=== PATIENT | female | born 1935 | race Caucasian/White ===

== ENCOUNTER → 2016-10-19 | Outpatient (CLI) | payer OTHER ==
[~2016-10-19] MED LIST: ACET-1256 PO; CALCTAB7 PO; CEFD300C2 PO; CHOL100027 PO; CRAN1CHW PO; CYAN500T PO; HYDR-3419 PO; METO25TA56 PO; MISCCAP80 PO; MULTTAB PO; RIVA1.5T PO; SLWMEC PO
[2016-10-19 13:59] LABS: CHOLESTEROL/HDL RATIO 2.5
== END | disposition home or self-care (01) ==
LOC: C.LABPVFM 15:07
PROVIDERS: ATTEND Nurse Practitioner Adult Health
DX: M81.0 Age-related osteoporosis without current pathological fracture (principal); C85.90 Non-Hodgkin lymphoma, unspecified, unspecified site; Z13.220 Encounter for screening for lipoid disorders

== ENCOUNTER 2016-11-24 08:33 | Emergency (ER) | payer OTHER ==
[~2016-11-24] VITALS: Ht 162.6 cm; Wt 61.5 kg
[~2016-11-24 08:33] MED LIST changes: -CEFD300C2 PO; -HYDR-3419 PO
[2016-11-24 08:43] VITALS: TEMP 36.9; Ht 162.6 cm; Wt 61.5 kg
[2016-11-24] MEDS ORDERED: SODIUM CHLORIDE 0.9% 1000ML 500 ML IV STA (09:06)
[2016-11-24] MEDS ORDERED: SODIUM CHLORIDE 0.9% 1000ML 1,000 ML IV ONE (09:06)
--- NOTE | 2016-11-24 09:13 | EMERGENCY ROOM VISIT NOTE ---
History Report prepared by Dany: Chelly Lockwood Under the Supervision of: Dr. Hemant Maldonado M.D. First contact with patient: 08:56 Chief Complaint: URINARY SYMPTOMS Stated Complaint: POSSIBLE UTI Nursing Triage Summary: Pt reports since this morning she has had symptoms that are consistent with when she gets a uti. Pt reports "i get this funny feeling down there and it goes up." pt reportS "i just know i have one." History of Present Illness The patient is an 81 year old female who presents to the Emergency Room with complaints of persistent urinary symptoms that began this morning. She currently rates her discomfort as a 3/10 in severity. The patient states that she last had a UTI around [place] time. She states that this morning she felt a strange feeling throughout her whole body and states that she wanted to get this taken care of prior it getting worse. The patient states that she has been experiencing back aches and a cough today. She denies any chest pain, shortness of breath, lightheadedness, dizziness, burning with urination, fevers , chills, nausea, vomiting, weakness, hematuria, hematochezia, melena, or recent falls. The patient notes a history of atrial fibrillation and Lymphoma. She states that she is on Xarelto for her atrial fibrillation. The patient states that she is currently undergoing maintenance chemotherapy for her Lymphoma. She states that her last treatment was three months ago, and states that her next treatment is scheduled for the beginning of December. The patient states that she has a port. She notes that she follows with Dr. Callahan, Oncology for her Lymphoma. Source of History: patient Onset: this morning Position: other (global) Symptom Intensity: 3/10 Quality: other (urinary symptoms) Timing: other (persistent) Associated Symptoms: + back pain, + cough, No SOB, No chest pain, No chills , No fevers, No hematochezia, No melena, No nausea, No vomiting, No weakness Note: Associated Symptoms: Strange feeling in body Review of Systems See HPI for pertinent positives & negatives. A total of 10 systems reviewed and were otherwise negative. 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 Nurse's notes were reviewed and I agree with. Family History Cancer Heart disease Hypertension Social History Smoking Status: Former Smoker Alcohol Use: occasionally Drug Use: none Marital Status: Housing Status: lives alone Occupation Status: retired Current/Historical Medications Scheduled Acetaminophen (Tylenol), 1,000 MG PO DAILY Calcium Carbonate-Vitamin D W/ (Caltrate 600 Plus), 1 TAB PO QAM Cefdinir (Omnicef), 1 CAP PO BID Cholecalciferol (Vitamin D 1000 Unit), 1,000 INTER.UNIT PO LUNCH Cranberry (Vaccinium Macrocarp (Cranberry Soft Chews), Unknown Dose PO DAILY Cyanocobalamin (Vitamin B-12), 500 MCG PO 2XW Magnesium Chloride (Mag64), 2 TABS PO TID Metoprolol Tartrate (Lopressor) (Lopressor), 25 MG PO DAILY Multivitamins/Minerals (Mvi With Minerals), 1 TAB PO QAM Probiotic Product (Probiotic), 1 CAP PO TID Rivaroxaban (Xarelto), 15 MG PO QAM Allergies Coded Allergies: Antihistamines, Diphenhydramine-typ (Verified Allergy, Severe, ALL ANTIHISTAMINES-"HYPER" FEELING, 11/24/16) Allopurinol (Verified Allergy, Intermediate, RASH-SEVERE ITCHING, 11/24/16) Physical Exam Vital Signs Date Time Temp Pulse Resp B/P Pulse Ox O2 Delivery O2 Flow Rate FiO2 11/24/16 11:40 50 18 148/69 98 11/24/16 10:34 46 18 166/68 99 Room Air 11/24/16 08:43 36.9 48 18 138/74 96 Room Air Physical Exam General: Well developed well nourished non-ill appearing older female in no acute distress, breathing comfortably on room air. Normal speech HEENT: Normal cephalic atraumatic. Pupils are equal round and reactive to light. Extraocular movements are intact. Oropharynx is pink with moist mucous membranes. No swelling of the mouth lips or tongue. Neck: Supple with a midline trachea. No meningeal signs or stiffness, no JVD or bruits. No Stridor. Chest wall: A port in left chest. Chest: Clear to auscultation bilaterally. No wheezes or rhonchi. No increased work of breathing. Heart: regular rate and rhythm. Abdomen: Soft nontender, nondistended without rebound guarding or rigidity. Extremities: No cyanosis clubbing or edema. No calf tenderness or assymetry Spine/Back. Non tender to palpation. No CVA tenderness Skin: Good turgor without rashes. Neurologic exam: Cranial nerves two through 12 are intact. Motor and sensation are intact and symmetrical throughout. Medical Decision & Procedures ER Provider Diagnostic Interpretation: X-ray results as stated below per interpretation by me and the radiologist: SINGLE VIEW CHEST CLINICAL HISTORY: Atypical chest pain. FINDINGS: An AP, portable, upright chest radiograph is compared to study dated 09/29/2016. The examination is degraded by portable technique and patient rotation. A left subclavian central venous infusion port is unchanged in position. The heart is enlarged and there is atherosclerotic calcification of the thoracic aorta. The pulmonary vasculature is noncongested. Chronic interstitial thickening similar to previous. No airspace consolidation, large pleural effusion, or pneumothorax is seen. The skeletal structures are osteopenic. The bony thorax is grossly intact. IMPRESSION: Cardiomegaly with no acute cardiopulmonary abnormality. Electronically signed by: Juan Medina M.D. 11/24/2016 10:06 AM Dictated Date/Time: 11/24/2016 10:06 AM Laboratory Results 11/24/16 09:45 Red Blood Count 3.43, Mean Corpuscular Volume 95.0, Mean Corpuscular Hemoglobin 31.5, Mean Corpuscular Hemoglobin Concent 33.1, Mean Platelet Volume 11.4, Neutrophils (%) (Auto) 82.1, Lymphocytes (%) (Auto) 6.6, Monocytes (%) (Auto) 9.0, Eosinophils (%) (Auto) 1.9, Basophils (%) (Auto) 0.2, Neutrophils # (Auto) 4.72, Lymphocytes # (Auto) 0.38, Monocytes # (Auto) 0.52, Eosinophils # (Auto) 0.11, Basophils # (Auto) 0.01 11/24/16 09:45 Test 11/24/16 09:00 11/24/16 09:45 11/24/16 09:49 Urine Color YELLOW Urine Appearance CLOUDY (CLEAR) Urine pH 5.0 (4.5-7.5) Urine Specific [place] 1.012 (1.000-1.030) Urine Protein 1+ (NEG) Urine Glucose (UA) NEG (NEG) Urine Ketones NEG (NEG) Urine Occult Blood 3+ (NEG) Urine Nitrite POS (NEG) Urine Bilirubin NEG (NEG) Urine Urobilinogen NEG (NEG) Urine Leukocyte Esterase LARGE (NEG) Urine WBC (Auto) >30 /hpf (0-5) Urine RBC (Auto) >30 /hpf (0-4) Urine Hyaline Casts (Auto) 1-5 /lpf (0-5) Urine Epithelial Cells (Auto) >30 /lpf (0-5) Urine Bacteria (Auto) 3+ (NEG) White Blood Count 5.75 K/uL (4.8-10.8) Red Blood Count 3.43 M/uL (4.2-5.4) Hemoglobin 10.8 g/dL (12.0-16.0) Hematocrit 32.6 % (37-47) Mean Corpuscular Volume 95.0 fL (80-100) Mean Corpuscular Hemoglobin 31.5 pg (25-34) Mean Corpuscular Hemoglobin Concent 33.1 g/dl (32-36) Platelet Count 153 K/uL (130-400) Mean Platelet Volume 11.4 fL (7.4-10.4) Neutrophils (%) (Auto) 82.1 % Lymphocytes (%) (Auto) 6.6 % Monocytes (%) (Auto) 9.0 % Eosinophils (%) (Auto) 1.9 % Basophils (%) (Auto) 0.2 % Neutrophils # (Auto) 4.72 K/uL (1.4-6.5) Lymphocytes # (Auto) 0.38 K/uL (1.2-3.4) Monocytes # (Auto) 0.52 K/uL (0.11-0.59) Eosinophils # (Auto) 0.11 K/uL (0-0.5) Basophils # (Auto) 0.01 K/uL (0-0.2) RDW Standard Deviation 48.2 fL (36.4-46.3) RDW Coefficient of Variation 13.9 % (11.5-14.5) Immature Granulocyte % (Auto) 0.2 % Immature Granulocyte # (Auto) 0.01 K/uL (0.00-0.02) Anion Gap 7.0 mmol/L (3-11) Est Creatinine Clear Calc Drug Dose 42.4 ml/min Estimated GFR () 69.5 Estimated GFR (Non- 60.0 BUN/Creatinine Ratio 35.9 (10-20) Calcium Level 8.8 mg/dl (8.5-10.1) Total Bilirubin 0.3 mg/dl (0.2-1) Direct Bilirubin < 0.1 mg/dl (0-0.2) Aspartate Amino Transf (AST/SGOT) 26 U/L (15-37) Alanine Aminotransferase (ALT/SGPT) 30 U/L (12-78) Alkaline Phosphatase 133 U/L (45-117) Total Protein 6.7 gm/dl (6.4-8.2) Albumin 3.2 gm/dl (3.4-5.0) Lipase 209 U/L (73-393) Bedside Troponin I 0.000 ng/ml (0-0.045) Laboratory studies as stated above per my review. Medications Administered Medications (Trade) Dose Ordered Sig/Adrian Route Start Time Stop Time Status Last Admin Dose Admin Sodium Chloride 500 ml @ 999 mls/hr Q31M STAT IV 11/24/16 09:06 11/24/16 09:36 DC 11/24/16 09:55 999 MLS/HR Sodium Chloride (Nss 1000ml) 1,000 ml @ 150 mls/hr Q6H40M ONCE IV 11/24/16 09:06 11/24/16 11:57 DC 11/24/16 10:33 150 MLS/HR Ceftriaxone Sodium (Rocephin Inj) 1 gm NOW STAT IV 11/24/16 10:30 11/24/16 10:32 DC 11/24/16 10:38 1 GM ECG Indication: other (urinary symptoms) Rate (beats per minute): 46 Rhythm: sinus bradycardia Findings: no acute ischemic change, no ectopy Comparison ECG Date: 09/29/16 Change: EKG Change: When compared to EKG on 09/29/16, rate has decreased. ED Course 0858: Past medical records reviewed. The patient was evaluated in room A12B, and a complete history and physical examination were performed. 0906: Ordered Sodium Chloride 1000 ml @ 150 mls/hr IV, Sodium Chloride 500 ml @ 999 mls/hr IV. 1030: Ordered Rocephin Inj 1 gm IV. 1032: I reevaluated the patient and she is resting comfortably. 1118: I reevaluated the patient and she is doing well. I discussed the exam findings with her and I discussed the treatment plan. She verbalized complete understanding and agreement. She is ready to go home. Medical Decision Differentials include, but are not limited to; UTI, pyelonephritis, arrhythmia, infection, anemia, electrolyte or metabolic abnormality. This patient comes in as described above. She was placed in room A 12. She is here for concern for urinary tract infection. She is a generalized weakness but has no UTI symptoms she says this is how she always feels which is UTI. She looks well on exam she has a complicated medical history and been treated for lymphoma. She has an a port. Her a port was accessed was hydrated with IV normal saline. EKG and multiple blood tests was obtained as well as urinalysis and culture. She was found of some sinus bradycardia which is chronic other she may be slightly more bradycardic. She is asymptomatic with this is normotensive. She has no significant electrolyte or metabolic abnormality and nothing to suggest sepsis. she has nothing to suggest pyonephritis clinically. Her urinalysis does suggest a UTI with a culture pending. She was given Rocephin 1 g IV and we'll send home on Omnicef 300 mg for 7 days she should rest and drink plenty of fluids return if: fever chills, not tolerating fluids, worsening of symptoms, any new problems concerns. Follow-up with her regular doctor Sunday for recheck or return here over the weekend if symptoms worsen Impression Primary Impression: Weakness Additional Impression: UTI (urinary tract infection) Scribe Attestation The scribe's documentation has been prepared under my direction and personally reviewed by me in its entirety. I confirm that the note above accurately reflects all work, treatment, procedures, and medical decision making performed by me. Departure Information Dispostion Home / Self-Care Prescriptions Cefdinir (OMNICEF) 300 Mg Cap 1 CAP PO BID for 7 Days, #14 CAP Prov: Hemant Maldonado M.D. 11/24/16 Referrals Pro,Marko Barroso M.D. (PCP) Forms HOME CARE DOCUMENTATION FORM, IMPORTANT VISIT INFORMATION Patient Instructions My [facility] [employer] Additional Instructions Rest. Drink plenty of fluids. Use Omnicef 300 mg twice a day for 7 daysantibiotic Return if: Worsening of symptoms, fever chills, lightheadedness or dizziness, back pain, any new problems or concerns Follow-up with your doctor Sunday for recheck or return to the ER over the weekend if symptoms worsen Problem Qualifiers
[2016-11-24 09:34] LABS: URINE APPEARANCE CLOUDY (CLEAR); URINE BILIRUBIN NEG (NEG); URINE COLOR YELLOW; URINE EPITHELIAL CELL AUTO >30 /lpf (0-5); URINE NITRITE POS (NEG); URINE SPECIFIC GRAVITY 1.012 (1.000-1.030); UROBILINOGEN NEG (NEG)
[2016-11-24 09:56] LABS: MANUAL MICROSCOPIC REQUIRED? NO; REVIEW REQ? NO
[2016-11-24 09:58] LABS: BASO % 0.2 %; BASO ABS # 0.01 K/uL (0-0.2); COMPLETE YES; EOS % 1.9 %; HEMATOCRIT 32.6 % (37-47); IG% 0.2 %; LYMPH % 6.6 %; LYMPH ABS # 0.38 K/uL (1.2-3.4); MEAN CORPUSCULAR HEMOGLOBIN 31.5 pg (25-34); MEAN CORPUSCULAR HGB CONC 33.1 g/dl (32-36); MEAN PLATELET VOLUME 11.4 fL (7.4-10.4); NEUT % 82.1 %; PLATELET COUNT 153 K/uL (130-400); RED BLOOD COUNT 3.43 M/uL (4.2-5.4); WHITE BLOOD COUNT 5.75 K/uL (4.8-10.8)
--- NOTE | 2016-11-24 10:08 | DIAGNOSTIC IMAGING REPORT ---
SINGLE VIEW CHEST CLINICAL HISTORY: Atypical chest pain. FINDINGS: An AP, portable, upright chest radiograph is compared to study dated 09/29/2016. The examination is degraded by portable technique and patient rotation. A left subclavian central venous infusion port is unchanged in position. The heart is enlarged and there is atherosclerotic calcification of the thoracic aorta. The pulmonary vasculature is noncongested. Chronic interstitial thickening similar to previous. No airspace consolidation, large pleural effusion, or pneumothorax is seen. The skeletal structures are osteopenic. The bony thorax is grossly intact. IMPRESSION: Cardiomegaly with no acute cardiopulmonary abnormality. Electronically signed by: Juan Medina M.D. 11/24/2016 10:06 AM Dictated Date/Time: 11/24/2016 10:06 AM
[2016-11-24 10:18] LABS: BLOOD UREA NITROGEN 32 mg/dl (7-18); BUN/CREATININE RATIO 35.9 (10-20); CALCIUM 8.8 mg/dl (8.5-10.1); CARBON DIOXIDE 23 mmol/L (21-32); CHLORIDE 114 mmol/L (98-107); GLUCOSE 76 mg/dl (70-99); POTASSIUM 4.7 mmol/L (3.5-5.1); SODIUM 144 mmol/L (136-145)
[2016-11-24 10:21] LABS: ALKALINE PHOSPHATASE 133 U/L (45-117); ALT/SGPT 30 U/L (12-78); AST/SGOT 26 U/L (15-37)
[2016-11-24] MEDS ORDERED: CEFTRIAXONE SOD INJ 1 GM ADDVIAL IV STA (10:30)
[2016-11-24] MEDS ORDERED: CEFD300C2 PO (10:57)
[2016-11-24 11:40] VITALS: BP 148/69; PULSE 50; O2SAT 98
== END 2016-11-24 11:41 | disposition home or self-care (01) ==
LOC: C.EDB 08:34 → C.EDA 11:41
DX: N39.0 Urinary tract infection, site not specified (principal); R53.1 Weakness; Z87.440 Personal history of urinary (tract) infections; R00.1 Bradycardia, unspecified; C85.90 Non-Hodgkin lymphoma, unspecified, unspecified site; I48.91 Unspecified atrial fibrillation; M81.0 Age-related osteoporosis without current pathological fracture; Z85.3 Personal history of malignant neoplasm of breast; Z90.710 Acquired absence of both cervix and uterus; Z87.891 Personal history of nicotine dependence; Z79.899 Other long term (current) drug therapy; Z88.8 Allergy status to other drugs, medicaments and biological substances; Z80.9 Family history of malignant neoplasm, unspecified; Z82.49 Family history of ischemic heart disease and other diseases of the circulatory system

== ENCOUNTER 2017-01-04 09:47 | Day surgery (SDC) | payer OTHER ==
[2016-12-19 13:51] VITALS: BMI 23.0
[~2017-01-04] VITALS: Ht 162.6 cm; Wt 60.9 kg
[~2017-01-04 09:47] MED LIST changes: +ATROPINE SULFATE 0.1 MG/ML 5ML SYR IV PRN; +EpHEDrine SULFATE INJ 50 MG/ML AMP IV PRN; +FENTANYL CITRATE INJ 50 MCG/1 ML 2 ML VIAL IV PRN; +HYDROmorphone INJ 1 MG/ML SYR IV PRN; +LACTATED RINGER'S 1000ML 1,000 ML IV SCH; +ONDANSETRON INJ 2 MG/ML 2 ML VIAL IV PRN
[2017-01-04 10:21] LABS: HEMATOCRIT 35.7 % (37-47); MEAN CELL VOLUME 95.5 fL (80-100); MEAN CORPUSCULAR HEMOGLOBIN 30.7 pg (25-34); MEAN PLATELET VOLUME 10.8 fL (7.4-10.4); PLATELET COUNT 152 K/uL (130-400); RED BLOOD COUNT 3.74 M/uL (4.2-5.4); WHITE BLOOD COUNT 7.51 K/uL (4.8-10.8)
[2017-01-04 10:26] VITALS: BP 194/80; PULSE 56; TEMP 36.4; O2SAT 97; Ht 162.6 cm; Wt 60.9 kg
[2017-01-04 10:32] LABS: MEAN CORPUSCULAR HGB CONC 32.2 g/dl (32-36)
[2017-01-04] MEDS ORDERED: LIDOCAINE HCL 2% 2 ML VIAL (20MG/ML) ONE (10:59)
[2017-01-04] MEDS ORDERED: PROPOFOL IV EMULSION 10 MG/ML 20 ML VIAL IV ONE (10:59)
[2017-01-04] MEDS ORDERED: DEXAMETHASONE SOD INJ 4 MG/ML VIAL ONE ×2 (10:59→13:23)
[2017-01-04] MEDS ORDERED: ONDANSETRON INJ 2 MG/ML 2 ML VIAL ONE (10:59)
[2017-01-04] MEDS ORDERED: FENTANYL CITRATE INJ 50 MCG/1 ML 2 ML VIAL ONE (11:00)
--- NOTE | 2017-01-04 11:31 | History & Physical Bridge Note ---
H&P Re-Evaluation Bridge Note: I have examined the patient, reviewed the History & Physical and in the interval since the performance of the History & Physical I have noted the following changes of clinical significance: No changes noted family at bedside
[2017-01-04] MEDS ORDERED: HYDR-3419 PO (11:32)
--- NOTE | 2017-01-04 11:34 | Discharge Instructions ---
Discharge Instructions Date of Service Jan 04, 2017. Visit Reason for Visit: Left Chest Wall Skin Lesion, Port-A-Cath In Place Discharge Discharge Diagnosis / Problem: skin excision, A-port Discharge Goals Goal(s): Increase independence Activity Recommendations Activity Limitations: as noted below Shower/Bathe: tomorrow Driving or Machine Use: ok to drive if not taking Vicodin Anesthesia . Post Anesthesia Instructions: If you have had General Anesthesia or IV Sedation: * Do not drive today. * Resume driving when surgeon permits. * Do not make important decisions or sign legal documents today. * Call surgeon for: 1. Temperature elevations greater than 101 degrees F. 2. Uncontrollable pain. 3. Excessive bleeding. 4. Persistent nausea and vomiting. 5. Medication intolerance (nausea, vomiting or rash). * For nausea and vomiting use only clear liquids such as: tea, soda, bouillon until nausea subsides, then gradually increase diet as tolerated. * If you have any concerns or questions, call your surgeon's office. If physician is unavailable and it is an emergency, call 911 or go to the nearest emergency room. . Instructions / Follow-Up Instructions / Follow-Up Dr. Martin in 1 week, call [phone] if you need to schedule or for any questions Diet Recommendations Recommended Home Diet: no limitations Pending Studies Studies pending at discharge: no Medical Emergencies . Who to Call and When: Medical Emergencies: If at any time you feel your situation is an emergency, please call 911 immediately. . Non-Emergent Contact Non-Emergency issues call your: Surgeon Call Non-Emergent contact if: you have a fever, temperature is above 101.5, your pain is not controlled, wound has increased drainage, wound has increased redness, wound has increased pain, you have any medication questions . . "Provider Documentation" section prepared by Darwin Agarwal.
[2017-01-04] MEDS ORDERED: LIDOCAINE/EPINEPHRINE 1% 20 ML VIAL ONE (11:51)
[2017-01-04] MEDS ORDERED: LIDOCAINE HCL 1% 20 ML VIAL ONE (11:51)
[2017-01-04] MEDS ORDERED: BACITRACIN 50000 UNIT VIAL ONE (11:52)
[2017-01-04] MEDS ORDERED: BACITRACIN OINT 15 GM TUBE ONE (11:52)
[2017-01-04] MEDS ORDERED: BUPIVACAINE 0.5 % 5 MG/1 ML MPF 30ML VIAL ONE (11:52)
[2017-01-04] MEDS ORDERED: CEFAZOLIN SOD 1 GM VIAL ONE (12:27)
--- NOTE | 2017-01-04 13:19 | [facility] Post Operative Brief Note ---
Immediate Operative Summary Operative Date Jan 04, 2017. Pre-Operative Diagnosis 1cmraised lesion left ant chest wall on top of infusaport Post-Operative Diagnosis by frozen section basal caeel vs squamous cell combo Procedure(s) Performed wide excision lesion and repositioning infusaport Surgeon Dr. Jose Martin Shank Paperer Surgeon(s) 0 Estimated Blood Loss 1 Findings as above Specimens lesion to path
--- NOTE | 2017-01-04 13:43 | Anesthesiology Progress Note ---
Anesthesia Post Op Note Date & Time Jan 04, 2017 at 13:43 Vital Signs Pain Intensity: 0 Vital Signs Past 12 Hours Date Time Temp Pulse Resp B/P Pulse Ox O2 Delivery O2 Flow Rate FiO2 01/04/17 13:35 47 16 178/77 97 Nasal Cannula 3 01/04/17 13:25 45 16 170/70 98 Nasal Cannula 3 01/04/17 13:15 49 16 170/80 98 Mask 10 01/04/17 13:11 36.0 52 16 172/71 97 Mask 10 01/04/17 10:26 36.4 56 20 194/80 97 Room Air Notes Mental Status: alert / awake / arousable, participated in evaluation Pt Amnestic to Procedure: Yes Nausea / Vomiting: adequately controlled Pain: adequately controlled Airway Patency, RR, SpO2: stable & adequate BP & HR: stable & adequate Hydration State: stable & adequate Anesthetic Complications: no major complications apparent
[2017-01-04 13:55] VITALS: BP 178/73; PULSE 56; TEMP 36.6; O2SAT 94
--- NOTE | 2017-01-04 14:20 | OPERATIVE REPORT ---
DATE OF OPERATION: 01/04/2017 PREOPERATIVE DIAGNOSIS: Lesion anterior chest on top of the access port ([id number]) suspicious for a squamous cell. 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 PROCEDURE: Wide excision of skin lesion anterior chest wall and reposition of the A-port. SURGEON: Dr. Martin. SUMMARY: The patient was brought into the operating room theater. Under general anesthesia we prepped both chest wall areas. The patient is very thin and she had a 1 cm raised lesion with a central core of obviously bleeding in the past right on top of the A-port. The patient's A-port had been in for approximately 15 years and it was still functional. She was infusing. At this point, we elected to remove the lesion, but due to the fact that this was on top of the port once we would take wide margins of this lesion we needed to reposition the A-port. Therefore, at this point, once we prepped the area systemic antibiotics was given. I made a transverse incision elliptically marking the cardinal points A, B, C and D. A with a long black suture, B with a short black silk. We elliptically incised beyond the gross aspect of the lesion all the way to the subcutaneous tissue. This was actually free from the A-port itself, pseudocapsule that was on top of the A-port was still intact and a plane of dissection between the two was easily developed. Once we had the specimen out we sent it for frozen section. In the meantime what I did, I needed to reposition the A-port. Therefore, we kept the capsule pretty much intact and freed it up to the point that we maneuvered it from that previous position in the [facility] area by creating another pocket that was amendable to access the port without actually showing any kinking of the catheter itself. Prior to doing that, we aspirated the access port making sure that it that functional. I would not aspirate but it would infuse very easily and this is what the patient was doing, therefore we had no change in that position. Once a pocket was created we sutured it in place in 2 places with a nylon suture to keep it from rotating. In the meantime, I went over the pathology and they sent the frozen section report was probably a cross between a basal cell and squamous cell and the margins were grossly negative. At this point, I closed the wound in multiple layers using 2-0 and 3-0 Dexon and 4-0 Monocryl, Steri-Strips applied. Prior to closing, we aspirated and flushed the port percutaneously and appeared to be satisfactory. Steri-Strips were applied, 4 x 4 and Op-Site was applied. We will see the patient in approximately 1 week. Estimated blood loss approximately 1 mL. I attest to the content of the Intraoperative Record and any orders documented therein. Any exceptio ns are noted below.
[2017-01-04 14:25] VITALS: BP 168/73; PULSE 54; O2SAT 95
[2017-01-04 14:55] VITALS: BP 167/76; PULSE 64; TEMP 36.5; O2SAT 94
== END 2017-01-04 14:55 | disposition home or self-care (01) ==
LOC: C.ACU 09:47
PROVIDERS: ATTEND Surgery
DX: C44.529 Squamous cell carcinoma of skin of other part of trunk (principal); Z45.2 Encounter for adjustment and management of vascular access device; C85.90 Non-Hodgkin lymphoma, unspecified, unspecified site; D64.9 Anemia, unspecified; I35.0 Nonrheumatic aortic (valve) stenosis; J40 Bronchitis, not specified as acute or chronic; M81.0 Age-related osteoporosis without current pathological fracture

== ENCOUNTER 2017-03-22 10:01 | Emergency (ER) | payer OTHER ==
[~2017-03-22] VITALS: Ht 162.6 cm; Wt 62.4 kg
[~2017-03-22 10:01] MED LIST changes: -ACET-1256 PO; -ATROPINE SULFATE 0.1 MG/ML 5ML SYR IV PRN; -EpHEDrine SULFATE INJ 50 MG/ML AMP IV PRN; -FENTANYL CITRATE INJ 50 MCG/1 ML 2 ML VIAL IV PRN; +HYDR-3419 PO; -HYDROmorphone INJ 1 MG/ML SYR IV PRN; -LACTATED RINGER'S 1000ML 1,000 ML IV SCH; -ONDANSETRON INJ 2 MG/ML 2 ML VIAL IV PRN; -RIVA1.5T PO
[2017-03-22 10:03] VITALS: TEMP 36.4; Ht 162.6 cm; Wt 62.4 kg
[2017-03-22] MEDS ORDERED: RIVA1.5T PO (10:17)
--- NOTE | 2017-03-22 10:30 | EMERGENCY ROOM VISIT NOTE ---
History Report prepared by Dany: Argenis Jonas Under the Supervision of: Dr. Harvey Rob M.D. First contact with patient: 10:15 Chief Complaint: SHOULDER PAIN Stated Complaint: SHOULDER PAIN History of Present Illness The patient is an 81 year old female who presents to the Emergency Room with complaints of worsening right shoulder pain that started 2 weeks ago. The patient states that the pain started after she was trying to start the straightener and aligner. The pain is worse with movement. She denies any numbness in her right hand along with any pain in her right elbow or right wrist. The patient states that she just needs an x-ray. Source of History: patient Onset: 2 weeks ago Position: shoulder (right) Quality: other (right shoulder pain) Timing: worsening Modifying Factors (Worsening): movement Associated Symptoms: No numbness Note: no right elbow or wrist pain Review of Systems See HPI for pertinent positives & negatives. A total of 10 systems reviewed and were otherwise negative. Past Medical & Surgical Medical Problems: (1) Acute bronchopneumonia (2) Atrial fibrillation (3) Carcinoma of breast (4) FEBRILE ILL., SEVERE ALLERGIC RXN(ALLOPURINOL) NHL (5) Hysterectomy (6) Lymphoma (7) Non-Hodgkin's lymphoma (8) Osteoporosis (9) PANCOLITIS, ?BILIARY DISEASE,NHL,PAF (10) PANCOLITIS, ?GALLBLDDER DISEASE, DEHYD, NHL, PAF (11) Pneumonia (12) Urinary tract infection Family History Cancer Heart disease Hypertension Social History Smoking Status: Former Smoker Alcohol Use: occasionally Drug Use: none Marital Status: Housing Status: lives alone Occupation Status: retired Current/Historical Medications Scheduled Calcium Carbonate-Vitamin D W/ (Caltrate 600 Plus), 1 TAB PO QAM Cholecalciferol (Vitamin D 1000 Unit), 1,000 INTER.UNIT PO LUNCH Cranberry (Vaccinium Macrocarp (Cranberry Soft Chews), 1 TAB PO QAM Cyanocobalamin (Vitamin B-12), 500 MCG PO 2XW Magnesium Chloride (Slow-Mag Tab), 2 TABS PO TID Metoprolol Tartrate (Lopressor) (Lopressor), 25 MG PO BID Multivitamins/Minerals (Mvi With Minerals), 1 TAB PO QAM Probiotic Product (Probiotic), 1 CAP PO TID Rivaroxaban (Xarelto), 15 MG PO QAM Allergies Coded Allergies: Antihistamines, Diphenhydramine-typ (Verified Allergy, Severe, ALL ANTIHISTAMINES-"HYPER" FEELING, 03/22/17) Allopurinol (Verified Allergy, Intermediate, RASH-SEVERE ITCHING, 03/22/17) Physical Exam Vital Signs Date Time Temp Pulse Resp B/P (MAP) Pulse Ox O2 Delivery O2 Flow Rate FiO2 03/22/17 11:26 57 16 132/66 97 03/22/17 10:03 36.4 48 18 141/73 97 Room Air Physical Exam GENERAL: Patient is a healthy-appearing well-nourished female HEAD: Normocephalic atraumatic EYES: Ocular movements intact pupils equal and react to light OROPHARYNX mucous membranes are moist no exudates present no erythema or edema present NECK: Supple no nuchal rigidity CHEST: Good equal expansion LUNGS: Clear and equal to auscultation CARDIAC: Normal S1 and S2 ABDOMEN: Soft nontender no guarding BACK: No CVA tenderness EXTREMITIES: Pain with range of motion of right shoulder, good range of motion of the right elbow and right wrist, right hand neurovascularly intact, no rash or evidence of cellulitis, normal muscle strength in all groups no clubbing cyanosis or edema NEURO: Patient is following commands and answering questions appropriately. Alert and oriented x3 Cranial Nerves 2-12 grossly intact Medical Decision & Procedures ER Provider Diagnostic Interpretation: Radiology results as stated below per my review and radiologist interpretation: RIGHT SHOULDER MIN 2 VIEWS ROUTINE DISCUSSION: No fractures or subluxations are visualized. There are no visible particular calcifications. The bones are mildly osteopenic. There is an old right-sided rib fracture. IMPRESSION: Osteopenia. No acute fractures or dislocations identified. Electronically signed by: Manish Zacarias M.D. 03/22/2017 10:46 AM Dictated Date/Time: 03/22/2017 10:45 AM ED Course 1017: Past medical records reviewed. The patient was evaluated in room B10. A complete history and physical examination was performed. 1054: Upon reexamination the patient is doing well. I discussed results and treatment plan with the patient. She verbalizes agreement and understanding. The patient will be evaluated for further management. Medical Decision Differential diagnosis: Etiologies such as fracture, dislocation, neurovascular compromise, compartment syndrome, soft tissue injury, as well as others were entertained. Medication Reconciliation: I attest that I have personally reviewed the patient' s current medication list Blood Pressure Screening: Patient was found to have an elevated blood pressure and was referred to their primary care doctor for recheck and further treatment This is an 81-year-old female who presents emergency department complaining of right shoulder pain. The patient has pain with range of motion to the right shoulder. This started after trying to start her lawnmower. She has good range of motion of the elbow and wrist. I do believe that the patient's pain is muscle skeletal nature. She was sent for x-rays which do not show any evidence of acute fracture dislocation or subluxation. I'm going to place the patient sling for follow-up with orthopedics. Patient was in agreement with the treatment plan. Impression Primary Impression: Shoulder pain, right Scribe Attestation The scribe's documentation has been prepared under my direction and personally reviewed by me in its entirety. I confirm that the note above accurately reflects all work, treatment, procedures, and medical decision making performed by me. Departure Information Dispostion Home / Self-Care Referrals Marko Dennis M.D. (PCP) Forms HOME CARE DOCUMENTATION FORM, IMPORTANT VISIT INFORMATION Patient Instructions ED Shoulder Pain [facility], ED Sling, [facility] Additional Instructions Follow up with Dr Hdz's office You were found to have an elevated blood pressure today (>120 sytolic or >90 diastolic). Per medicare guidelines, you need to follow up with this blood pressure screening with your Primary Care Physician (PCP). For a new PCP call [phone]. You have been examined and treated today on an emergency basis only. This is not a substitute for, or an effort to provide, complete comprehensive medical care. It is impossible to recognize and treat all injuries or illnesses in a single emergency department visit. It is therefore important that you follow up closely with Dr Dennis. Call as soon as possible for an appointment. Thank you for your time and consideration. I look forward to speaking with you again soon. Please don't hesitate to call us if you have any questions. Problem Qualifiers Primary Impression: Shoulder pain, right Chronicity: acute Qualified Codes: M25.511 - Pain in right shoulder
--- NOTE | 2017-03-22 10:47 | DIAGNOSTIC IMAGING REPORT ---
RIGHT SHOULDER MIN 2 VIEWS ROUTINE CLINICAL HISTORY: Right shoulder pain. Trauma. COMPARISON: None. DISCUSSION: No fractures or subluxations are visualized. There are no visible particular calcifications. The bones are mildly osteopenic. There is an old right-sided rib fracture. IMPRESSION: Osteopenia. No acute fractures or dislocations identified. Electronically signed by: Manish Zacarias M.D. 03/22/2017 10:46 AM Dictated Date/Time: 03/22/2017 10:45 AM
[2017-03-22 11:26] VITALS: BP 132/66; PULSE 57; O2SAT 97
== END 2017-03-22 11:26 | disposition home or self-care (01) ==
LOC: C.EDB 10:02
DX: M25.511 Pain in right shoulder (principal); I48.91 Unspecified atrial fibrillation; M81.0 Age-related osteoporosis without current pathological fracture; Z85.72 Personal history of non-Hodgkin lymphomas; Z85.3 Personal history of malignant neoplasm of breast; Z87.891 Personal history of nicotine dependence; Z90.710 Acquired absence of both cervix and uterus

== ENCOUNTER → 2017-06-19 | Outpatient (CLI) | payer OTHER ==
[~2017-06-19] MED LIST changes: -HYDR-3419 PO; +RIVA1.5T PO
--- NOTE | 2017-06-20 14:20 | MAMMOGRAPHY REPORT ---
BILATERAL DIGITAL SCREENING MAMMOGRAM TOMOSYNTHESIS WITH CAD: 06/19/2017 CLINICAL HISTORY: Asymptomatic. Personal history of breast cancer. TECHNIQUE: Breast tomosynthesis in addition to standard 2D mammography was performed. Current study was also evaluated with a Computer Aided Detection (CAD) system. COMPARISON: Comparison is made to exams dated: 06/06/2016 mammogram, 06/01/2015 mammogram, 05/22/2014 m ammogram, 05/20/2013 mammogram, and 05/14/2012 mammogram - [facility]. BREAST COMPOSITION: The tissue of both breasts is heterogeneously dense, which may obscure small mas ses. FINDINGS: Linear scar markers overlie both breasts, denoting areas of prior surgery. There are stabl e diffuse bilateral microcalcifications. No new suspicious mass, unexpected architectural distortion or cluster of microcalcifications is seen. IMPRESSION: ACR BI-RADS CATEGORY 1: NEGATIVE There is no mammographic evidence of malignancy. A 1 year screening mammogram is recommended. The pa tient will receive written notification of the results. Approximately 10% of breast cancers are not detected with mammography. A negative mammographic report should not delay biopsy if a clinically suggestive mass is present. Camryn Rico M.D. ay/:06/19/2017 18:01:43 Japanese Tutor: Tati HECK)(Briseida), [facility] letter sent: Normal 1/2 BI-RADS Code: ACR BI-RADS Category 1: Negative
== END | disposition home or self-care (01) ==
LOC: C.MAMM 10:16
PROVIDERS: ATTEND Internal Medicine
DX: Z12.31 Encounter for screening mammogram for malignant neoplasm of breast (principal)

== ENCOUNTER → 2017-07-11 | Outpatient (CLI) | payer OTHER ==
[~2017-07-11] MED LIST changes: +OPTIRAY 320 IV PRN
--- NOTE | 2017-07-11 16:43 | DIAGNOSTIC IMAGING REPORT ---
CT SCAN OF THE ABDOMEN AND PELVIS WITH IV CONTRAST CLINICAL HISTORY: Non-Hodgkin's lymphoma. COMPARISON STUDY: Abdominal CT dated 09/29/2016. TECHNIQUE: Following the IV administration of 95 cc of Optiray 320, CT scan of the abdomen and pelvis is performed from the lung bases to the proximal femora. Images reviewed in the axial, sagittal, and coronal planes. IV contrast was administered without complication. A dose lowering technique was utilized adhering to the principles of ALARA there is FINDINGS: Lung bases: Midline sternotomy wires are noted. The heart is enlarged and there is a small pericardial effusion. The coronary arteries are calcified. A fat-containing Bochdalek hernia is seen at the left lung base. No airspace consolidation or pleural effusion is identified. Basilar scarring versus atelectasis is noted. Liver: The contrast-enhanced liver is normal in size, contour, and attenuation. There is mild central intrahepatic biliary ductal dilatation suggested. The hepatic veins and portal veins are patent. Gallbladder: Not identified and presumed surgically absent. Spleen: Normal in size and attenuation, measuring 9.7 cm in length. Pancreas: The pancreas is mildly atrophic and grossly unremarkable. Adrenal glands: Unremarkable. Kidneys: The contrast-enhanced kidneys demonstrate mild cortical atrophy and are without hydronephrosis. The kidneys enhance symmetrically. A subcentimeter cortical hypodensity in the left upper pole likely represents a cyst but is too small for definitive characterization. Abdominal vasculature: The abdominal aorta is normal in course and caliber noting advanced atherosclerotic calcification. Bowel: There is no bowel obstruction. There is moderate to severe constipation. The appendix is well-visualized and normal. Peritoneum: There is trace perisplenic fluid identified. No intraperitoneal free air is seen. Lymphadenopathy: There are scattered retroperitoneal lymph nodes which are not pathologically enlarged by size criteria. The largest measures 7 mm short axis as seen on image #134. There are no pathologically enlarged upper abdominal, mesenteric, iliac chain, pelvic sidewall, or inguinal lymph nodes. Pelvic viscera: The bladder is normal as visual. The uterus is surgically absent. No adnexal lesion is seen. Skeletal structures: The skeletal structures are osteopenic. No lytic or blastic bony lesions are seen. There is a moderate to severe compression deformity of L1, unchanged from previous. There is mild lumbosacral spondylosis. Healed rib fractures are noted. IMPRESSION: 1. No pathologically enlarged lymph nodes are identified in the abdomen or pelvis. The remaining retroperitoneal lymph nodes are all subcentimeter in short axis. 2. The spleen is normal in size. 3. Moderate to severe constipation. 4. Cardiomegaly and small pericardial effusion. 5. Trace perisplenic fluid is similar to previous. 6. Additional findings as detailed above. Electronically signed by: Juan Medina M.D. 07/11/2017 4:42 PM Dictated Date/Time: 07/11/2017 4:33 PM
--- NOTE | 2017-07-11 17:25 | DIAGNOSTIC IMAGING REPORT ---
CT SCAN OF THE CHEST WITH IV CONTRAST CLINICAL HISTORY: Non-Hodgkin's lymphoma. COMPARISON STUDY: PET/CT dated 02/25/2012. PET/CT dated 12/27/2015. TECHNIQUE: Following the IV administration of 95 cc of Optiray 320, CT scan of the thorax was performed from the thoracic inlet to the upper abdomen. Images are reviewed in the axial, sagittal, and coronal planes. IV contrast was administered without complication. A dose lowering technique was utilized adhering to the principles of ALARA. CT DOSE: 598.97 mGy.cm FINDINGS: Thyroid: Imaged portions of the thyroid gland are normal in size and attenuation. Thoracic aorta: There is atherosclerotic calcification of the thoracic aorta, which is normal in caliber and demonstrates standard 3-vessel arch anatomy. No dissection is seen. A left subclavian central venous infusion port is in place. Pulmonary vasculature: The pulmonary trunk is normal in caliber. There are no filling defects identified in the central pulmonary vessels to indicate pulmonary embolus. Note that this examination was not protocoled for evaluation of the pulmonary arteries. Heart: The heart is enlarged and there is a small pericardial effusion. The coronary arteries are densely calcified. Lungs and pleural spaces: Mild emphysematous change is observed. A fat-containing Bochdalek hernia is seen at the left lung base. No airspace consolidation or pleural effusion is identified. Linear atelectasis versus scarring is present the lung bases. The trachea and central airways are clear. There are scattered calcified granulomas. Mediastinum: There is no mediastinal lymphadenopathy. Basia: Clear. Axillae: There is no axillary lymphadenopathy. Upper abdomen: Trace perisplenic fluid is noted. Partially visualized upper abdominal viscera is otherwise within normal limits. Skeletal structures: The skeletal structures are osteopenic. There are healed bilateral rib fractures. Degenerative change and mild hyperkyphosis are noted in the thoracic spine. A moderate to severe compression deformity is again noted in L1. No lytic or blastic bony lesions are seen. IMPRESSION: 1. There are no pathologically enlarged lymph nodes identified in the thorax. 2. No airspace consolidation or pleural effusion is seen. 3. Cardiomegaly and mild emphysema. 4. Trace perisplenic fluid is again seen. 5. Additional findings as above. Electronically signed by: Juan Medina M.D. 07/11/2017 5:24 PM Dictated Date/Time: 07/11/2017 5:18 PM
== END | disposition home or self-care (01) ==
LOC: C.CTS 15:14
PROVIDERS: ATTEND Internal Medicine Hematology & Oncology
DX: C85.10 Unspecified B-cell lymphoma, unspecified site (principal); K59.00 Constipation, unspecified

== ENCOUNTER → 2017-08-23 | Outpatient (CLI) | payer OTHER ==
[~2017-08-23] MED LIST changes: -OPTIRAY 320 IV PRN
--- NOTE | 2017-08-23 17:24 | DIAGNOSTIC IMAGING REPORT ---
A-PORT CHECK HISTORY: 81 years-old Female POOR FLUSH decreased flushing of left subclavian Simgrk-v-Jcrv catheter COMPARISON: CT chest 07/11/2017 TECHNIQUE: Single spot fluoroscopic image of the chest was submitted status post Bbpmyt-t-[id number] catheter evaluation. 5 mL Optiray 300 contrast was administered. Technologist did not report fluoroscopy time. FINDINGS: Injecting contrast into the port was met with much resistance and increased force was applied to the syringe in order to inject the contrast. There was however no extravasation of contrast into the soft tissues outside the confines of the catheter. Contrast spilling at the distal tip of the catheter was seen into the SVC. The patient tolerated the procedure well. There were no immediate postprocedural complications. IMPRESSION: Patent Lllqct-a-Ilwk catheter The above report was generated using voice recognition software. It may contain grammatical, syntax or spelling errors. Electronically signed by: Ori Whaley M.D. 08/23/2017 5:22 PM Dictated Date/Time: 08/23/2017 4:17 PM
== END | disposition home or self-care (01) ==
LOC: C.RAD 14:20
PROVIDERS: ATTEND Internal Medicine Hematology & Oncology
DX: C85.10 Unspecified B-cell lymphoma, unspecified site (principal)

== ENCOUNTER → 2017-09-04 | Outpatient (CLI) | payer OTHER ==
[~2017-09-04] MED LIST changes: +OPTIRAY 320 IV PRN
--- NOTE | 2017-09-04 12:31 | DIAGNOSTIC IMAGING REPORT ---
CT SCAN OF THE ABDOMEN AND PELVIS WITH IV CONTRAST CLINICAL HISTORY: Non-Hodgkin's lymphoma. COMPARISON STUDY: Prior abdominal CT scans, most recently dated 07/11/2017. TECHNIQUE: Following the IV administration of 95 cc of Optiray 320, CT scan of the abdomen and pelvis is performed from the lung bases to the proximal femora. Images reviewed in the axial, sagittal, and coronal planes. IV contrast was administered without complication. A dose lowering technique was utilized adhering to the principles of ALARA. The examination is degraded by motion artifact, as well as by streak artifact from the arms which could not be elevated above the abdomen. FINDINGS: Lung bases: Midline sternotomy wires are noted. The heart is mildly enlarged and there is trace pericardial fluid. The coronary arteries are calcified. A fat-containing Bochdalek hernia is seen at the left lung base. No airspace consolidation or pleural effusion is identified. Basilar scarring versus atelectasis is noted. Liver: The contrast-enhanced liver is normal in size, contour, and attenuation. There is mild central intrahepatic biliary ductal dilatation suggested. The hepatic veins and portal veins are patent. Gallbladder: A fluid containing structure along the anterior margin of liver seen on image #102 likely represents the gallbladder. Spleen: Normal in size and attenuation, measuring 9.7 cm in length. Pancreas: The pancreas is mildly atrophic and grossly unremarkable. Adrenal glands: Unremarkable. Kidneys: The contrast-enhanced kidneys demonstrate mild cortical atrophy and are without hydronephrosis. The kidneys enhance symmetrically. A subcentimeter cortical hypodensity in the left upper pole likely represents a cyst but is too small for definitive characterization. Abdominal vasculature: The abdominal aorta is normal in course and caliber noting advanced atherosclerotic calcification. Bowel: Moderate constipation is observed. No bowel obstruction is seen. The appendix is well-visualized and normal. Peritoneum: No intraperitoneal free air or abdominal ascites is seen. Lymphadenopathy: There are scattered retroperitoneal lymph nodes which are not pathologically enlarged by size criteria. The largest measures 5 mm short axis as seen on image #151. There are no pathologically enlarged upper abdominal, mesenteric, iliac chain, pelvic sidewall, or inguinal lymph nodes. Pelvic viscera: The bladder is normal as visual. The uterus is surgically absent. No adnexal lesion is seen. Skeletal structures: The skeletal structures are osteopenic. No lytic or blastic bony lesions are seen. There is a moderate to severe compression deformity of L1, unchanged from previous. There is mild lumbosacral spondylosis. Healed rib fractures are noted. IMPRESSION: 1. No pathologically enlarged lymph nodes are identified in the abdomen or pelvis. The remaining retroperitoneal lymph nodes are all subcentimeter in short axis, and this is unchanged from study performed 07/11/2017. 2. The spleen is normal in size. 3. Moderate constipation. 4. Additional findings as detailed above. Electronically signed by: Juan Medina M.D. 09/04/2017 12:30 PM Dictated Date/Time: 09/04/2017 12:20 PM
--- NOTE | 2017-09-04 12:32 | DIAGNOSTIC IMAGING REPORT ---
CT NECK WITH INTRAVENOUS CONTRAST HISTORY: NON HODGKIN'S LYMPHOMA TECHNIQUE: Multiaxial CT images of the neck were performed following the use of intravenous contrast. COMPARISON STUDY: PET CT 12/27/2015. FINDINGS: The visualized brain parenchyma and orbits are unremarkable. The major mucosal airway surfaces are intact. Prevertebral soft tissues and the epiglottis are normal in thickness. The thyroid enhances normally. No cervical lymphadenopathy. No fluid collections or masses identified within the neck. The parotid and submandibular glands are symmetric. The major cervical vessels enhance normally. No suspicious lytic or blastic osseous lesions. Mild degenerative changes seen within the cervical spine. Posterior fusion defect at C1 which is developmental. IMPRESSION: No cervical lymphadenopathy. Electronically signed by: Solomon Fam M.D. 09/04/2017 12:31 PM Dictated Date/Time: 09/04/2017 12:27 PM
--- NOTE | 2017-09-04 13:28 | DIAGNOSTIC IMAGING REPORT ---
(CHEST) THORAX WITH CLINICAL HISTORY: 81 years-old Female presenting with NON HODGKINS LYMPHOMA. TECHNIQUE: Multidetector CT imaging of the chest was performed after the administration of intravenous contrast. IV contrast: 95 mL of Optiray 320. A dose lowering technique was used consistent with the principles of ALARA (as low as reasonably achievable). COMPARISON: 07/11/2017. CT DOSE (mGy.cm): The estimated cumulative dose is 825.[address] abdomen and pelvis. FINDINGS: Java Developer topogram: Left subclavian Mediport. On soft tissue windows, the left subclavian Mediport terminates in the upper SVC. Normal thyroid. No axillary, supraclavicular, hilar, or mediastinal lymphadenopathy. Atherosclerosis of the aorta. Multichamber enlargement of the heart. Aortic valve and coronary artery calcification. No pericardial or pleural effusion. Upper abdomen normal. On lung windows, minimal dependent changes likely atelectasis. Bandlike opacity at the left lung base likely scarring or atelectasis. Patchy groundglass opacity in the lingula unchanged from prior. Minimal subpleural reticulation along the anterior aspect of the right upper lobe. Punctate nodule in the superior segment of the right lower lobe (series 9 image 106). Mosaic attenuation at the lung bases could suggest small airways disease. Airways patent. On bone windows, few old right rib fractures noted. Anterior compression deformity of L1. This is unchanged from the most recent prior exam. Osteopenia. IMPRESSION: 1. No lymphadenopathy to suggest intrathoracic involvement of lymphoma. 2. Minimal patchy opacities in the lungs likely represent scarring and/or atelectasis. 3. Chronic compression deformity of L1 with underlying osteopenia. Center 4. Cardiomegaly. Electronically signed by: Pablo Higginbotham M.D. 09/04/2017 1:26 PM Dictated Date/Time: 09/04/2017 1:18 PM
== END | disposition home or self-care (01) ==
LOC: C.CTS 11:28
PROVIDERS: ATTEND Internal Medicine Hematology & Oncology
DX: C85.10 Unspecified B-cell lymphoma, unspecified site (principal)

== ENCOUNTER → 2017-09-08 | Outpatient (CLI) | payer OTHER ==
[~2017-09-08] MED LIST changes: -OPTIRAY 320 IV PRN
[2017-09-08 13:07] LABS: CHOLESTEROL/HDL RATIO 2.3
== END | disposition home or self-care (01) ==
LOC: C.LABPVFM 13:38
PROVIDERS: ATTEND Internal Medicine
DX: Z13.220 Encounter for screening for lipoid disorders (principal); M81.0 Age-related osteoporosis without current pathological fracture

== ENCOUNTER 2017-11-03 06:47 | Emergency (ER) | payer OTHER ==
[~2017-11-03] VITALS: Ht 162.6 cm; Wt 62.2 kg
[2017-11-03 06:51] VITALS: TEMP 36.4; Ht 162.6 cm; Wt 62.2 kg
[2017-11-03] MEDS ORDERED: ACETAMINOPHEN 500 MG TAB PO STA (07:02)
[2017-11-03] MEDS ORDERED: FAMOTIDINE 20MG/5ML IV PUSH IV STA (07:02)
[2017-11-03] MEDS ORDERED: ASCO-63 PO (07:15)
--- NOTE | 2017-11-03 07:25 | DIAGNOSTIC IMAGING REPORT ---
CHEST ONE VIEW PORTABLE CLINICAL HISTORY: Abdominal pain. COMPARISON STUDY: Chest CT September 04, 2017. FINDINGS: A left subclavian [id number] is in place. Cardiomegaly is unchanged. There is no evidence for pulmonary edema. There is no consolidation to suggest pneumonia. No pneumothorax or pleural effusion is noted. No lucency is identified under the hemidiaphragms to suggest pneumoperitoneum on this study. IMPRESSION: No acute cardiopulmonary findings. Electronically signed by: Matthias Lai M.D. 11/03/2017 7:23 AM Dictated Date/Time: 11/03/2017 7:22 AM
[2017-11-03 07:34] LABS: BASO % 0.2 %; BASO ABS # 0.01 K/uL (0-0.2); EOS % 3.9 %; EOS ABS # 0.17 K/uL (0-0.5); HEMATOCRIT 41.7 % (37-47); HEMOGLOBIN 13.6 g/dL (12.0-16.0); LYMPH % 10.9 %; LYMPH ABS # 0.47 K/uL (1.2-3.4); MEAN CELL VOLUME 98.8 fL (80-100); MEAN CORPUSCULAR HEMOGLOBIN 32.2 pg (25-34); MEAN CORPUSCULAR HGB CONC 32.6 g/dl (32-36); MEAN PLATELET VOLUME 11.7 fL (7.4-10.4); MONO ABS # 0.39 K/uL (0.11-0.59); NEUT ABS # 3.27 K/uL (1.4-6.5); PLATELET COUNT 181 K/uL (130-400); RED CELL DISTRIBUTION WIDTH CV 13.1 % (11.5-14.5); WHITE BLOOD COUNT 4.31 K/uL (4.8-10.8)
[2017-11-03 07:49] LABS: ALBUMIN 3.9 gm/dl (3.4-5.0); ALT/SGPT 65 U/L (12-78); BLOOD UREA NITROGEN 37 mg/dl (7-18); CARBON DIOXIDE 20 mmol/L (21-32); CREATININE 1.12 mg/dl (0.60-1.20); GLUCOSE 85 mg/dl (70-99); LIPASE 245 U/L (73-393); SODIUM 139 mmol/L (136-145)
[2017-11-03 07:52] LABS: ALKALINE PHOSPHATASE 173 U/L (45-117); AST/SGOT 54 U/L (15-37); TOTAL PROTEIN 7.9 gm/dl (6.4-8.2)
[2017-11-03] MEDS ORDERED: SODIUM CHLORIDE 0.9% 500ML 500 ML IV STA (08:22)
--- NOTE | 2017-11-03 09:34 | EMERGENCY ROOM VISIT NOTE ---
History Report prepared by Dany: Jennifer Linares Under the Supervision of: Juan HutchinsO. First contact with patient: 06:54 Chief Complaint: DIARRHEA Stated Complaint: DIARRHEA History of Present Illness The patient is a 82 year old female who presents to the Emergency Room with complaints of worsening diarrhea that began one week ago. She notes she has been having bowel movements about twice daily, noting that today she today she almost could not make it to the bathroom because it came so suddenly. The patient states that she has severe abdominal pain that also began one week ago. She notes that her stomach has been "rumbling and roaring". The patient reports a history of loose bowel movements. The patient denies taking anything to relieve her symptoms. She notes she forgot to take her medications this morning. Source of History: patient Onset: one week ago Position: other (global) Quality: other (diarrhea) Timing: worsening Associated Symptoms: + abdominal pain Review of Systems See HPI for pertinent positives & negatives. A total of 10 systems reviewed and were otherwise negative. Past Medical & Surgical Medical Problems: (1) Acute bronchopneumonia (2) Atrial fibrillation (3) Carcinoma of breast (4) FEBRILE ILL., SEVERE ALLERGIC RXN(ALLOPURINOL) NHL (5) Hysterectomy (6) Lymphoma (7) Non-Hodgkin's lymphoma (8) Osteoporosis (9) PANCOLITIS, ?BILIARY DISEASE,NHL,PAF (10) PANCOLITIS, ?GALLBLDDER DISEASE, DEHYD, NHL, PAF (11) Pneumonia (12) Urinary tract infection Family History Cancer Heart disease Hypertension Social History Smoking Status: Former Smoker Alcohol Use: occasionally Drug Use: none Marital Status: Housing Status: lives alone Occupation Status: retired Current/Historical Medications Scheduled Ascorbic Acid (Vitamin C), 500 MG PO DAILY Calcium Carbonate-Vitamin D W/ (Caltrate 600 Plus), 1 TAB PO QAM Cholecalciferol (Vitamin D 1000 Unit), 2,000 INTER.UNIT PO LUNCH Cranberry (Vaccinium Macrocarp (Cranberry Soft Chews), 1 TAB PO QAM Cyanocobalamin (Vitamin B-12), 500 MCG PO 2XW Magnesium Chloride (Slow-Mag Tab), 2 TABS PO TID Metoprolol Tartrate (Lopressor) (Lopressor), 25 MG PO BID Multivitamins/Minerals (Mvi With Minerals), 1 TAB PO QAM Probiotic Product (Probiotic), 1 CAP PO TID Rivaroxaban (Xarelto), 15 MG PO QAM Allergies Coded Allergies: Antihistamines, Diphenhydramine-typ (Verified Allergy, Severe, ALL ANTIHISTAMINES-"HYPER" FEELING, 11/03/17) Allopurinol (Verified Allergy, Intermediate, RASH-SEVERE ITCHING, 11/03/17) Physical Exam Vital Signs Date Time Temp Pulse Resp B/P (MAP) Pulse Ox O2 Delivery O2 Flow Rate FiO2 11/03/17 09:41 55 20 149/62 100 Room Air 11/03/17 08:45 50 16 135/57 100 Room Air 11/03/17 06:51 36.4 60 17 127/70 98 Room Air Physical Exam CONSTITUTIONAL/VITAL SIGNS: Reviewed / noted above. GENERAL: Non-toxic in appearance. INTEGUMENTARY: Warm, dry, and Emily. HEAD: Normocephalic. EYES: without scleral icterus or trauma. ENT/OROPHARYNX: clear and moist. LYMPHADENOPATHY/NECK: Is supple without lymphadenopathy or meningismus. RESPIRATORY: Lungs clear and equal. CARDIOVASCULAR: Regular rate and rhythm. GI/ABDOMEN: Soft and nontender. No organomegaly or pulsatile mass. No rebound or guarding. Normal bowel sounds. EXTREMITIES: Warm and well perfused. BACK: No CVA tenderness. NEUROLOGICAL: Intact without focal deficits. PSYCHIATRIC: normal affect. MUSCULOSKELETAL: Normally developed with good muscle tone. Medical Decision & Procedures ER Provider Diagnostic Interpretation: Radiology results as stated below per my review and radiologist interpretation: CHEST ONE VIEW PORTABLE CLINICAL HISTORY: Abdominal pain. COMPARISON STUDY: Chest CT September 04, 2017. FINDINGS: A left subclavian [id number] is in place. Cardiomegaly is unchanged. There is no evidence for pulmonary edema. There is no consolidation to suggest pneumonia. No pneumothorax or pleural effusion is noted. No lucency is identified under the hemidiaphragms to suggest pneumoperitoneum on this study. IMPRESSION: No acute cardiopulmonary findings. Electronically signed by: Matthias Lai M.D. 11/03/2017 7:23 AM Dictated Date/Time: 11/03/2017 7:22 AM Laboratory Results 11/03/17 07:20 Red Blood Count 4.22, Mean Corpuscular Volume 98.8, Mean Corpuscular Hemoglobin 32.2, Mean Corpuscular Hemoglobin Concent 32.6, Mean Platelet Volume 11.7, Neutrophils (%) (Auto) 76.0, Lymphocytes (%) (Auto) 10.9, Monocytes (%) (Auto) 9.0, Eosinophils (%) (Auto) 3.9, Basophils (%) (Auto) 0.2, Neutrophils # (Auto) 3.27, Lymphocytes # (Auto) 0.47, Monocytes # (Auto) 0.39, Eosinophils # (Auto) 0.17, Basophils # (Auto) 0.01 11/03/17 07:20 Test 11/03/17 07:20 11/03/17 08:15 White Blood Count 4.31 K/uL (4.8-10.8) Red Blood Count 4.22 M/uL (4.2-5.4) Hemoglobin 13.6 g/dL (12.0-16.0) Hematocrit 41.7 % (37-47) Mean Corpuscular Volume 98.8 fL (80-100) Mean Corpuscular Hemoglobin 32.2 pg (25-34) Mean Corpuscular Hemoglobin Concent 32.6 g/dl (32-36) Platelet Count 181 K/uL (130-400) Mean Platelet Volume 11.7 fL (7.4-10.4) Neutrophils (%) (Auto) 76.0 % Lymphocytes (%) (Auto) 10.9 % Monocytes (%) (Auto) 9.0 % Eosinophils (%) (Auto) 3.9 % Basophils (%) (Auto) 0.2 % Neutrophils # (Auto) 3.27 K/uL (1.4-6.5) Lymphocytes # (Auto) 0.47 K/uL (1.2-3.4) Monocytes # (Auto) 0.39 K/uL (0.11-0.59) Eosinophils # (Auto) 0.17 K/uL (0-0.5) Basophils # (Auto) 0.01 K/uL (0-0.2) RDW Standard Deviation 47.0 fL (36.4-46.3) RDW Coefficient of Variation 13.1 % (11.5-14.5) Immature Granulocyte % (Auto) 0.0 % Immature Granulocyte # (Auto) 0.00 K/uL (0.00-0.02) Anion Gap 5.0 mmol/L (3-11) Est Creatinine Clear Calc Drug Dose 33.5 ml/min Estimated GFR () 53.0 Estimated GFR (Non- 45.7 BUN/Creatinine Ratio 33.3 (10-20) Calcium Level 9.0 mg/dl (8.5-10.1) Total Bilirubin 0.3 mg/dl (0.2-1) Direct Bilirubin < 0.1 mg/dl (0-0.2) Aspartate Amino Transf (AST/SGOT) 54 U/L (15-37) Alanine Aminotransferase (ALT/SGPT) 65 U/L (12-78) Alkaline Phosphatase 173 U/L (45-117) Total Protein 7.9 gm/dl (6.4-8.2) Albumin 3.9 gm/dl (3.4-5.0) Lipase 245 U/L (73-393) Urine Color YELLOW Urine Appearance CLEAR (CLEAR) Urine pH 5.0 (4.5-7.5) Urine Specific [place] 1.021 (1.000-1.030) Urine Protein 1+ (NEG) Urine Glucose (UA) NEG (NEG) Urine Ketones NEG (NEG) Urine Occult Blood NEG (NEG) Urine Nitrite NEG (NEG) Urine Bilirubin NEG (NEG) Urine Urobilinogen NEG (NEG) Urine Leukocyte Esterase SMALL (NEG) Urine WBC (Auto) 5-10 /hpf (0-5) Urine RBC (Auto) 0-4 /hpf (0-4) Urine Hyaline Casts (Auto) 1-5 /lpf (0-5) Urine Epithelial Cells (Auto) 20-30 /lpf (0-5) Urine Bacteria (Auto) NEG (NEG) Radiology results as stated below per my review and radiologist interpretation: Medications Administered Medications (Trade) Dose Ordered Sig/Adrian Route Start Time Stop Time Status Last Admin Dose Admin Acetaminophen (Tylenol Tab) 1,000 mg NOW STAT PO 11/03/17 07:02 11/03/17 07:05 DC 11/03/17 07:19 1,000 MG Famotidine (Pepcid 20mg Iv Push) 20 mg ONE STAT IV 11/03/17 07:02 11/03/17 07:05 DC 11/03/17 07:18 20 MG Sodium Chloride 500 ml @ 999 mls/hr Q31M STAT IV 11/03/17 08:22 11/03/17 08:52 DC 11/03/17 08:27 999 MLS/HR ED Course 0701: Previous medical records were reviewed. The patient was evaluated in room B7. A complete history and physical examination was performed. 0702: Ordered Tylenol Tab 1000mg PO and Famotidine 20mg IV. 0822: Ordered Sodium Chloride 500ml @ 999mls/hr. 0936: On reevaluation, the patient is resting comfortably. I discussed the results and findings with the patient. She verbalized agreement of the treatment plan. The patient was discharged home. Medical Decision Differential considered: pancreatitis, hepatitis, or acute cholecystitis, AAA, UTI, pyelonephritis, kidney stones, appendicitis, diverticulitis, shingles, bowel obstruction mesenteric ischemia, intussusception, and hernia. This is an 82-year-old female who presents to the ED with a chief complaint of diarrhea. She also reports an epigastric discomfort or achiness. The patient states that she has had the symptoms for about a week. She reports that the achiness has been there for the same period of time. She states that yesterday she had a normal bowel movement 2. This morning she had to back to back episodes of diarrhea. She denies any nausea or vomiting. Her dominant exam was unremarkable. Her bowel sounds are slightly hyperactive. She states that her achiness in her epigastric area is actually better now than it was a week ago. Vital signs are normal. Exam was otherwise unremarkable. Chest x-ray did not show acute process. CBC is normal, chemistry panel was unremarkable with exception of a BUN of 37. C. difficile was positive. The patient was treated with IV fluids 500 mL normal saline. She was given Flagyl by mouth. She was told the results. She is felt to be stable for discharge. Prescription for Flagyl sent to the pharmacy. Of note, she denies recent antibiotic use. 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 Medication Reconcilliation Current Medication List: was personally reviewed by me Blood Pressure Screening Patient's blood pressure: Normal blood pressure Impression Primary Impression: C. difficile diarrhea Scribe Attestation The scribe's documentation has been prepared under my direction and personally reviewed by me in its entirety. I confirm that the note above accurately reflects all work, treatment, procedures, and medical decision making performed by me. Departure Information Dispostion Home / Self-Care Prescriptions Metronidazole (Flagyl) 500 Mg Tab 500 MG PO BID, #20 TAB Prov: Harvey Perez D.O. 11/03/17 Referrals Pro,Marko Barroso M.D. (PCP) Forms HOME CARE DOCUMENTATION FORM, IMPORTANT VISIT INFORMATION, WORK / SCHOOL INSTRUCTIONS Patient Instructions Clostridium Difficile Infec, Diarrhea, My [facility] Additional Instructions Follow-up with your doctor for further care and evaluation in 1-2 days. Return to the emergency department for worsening or new symptoms or any concerns. You have been examined and treated today on an emergency basis only. This is not a substitute for, or an effort to provide, complete comprehensive medical care. It is impossible to recognize and treat all injuries or illnesses in a single emergency department visit. It is therefore important that you follow up closely with your doctor. Call as soon as possible for an appointment. Take Flagyl as prescribed for 10 days.
[2017-11-03 09:41] VITALS: BP 149/62; PULSE 55; O2SAT 100
[2017-11-03] MEDS ORDERED: METRONIDAZOLE 250 MG TAB PO STA (09:58)
[2017-11-03] MEDS ORDERED: METR-163 PO (10:00)
== END 2017-11-03 10:10 | disposition home or self-care (01) ==
LOC: C.EDB 06:48
DX: A04.72 Enterocolitis due to Clostridium difficile, not specified as recurrent (principal); I48.91 Unspecified atrial fibrillation; Z85.3 Personal history of malignant neoplasm of breast; M81.0 Age-related osteoporosis without current pathological fracture; Z85.72 Personal history of non-Hodgkin lymphomas; Z87.01 Personal history of pneumonia (recurrent); Z87.440 Personal history of urinary (tract) infections; Z80.9 Family history of malignant neoplasm, unspecified; Z82.49 Family history of ischemic heart disease and other diseases of the circulatory system; Z87.891 Personal history of nicotine dependence; Z79.899 Other long term (current) drug therapy; Z79.01 Long term (current) use of anticoagulants

== ENCOUNTER → 2017-12-03 | Outpatient (CLI) | payer OTHER ==
[~2017-12-03] MED LIST changes: +ASCO-63 PO; +METR-163 PO
== END | disposition home or self-care (01) ==
LOC: C.MAMM 08:05
PROVIDERS: ATTEND Internal Medicine
DX: M85.88 Other specified disorders of bone density and structure, other site (principal); M85.852 Other specified disorders of bone density and structure, left thigh; M85.851 Other specified disorders of bone density and structure, right thigh

== ENCOUNTER 2018-02-26 08:33 | Emergency (ER) | payer OTHER ==
[~2018-02-26] VITALS: Ht 162.6 cm; Wt 56.2 kg
[2018-02-26 08:37] VITALS: TEMP 36.7; Ht 162.6 cm; Wt 56.2 kg
[2018-02-26] MEDS ORDERED: SODIUM CHLORIDE 0.9% 1000ML 1,000 ML IV STA (09:05)
[2018-02-26] MEDS ORDERED: OPTIRAY 320 IV PRN (09:15)
--- NOTE | 2018-02-26 09:19 | EMERGENCY ROOM VISIT NOTE ---
History Report prepared by Dany: Fede Moses Under the Supervision of: Dr. Bouchra Vieira M.D. First contact with patient: 08:55 Chief Complaint: ABDOMINAL PAIN Stated Complaint: STOMACH PAIN, DIARREA History of Present Illness The patient is an 82 year old female who presents to the Emergency Room with complaints of worsening abdominal pain and persistent diarrhea that she has been experiencing for the past couple of days. The patient notes that her pain is localized to her lower abdomen and acutely worsened this morning. For the past 2-3 days she has had diarrhea as well. She describes her stool as "very loose," and adds that she thinks she has seen some blood present in the stool. The patient was diagnosed with C-difficile 4 months ago. She denies any chest pain or shortness of breath. She has a history of non-Hodgkin's Lymphoma and states she is concerned that her "lymph nodes could be acting up." She states she has completed her treatments. Source of History: patient Onset: 2-3 days diarrhea Position: abdomen (Lower) Quality: other (Diarrhea) Timing: worsening (worsening abd pain), other (Persistent diarrhea) Associated Symptoms: + melena, No chest pain, No SOB Review of Systems See HPI for pertinent positives & negatives. A total of 10 systems reviewed and were otherwise negative. Past Medical & Surgical Medical Problems: (1) Acute bronchopneumonia (2) Atrial fibrillation (3) Carcinoma of breast (4) FEBRILE ILL., SEVERE ALLERGIC RXN(ALLOPURINOL) NHL (5) Hysterectomy (6) Lymphoma (7) Non-Hodgkin's lymphoma (8) Osteoporosis (9) PANCOLITIS, ?BILIARY DISEASE,NHL,PAF (10) PANCOLITIS, ?GALLBLDDER DISEASE, DEHYD, NHL, PAF (11) Pneumonia (12) Urinary tract infection Family History Cancer Heart disease Hypertension Social History Smoking Status: Former Smoker Alcohol Use: occasionally Drug Use: none Marital Status: Housing Status: lives alone Occupation Status: retired Current/Historical Medications Scheduled Acetaminophen (Arthritis Pain), 1,300 MG PO QAM Ascorbic Acid (Vitamin C), 500 MG PO DAILY Calcium Carbonate-Vitamin D W/ (Caltrate 600 Plus), 1 TAB PO QAM Cholecalciferol (Vitamin D 1000 Unit), 2,000 INTER.UNIT PO LUNCH Cranberry (Vaccinium Macrocarp (Cranberry Soft Chews), 1 TAB PO QAM Cyanocobalamin (Vitamin B-12), 500 MCG PO 2XW Magnesium Chloride (Slow-Mag Tab), 2 TABS PO TID Metoprolol Tartrate (Lopressor) (Lopressor), 12.5 MG PO BID Multivitamins/Minerals (Mvi With Minerals), 1 TAB PO QAM Probiotic Product (DataTorrent), 2 CAP PO QAM Rivaroxaban (Xarelto), 15 MG PO QAM Allergies Coded Allergies: Antihistamines, Diphenhydramine-typ (Verified Allergy, Severe, ALL ANTIHISTAMINES-"HYPER" FEELING, 02/26/18) Allopurinol (Verified Allergy, Intermediate, RASH-SEVERE ITCHING, 02/26/18) Physical Exam Vital Signs Date Time Temp Pulse Resp B/P (MAP) Pulse Ox O2 Delivery O2 Flow Rate FiO2 02/26/18 12:57 57 145/68 97 02/26/18 11:16 56 154/61 96 Room Air 02/26/18 09:43 51 20 159/60 100 02/26/18 08:37 36.7 54 16 137/67 97 Room Air Physical Exam Vital signs reviewed. General: Well-appearing 82-year-old female, in no significant distress. HEENT: No scleral icterus, PERRLA, neck supple. Atraumatic. Cardiovascular: Regular rate and rhythm, no extra sounds. Pulmonary: Clear to auscultation bilaterally, normal work of breathing. Abdomen: Soft, no palpable lymphadenopathy in either inguinal fold. There is mild bilateral lower abdominal tenderness, no rebound or guarding. nondistended , positive bowel sounds. Musculoskeletal: Atraumatic, no peripheral edema. Neurologic: Patient awake alert and oriented x 3 Skin: Warm, dry, no rash Medical Decision & Procedures ER Provider Diagnostic Interpretation: Radiology results as stated below per my review and radiologist interpretation: CT OF THE ABDOMEN AND PELVIS WITH CONTRAST CLINICAL HISTORY: Lower abdominal pain. COMPARISON STUDY: CT of the abdomen and pelvis September 04, 2017. TECHNIQUE: Following IV administration of 94 mL of Optiray-320, axial images of the abdomen and pelvis were obtained from the lung bases to the proximal femurs. Images were reviewed in the axial, sagittal, and coronal planes. IV contrast was administered without complication. A dose lowering technique was utilized adhering to the principles of ALARA. Oral contrast was administered. CT DOSE: 351.76 mGycm FINDINGS: Lung bases are clear. The liver, spleen, adrenal glands, right kidney and pancreas are normal. Note is made of a 1.1 cm cyst within the upper pole of the left kidney. Caliber and wall thickness of small and large bowel are normal. No pathologically enlarged abdominal or pelvic lymph nodes are present. Small retroperitoneal lymph nodes are similar to previous exam. There is no ascites. No pneumatosis, free air or portal venous gas is present. The appendix is normal. IMPRESSION: No acute process within the abdomen or pelvis. Electronically signed by: Matthias Lai M.D. 02/26/2018 11:22 AM Dictated Date/Time: 02/26/2018 11:02 AM Laboratory Results 02/26/18 09:18 Red Blood Count 3.44, Mean Corpuscular Volume 99.4, Mean Corpuscular Hemoglobin 32.8, Mean Corpuscular Hemoglobin Concent 33.0, Mean Platelet Volume 10.0, Neutrophils (%) (Auto) 81.6, Lymphocytes (%) (Auto) 10.0, Monocytes (%) (Auto) 6.2, Eosinophils (%) (Auto) 2.0, Basophils (%) (Auto) 0.2, Neutrophils # (Auto) 4.08, Lymphocytes # (Auto) 0.50, Monocytes # (Auto) 0.31, Eosinophils # (Auto) 0.10, Basophils # (Auto) 0.01 02/26/18 09:18 Test 02/26/18 09:18 02/26/18 11:13 White Blood Count 5.00 K/uL (4.8-10.8) Red Blood Count 3.44 M/uL (4.2-5.4) Hemoglobin 11.3 g/dL (12.0-16.0) Hematocrit 34.2 % (37-47) Mean Corpuscular Volume 99.4 fL (80-100) Mean Corpuscular Hemoglobin 32.8 pg (25-34) Mean Corpuscular Hemoglobin Concent 33.0 g/dl (32-36) Platelet Count 165 K/uL (130-400) Mean Platelet Volume 10.0 fL (7.4-10.4) Neutrophils (%) (Auto) 81.6 % Lymphocytes (%) (Auto) 10.0 % Monocytes (%) (Auto) 6.2 % Eosinophils (%) (Auto) 2.0 % Basophils (%) (Auto) 0.2 % Neutrophils # (Auto) 4.08 K/uL (1.4-6.5) Lymphocytes # (Auto) 0.50 K/uL (1.2-3.4) Monocytes # (Auto) 0.31 K/uL (0.11-0.59) Eosinophils # (Auto) 0.10 K/uL (0-0.5) Basophils # (Auto) 0.01 K/uL (0-0.2) RDW Standard Deviation 47.9 fL (36.4-46.3) RDW Coefficient of Variation 13.2 % (11.5-14.5) Immature Granulocyte % (Auto) 0.0 % Immature Granulocyte # (Auto) 0.00 K/uL (0.00-0.02) Anion Gap 5.0 mmol/L (3-11) Est Creatinine Clear Calc Drug Dose 36.0 ml/min Estimated GFR () 57.9 Estimated GFR (Non- 50.0 BUN/Creatinine Ratio 32.9 (10-20) Calcium Level 8.9 mg/dl (8.5-10.1) Magnesium Level 1.9 mg/dl (1.8-2.4) Total Bilirubin 0.3 mg/dl (0.2-1) Direct Bilirubin < 0.1 mg/dl (0-0.2) Aspartate Amino Transf (AST/SGOT) 26 U/L (15-37) Alanine Aminotransferase (ALT/SGPT) 29 U/L (12-78) Alkaline Phosphatase 133 U/L (45-117) Total Protein 6.7 gm/dl (6.4-8.2) Albumin 3.5 gm/dl (3.4-5.0) Urine Color YELLOW Urine Appearance CLEAR (CLEAR) Urine pH 5.0 (4.5-7.5) Urine Specific [place] 1.019 (1.000-1.030) Urine Protein 1+ (NEG) Urine Glucose (UA) NEG (NEG) Urine Ketones NEG (NEG) Urine Occult Blood NEG (NEG) Urine Nitrite NEG (NEG) Urine Bilirubin NEG (NEG) Urine Urobilinogen NEG (NEG) Urine Leukocyte Esterase MODERATE (NEG) Urine WBC (Auto) 10-30 /hpf (0-5) Urine RBC (Auto) 0-4 /hpf (0-4) Urine Hyaline Casts (Auto) 0 /lpf (0-5) Urine Epithelial Cells (Auto) 20-30 /lpf (0-5) Urine Bacteria (Auto) NEG (NEG) Laboratory results per my review. Medications Administered Medications (Trade) Dose Ordered Sig/Adrian Route Start Time Stop Time Status Last Admin Dose Admin Sodium Chloride 1,000 ml @ 125 mls/hr Q8H STAT IV 02/26/18 09:05 02/26/18 14:00 DC 02/26/18 09:39 125 MLS/HR ED Course 0855: Past medical records reviewed. The patient was evaluated in room B9. A complete history and physical examination was performed. 0905: Sodium Chloride 1000 ml @ 125 mls/hr IV 1235: Upon reevaluation, the patient appeared to have improvement of her symptoms. I discussed findings with her. She verbalized agreement of the treatment plan. The patient was discharged home. Medical Decision Differential diagnosis: Etiologies such as appendicitis, diverticulitis, PUD, biliary pathology, UTI, pancreatitis, obstruction, mesenteric ischemia, aortic pathology, infections, inflammatory bowel disease, renal colic, as well as others were entertained. This patient was evaluated and appeared to be in no significant distress. IV access was obtained and laboratory work was drawn. 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 She was hydrated with normal saline solution. Patient does have mild lower abdominal tenderness. There is no palpable lymphadenopathy. She was not able to provide a stool specimen during her stay in the ED. Given her history, a CT scan of the abdomen pelvis was performed and reveals no acute pathologic findings. Patient was observed and hydrated for some time and was feeling improved. Laboratory work is fairly unrevealing. The patient was advised on conservative management. She will maintain a bland diet. She will follow-up with her physician if symptoms deteriorate or return to the ED for any medical concerns. Medication Reconcilliation Current Medication List: was personally reviewed by me Blood Pressure Screening Patient's blood pressure: Elevated blood pressure Impression Primary Impression: Diarrhea Additional Impression: LOWER ABDOMINAL PAIN, UNSPECIFIED Scribe Attestation The scribe's documentation has been prepared under my direction and personally reviewed by me in its entirety. I confirm that the note above accurately reflects all work, treatment, procedures, and medical decision making performed by me. Departure Information Dispostion Home / Self-Care Referrals Marko Dennis M.D. (PCP) Forms HOME CARE DOCUMENTATION FORM, IMPORTANT VISIT INFORMATION Patient Instructions My [facility] Additional Instructions Diagnosis: Diarrhea Please drink plenty of clear fluids. Minimize the greasy and spicy foods in your diet. Avoid dairy products until symptoms resolve. Maintain a bland diet BRAT: Bananas, rice, applesauce and toast. Follow-up with your primary care physician if symptoms continue. Return to the ER for worsening of symptoms or any medical concerns. Problem Qualifiers
[2018-02-26 09:26] LABS: BASO % 0.2 %; BASO ABS # 0.01 K/uL (0-0.2); HEMATOCRIT 34.2 % (37-47); HEMOGLOBIN 11.3 g/dL (12.0-16.0); MEAN CELL VOLUME 99.4 fL (80-100); MEAN CORPUSCULAR HEMOGLOBIN 32.8 pg (25-34); MONO % 6.2 %; MONO ABS # 0.31 K/uL (0.11-0.59); NEUT % 81.6 %; NEUT ABS # 4.08 K/uL (1.4-6.5); PLATELET COUNT 165 K/uL (130-400); RED CELL DISTRIBUTION WIDTH CV 13.2 % (11.5-14.5); RED CELL DISTRIBUTION WIDTH SD 47.9 fL (36.4-46.3)
[2018-02-26 09:46] LABS: ALBUMIN 3.5 gm/dl (3.4-5.0); ALKALINE PHOSPHATASE 133 U/L (45-117); ALT/SGPT 29 U/L (12-78); AST/SGOT 26 U/L (15-37); BLOOD UREA NITROGEN 34 mg/dl (7-18); CALCIUM 8.9 mg/dl (8.5-10.1); CARBON DIOXIDE 23 mmol/L (21-32); CREATININE 1.04 mg/dl (0.60-1.20); GLUCOSE 85 mg/dl (70-99); POTASSIUM 4.9 mmol/L (3.5-5.1); SODIUM 142 mmol/L (136-145); TOTAL PROTEIN 6.7 gm/dl (6.4-8.2)
[2018-02-26] MEDS ORDERED: PROBCAP PO (10:17)
[2018-02-26] MEDS ORDERED: ACET650T66 PO (10:17)
--- NOTE | 2018-02-26 11:23 | DIAGNOSTIC IMAGING REPORT ---
CT OF THE ABDOMEN AND PELVIS WITH CONTRAST CLINICAL HISTORY: Lower abdominal pain. COMPARISON STUDY: CT of the abdomen and pelvis September 04, 2017. TECHNIQUE: Following IV administration of 94 mL of Optiray-320, axial images of the abdomen and pelvis were obtained from the lung bases to the proximal femurs. Images were reviewed in the axial, sagittal, and coronal planes. IV contrast was administered without complication. A dose lowering technique was utilized adhering to the principles of ALARA. Oral contrast was administered. CT DOSE: 351.76 mGycm FINDINGS: Lung bases are clear. The liver, spleen, adrenal glands, right kidney and pancreas are normal. Note is made of a 1.1 cm cyst within the upper pole of the left kidney. Caliber and wall thickness of small and large bowel are normal. No pathologically enlarged abdominal or pelvic lymph nodes are present. Small retroperitoneal lymph nodes are similar to previous exam. There is no ascites. No pneumatosis, free air or portal venous gas is present. The appendix is normal. IMPRESSION: No acute process within the abdomen or pelvis. Electronically signed by: Matthias Lai M.D. 02/26/2018 11:22 AM Dictated Date/Time: 02/26/2018 11:02 AM
[2018-02-26 12:57] VITALS: BP 145/68; PULSE 57; O2SAT 97
== END 2018-02-26 12:58 | disposition home or self-care (01) ==
LOC: C.EDB 08:34
DX: R19.7 Diarrhea, unspecified (principal); R10.30 Lower abdominal pain, unspecified; I48.91 Unspecified atrial fibrillation; Z85.3 Personal history of malignant neoplasm of breast; Z85.72 Personal history of non-Hodgkin lymphomas; M81.0 Age-related osteoporosis without current pathological fracture; Z87.891 Personal history of nicotine dependence; Z79.01 Long term (current) use of anticoagulants; Z79.899 Other long term (current) drug therapy; Z88.8 Allergy status to other drugs, medicaments and biological substances

== ENCOUNTER → 2018-04-24 | Outpatient (CLI) | payer OTHER ==
[~2018-04-24] MED LIST changes: +ACET650T66 PO; -METR-163 PO; -MISCCAP80 PO; +PROBCAP PO
== END | disposition home or self-care (01) ==
LOC: C.LABPVFM 15:26
PROVIDERS: ATTEND Internal Medicine
DX: A04.72 Enterocolitis due to Clostridium difficile, not specified as recurrent (principal)

== ENCOUNTER 2022-06-11 15:04 | Observation (INO) ==
[2022-06-11 15:53] LABS: Basophils # (auto) 0.03 K/uL (0-0.2); Basophils % (auto) 0.4 %; Eosinophils % (auto) 1.4 %; Hematocrit (blood only) 40.5 % (34.1-44.9); Immature Granulocytes # (auto) 0.03 K/uL (0.00-0.02); Immature Granulocytes % (auto) 0.4 %; Lymphocytes # (auto) 0.39 K/uL (1.2-3.4); Lymphocytes % (auto) 5.7 %; Mean Corpuscular Hemoglobin 31.6 pg (25.0-34.0); Mean Corpuscular Hgb Conc 32.1 g/dL (32.0-36.0); Mean Corpuscular Volume 98.3 fL (80.0-100.0); Mean Platelet Volume 11.1 fL (9.4-12.3); Monocytes # (auto) 0.61 K/uL (0.24-0.82); Monocytes % (auto) 8.8 %; Neutrophils # (auto) 5.74 K/uL (1.4-6.5); Neutrophils % (auto) 83.3 %; Platelet Count 175 K/uL (130-400); RDW Coefficient of Variation 14.3 % (11.5-14.5); RDW Standard Deviation 51.6 fL (36.4-46.3); Red Blood Count 4.12 M/uL (3.93-5.22)
[2022-06-11 16:27] LABS: Albumin Globulin Ratio 1.6 (0.9-2); Albumin Level 4.2 gm/dl (3.4-5.0); BUN Creatinine Ratio 25.8 (10-20); Bilirubin,Total 0.7 mg/dl (0.2-1.0); Calcium 9.3 mg/dl (8.5-10.1); Creatinine Clr Calc Pharmacy 29.1 ml/min; Est GFR (African American) 47.4 ml/min; Est GFR (Non-African American) 40.9 ml/min; Globulin 2.7 gm/dl (2.5-4.0); Potassium 4.8 mmol/L (3.5-5.1); Total Protein 6.9 gm/dl (6.0-8.3)
--- NOTE | 2022-06-11 16:45 | XRay Report ---
XR lumbar spine min 4V routine CLINICAL HISTORY: Back pain, h/o osteoporosis, fxs TECHNIQUE: 5 views of the lumbar spine were obtained. Comparison: Comparison is made to lumbar spine radiographs 11/27/2019 FINDINGS: Old fractures of L3 and L1 are again noted. Degenerative changes are seen in the lumbar spine. Vascul ar calcifications are noted. IMPRESSION: Old lumbar spine compression fractures are seen without evidence of acute fracture. ACT 112: Negative or not required by law. Electronically signed by: Kurtis Golden M.D. 06/11/2022 4:44 PM
--- NOTE | 2022-06-11 16:53 | XRay Report ---
XR thoracic spine 3V routine CLINICAL HISTORY: Back pain, h/o osteoporosis, fxs TECHNIQUE: 3 views of the thoracic spine were obtained. Comparison: Comparison is made to CT chest 05/04/2022 FINDINGS: Loss of height is seen most pronounced at T9, which appears greater than in prior CT. Additional old loss of height deformities are noted. Degenerative changes are seen in the thoracic spine. Alignment appears unremarkable. Prevertebral soft tissues are within normal limits. IMPRESSION: Interval increased wedge deformity at T9, likely acute compression fracture, correlation with point t enderness is recommended. ACT 112: Negative or not required by law. Electronically signed by: Kurtis Golden M.D. 06/11/2022 4:51 PM
[2022-06-11] MEDS ORDERED: ONDANSETRON INJ 2 MG/ML 2 ML VIAL IV STA (17:41)
[2022-06-11] MEDS ORDERED: HYDROmorphone INJ 0.5 MG/0.5 ML SYR IV STA ×2 (17:41→18:42)
--- NOTE | 2022-06-11 18:36 | History & Physical Report ---
Date of Service June 11, 2022 Assessment & Plan (1) Thoracic compression fracture: Plan: Pain relief with acetaminophen 1 g 3 times daily, tramadol 25 to 50 mg every 4 hourly as needed Lidocaine patch Calcitonin nasal spray once daily Vitamin D within normal limits in November therefore no need to repeat this. Recommend follow-up DEXA scan as outpatient to consider bisphosphonate therapy for osteoporosis and pain management (2) Osteoporosis: Plan: Patient reports previously on Fosamax greater than 10 years ago. Consider DEXA scan as an outpatient and repeat treatment with Fosamax. (3) HTN (hypertension): Plan: Continue lisinopril 30 mg p.o. daily and metoprolol succinate 12.5 mg p.o. daily (4) Paroxysmal atrial fibrillation: Plan: Continue Xarelto for anticoagulation Continue metoprolol for rate control (5) Non-Hodgkin's lymphoma: Plan: On Rituxan maintenance dosing IVIG for persistent hypogammaglobulinemia Plan VTE prophylaxis -Xarelto Diet -regular Disposition -observation [facility] Admission and Anticipated Discharge Date Admission Date: June 11, 2022 History of Present Illness Chief Complaint: Back pain Primary Care Provider: Marko Dennis MD Mishel Beckford is an 86-year-old female who presents to the ER due to back pain. Pain is on the lower thoracic spine. Severity 10 out of 10 at worst, currently 6-7 out of 10. No radiation. Center of her back. Intermittent back spasms can take her breath away. Pain has been ongoing since but progressively getting worse. She ran her sweeper on Sunday although this is not unusual for her. She denies any heavy lifting or trauma. She has not seen any healthcare providers since. She reports taking acetaminophen regularly and tramadol as needed which she had leftover from her lower back pain. In the ER thoracic spine x-ray showed an acute T9 compression fracture. She lives alone and does not feel safe to return home at this time therefore was referred to medicine for admission ongoing management of this thoracic spine fracture. Allergies Allergy/AdvReac Type Severity Reaction Status Date / Time diphenhydramine Allergy Severe ALL Verified 06/11/22 18:05 ANTIHISTAMINES-"HYPER" FEELING allopurinol Allergy Intermediate RASH-SEVERE Verified 06/11/22 18:05 ITCHING Home Medications Medication Instructions Recorded Confirmed Type acetaminophen 500 mg tablet 1,000 mg PO QAM 04/21/19 06/11/22 History ascorbic acid (vitamin C) 500 mg 500 mg PO QAM 04/21/19 06/11/22 History capsule calcium carbonate 600 mg-vitamin 1 cap PO QAM 04/21/19 06/11/22 History D3 5 mcg (200 unit) capsule (Calcium 600 + D(3)) cholecalciferol (vitamin D3) 50 2,000 units PO QDL 04/21/19 06/11/22 History mcg (2,000 unit) capsule cranberry 500 mg capsule 500 mg PO QAM 04/21/19 06/11/22 History cyanocobalamin (vitamin B-12) 500 500 mcg PO 2XWK 04/21/19 06/11/22 History mcg lozenges magnesium chloride 64 mg 64 mg PO TID 04/21/19 06/11/22 History (magnesium chloride) tablet,delayed release multivitamin with iron 1 tab PO QAM 04/21/19 06/11/22 History Ivig 1 dose IV MO 03/24/21 06/11/22 History docusate sodium 100 mg tablet 100 mg PO QAM 03/24/21 06/11/22 History (Stool Softener) rituximab 10 mg/mL 10 mg IV MO 03/24/21 06/11/22 History concentrate,intravenous (Rituxan) tramadol 50 mg tablet 50 mg PO DAILY PRN pain #20 tabs 07/14/21 06/11/22 Rx lisinopril 30 mg tablet 30 mg PO QAM #90 tabs 07/25/21 06/11/22 Rx oxybutynin chloride 5 mg 5 mg PO QAM #30 tabs 12/13/21 06/11/22 Rx tablet,extended release 24 hr vancomycin 125 mg capsule 125 mg PO QAM #90 caps 01/17/22 06/11/22 Rx rivaroxaban 15 mg tablet (Xarelto) 15 mg PO DAILY #90 tabs 01/23/22 06/11/22 Rx metoprolol succinate 25 mg 12.5 mg PO QAM #45 tabs 03/15/22 06/11/22 Rx tablet,extended release 24 hr pantoprazole 40 mg tablet,delayed 40 mg PO DAILY #30 tabs 03/22/22 06/11/22 Rx release (Protonix) Lactobacillus acidophilus 10,000 mmu cells PO BID 06/11/22 06/11/22 History Past Med/Surg History Medical History Abdominal pain Aortic valve stenosis Bilateral sacroiliitis Cardiac murmur Close exposure to COVID-19 virus Compression fracture of spine Hearing deficit History of breast cancer History of chemotherapy History of Clostridioides difficile 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 skin HTN (hypertension) Low back pain Non-Hodgkin's lymphoma (03/08/13) Osteoarthritis Overactive bladder Paroxysmal atrial fibrillation Prophylactic antibiotic SOB (shortness of breath) on exertion Surgical History Encounter for insertion of venous access port History of colonoscopy History of hysterectomy (03/08/13) History of squamous cell carcinoma excision History of vascular access device Post-lymphadenectomy lymphedema of arm S/P breast biopsy S/P lumpectomy of breast S/P lymph node biopsy Family History Father Bright's disease Kidney disease Sister Colon cancer Gallbladder disease Hypertension Kidney stones Colorectal cancer Mother Cardiac disorder Congestive heart failure Other Crohn's disease Denies family history of Ovarian cancer Prostate cancer Myocardial infarction Breast cancer Social History Smoking Status: Former smoker Tobacco Type: Cigarettes Second Hand Exposure: Yes (hx); Hx Alcohol Use: No Hx Substance Use: No Preferred Language: Emirati Communication Ability: Effective Visual Impairment: No Limitations Hearing Ability: Use of Hearing Aid Orientation & Mobility Specialist Required: No Beliefs That Will Affect Care: None marital status: / Current Living Situation: Alone current occupational status: retired Feels Safe at Home: Yes Dental Care, Regularly: Yes Physical Activity Frequency: Daily Seatbelt Use: always Sunscreen Use: Yes Assistive Devices: Cane, Denture - Upper, Denture - Lower, Glasses, Hearing Aid - Left and Walker Review of Systems Review of Systems: All systems reviewed & are unremarkable except as noted in HPI & below Physical Exam Constitutional: WD/WN, vitals as above Eyes: + anicteric sclerae; normal pupil size ENMT: external ear and nose normal, oropharynx normal Respiratory: normal respiratory effort, lungs clear to auscultation Cardiovascular: RRR, no murmur, no edema Gastrointestinal (Abdomen): normal bowel sounds, soft, nontender, no hepatosplenomegaly Musculoskeletal: Spine: + thoracic spinal tenderness (Consistent with x-ray with tenderness at T9 vertebra) and + paraspinal tenderness (Lower thoracic) Skin: no rashes, warm and dry Neurologic: moves all extremities and awake; not confused Psychiatric: A+Ox3, euthymic affect Results & Data Results & Data ([facility]) Vital Signs (Past 12 Hours) Vital Signs Temp Pulse Pulse Resp BP BP Pulse Ox 06/11/22 17:04 84 16 188/129 H 97 06/11/22 15:04 92 H 16 188/129 H 96 06/11/22 15:15 36.8 C 79 18 174/86 H 95 O2 Del Method 06/11/22 17:04 06/11/22 15:04 06/11/22 15:15 Room Air Laboratory Results Abnormal lab results 06/11/22 06/11/22 Range/Units 15:40 15:40 RDW Std Deviation 51.6 H (36.4-46.3) fL Lymph # (Auto) 0.39 L (1.2-3.4) K/uL Immature Gran # (Auto) 0.03 H (0.00-0.02) K/uL BUN 31 H (6-23) mg/dl BUN/Creatinine Ratio 25.8 H (10-20) Glucose 109 H (70-99(Fasting)) mg/dl Alkaline Phosphatase 185 H (34-104) U/L Diagnostic Findings XR thoracic spine 3V routine CLINICAL HISTORY: Back pain, h/o osteoporosis, fxs TECHNIQUE: 3 views of the thoracic spine were obtained. Comparison: Comparison is made to CT chest 05/04/2022 FINDINGS: Loss of height is seen most pronounced at T9, which appears greater than in prior CT. Additional old loss of height deformities are noted. Degenerative changes are seen in the thoracic spine. Alignment appears unremarkable. Prevertebral soft tissues are within normal limits. IMPRESSION: Interval increased wedge deformity at T9, likely acute compression fracture, correlation with point tenderness is recommended. XR lumbar spine min 4V routine CLINICAL HISTORY: Back pain, h/o osteoporosis, fxs TECHNIQUE: 5 views of the lumbar spine were obtained. Comparison: Comparison is made to lumbar spine radiographs 11/27/2019 FINDINGS: Old fractures of L3 and L1 are again noted. Degenerative changes are seen in the lumbar spine. Vascular calcifications are noted. IMPRESSION: Old lumbar spine compression fractures are seen without evidence of acute fracture. Medications Administered ER Medications Given: Hydromorphone 0.25mg IV x2 Ondansetron 4mg IV PRN Code Status & VTE Plan Code Status DNR/DNI VTE Prophylaxis Plan VTE Prophylaxis will be ordered: Yes PG Care Time/CCT Total # of Minutes Spent Total Time Spent with Patient: Total time spent is greater than 50% in coordination of care (as documented) at patient's floor/unit and/or counseling patient: Coding Level of Care Code INT OBSERVATION CARE 50M LVL 2 Diagnoses Thoracic compression fracture S22.000A Osteoporosis M81.0 HTN (hypertension) I10 Paroxysmal atrial fibrillation I48.0 Non-Hodgkin's lymphoma C85.90
--- NOTE | 2022-06-11 19:31 | Emergency Department Note ---
Impression & Plan Closed wedge compression fracture of T9 vertebra, Acute back pain ED Provider Note INFORMANT: Patient and daughter ED PROVIDER(S): Isaac Santos MD CHIEF COMPLAINT: Back pain PLAN: Disposition: Admitted Condition: Good Outpatient prescription management: none Referral: None MEDICAL DECISION MAKING: Patient presented because of acute back pain. X-ray imaging was performed. She had what appeared to be an acute T9 compression fracture. Her CBC, chemistry panel, LFTs and lipase were negative. The patient was treated with IV Dilaudid and did require a second dose. Patient daughter notes she is not doing very well at home and is having quite a bit of pain. She is at significant risk for fall. She also had a lidocaine patch applied. I discussed further management in the hospital. Patient and daughter were in agreement. [facility] Patient was evaluated in the ER for further management. Triage Nursing notes reviewed and agree them. Vital Signs: reviewed and remarkable for hypertension Differential diagnosis: Musculoskeletal, disc herniation, fracture, metastatic disease, cord compression, discitis, sciatica, cauda equina, infection, aortic disease, renal colic, gastrointestinal, as well as other pathologies. Diagnostics interpreted by me: ECG: none Cardiac Monitoring: Cardiac monitoring ordered by me: The patient was placed on continuous cardiac monitoring and observed. It revealed a normal sinus rhythm at 89 beats per minute without ectopy or evidence of dysrhythmia. Imaging studies: X-ray imaging of the thoracic and lumbar spine reveal old L1 and L3 compression fractures. There appears to be an acute T9 compression fracture. I refer you to the EMR for further details. HPI: The patient is a 86year old female who presents to the Emergency Room with complaints of acute back pain. This started started yesterday and is worsening today. The patient also notes the following associated symptoms, none. Patient notes she is having spasms that occur in the middle of her back. She has a history of compression fractures and osteoporosis. No new injury.. The patient has found no relieving factors. Current pain is rated as 8/10. Daughter states that she was having significant difficulty today. She required assistance in simply getting up from the couch. Pt denies LOC, headache, fevers, chills, diaphoresis, visual changes, neck pain, chest pain, breathing difficulties, nausea, vomiting, abdominal pain, melena, hematochezia, urinary symptoms, numbness, weakness, lymphadenopathy, rash, or other complaints. ROS: See above HPI for pertinent positives & negatives. A total of 10 systems reviewed and were otherwise negative. PAST MEDICAL HISTORY:See Below , hypertension, osteoporosis PAST SURGICAL HISTORY:See Below, FAMILY HISTORY:See Below SOCIAL HISTORY:See Below, lives alone HOME MEDICATIONS:See Below ALLERGIES:See Below VITALS:See Below PHYSICAL EXAMINATION: GENERAL: Awake, alert, uncomfortable-appearing, in mild distress HENT: Normocephalic, atraumatic. Oropharynx unremarkable. EYES: Normal conjunctiva. Sclera non-icteric. NECK: Inspection normal. Non-tender. Supple. No nuchal rigidity. FROM. No masses. RESPIRATORY: Clear to auscultation. No wheezes. No rales. Normal respiratory effort. CARDIAC: Normal rate. Normal rhythm. No murmurs. No rubs. Extremities warm and well perfused. Pulses equal. No JVD. GI: Soft, non-distended. No tenderness to palpation. No rebound or guarding. No masses. RECTAL: Deferred. MUSCULOSKELETAL: Atraumatic. The back is very kyphotic on inspection without obvious abnormality. There is no CVA tenderness to palpation. There is midline low thoracic tenderness to percussion. No joint edema. LOWER EXTREMITIES: Calves are equal size bilaterally and non-tender. No edema. No discoloration. NEURO: Normal sensorium. No sensory or motor deficits noted. SKIN: No rash or jaundice noted. Isaac Santos MD Past Med/Surg History Medical History Abdominal pain Aortic valve stenosis Bilateral sacroiliitis Cardiac murmur Close exposure to COVID-19 virus Compression fracture of spine Hearing deficit History of breast cancer History of chemotherapy History of Clostridioides difficile 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 skin HTN (hypertension) Low back pain Non-Hodgkin's lymphoma (03/08/13) Osteoarthritis Overactive bladder Paroxysmal atrial fibrillation Prophylactic antibiotic SOB (shortness of breath) on exertion Surgical History Encounter for insertion of venous access port History of colonoscopy History of hysterectomy (03/08/13) History of squamous cell carcinoma excision History of vascular access device Post-lymphadenectomy lymphedema of arm S/P breast biopsy S/P lumpectomy of breast S/P lymph node biopsy Family History Father Bright's disease Kidney disease Sister Colon cancer Gallbladder disease Hypertension Kidney stones Colorectal cancer Mother Cardiac disorder Congestive heart failure Other Crohn's disease Denies family history of Ovarian cancer Prostate cancer Myocardial infarction Breast cancer Social History Smoking Status: Former smoker Tobacco Type: Cigarettes Second Hand Exposure: Yes (hx); Hx Alcohol Use: No Hx Substance Use: No Preferred Language: Azerbaijani Communication Ability: Effective Visual Impairment: No Limitations Hearing Ability: Use of Hearing Aid 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: No Beliefs That Will Affect Care: None marital status: / Current Living Situation: Alone current occupational status: retired Feels Safe at Home: Yes Dental Care, Regularly: Yes Physical Activity Frequency: Daily Seatbelt Use: always Sunscreen Use: Yes Assistive Devices: Cane, Denture - Upper, Denture - Lower, Glasses, Hearing Aid - Left and Walker Allergies Allergies Allergy/AdvReac Type Severity Reaction Status Date / Time diphenhydramine Allergy Severe ALL Verified 06/11/22 18:05 ANTIHISTAMINES-"HYPER" FEELING allopurinol Allergy Intermediate RASH-SEVERE Verified 06/11/22 18:05 ITCHING Home Meds Home Medications Medication Instructions Recorded Confirmed acetaminophen 500 mg tablet 1,000 mg PO QAM 04/21/19 06/11/22 ascorbic acid (vitamin C) 500 mg 500 mg PO QAM 04/21/19 06/11/22 capsule calcium carbonate 600 mg-vitamin 1 cap PO QAM 04/21/19 06/11/22 D3 5 mcg (200 unit) capsule (Calcium 600 + D(3)) cholecalciferol (vitamin D3) 50 2,000 units PO QDL 04/21/19 06/11/22 mcg (2,000 unit) capsule cranberry 500 mg capsule 500 mg PO QAM 04/21/19 06/11/22 cyanocobalamin (vitamin B-12) 500 500 mcg PO 2XWK 04/21/19 06/11/22 mcg lozenges magnesium chloride 64 mg 64 mg PO TID 07/15/19 09/04/22 (magnesium chloride) tablet,delayed release multivitamin with iron 1 tab PO QAM 04/21/19 06/11/22 Ivig 1 dose IV MO 03/24/21 06/11/22 docusate sodium 100 mg tablet 100 mg PO QAM 03/24/21 06/11/22 (Stool Softener) rituximab 10 mg/mL 10 mg IV MO 03/24/21 06/11/22 concentrate,intravenous (Rituxan) Lactobacillus acidophilus 10,000 mmu cells PO BID 06/11/22 06/11/22 Previous Rx's Medication Instructions Recorded tramadol 50 mg tablet 50 mg PO DAILY PRN pain #20 tabs 07/14/21 lisinopril 30 mg tablet 30 mg PO QAM #90 tabs 07/25/21 oxybutynin chloride 5 mg 5 mg PO QAM #30 tabs 12/13/21 tablet,extended release 24 hr vancomycin 125 mg capsule 125 mg PO QAM #90 caps 01/17/22 rivaroxaban 15 mg tablet (Xarelto) 15 mg PO DAILY #90 tabs 01/23/22 metoprolol succinate 25 mg 12.5 mg PO QAM #45 tabs 03/15/22 tablet,extended release 24 hr pantoprazole 40 mg tablet,delayed 40 mg PO DAILY #30 tabs 03/22/22 release (Protonix) Results & Data (ED) Vital Signs Vital Signs - 24 hr 06/11/22 15:15 06/11/22 15:04 06/11/22 17:04 Temperature 36.8 C Temperature Source Temporal Artery Scan Pulse Rate 79 Pulse Rate [Apical] 92 H 84 Respiratory Rate 18 16 16 Respiratory Effort / Characteristics Non-Labored Spontaneous Blood Pressure 174/86 H Blood Pressure [Left Arm] 188/129 H 188/129 H Blood Pressure Mean 115 Blood Pressure Mean [Left Arm] 148 148 Blood Pressure Position [Left Arm] Lying Pulse Oximetry 95 96 97 Oxygen Delivery Method Room Air Sepsis Recent Fever Within 48 Hours No Sepsis New/Unexplained Change in Mental Status No Sepsis Action Taken by Nursing No Action Required Laboratory Data Result diagrams: 06/11/22 15:40 06/11/22 15:40 Lab Results 06/11/22 06/11/22 Range/Units 15:40 15:40 WBC 6.90 (4.8-10.8) K/ul RBC 4.12 (3.93-5.22) M/uL Hgb 13.0 (12.0-16.0) g/dl Hct 40.5 (34.1-44.9) % MCV 98.3 (80.0-100.0) fL MCH 31.6 (25.0-34.0) pg MCHC 32.1 (32.0-36.0) g/dL RDW Std Deviation 51.6 H (36.4-46.3) fL RDW Coeff of Ruddy 14.3 (11.5-14.5) % Plt Count 175 (130-400) K/uL MPV 11.1 (9.4-12.3) fL Immature Gran % (Auto) 0.4 % Neut % (Auto) 83.3 % Lymph % (Auto) 5.7 % Clay % (Auto) 8.8 % Eos % (Auto) 1.4 % Baso % (Auto) 0.4 % Neut # (Auto) 5.74 (1.4-6.5) K/uL Lymph # (Auto) 0.39 L (1.2-3.4) K/uL [place] # (Auto) 0.61 (0.24-0.82) K/uL Eos # (Auto) 0.10 (0-0.50) K/uL Baso # (Auto) 0.03 (0-0.2) K/uL Immature Gran # (Auto) 0.03 H (0.00-0.02) K/uL Sodium 138 (136-145) mmol/L Potassium 4.8 (3.5-5.1) mmol/L Chloride 105 (98-107) mmol/L Carbon Dioxide 25 (21-32) mmol/L Anion Gap 8 (3-11) BUN 31 H (6-23) mg/dl Creatinine 1.20 (0.6-1.2) mg/dl Est Cr Clr Drug Dosing 29.1 ml/min Est GFR ( Amer) 47.4 ml/min Est GFR (Non-Af Amer) 40.9 ml/min BUN/Creatinine Ratio 25.8 H (10-20) Glucose 109 H (70-99(Fasting)) mg/dl Calcium 9.3 (8.5-10.1) mg/dl Total Bilirubin 0.7 (0.2-1.0) mg/dl AST 23 (13-39) U/L ALT 32 (7-52) U/L Alkaline Phosphatase 185 H (34-104) U/L Total Protein 6.9 (6.0-8.3) gm/dl Albumin 4.2 (3.4-5.0) gm/dl Globulin 2.7 (2.5-4.0) gm/dl Albumin/Globulin Ratio 1.6 (0.9-2) Lipase 29 (11-82) U/L Administered Medications Acetaminophen (Acetaminophen 500 Mg Tab) 1,000 mg PO TID CIPRIANO Stop: 07/11/22 21:29 Last Admin: 06/11/22 22:20 Dose: 1,000 mg Documented By: HARRY Calcitonin [place] (Calcitonin [place] Na 200 Iu/Ac 3.7 Ml Btl) 1 sprays NA HS CIPRIANO Stop: 07/11/22 20:59 Last Admin: 06/11/22 22:21 Dose: 1 sprays Documented By: HARRY Lactobacillus Acidophilus (Advanced Probiotic 1250 Mg Capsule) 2 cap PO BID CIPRIANO Stop: 07/11/22 20:59 Last Admin: 06/11/22 22:20 Dose: 2 cap Documented By: HARRY Discontinued Medications Hydromorphone HCl (Hydromorphone Inj 0.5 Mg/0.5 Ml Syr) 0.25 mg IV NOW STA Stop: 06/11/22 17:42 Last Admin: 06/11/22 17:55 Dose: 0.25 mg Documented By: TRH Hydromorphone HCl (Hydromorphone Inj 0.5 Mg/0.5 Ml Syr) 0.25 mg IV NOW STA Stop: 06/11/22 18:43 Last Admin: 06/11/22 18:44 Dose: 0.25 mg Documented By: TRH Ondansetron HCl (Ondansetron Inj 2 Mg/Ml 2 Ml Vial) 4 mg IV NOW STA Stop: 06/11/22 17:42 Last Admin: 06/11/22 17:55 Dose: 4 mg Documented By: TRH Imaging Data Radiologist's Impression: Lumbar Spine X-Ray 06/11/22 15:26 XR lumbar spine min 4V routine CLINICAL HISTORY: Back pain, h/o osteoporosis, fxs TECHNIQUE: 5 views of the lumbar spine were obtained. Comparison: Comparison is made to lumbar spine radiographs 11/27/2019 FINDINGS: Old fractures of L3 and L1 are again noted. Degenerative changes are seen in the lumbar spine. Vascular calcifications are noted. IMPRESSION: Old lumbar spine compression fractures are seen without evidence of acute fracture. ACT 112: Negative or not required by law. Electronically signed by: Kurtis Golden M.D. 06/11/2022 4:44 PM Thoracic Spine X-Ray 06/11/22 15:26 XR thoracic spine 3V routine CLINICAL HISTORY: Back pain, h/o osteoporosis, fxs TECHNIQUE: 3 views of the thoracic spine were obtained. Comparison: Comparison is made to CT chest 05/04/2022 FINDINGS: Loss of height is seen most pronounced at T9, which appears greater than in prior CT. Additional old loss of height deformities are noted. Degenerative changes are seen in the thoracic spine. Alignment appears unremarkable. Preve rtebral soft tissues are within normal limits. IMPRESSION: Interval increased wedge deformity at T9, likely acute compression fracture, correlation with point tenderness is recommended. ACT 112: Negative or not required by law. Electronically signed by: Kurtis Golden M.D. 06/11/2022 4:51 PM Discharge Plan Visit Data Chief Complaint: Back Injury/Pain Stated Complaint: BACK PAIN ED Provider: Isaac Santos Discharge Problem: Closed wedge compression fracture of T9 vertebra, Acute back pain Patient Disposition: Admitted As Inpatient Discharge Instructions Interventions: ED Discharge Assessment Last Done: 06/11/22 21:04
[2022-06-11] MEDS ORDERED: traMADol HCL 50 MG TABLET PO PRN (20:58)
[2022-06-11] MEDS: ADVANCED PROBIOTIC 1250 MG CAPSULE PO SCH (22:20)
[2022-06-11] MEDS: ACETAMINOPHEN 500 MG TAB PO SCH (22:20)
[2022-06-11] MEDS: CALCITONIN SALMON NA 200 IU/AC 3.7 ML BTL SCH (22:21)
[2022-06-12] MEDS: traMADol HCL 50 MG TABLET PO PRN ×2 (05:41→11:58)
--- NOTE | 2022-06-12 07:32 | Electrocardiogram Report ---
Test Reason : Blood Pressure : / mmHG Vent. Rate : 087 BPM Atrial Rate : 416 BPM P-R Int : 000 ms QRS Dur : 062 ms QT Int : 328 ms P-R-T Axes : 000 -21 037 degrees QTc Int : 394 ms Poor data quality, interpretation may be adversely affected Atrial fibrillation Poor R wave progression, consider anterior IA vs. lead placement vs. LVH Abnormal ECG When compared with ECG of 04-JAN-2017 13:39, Atrial fibrillation has replaced Sinus rhythm Vent. rate has increased BY 44 BPM T wave inversion now evident in Anterior leads Confirmed by Tej Coles ([id number]) on 06/12/2022 7:31:58 AM Referred By: REFERRED SELF Confirmed By:Otf Coles
[2022-06-12] MEDS: ASCORBIC ACID 500 MG TAB PO SCH (08:05)
[2022-06-12] MEDS: ACETAMINOPHEN 500 MG TAB PO SCH ×3 (08:05→20:21)
[2022-06-12] MEDS: CALCIUM 600MG + VIT D 400 IU TAB PO SCH (08:05)
[2022-06-12] MEDS: ADVANCED PROBIOTIC 1250 MG CAPSULE PO SCH ×2 (08:05→20:21)
[2022-06-12] MEDS: lisinopril 10 MG TAB PO SCH (08:06)
[2022-06-12] MEDS: METOPROLOL SUCC 25MG EXT REL TAB PO SCH (08:06)
[2022-06-12] MEDS: MAGNESIUM CHLORIDE W/CALCIUM 64MG DELAYED REL TAB PO SCH ×3 (08:06→17:26)
[2022-06-12] MEDS: DOCUSATE SODIUM 100 MG CAP PO SCH (08:06)
[2022-06-12] MEDS: VANCOMYCIN HCL 125 MG/2.5ML SOLN PO SCH (08:07)
[2022-06-12] MEDS: LIDOCAINE 5% 1 PATCH TD SCH (08:07)
[2022-06-12] MEDS: MULTIVITAMIN CHEWABLE TAB PO SCH (08:07)
[2022-06-12] MEDS: PANTOprazole 40 MG TAB PO SCH (08:07)
[2022-06-12] MEDS: RASPBERRY SYRUP 5 ML UDP PO SCH (08:07)
[2022-06-12] MEDS: OXYBUTYNIN CHLORIDE XL 5 MG TABCR PO SCH (08:07)
[2022-06-12] MEDS ORDERED: LIDOCAINE 5% 1 PATCH TD SCH (09:00)
[2022-06-12] MEDS: CHOLECALCIFEROL 1,000 UNITS 25 MCG TAB PO SCH (11:55)
--- NOTE | 2022-06-12 13:55 | Hospitalist Progress Note ---
Date of Service June 12, 2022 Assessment & Plan (1) Thoracic compression fracture: Plan: Pain relief with acetaminophen 1 g 3 times daily, tramadol 25 to 50 mg every 4 hourly as needed Lidocaine patch Calcitonin nasal spray once daily Vitamin D within normal limits in November therefore no need to repeat this. Recommend follow-up DEXA scan as outpatient to consider bisphosphonate therapy for osteoporosis and pain management PT/OT, possible need for placement (2) Osteoporosis: Plan: Patient reports previously on Fosamax greater than 10 years ago. Consider DEXA scan as an outpatient and repeat treatment with Fosamax. (3) HTN (hypertension): Plan: Continue lisinopril 30 mg p.o. daily and metoprolol succinate 12.5 mg p.o. daily (4) Paroxysmal atrial fibrillation: Plan: Continue Xarelto for anticoagulation Continue metoprolol for rate control (5) Non-Hodgkin's lymphoma: Plan: On Rituxan maintenance dosing IVIG for persistent hypogammaglobulinemia Plan VTE prophylaxis -Xarelto Diet -regular Disposition -observation status to [facility], pending PT/OT evals for possible need for rehab Admission and Anticipated Discharge Date Admission Date: June 11, 2022 Subjective Was going well this morning until I walked into the room. Currently having muscle spasms with 10/10 pain. 0/10 outside of muscle spasms and while in bed. No BM yesterday or today. Requesting additional laxatives. Review of Systems Review of Systems: All systems reviewed & are unremarkable except as noted in Subjective Physical Exam Constitutional: WD/WN, vitals as above Eyes: + anicteric sclerae; normal pupil size Respiratory: normal respiratory effort, lungs clear to auscultation Cardiovascular: RRR, no murmur, no edema Musculoskeletal: Spine: + thoracic spinal tenderness (Consistent with x-ray with tenderness at T9 vertebra) and + paraspinal tenderness (Lower thoracic) Neurologic: moves all extremities and awake; not confused Psychiatric: A+Ox3, euthymic affect Results & Data Results & Data ([facility]) Vital Signs (Past 12 Hours) Vital Signs Temp Resp BP Pulse Ox O2 Del Method 06/12/22 08:00 Room Air 06/12/22 07:20 36.5 C 18 154/78 H 92 Room Air PG Care Time/CCT Total # of Minutes Spent Total Time Spent with Patient: Total time spent is greater than 50% in coordination of care (as documented) at patient's floor/unit and/or counseling patient: Coding Level of Care Code 26215 Subseq Obs Care Lvl 2 Diagnoses Thoracic compression fracture S22.000A Osteoporosis M81.0 HTN (hypertension) I10 Paroxysmal atrial fibrillation I48.0 Non-Hodgkin's lymphoma C85.90
[2022-06-12] MEDS: POLYETHYLENE (MIRALAX) 17 GM PACK PO SCH (14:56)
[2022-06-12] MEDS: RIVAROXABAN 15 MG TAB PO SCH (17:26)
[2022-06-12] MEDS: CALCITONIN SALMON NA 200 IU/AC 3.7 ML BTL SCH (20:14)
[2022-06-13] MEDS: ACETAMINOPHEN 500 MG TAB PO SCH ×3 (07:27→20:25)
[2022-06-13] MEDS: METOPROLOL SUCC 25MG EXT REL TAB PO SCH (07:28)
[2022-06-13] MEDS: ADVANCED PROBIOTIC 1250 MG CAPSULE PO SCH ×2 (07:28→20:25)
[2022-06-13] MEDS: MAGNESIUM CHLORIDE W/CALCIUM 64MG DELAYED REL TAB PO SCH ×3 (07:28→17:31)
[2022-06-13] MEDS: MULTIVITAMIN CHEWABLE TAB PO SCH (07:29)
[2022-06-13] MEDS: PANTOprazole 40 MG TAB PO SCH (07:29)
[2022-06-13] MEDS: lisinopril 10 MG TAB PO SCH (07:29)
[2022-06-13] MEDS: DOCUSATE SODIUM 100 MG CAP PO SCH (07:29)
[2022-06-13] MEDS: ASCORBIC ACID 500 MG TAB PO SCH (07:29)
[2022-06-13] MEDS: CALCIUM 600MG + VIT D 400 IU TAB PO SCH (07:30)
[2022-06-13] MEDS: OXYBUTYNIN CHLORIDE XL 5 MG TABCR PO SCH (07:30)
[2022-06-13] MEDS: traMADol HCL 50 MG TABLET PO PRN ×2 (07:42→20:26)
[2022-06-13] MEDS: POLYETHYLENE (MIRALAX) 17 GM PACK PO SCH (07:43)
[2022-06-13] MEDS: RASPBERRY SYRUP 5 ML UDP PO SCH (10:20)
[2022-06-13] MEDS: VANCOMYCIN HCL 125 MG/2.5ML SOLN PO SCH (10:21)
[2022-06-13] MEDS: LIDOCAINE 5% 1 PATCH TD SCH (10:21)
[2022-06-13] MEDS: CHOLECALCIFEROL 1,000 UNITS 25 MCG TAB PO SCH (12:04)
[2022-06-13] MEDS: RIVAROXABAN 15 MG TAB PO SCH (17:30)
[2022-06-13] MEDS: CALCITONIN SALMON NA 200 IU/AC 3.7 ML BTL SCH (20:25)
[2022-06-14] MEDS: traMADol HCL 50 MG TABLET PO PRN ×2 (05:11→11:57)
[2022-06-14 07:03] LABS: Creatinine Clr Calc Pharmacy 32.9 ml/min; Est GFR (African American) 55.1 ml/min; Est GFR (Non-African American) 47.5 ml/min
[2022-06-14] MEDS: ACETAMINOPHEN 500 MG TAB PO SCH (08:19)
[2022-06-14] MEDS: CALCIUM 600MG + VIT D 400 IU TAB PO SCH (08:19)
[2022-06-14] MEDS: PANTOprazole 40 MG TAB PO SCH (08:19)
[2022-06-14] MEDS: ADVANCED PROBIOTIC 1250 MG CAPSULE PO SCH (08:19)
[2022-06-14] MEDS: OXYBUTYNIN CHLORIDE XL 5 MG TABCR PO SCH (08:19)
[2022-06-14] MEDS: DOCUSATE SODIUM 100 MG CAP PO SCH (08:19)
[2022-06-14] MEDS: METOPROLOL SUCC 25MG EXT REL TAB PO SCH (08:20)
[2022-06-14] MEDS: MAGNESIUM CHLORIDE W/CALCIUM 64MG DELAYED REL TAB PO SCH ×2 (08:20→11:57)
[2022-06-14] MEDS: MULTIVITAMIN CHEWABLE TAB PO SCH (08:20)
[2022-06-14] MEDS: ASCORBIC ACID 500 MG TAB PO SCH (08:20)
[2022-06-14] MEDS: lisinopril 10 MG TAB PO SCH (08:21)
[2022-06-14] MEDS: LIDOCAINE 5% 1 PATCH TD SCH (08:21)
[2022-06-14] MEDS: POLYETHYLENE (MIRALAX) 17 GM PACK PO SCH (08:24)
[2022-06-14] MEDS: RASPBERRY SYRUP 5 ML UDP PO SCH (08:28)
[2022-06-14] MEDS: VANCOMYCIN HCL 125 MG/2.5ML SOLN PO SCH (08:29)
--- NOTE | 2022-06-14 08:41 | Hospitalist Progress Note ---
Date of Service June 13, 2022 Assessment & Plan (1) Thoracic compression fracture: Plan: Pain relief with acetaminophen 1 g 3 times daily, tramadol 25 to 50 mg every 4 hourly as needed Lidocaine patch Calcitonin nasal spray once daily Vitamin D within normal limits in November therefore no need to repeat this. Recommend follow-up DEXA scan as outpatient to consider bisphosphonate therapy for osteoporosis and pain management PT/OT, patient wishing to return home but cannot get transport today. Will plan on discharge tomorrow. (2) Osteoporosis: Plan: Patient reports previously on Fosamax greater than 10 years ago. Consider DEXA scan as an outpatient and repeat treatment with Fosamax. (3) HTN (hypertension): Plan: Continue lisinopril 30 mg p.o. daily and metoprolol succinate 12.5 mg p.o. daily (4) Paroxysmal atrial fibrillation: Plan: Continue Xarelto for anticoagulation Continue metoprolol for rate control (5) Non-Hodgkin's lymphoma: Plan: On Rituxan maintenance dosing IVIG for persistent hypogammaglobulinemia Plan VTE prophylaxis -Xarelto Diet -regular Disposition -observation status to [facility] [place], pending PT/OT evals for possible need for rehab Admission and Anticipated Discharge Date Admission Date: June 11, 2022 Subjective Reports doing better although still having back spasms. Case management discussed with her niece and unable to transport patient home today. Review of Systems Review of Systems: All systems reviewed & are unremarkable except as noted in Subjective Physical Exam Constitutional: WD/WN, vitals as above Respiratory: normal respiratory effort Musculoskeletal: Spine: + paraspinal tenderness (thoracic) Results & Data Results & Data ([facility]) Vital Signs (Past 12 Hours) Vital Signs Temp Pulse Resp BP Pulse Ox O2 Del Method 06/14/22 07:31 36.9 C 82 16 146/93 H 92 Room Air 06/13/22 22:45 36.9 C 78 154/82 H 95 Room Air PG Care Time/CCT Total # of Minutes Spent Total Time Spent with Patient: Total time spent is greater than 50% in coordination of care (as documented) at patient's floor/unit and/or counseling patient: Coding Level of Care Code 19992 Subseq Obs Care Lvl 1 Diagnoses Thoracic compression fracture S22.000A Osteoporosis M81.0 HTN (hypertension) I10 Paroxysmal atrial fibrillation I48.0 Non-Hodgkin's lymphoma C85.90
[2022-06-14] MEDS: CHOLECALCIFEROL 1,000 UNITS 25 MCG TAB PO SCH (11:56)
--- NOTE | 2022-06-14 12:53 | Discharge Summary ---
Date of Service June 14, 2022 Admission HPI Per Admitting Provider Mishel Beckford is an 86-year-old female who presents to the ER due to back pain. Pain is on the lower thoracic spine. Severity 10 out of 10 at worst, currently 6-7 out of 10. No radiation. Center of her back. Intermittent back spasms can take her breath away. Pain has been ongoing since but progressively getting worse. She ran her sweeper on Sunday although this is not unusual for her. She denies any heavy lifting or trauma. She has not seen any healthcare providers since. She reports taking acetaminophen regularly and tramadol as needed which she had leftover from her lower back pain. In the ER thoracic spine x-ray showed an acute T9 compression fracture. She lives alone and does not feel safe to return home at this time therefore was referred to medicine for admission ongoing management of this thoracic spine fracture. Principal Diagnosis Thoracic compression fracture with muscle spasms Discharge Exam Constitutional WD/WN, vitals as above Eyes + anicteric sclerae; normal pupil size Respiratory normal respiratory effort Gastrointestinal (Abdomen) normal bowel sounds, soft, nontender, no hepatosplenomegaly Musculoskeletal Spine: + paraspinal tenderness (thoracic) Skin no rashes, warm and dry Neurologic moves all extremities and awake; not confused Psychiatric A+Ox3, euthymic affect Discharge Data Allergies Allergy/AdvReac Type Severity Reaction Status Date / Time diphenhydramine Allergy Severe ALL Verified 06/16/22 14:15 ANTIHISTAMINES-"HYPER" FEELING allopurinol Allergy Intermediate RASH-SEVERE Verified 06/16/22 14:15 ITCHING Hospital Course (1) Thoracic compression fracture: Mishel Beckford is an 86 year old female observed at [facility] from June 11 - 2021 due to thoracic compression fracture with muscle spasms. This was treated with calcitonin nasal spray, acetaminophen, tramadol, lidocaine patch and physical therapy. Please continue with acetaminophen 1g three times a day regularly while having pain. Use Voltaren gel, Lidocaine patch and tramadol as needed. Recommend discussing osteoporosis treatment with your primary care physician to help with vertebral pain and help stop further fractures. She will be set up with nursing and physical therapy with [facility]. (2) Osteoporosis: (3) HTN (hypertension): (4) Paroxysmal atrial fibrillation: (5) Non-Hodgkin's lymphoma: Total Time Total Time Spent Total Time Spent (In Minutes): 20 Discharge Plan Discharge Items Patient Disposition: Home - Home Health Services Reason For Visit: THORACIC COMPRESSION FRACTURE Discharge Diagnosis: Thoracic compression fracture with muscle spasms Activity: Resume your previous activity Non-emergency contact: Primary Care Provider Call non-emergency contact if: you have any medication questions and your symptoms worsen Follow-up/Referrals: Marko Dennis MD [Primary Care Provider] - 06/16/22 11:00 am Diet: Heart Healthy Addtl Attending Provider Instructions: You were observed at [facility] from June 11 - 2021 due to thoracic compression fracture with muscle spasms. This was treated with calcitonin nasal spray, acetaminophen, tramadol, lidocaine patch and physical therapy. Please continue with acetaminophen 1g three times a day regularly while having pain. Use Voltaren gel, Lidocaine patch and tramadol as needed. Recommend discussing osteoporosis treatment with your primary care physician to help with vertebral pain and help stop further fractures. You will be set up with nursing and physical therapy with [facility]. Pending Studies at Discharge: No Stand-Alone Forms: My [facility], Smoking Cessation Medications and DC Order Prescriptions: New diclofenac sodium 1 % gel 2 g topical QID Qty: 100 0RF Rx Instructions: apply to back Continued oxybutynin chloride 5 mg tablet extended release 24 hr 5 mg PO QAM Qty: 30 5RF vancomycin 125 mg capsule 125 mg PO QAM Qty: 90 3RF Xarelto 15 mg tablet 15 mg PO DAILY Qty: 90 3RF metoprolol succinate 25 mg tablet extended release 24 hr 12.5 mg PO QAM Qty: 45 3RF pantoprazole [Protonix] 40 mg tablet,delayed release (DR/EC) 40 mg PO DAILY Qty: 30 5RF ascorbic acid (vitamin C) 500 mg capsule 500 mg PO QAM Calcium 600 + D(3) 600 mg calcium- 200 unit capsule 1 cap PO QAM cholecalciferol (vitamin D3) 2,000 unit capsule 2,000 units PO QDL cranberry 500 mg capsule 500 mg PO QAM cyanocobalamin (vitamin B-12) 500 mcg lozenge 500 mcg PO 2XWK Rx Instructions: TAKES ON SUNDAY AND SUNDAY. magnesium chloride 64 mg tablet,delayed release (DR/EC) 64 mg PO TID multivitamin with iron tablet 1 tab PO QAM lisinopril 30 mg tablet 30 mg PO QAM Qty: 90 3RF Rituxan 10 mg/mL Concentrate 10 mg IV MO Rx Instructions: DUE 06/22/22. Ivig 1 dose IV MO Lactobacillus acidophilus Capsule 10,000 mmu cells PO BID Changed acetaminophen 500 mg tablet 1,000 mg PO TID Qty: 180 0RF No Action baclofen 5 mg tablet 5 mg PO BID Qty: 60 2RF tramadol 50 mg tablet 25 - 50 mg PO Q4H PRN (Reason: pain) Qty: 42 0RF docusate sodium [Stool Softener] 100 mg tablet 100 mg PO BID Discharge Orders: Discharge Order (Routine); Ordered 06/14/22 Ordered By: Trevon Morris Admission Data Admit Date/Time: 06/11/22 18:02 Attending Provider: Trevon Morris Admit Provider: Trevon Morris Primary Care Provider: Marko Dennis Other Providers: [facility] Other Interventions: Discharge Summary Assessment (RN) Last Done: 06/14/22 13:00 Coding Level of Care Code 49656 OBS Care - Discharge Diagnoses Thoracic compression fracture S22.000A Osteoporosis M81.0 HTN (hypertension) I10 Paroxysmal atrial fibrillation I48.0 Non-Hodgkin's lymphoma C85.90 Home Health Attestation I certify that this patient is under my care and that I, or a physicians assistant case manager working with me, had a face to-face encounter that meets the home health [id number] encounter requirements with this patient. The encounter with the patient was in whole, or in part, for the following medical condition, which is the primary reason for home health care (list medical condition): I certify that, based on my findings, the following services are medically necessary home health services: My clinical findings support the need for the above services because: Further, I certify that my clinical findings support that this patient is homebound (i.e. absences from home require considerable and taxing effort and are for medical reasons or sikh services or infrequently or of short duration when for other reasons) because: Certification for Home Health Services: Based on the above findings, I certify that this patient is confined to the home and needs intermittent retirement care, physical therapy and/or speech therapy or continues to need occupational therapy. The patient is under my care, and I have initiated the establishment of the plan of care. This patient will be followed by a physician who will periodically review the plan of care.
[2022-06-17] MEDS ORDERED: CYANOCOBALAMIN (B-12) 500 MCG TABLET PO SCH (09:00)
== END 2022-06-14 15:51 | disposition home health service (06) ==
LOC: 3E 15:04 → ED 15:04 → 3E 21:04

== ENCOUNTER 2022-07-03 11:00 | Inpatient (IN) ==
[2022-07-03] MEDS ORDERED: SODIUM CHLORIDE 0.9% 1000ML 500 ML IV ONE (11:24)
--- NOTE | 2022-07-03 11:27 | Emergency Department Note ---
Impression & Plan Acute respiratory failure with hypoxia, Pneumonia ED Provider Note Name: MICHAEL EDWARDS Age: 86 Sex: F Arrives Via: Ambulance Informant: Patient, daughter ED Provider: Shaheen Lobato MD Chief Complaint: Weakness Impression: As per impressions above Medical Decision Makin-year-old female arrives for evaluation of essentially feeling severely fatigued. Walking to the room and patient is satting 87% and just with talking her oxygen starts dropping further. On examination she has some crackles bilateral lower lobes. Her chest x-ray reveals bilateral lower lobe atelectasis that I suspect this may actually constitute a pneumonia and I suspect right-si ded based on worsening lung sounds on exam. White blood cell count is 19 and thus blood cultures and lactic acid were obtained. She was given a small amount of fluids as well as empiric IV antibiotics. Hospitalist was consulted for further management patient is comfortable with this plan. Patient is doing significantly better on 3 L nasal cannula and is feeling better as well. Patient without any neurologic deficits nor headache I do not feel that neuroimaging would be indicated at this time. She has a soft nontender abdomen nor does she have any back pain at this time. Patient does have a mildly elevated troponin without EKG changes that do not feel this consistent with ACS. BNP is slightly elevated though I do feel that she appears dry by examination thus some fluids were given Prior Medical Record and Triage/Nursing Notes reviewed by Me Additional history obtained from daughter Differentials:Infection, dehydration, metabolic abnormality, hypo/hyperglycemia, electrolyte disturbance, anemia, hypoxia, cardiac sources, intracerebral event, toxicologic, neurologic, as well as other pathologies. Vital Signs: reviewed and remarkable for hypoxia Interventions: Normal saline bolus, cefepime IV Labs:Reviewed and remarkable for elevated white blood cell count, elevated troponin Imaging:Chest x-ray bilateral lower lobe atelectasis and some congestion EKG:Indication generalized weakness. A. fib without evidence of ischemia at 100 bpm and a QTC of 420. When compared to EKG June 11, 2022 this is similar. Cardiac/Tele Monitoring: Cardiac Monitoring: An Order was placed for continuous cardiac monitoring. The monitor shows a rate of 90 with a atrial fibrillation rhythm. Consults:Dr Reese DORANETS Hospitalist Plan: Disposition:Hospitalization Condition: Good History of Present Illness:86-year-old female arrives for evaluation of fatigue. Patient notes the last few days just feeling very tired and worn out. She notes she feels short of breath with exertion and has had no "pep in her step." She denies any falls, trauma, injuries. She denies any headache, neck pain, sore throat, chest pain, shortness of breath at rest, abdominal pain, back pain, leg swelling, rashes, urinary/bowel symptoms nor any other symptoms. She is taken no medications for this. She states she otherwise has been doing well. She had been on some pain medications a few weeks ago for low back compression fracture but states she has not taken any of those in some time now. She feels her appetite has been okay but she has not been urinating as much. Exertion makes worse and rest seems to make a little bit better. She does note she does not feel her self. ROS: See above HPI for pertinent positives & negatives. A total of 10 systems reviewed and were otherwise negative. Past Medical History:See Below Past Surgical History:See Below Family History:See Below Social History:See Below Home Medications:See Below Allergies:Diphenhydramine, allopurinol Vitals:Blood Pressure: 123/82, Pulse 99, RR 19, T 36.8C, O2 87% on RA Physical Exam: GENERAL: Patient is tired appearing and in mild distress. EYES: No scleral icterus, unremarkable pupils. ENT: Mucous membranes moist, no nasal congestion. NECK: No masses appreciated, nomeningismus, trachea is midline. RESPIRATORY: Mild dyspnea/tachypnea with some crackles in bilateral lower lobes. CARDIOVASCULAR: Regular rate and rhythm.No murmurs, rubs, gallops appreciated. GASTROINTESTINAL: Abdomen soft, non-tender, no peritonitis.Bowel sounds positive.No masses appreciated. BACK: No midline tenderness, no CVA tenderness EXTREMITIES: Normal motion all extremities, no cyanosis, no edema. NEUROLOGIC: Alert and oriented, no acute motor or sensory deficits, no focal weakness, cranial nerves grossly intact. SKIN: No rash, no jaundice, no diaphoresis. PSYCH: Appropriate GCS: 15 ED Course: Times/Reassessments: Patient is feeling much better after being on nasal cannula and getting some IV fluids. She is agreeable to hospitalization after discussion with hospitalist. 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 HTN (hypertension) Low back pain Non-Hodgkin's lymphoma (03/08/13) h/o chemo Osteoarthritis Overactive bladder Paroxysmal atrial fibrillation ON XARELTO F/U DR PETTY Pneumonia Prophylactic antibiotic SOB (shortness of breath) on exertion Surgical History Encounter for insertion of venous access port History of colonoscopy History of hysterectomy (03/08/13) History of squamous cell carcinoma excision History of vascular access device IN PLACE LEFT UPPER CHEST-"NON FUNCTIONING" PER PT Post-lymphadenectomy lymphedema of arm S/P breast biopsy S/P lumpectomy of breast RIGHT/RADIATION S/P lymph node biopsy Family History Father Bright's disease Kidney disease Sister Colon cancer Gallbladder disease Hypertension Kidney stones Colorectal cancer Mother Cardiac disorder Congestive heart failure Other Crohn's disease Denies family history of Ovarian cancer Prostate cancer Myocardial infarction Breast cancer Social History Smoking Status: Never smoker Tobacco Type: Cigarettes Second Hand Exposure: No; Do You Dip or Chew Tobacco: No; Tobacco Cessation Education Requested by Patient: No Hx Alcohol Use: No Hx Substance Use: No Preferred Language: Citizen Of The [place] Communication Ability: Effective Visual Impairment: No Limitations Hearing Ability: Use of Hearing Aid 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 Beliefs That Will Affect Care: None marital status: Single Current Living Situation: Alone current occupational status: retired How many Children do You have: 0 Other Information That Helps Us Care for You: No Feels Safe at Home: Yes Safety Concerns: Feels Safe At This Time Dental Care, Regularly: Yes Physical Activity Frequency: Daily Seatbelt Use: always Sunscreen Use: Yes Assistive Devices: Cane Allergies Allergies Allergy/AdvReac Type Severity Reaction Status Date / Time diphenhydramine Allergy Severe ALL Verified 07/03/22 13:17 ANTIHISTAMINES-"HYPER" FEELING allopurinol Allergy Intermediate RASH-SEVERE Verified 07/03/22 13:17 ITCHING Home Meds Home Medications Medication Instructions Recorded Confirmed calcium carbonate 600 mg-vitamin 1 cap PO QAM 04/21/19 07/03/22 D3 5 mcg (200 unit) capsule (Calcium 600 + D(3)) cholecalciferol (vitamin D3) 50 2,000 units PO QDL 04/21/19 07/03/22 mcg (2,000 unit) capsule cranberry 500 mg capsule 500 mg PO QAM 04/21/19 07/03/22 cyanocobalamin (vitamin B-12) 500 500 mcg PO 2XWK 04/21/19 07/03/22 mcg lozenges magnesium chloride 64 mg 64 mg PO TID 04/21/19 07/03/22 (magnesium chloride) tablet,delayed release multivitamin with iron 1 tab PO QAM 04/21/19 07/03/22 Ivig 1 dose IV MO 03/24/21 07/03/22 rituximab 10 mg/mL 10 mg IV MO 03/24/21 07/03/22 concentrate,intravenous (Rituxan) docusate sodium 100 mg tablet 100 mg PO QAM 06/16/22 07/03/22 (Stool Softener) Lactobacillus acidophilus 10,000 mmu cells PO QAM 07/03/22 07/03/22 Previous Rx's Medication Instructions Recorded lisinopril 30 mg tablet 30 mg PO QAM #90 tabs 07/25/21 vancomycin 125 mg capsule 125 mg PO QAM #90 caps 01/17/22 rivaroxaban 15 mg tablet (Xarelto) 15 mg PO DAILY #90 tabs 01/23/22 metoprolol succinate 25 mg 12.5 mg PO QAM #45 tabs 03/15/22 tablet,extended release 24 hr pantoprazole 40 mg tablet,delayed 40 mg PO DAILY #30 tabs 03/22/22 release (Protonix) diclofenac sodium 1 % topical gel 2 g topical QID #100 grams 06/14/22 baclofen 5 mg tablet 5 mg PO BID #60 tabs 06/16/22 tramadol 50 mg tablet 25 - 50 mg PO Q4H PRN pain #42 tabs 06/16/22 oxybutynin chloride 5 mg 5 mg PO QAM #90 tabs 06/22/22 tablet,extended release 24 hr acetaminophen 500 mg tablet 1,000 mg PO TID #180 tabs 06/27/22 ascorbic acid (vitamin C) 500 mg 500 mg PO QAM #30 caps 06/27/22 capsule Results & Data (ED) Vital Signs Vital Signs - 24 hr 07/03/22 11:13 07/03/22 11:13 07/03/22 11:23 Temperature 36.8 C Temperature Source Oral Pulse Rate 99 H Pulse Rate from SpO2 Sensor Pulse Rhythm Irregular Respiratory Rate 19 Respiratory Effort / Characteristics Non-Labored Respiratory Depth Normal Respiratory Pattern Regular Blood Pressure 123/82 Blood Pressure Mean 95 Pulse Oximetry 90 90 87 L Oxygen Delivery Method Room Air Room Air Room Air Oxygen Flow Rate Sepsis Recent Fever Within 48 Hours No Sepsis New/Unexplained Change in Mental Status No Sepsis Action Taken by Nursing No Action Required 07/03/22 11:23 07/03/22 11:11 07/03/22 11:30 Temperature Temperature Source Pulse Rate 97 H 96 H Pulse Rate from SpO2 Sensor 100 H 96 H Pulse Rhythm Respiratory Rate 20 21 Respiratory Effort / Characteristics Respiratory Depth Respiratory Pattern Blood Pressure Blood Pressure Mean Pulse Oximetry 94 90 94 Oxygen Delivery Method Nasal Cannula Oxygen Flow Rate 2 Sepsis Recent Fever Within 48 Hours Sepsis New/Unexplained Change in Mental Status Sepsis Action Taken by Nursing 07/03/22 12:00 07/03/22 12:00 07/03/22 12:30 Temperature Temperature Source Pulse Rate 96 H 97 H Pulse Rate from SpO2 Sensor 98 H 95 H Pulse Rhythm Respiratory Rate 27 H 20 Respiratory Effort / Characteristics Respiratory Depth Respiratory Pattern Blood Pressure 151/85 H Blood Pressure Mean 107 Pulse Oximetry 97 95 Oxygen Delivery Method Oxygen Flow Rate Sepsis Recent Fever Within 48 Hours Sepsis New/Unexplained Change in Mental Status Sepsis Action Taken by Nursing 07/03/22 13:00 07/03/22 13:30 07/03/22 13:30 Temperature Temperature Source Pulse Rate 104 H 87 Pulse Rate from SpO2 Sensor 104 H 89 Pulse Rhythm Respiratory Rate 35 H 24 Respiratory Effort / Characteristics Respiratory Depth Respiratory Pattern Blood Pressure 139/87 Blood Pressure Mean 104 Pulse Oximetry 89 L 95 Oxygen Delivery Method Oxygen Flow Rate Sepsis Recent Fever Within 48 Hours Sepsis New/Unexplained Change in Mental Status Sepsis Action Taken by Nursing Laboratory Data Result diagrams: 07/03/22 11:35 07/03/22 11:35 Lab Results 07/03/22 07/03/22 07/03/22 Range/Units 11:35 11:35 11:35 WBC 19.08 H (4.8-10.8) K/ul RBC 4.38 (3.93-5.22) M/uL Hgb 13.9 (12.0-16.0) g/dl Hct 41.7 (34.1-44.9) % MCV 95.2 (80.0-100.0) fL MCH 31.7 (25.0-34.0) pg MCHC 33.3 (32.0-36.0) g/dL RDW Std Deviation 48.6 H (36.4-46.3) fL RDW Coeff of Ruddy 13.8 (11.5-14.5) % Plt Count 215 (130-400) K/uL MPV 11.9 (9.4-12.3) fL Immature Gran % (Auto) 0.5 % Neut % (Auto) 91.4 % Lymph % (Auto) 1.9 % Amelia % (Auto) 5.8 % Eos % (Auto) 0.2 % Baso % (Auto) 0.2 % Neut # (Auto) 17.43 H (1.4-6.5) K/uL Lymph # (Auto) 0.37 L (1.2-3.4) K/uL Amelia # (Auto) 1.11 H (0.24-0.82) K/uL Eos # (Auto) 0.03 (0-0.50) K/uL Baso # (Auto) 0.04 (0-0.2) K/uL Immature Gran # (Auto) 0.10 H (0.00-0.02) K/uL Sodium 138 (136-145) mmol/L Potassium 4.5 (3.5-5.1) mmol/L Chloride 102 (98-107) mmol/L Carbon Dioxide 25 (21-32) mmol/L Anion Gap 11 (3-11) BUN 28 H (6-23) mg/dl Creatinine 1.24 H (0.6-1.2) mg/dl Est Cr Clr Drug Dosing 28.1 ml/min Est GFR ( Amer) 45.5 ml/min Est GFR (Non-Af Amer) 39.3 ml/min BUN/Creatinine Ratio 22.6 H (10-20) Glucose 123 H (70-99(Fasting)) mg/dl Lactate (0.4-2.0) mmol/L Calcium 9.5 (8.5-10.1) mg/dl Magnesium 1.7 (1.7-2.4) mg/dl Troponin I High Sens 35.1 H (0-14) pg/ml B-Natriuretic Peptide (0-100) pg/ml Procalcitonin 0.46 (0-0.5) ng/ml SARS-CoV-2 (PCR) (Negative) Influenza Type A (PCR) (Neg) Influenza Type B (PCR) (Neg) RSV (RT-PCR) (Neg) 07/03/22 07/03/22 07/03/22 Range/Units 11:43 12:48 13:22 WBC (4.8-10.8) K/ul RBC (3.93-5.22) M/uL Hgb (12.0-16.0) g/dl Hct (34.1-44.9) % MCV (80.0-100.0) fL MCH (25.0-34.0) pg MCHC (32.0-36.0) g/dL RDW Std Deviation (36.4-46.3) fL RDW Coeff of Ruddy (11.5-14.5) % Plt Count (130-400) K/uL MPV (9.4-12.3) fL Immature Gran % (Auto) % Neut % (Auto) % Lymph % (Auto) % Amelia % (Auto) % Eos % (Auto) % Baso % (Auto) % Neut # (Auto) (1.4-6.5) K/uL Lymph # (Auto) (1.2-3.4) K/uL Amelia # (Auto) (0.24-0.82) K/uL Eos # (Auto) (0-0.50) K/uL Baso # (Auto) (0-0.2) K/uL Immature Gran # (Auto) (0.00-0.02) K/uL Sodium (136-145) mmol/L Potassium (3.5-5.1) mmol/L Chloride (98-107) mmol/L Carbon Dioxide (21-32) mmol/L Anion Gap (3-11) BUN (6-23) mg/dl Creatinine (0.6-1.2) mg/dl Est Cr Clr Drug Dosing ml/min Est GFR ( Amer) ml/min Est GFR (Non-Af Amer) ml/min BUN/Creatinine Ratio (10-20) Glucose (70-99(Fasting)) mg/dl Lactate 1.7 (0.4-2.0) mmol/L Calcium (8.5-10.1) mg/dl Magnesium (1.7-2.4) mg/dl Troponin I High Sens (0-14) pg/ml B-Natriuretic Peptide 534 H (0-100) pg/ml Procalcitonin (0-0.5) ng/ml SARS-CoV-2 (PCR) NEGATIVE (Negative) Influenza Type A (PCR) Negative (Neg) Influenza Type B (PCR) Negative (Neg) RSV (RT-PCR) Negative (Neg) Administered Medications Acetaminophen (Acetaminophen 500 Mg Tab) 1,000 mg PO TID [facility] Stop: 08/02/22 15:59 Last Admin: 07/03/22 21:47 Dose: Not Given Documented By: Admin: 07/03/22 16:17 Dose: 1,000 mg Documented By: LENO Baclofen (Baclofen 10 Mg Tab) 5 mg PO BID [facility] Stop: 08/02/22 20:59 Last Admin: 07/03/22 21:45 Dose: 5 mg Documented By: ED Diclofenac Sodium (Diclofenac Sod 1% Gel 100 Gm Tube) 2 gm EXT QID [facility]; Protocol Stop: 08/02/22 16:59 Last Admin: 07/03/22 21:48 Dose: 2 gm Documented By: Admin: 07/03/22 16:56 Dose: 2 gm Documented By: LENO Guaifenesin (Guaifenesin 600 Mg Tabcr) 600 mg PO Q12 [facility] Stop: 08/02/22 20:59 Last Admin: 07/03/22 21:45 Dose: 600 mg Documented By: ED Sodium Chloride (Nss 1000ml) 1,000 mls @ 100 mls/hr IV .Q10H [facility] Stop: 07/04/22 01:18 Last Admin: 07/03/22 16:16 Dose: 100 mls/hr Documented By: LENO Azithromycin 500 mg/ Dextrose 255 mls @ 127.5 mls/hr IV Q24H [facility]; Protocol Stop: 07/10/22 15:18 Last Infusion: 07/03/22 18:15 Dose: 0 mls/hr Documented By: Admin: 07/03/22 16:19 Dose: 127.5 mls/hr Documented By: LENO Magnesium Chloride (Magnesium Chloride W/Calcium 64mg Delayed Rel Tab) 64 mg PO TID [facility] Stop: 08/02/22 15:59 Last Admin: 07/03/22 21:45 Dose: 64 mg Documented By: Admin: 07/03/22 16:56 Dose: 64 mg Documented By: LENO Discontinued Medications Sodium Chloride (Nss 1000ml) 500 mls @ 999 mls/hr IV .Q31M ONE Stop: 07/03/22 11:54 Last Infusion: 07/03/22 12:09 Dose: 0 mls/hr Documented By: ED(2) Admin: 07/03/22 11:38 Dose: 999 mls/hr Documented By: ED(2) Cefepime HCl (Maxipime) 2,000 mg in 20 mls @ 5 mls/min IV NOW STA; Protocol Stop: 07/03/22 13:15 Last Admin: 07/03/22 14:20 Dose: 5 mls/min Documented By: ED(2) Imaging Data Radiologist's Impression: Chest X-Ray 07/03/22 11:24 XR chest 1V portable HISTORY: 86 years-old Female hypoxia, weakness acute hypoxia with weakness COMPARISON: Chest radiograph 05/04/2022 TECHNIQUE: Portable AP view of the chest FINDINGS: Cardiac silhouette is enlarged. Left subclavian [id number] catheter. Atherosclerosis of the aorta. No pneumothorax, pleural effusion or overt pulmonary edema. Linear subsegmental atelectasis versus scarring. Degenerative changes of the shoulders and spine. IMPRESSION: Cardiomegaly with subsegmental bibasilar atelectasis.. ACT 112: Negative or not required by law. The above report was generated using voice recognition software. It may contain grammatical, syntax or spelling errors. Electronically signed by: Dale Whaley M.D. 07/03/2022 11:55 AM Discharge Plan Visit Data Chief Complaint: Weakness ED Provider: Shaheen Lobato Discharge Problem: Acute respiratory failure with hypoxia, Pneumonia Patient Disposition: Admitted As Inpatient Discharge Instructions Interventions: ED Discharge Assessment Last Done: 07/03/22 14:51 : Pneumonia Qualifiers: Pneumonia type: due to unspecified organism Laterality: right Lung location: lower lobe of lung Qualified Code(s): J18.9 - Pneumonia, unspecified organism
--- NOTE | 2022-07-03 11:56 | XRay Report ---
XR chest 1V portable HISTORY: 86 years-old Female hypoxia, weakness acute hypoxia with weakness COMPARISON: Chest radiograph 05/04/2022 TECHNIQUE: Portable AP view of the chest FINDINGS: Cardiac silhouette is enlarged. Left subclavian [id number] catheter. Atherosclerosis of the aorta. No pneumothorax, pleural effusion or overt pulmonary edema. Linear subsegmental atelectasis versus s carring. Degenerative changes of the shoulders and spine. IMPRESSION: Cardiomegaly with subsegmental bibasilar atelectasis.. ACT 112: Negative or not required by law. The above report was generated using voice recognition software. It may contain grammatical, syntax o r spelling errors. Electronically signed by: Dale Whaley M.D. 07/03/2022 11:55 AM
[2022-07-03 12:34] LABS: Influenza A virus by PCR Negative (Neg); Influenza B virus by PCR Negative (Neg); RSV by PCR Negative (Neg); SARS CoV2 RNA(COVID-19) InHosp NEGATIVE (Negative)
[2022-07-03 13:10] LABS: Hematocrit (blood only) 41.7 % (34.1-44.9); Hemoglobin 13.9 g/dl (12.0-16.0); Mean Corpuscular Hemoglobin 31.7 pg (25.0-34.0); Mean Corpuscular Hgb Conc 33.3 g/dL (32.0-36.0); Mean Corpuscular Volume 95.2 fL (80.0-100.0); Mean Platelet Volume 11.9 fL (9.4-12.3); Platelet Count 215 K/uL (130-400); RDW Coefficient of Variation 13.8 % (11.5-14.5); RDW Standard Deviation 48.6 fL (36.4-46.3); Red Blood Count 4.38 M/uL (3.93-5.22); White Blood Count 19.08 K/ul (4.8-10.8)
[2022-07-03] MEDS ORDERED: CEFEPIME 2,000 MG/20 ML VIAL IV STA (13:12)
[2022-07-03 13:34] LABS: Basophils # (auto) 0.04 K/uL (0-0.2); Basophils % (auto) 0.2 %; Eosinophils # (auto) 0.03 K/uL (0-0.50); Eosinophils % (auto) 0.2 %; Immature Granulocytes % (auto) 0.5 %; Lymphocytes # (auto) 0.37 K/uL (1.2-3.4); Lymphocytes % (auto) 1.9 %; Monocytes # (auto) 1.11 K/uL (0.24-0.82); Monocytes % (auto) 5.8 %; Neutrophils # (auto) 17.43 K/uL (1.4-6.5); Neutrophils % (auto) 91.4 %
[2022-07-03 13:40] LABS: Troponin I High Sensitivity 35.1 pg/ml (0-14)
[2022-07-03 13:41] LABS: BUN Creatinine Ratio 22.6 (10-20); Calcium 9.5 mg/dl (8.5-10.1); Creatinine Clr Calc Pharmacy 28.1 ml/min; Est GFR (African American) 45.5 ml/min; Est GFR (Non-African American) 39.3 ml/min; Magnesium 1.7 mg/dl (1.7-2.4); Potassium 4.5 mmol/L (3.5-5.1)
--- NOTE | 2022-07-03 13:43 | History & Physical Report ---
Date of Service July 03, 2022 Assessment & Plan (1) Pneumonia: Plan: - Presenting with hypoxia, mild tachycardia, productive cough, fatigue, BERNSTEIN x 2 weeks and elevated WBC to 19. - Lactate, procal wnl. Blood and sputum cultures pending. - CXR with subsegmental bibasilar atelectasis, but clinically presents as a pneumonia. - Cover as healthcare acquire pneumonia given recent hospitalization and transition to assisted living since d/c--cefepime and azithro for atypical coverage. - Supportive care with breathing treatments prn, Mucinex prn, Tylenol prn. - Incentive spirometry q1h. - Repeat CBC, procal in AM. (2) Acute respiratory failure with hypoxia: Plan: - Secondary to pneumonia, treatment as above. (3) ROSETTE (acute kidney injury): Plan: - Cr mildly elevated at 1.24, baseline ~1.0-1.10, BUN 28 at baseline. - Suspect secondary to infection. - Hold lisinopril. - Received 500 ml NSS in ED; continue IVF w/ NSS 100 cc/hr x 1 L - BMP in AM. (4) HTN (hypertension): Plan: - Holding lisinopril as above due to ROSETTE; continue metoprolol for paroxysmal a fib. (5) Paroxysmal atrial fibrillation: Plan: - Continue metoprolol 12.5 mg daily, Xarelto 15 mg daily. (6) Aortic valve stenosis: Plan: - Nonsevere and asymptomatic. Due for repeat echo next month. (7) C. difficile diarrhea: Plan: - Chronic suppression with vancomycin 125 mg daily. (8) Non-Hodgkin's lymphoma: Plan: - Receives Rituxan, IVIG monthly. (9) Overactive bladder: Plan: - Continue Oxybutynin. (10) Thoracic compression fracture: Plan: - Hospitalized 06/11-06/14 for thoracic compression fracture and muscle spasms. Managed medically. - Continue pain management with Tylenol, baclofen, Tramadol, Voltaren gel. - Continue Vitamin D/calcium supplements. Plan - Admit to med/tele. - SCDs, Xarelto for VTE ppx. - DNR/DNI. History of Present Illness Chief Complaint: fatigue and BERNSTEIN x 2 weeks Primary Care Provider: MD Mishel Abdi is an 86 y/o female with a past medical history significant for non- Hodgkin lymphoma, paroxysmal a fib, hypertension, osteoporosis, and GERD who presents today from home with complaints of fatigue and not feeling herself. For the past 2 weeks she is been incredibly tired and just does not feel her normal self. Over the last week or so, she has developed a mildly productive cough, and has noticed she is feeling winded and short of breath with activity such as walking across the room from her bedroom to bathroom. She has not noticed any fever or chills, denies any chest pain, palpitations, or shortness of breath at rest. She has not noticed any weight gain, swelling in her legs, or difficulty breathing while lying flat, however it is difficult for her to lay like this due to her thoracic compression fractures. Has been compliant with her medications, including Xarelto, and feels she is breathing without pain. She moved into an assisted living community within the past month after being hospitalized the beginning of the month for thoracic compression fractures. Upon presentation, she is mildly tachycardic with HR in 90s, was 87% on room air, now 94-97% on 2 LNC. She is afebrile and normotensive. Labs significant for WBC 19.08 with left shift, mildly elevated creatinine at 1.24, Trope 35, BNP 534. Procalcitonin 0.46, lactate 1.7. COVID/flu/RSV negative. CXR w/ cardiomegaly with subsegmental bibasilar atelectasis. Allergies Allergy/AdvReac Type Severity Reaction Status Date / Time diphenhydramine Allergy Severe ALL Verified 07/03/22 13:17 ANTIHISTAMINES-"HYPER" FEELING allopurinol Allergy Intermediate RASH-SEVERE Verified 07/03/22 13:17 ITCHING Home Medications Medication Instructions Recorded Confirmed Type calcium carbonate 600 mg-vitamin 1 cap PO QAM 04/21/19 07/03/22 History D3 5 mcg (200 unit) capsule (Calcium 600 + D(3)) cholecalciferol (vitamin D3) 50 2,000 units PO QDL 04/21/19 07/03/22 History mcg (2,000 unit) capsule cranberry 500 mg capsule 500 mg PO QAM 04/21/19 07/03/22 History cyanocobalamin (vitamin B-12) 500 500 mcg PO 2XWK 04/21/19 07/03/22 History mcg lozenges magnesium chloride 64 mg 64 mg PO TID 04/21/19 07/03/22 History (magnesium chloride) tablet,delayed release multivitamin with iron 1 tab PO QAM 04/21/19 07/03/22 History Ivig 1 dose IV MO 03/24/21 07/03/22 History rituximab 10 mg/mL 10 mg IV MO 03/24/21 07/03/22 History concentrate,intravenous (Rituxan) lisinopril 30 mg tablet 30 mg PO QAM #90 tabs 07/25/21 07/03/22 Rx vancomycin 125 mg capsule 125 mg PO QAM #90 caps 01/17/22 07/03/22 Rx rivaroxaban 15 mg tablet (Xarelto) 15 mg PO DAILY #90 tabs 01/23/22 07/03/22 Rx metoprolol succinate 25 mg 12.5 mg PO QAM #45 tabs 03/15/22 07/03/22 Rx tablet,extended release 24 hr pantoprazole 40 mg tablet,delayed 40 mg PO DAILY #30 tabs 03/22/22 07/03/22 Rx release (Protonix) diclofenac sodium 1 % topical gel 2 g topical QID #100 grams 06/14/22 07/03/22 Rx baclofen 5 mg tablet 5 mg PO BID #60 tabs 06/16/22 07/03/22 Rx docusate sodium 100 mg tablet 100 mg PO QAM 06/16/22 07/03/22 History (Stool Softener) tramadol 50 mg tablet 25 - 50 mg PO Q4H PRN pain #42 tabs 06/16/22 07/03/22 Rx oxybutynin chloride 5 mg 5 mg PO QAM #90 tabs 06/22/22 07/03/22 Rx tablet,extended release 24 hr acetaminophen 500 mg tablet 1,000 mg PO TID #180 tabs 06/27/22 07/03/22 Rx ascorbic acid (vitamin C) 500 mg 500 mg PO QAM #30 caps 06/27/22 07/03/22 Rx capsule Lactobacillus acidophilus 10,000 mmu cells PO QAM 07/03/22 07/03/22 History Past Med/Surg History Medical History (Updated 07/03/22 @ 14:03 by Christal Palma PA-C) Abdominal pain Aortic valve stenosis Bilateral sacroiliitis Cardiac murmur Close exposure to COVID-19 virus Compression fracture of spine Hearing deficit Left MARTINES History of breast cancer ; h/o lumpectomy + radiation History of chemotherapy History of Clostridioides difficile 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 skin HTN (hypertension) Low back pain Non-Hodgkin's lymphoma (03/08/13) h/o chemo Osteoarthritis Overactive bladder Paroxysmal atrial fibrillation ON XARELTO F/U DR PETTY Pneumonia Prophylactic antibiotic SOB (shortness of breath) on exertion Surgical History Encounter for insertion of venous access port History of colonoscopy History of hysterectomy (03/08/13) History of squamous cell carcinoma excision History of vascular access device IN PLACE LEFT UPPER CHEST-"NON FUNCTIONING" PER PT Post-lymphadenectomy lymphedema of arm S/P breast biopsy S/P lumpectomy of breast RIGHT/RADIATION S/P lymph node biopsy Family History Father Bright's disease Kidney disease Sister Colon cancer Gallbladder disease Hypertension Kidney stones Colorectal cancer Mother Cardiac disorder Congestive heart failure Other Crohn's disease Denies family history of Ovarian cancer Prostate cancer Myocardial infarction Breast cancer Social History Smoking Status: Never smoker Tobacco Type: Cigarettes Second Hand Exposure: No; Hx Alcohol Use: No Hx Substance Use: No Preferred Language: Macanese Communication Ability: Effective Visual Impairment: No Limitations Hearing Ability: Use of Hearing Aid 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 Marketing Required: No Beliefs That Will Affect Care: None marital status: Single Current Living Situation: Alone current occupational status: retired How many Children do You have: 0 Feels Safe at Home: Yes Dental Care, Regularly: Yes Physical Activity Frequency: Daily Seatbelt Use: always Sunscreen Use: Yes Assistive Devices: Cane Review of Systems Review of Systems: Constitutional: Fatigue x2 weeks, no fever/chills, weakness, myalgias, anorexia, night sweats Eyes: No diplopia, no worsening or blurred vision ENT: normal hearing, no trouble swallowing Respiratory: Productive cough x1 week, BERNSTEIN x1 week; no SOB at rest Cardiovascular: No chest pain, tightness or palpitations Abdomen: No pain, nausea, vomiting, diarrhea or constipation : Denies dysuria, hematuria, increased urgency/frequency, urinary retention Musculoskeletal: No joint pain, calf pain, swelling Neurologic: No weakness, numbness/tingling, or balance problems Psychiatric: No anxiety or depression Skin: No rash or itch Physical Exam Physical Exam: General: awake, alert, no apparent distress Head: Normocephalic, atraumatic ENT: PERRL, EOMI, no pharyngeal exudate, mucous membranes moist Chest: Bibasilar crackles auscultated otherwise CTA, on 2L NC Cardiac: Regular rate and rhythm, no murmur, no JVD, normal peripheral pulses, good capillary refill Abdominal: NABS x 4 quadrants, soft, nontender to palpation, no rebound, guarding or tenderness Extremities: Normal inspection, no peripheral edema or erythema, calfs n ontender to palpation Psych: Normal mood and affect Neuro: AAO x 3, strength intact bilaterally and rated 5/5, no motor deficits, speech is clear, no peripheral sensory deficits Skin: no rash or erythema Results & Data Results & Data ([facility]) Vital Signs (Past 12 Hours) Vital Signs Temp Pulse Resp BP Pulse Ox O2 Del Method O2 Flow Rate 07/03/22 12:00 96 H 27 H 97 07/03/22 12:00 151/85 H 07/03/22 11:30 96 H 21 94 07/03/22 11:11 97 H 20 90 07/03/22 11:23 94 Nasal Cannula 2 07/03/22 11:23 87 L Room Air 07/03/22 11:13 90 Room Air 07/03/22 11:13 36.8 C 99 H 19 123/82 90 Room Air Laboratory Results Abnormal lab results 07/03/22 07/03/22 07/03/22 Range/Units 11:35 11:35 12:48 WBC 19.08 H (4.8-10.8) K/ul RDW Std Deviation 48.6 H (36.4-46.3) fL Neut # (Auto) 17.43 H (1.4-6.5) K/uL Lymph # (Auto) 0.37 L (1.2-3.4) K/uL [place] # (Auto) 1.11 H (0.24-0.82) K/uL Immature Gran # (Auto) 0.10 H (0.00-0.02) K/uL BUN 28 H (6-23) mg/dl Creatinine 1.24 H (0.6-1.2) mg/dl BUN/Creatinine Ratio 22.6 H (10-20) Glucose 123 H (70-99(Fasting)) mg/dl Troponin I High Sens 35.1 H (0-14) pg/ml B-Natriuretic Peptide 534 H (0-100) pg/ml Diagnostic Findings Chest X-Ray 07/03/22 11:24 XR chest 1V portable HISTORY: 86 years-old Female hypoxia, weakness acute hypoxia with weakness COMPARISON: Chest radiograph 05/04/2022 TECHNIQUE: Portable AP view of the chest FINDINGS: Cardiac silhouette is enlarged. Left subclavian Szeehp-j-Cwed catheter. Atherosclerosis of the aorta. No pneumothorax, pleural effusion or overt pulmonary edema. Linear subsegmental atelectasis versus scarring. Degenerative changes of the shoulders and spine. IMPRESSION: Cardiomegaly with subsegmental bibasilar atelectasis.. ACT 112: Negative or not required by law. The above report was generated using voice recognition software. It may contain grammatical, syntax or spelling errors. Electronically signed by: Dale Whaley M.D. 07/03/2022 11:55 AM ECG Additional Comments: Accelerated Junctional rhythm with Premature supraventricular complexes Abnormal ECG When compared with ECG of 11-JUN-2022 19:42, Junctional rhythm has replaced Atrial fibrillation. Supervising Physician Co-Signing Physician Notes Patient was seen and examined independently I discussed the case with Christal MESA I reviewed pertinent past medical social family history and also the plan of care and agree with the plan of care. Patient be treated for pneumonia she has a very small chest x-ray changes however clinical picture fits more with this. Exam she has bibasilar rales. History of paroxysmal A. fib and aortic stenosis so if she was having uncontrolled A. fib rates she could have exacerbation of diastolic heart failure although this would be slight Is about elevation of her troponin which you believe is a demand ischemia but we will check her troponins in the future Sven on telemetry bed Will be treated for the healthcare associated pneumonia with cefepime and azithromycin appropriate culture follow-up Any exceptions will be noted below PG Care Time/CCT Total # of Minutes Spent Total Time Spent with Patient: Total time spent is greater than 50% in coordination of care (as documented) at patient's floor/unit and/or counseling patient: Coding Level of Care Code 63034 Initial Inpt Care Lvl 3 Diagnoses Pneumonia J18.9 Acute respiratory failure with hypoxia J96.01 ROSETTE (acute kidney injury) N17.9 HTN (hypertension) I10 Paroxysmal atrial fibrillation I48.0 Aortic valve stenosis I35.0 C. difficile diarrhea A04.72 Non-Hodgkin's lymphoma C85.90 Overactive bladder N32.81 Thoracic compression fracture S22.000A
[2022-07-03] MEDS ORDERED: POLYETHYLENE (MIRALAX) 17 GM PACK PO PRN (15:19)
[2022-07-03] MEDS ORDERED: ONDANSETRON INJ 2 MG/ML 2 ML VIAL IV PRN (15:19)
[2022-07-03] MEDS ORDERED: ALBUTEROL 0.083% NEBU SOLN 3 ML VIAL NEB PRN (15:19)
[2022-07-03] MEDS ORDERED: SODIUM CHLORIDE 0.9% 1000ML 1,000 ML IV SCH (15:19)
[2022-07-03] MEDS: ACETAMINOPHEN 500 MG TAB PO SCH ×2 (16:17→21:47)
[2022-07-03] MEDS: AZITHROMYCIN 500 MG in DEXTROSE 5% 250 ML IV SCH (16:19)
[2022-07-03] MEDS: DICLOFENAC SOD 1% GEL 100 GM TUBE EXT SCH ×2 (16:56→21:48)
[2022-07-03] MEDS: MAGNESIUM CHLORIDE W/CALCIUM 64MG DELAYED REL TAB PO SCH ×2 (16:56→21:45)
[2022-07-03] MEDS: BACLOFEN 10 MG TAB PO SCH (21:45)
[2022-07-03] MEDS: guaiFENesin 600 MG TABCR PO SCH (21:45)
[2022-07-03 23:23] LABS: Bacteria Urine Automated Negative (Negative); Bilirubin Urine Negative (Negative); Blood Urine Trace (Negative); Color Urine Yellow; Epithelial Cell Urine Auto 0-5 /lpf (0-5); Glucose Urine UA Negative (Negative); Ketones Urine Trace (Negative); Leukocyte Esterase Urine 2+ (Negative); Nitrite Urine Negative (Negative); Protein Urine 2+ (Negative); RBC Urine Automated 0-4 /hpf (0-4); Specific Gravity Urine 1.025 (1.000-1.030); Urobilinogen Urine Negative (Negative); WBC Urine Automated >30 /hpf (0-5)
[2022-07-03 23:55] LABS: Appearance Urine Cloudy (Clear)
[2022-07-04] MEDS: CEFEPIME 2,000 MG in SYRINGE 0 ML IV SCH ×2 (02:09→14:22)
--- NOTE | 2022-07-04 05:57 | Electrocardiogram Report ---
Test Reason : Blood Pressure : / mmHG Vent. Rate : 100 BPM Atrial Rate : 100 BPM P-R Int : 000 ms QRS Dur : 064 ms QT Int : 326 ms P-R-T Axes : 000 -08 032 degrees QTc Int : 420 ms Atrial fibrillation Abnormal ECG When compared with ECG of 11-JUN-2022 19:42, No significant change Confirmed by Ming Sanders ([id number]) on 07/04/2022 5:57:14 AM Referred By: Confirmed By:Ming Sanders
[2022-07-04 06:52] LABS: Hematocrit (blood only) 38.8 % (34.1-44.9); Hemoglobin 12.6 g/dl (12.0-16.0); Mean Corpuscular Hgb Conc 32.5 g/dL (32.0-36.0); Mean Corpuscular Volume 98.5 fL (80.0-100.0); Mean Platelet Volume 11.4 fL (9.4-12.3); Platelet Count 168 K/uL (130-400); RDW Coefficient of Variation 14.1 % (11.5-14.5); RDW Standard Deviation 51.7 fL (36.4-46.3); Red Blood Count 3.94 M/uL (3.93-5.22); White Blood Count 18.39 K/ul (4.8-10.8)
[2022-07-04 07:12] LABS: Basophils # (auto) 0.05 K/uL (0-0.2); Basophils % (auto) 0.3 %; Eosinophils # (auto) 0.07 K/uL (0-0.50); Eosinophils % (auto) 0.4 %; Immature Granulocytes # (auto) 0.17 K/uL (0.00-0.02); Immature Granulocytes % (auto) 0.9 %; Lymphocytes # (auto) 0.31 K/uL (1.2-3.4); Lymphocytes % (auto) 1.7 %; Monocytes # (auto) 0.81 K/uL (0.24-0.82); Monocytes % (auto) 4.4 %; Neutrophils # (auto) 16.98 K/uL (1.4-6.5); Neutrophils % (auto) 92.3 %
[2022-07-04 07:16] LABS: Troponin I High Sensitivity 30.5 pg/ml (0-14)
[2022-07-04 07:23] LABS: BUN Creatinine Ratio 23.1 (10-20); Calcium 8.5 mg/dl (8.5-10.1); Creatinine Clr Calc Pharmacy 29.8 ml/min; Est GFR (African American) 48.9 ml/min; Est GFR (Non-African American) 42.2 ml/min; Potassium 4.4 mmol/L (3.5-5.1)
[2022-07-04] MEDS: DICLOFENAC SOD 1% GEL 100 GM TUBE EXT SCH ×4 (08:29→20:17)
[2022-07-04] MEDS: ACETAMINOPHEN 500 MG TAB PO SCH ×3 (08:29→20:13)
[2022-07-04] MEDS: BACLOFEN 10 MG TAB PO SCH ×2 (08:30→20:14)
[2022-07-04] MEDS: CALCIUM 600MG + VIT D 400 IU TAB PO SCH (08:30)
[2022-07-04] MEDS: MULTIVITAMIN CHEWABLE TAB PO SCH (08:31)
[2022-07-04] MEDS: METOPROLOL SUCC 25MG EXT REL TAB PO SCH (08:31)
[2022-07-04] MEDS: MAGNESIUM CHLORIDE W/CALCIUM 64MG DELAYED REL TAB PO SCH ×3 (08:31→20:14)
[2022-07-04] MEDS: OXYBUTYNIN CHLORIDE XL 5 MG TABCR PO SCH (08:31)
[2022-07-04] MEDS: LACTOBACILLUS ACIDOPHILUS 1 GM PACK PO SCH (08:31)
[2022-07-04] MEDS: ASCORBIC ACID 500 MG TAB PO SCH (08:31)
[2022-07-04] MEDS: guaiFENesin 600 MG TABCR PO SCH ×2 (08:31→20:14)
[2022-07-04] MEDS: DOCUSATE SODIUM 100 MG CAP PO SCH (08:32)
[2022-07-04] MEDS: RASPBERRY SYRUP 5 ML UDP PO SCH (08:32)
[2022-07-04] MEDS: PANTOprazole 40 MG TAB PO SCH (08:32)
[2022-07-04] MEDS: VANCOMYCIN HCL 125 MG/2.5ML SOLN PO SCH (08:35)
[2022-07-04] MEDS: CHOLECALCIFEROL 1,000 UNITS 25 MCG TAB PO SCH (12:34)
[2022-07-04] MEDS: AZITHROMYCIN 500 MG in DEXTROSE 5% 250 ML IV SCH (15:39)
[2022-07-04] MEDS: RIVAROXABAN 15 MG TAB PO SCH (15:42)
--- NOTE | 2022-07-04 21:28 | Hospitalist Progress Note ---
Date of Service July 04, 2022 Assessment & Plan (1) Pneumonia: Plan: - Presenting with hypoxia, mild tachycardia, productive cough, fatigue, BERNSTEIN x 2 weeks and elevated WBC to 19. - CXR with subsegmental bibasilar atelectasis, but clinically presents as a pneumonia. - Cover as healthcare acquire pneumonia given recent hospitalization and transition to assisted living since d/c--cefepime and azithro for atypical coverage. - Supportive care with breathing treatments prn, Mucinex prn, Tylenol prn. - Incentive spirometry q1h. - continue antibiotics as above on 07/05 (2) Acute respiratory failure with hypoxia: Plan: - Secondary to pneumonia, treatment as above. (3) ROSETTE (acute kidney injury): Plan: - Cr mildly elevated at 1.24, baseline ~1.0-1.10, BUN 28 at baseline. - Suspect secondary to infection. - Hold lisinopril. - Received 500 ml NSS in ED; continue IVF w/ NSS 100 cc/hr x 1 L - BMP in AM. (4) HTN (hypertension): Plan: - Holding lisinopril as above due to ROSETTE; continue metoprolol for paroxysmal a fib. (5) Paroxysmal atrial fibrillation: Plan: - Continue metoprolol 12.5 mg daily, Xarelto 15 mg daily. (6) Aortic valve stenosis: Plan: - Nonsevere and asymptomatic. Due for repeat echo next month. (7) C. difficile diarrhea: Plan: - Chronic suppression with vancomycin 125 mg daily. (8) Non-Hodgkin's lymphoma: Plan: - Receives Rituxan, IVIG monthly. (9) Overactive bladder: Plan: - Continue Oxybutynin. (10) Thoracic compression fracture: Plan: - Hospitalized 06/11-06/14 for thoracic compression fracture and muscle spasms. Managed medically. - Continue pain management with Tylenol, baclofen, Tramadol, Voltaren gel. - Continue Vitamin D/calcium supplements. Plan - Admit to med/tele. - SCDs, Xarelto for VTE ppx. - DNR/DNI. Admission and Anticipated Discharge Date Admission Date: July 03, 2022 Subjective 86 yo female reports feeling better. She still requires oxygen. Review of Systems Review of Systems: All systems reviewed & are unremarkable except as noted in HPI & below Physical Exam Physical Exam: General: awake, alert, no apparent distress Head: Normocephalic, atraumatic ENT: PERRL, EOMI, no pharyngeal exudate, mucous membranes moist Chest: Bibasilar crackles auscultated otherwise CTA, on 2L NC Cardiac: Regular rate and rhythm, no murmur, no JVD, normal peripheral pulses, good capillary refill Abdominal: NABS x 4 quadrants, soft, nontender to palpation, no rebound, guarding or tenderness Extremities: Normal inspection, no peripheral edema or erythema, calfs nontender to palpation Psych: Normal mood and affect Neuro: AAO x 3, strength intact bilaterally and rated 5/5, no motor deficits, speech is clear, no peripheral sensory deficits Skin: no rash or erythema Results & Data Results & Data ([facility]) Vital Signs (Past 12 Hours) Vital Signs Temp Pulse Pulse Resp BP Pulse Ox Pulse Ox 07/04/22 20:00 07/04/22 19:05 36.8 C 73 20 144/80 H 94 07/04/22 15:49 93 H 07/04/22 15:19 07/04/22 15:34 36.7 C 75 18 149/74 H 94 07/04/22 14:49 36.7 C 75 18 149/74 H 94 07/04/22 14:23 98 07/04/22 13:10 95 07/04/22 11:25 07/04/22 11:17 37.3 C 80 18 123/70 94 Pulse Ox Pulse Ox O2 Del Method O2 Del Method O2 Flow Rate O2 Flow Rate O2 Flow Rate 07/04/22 20:00 Nasal Cannula 2 07/04/22 19:05 Nasal Cannula 2 07/04/22 15:49 07/04/22 15:19 95 Nasal Cannula 2 07/04/22 15:34 Nasal Cannula 2 07/04/22 14:49 2 07/04/22 14:23 07/04/22 13:10 89 L 3 07/04/22 11:25 Nasal Cannula 2 07/04/22 11:17 Nasal Cannula 2 PG Care Time/CCT Total # of Minutes Spent Total Time Spent with Patient: Total time spent is greater than 50% in coordination of care (as documented) at patient's floor/unit and/or counseling patient: Coding Level of Care Code 65213 Subseq Hosp Care Lvl 2 Diagnoses Pneumonia J18.9 Laterality: right Lung location: lower lobe of lung Pneumonia type: due to unspecified organism Acute respiratory failure with hypoxia J96.01 ROSETTE (acute kidney injury) N17.9 HTN (hypertension) I10 Paroxysmal atrial fibrillation I48.0 Aortic valve stenosis I35.0 C. difficile diarrhea A04.72 Non-Hodgkin's lymphoma C85.90 Overactive bladder N32.81 Thoracic compression fracture S22.000A Time Spent (min) 25 (1) Pneumonia Laterality: right Lung location: lower lobe of lung Pneumonia type: due to unspecified organism Qualified Code(s): J18.9 - Pneumonia, unspecified organism
[2022-07-05] MEDS: CEFEPIME 2,000 MG in SYRINGE 0 ML IV SCH ×2 (02:07→13:42)
[2022-07-05] MEDS: traMADol HCL 50 MG TABLET PO PRN ×2 (02:20→07:59)
[2022-07-05] MEDS: VANCOMYCIN HCL 125 MG/2.5ML SOLN PO SCH (07:59)
[2022-07-05] MEDS: CALCIUM 600MG + VIT D 400 IU TAB PO SCH (08:00)
[2022-07-05] MEDS: PANTOprazole 40 MG TAB PO SCH (08:00)
[2022-07-05] MEDS: METOPROLOL SUCC 25MG EXT REL TAB PO SCH (08:01)
[2022-07-05] MEDS: RASPBERRY SYRUP 5 ML UDP PO SCH (08:01)
[2022-07-05] MEDS: MULTIVITAMIN CHEWABLE TAB PO SCH (08:01)
[2022-07-05] MEDS: ASCORBIC ACID 500 MG TAB PO SCH (08:01)
[2022-07-05] MEDS: OXYBUTYNIN CHLORIDE XL 5 MG TABCR PO SCH (08:02)
[2022-07-05] MEDS: BACLOFEN 10 MG TAB PO SCH ×2 (08:02→21:42)
[2022-07-05] MEDS: DOCUSATE SODIUM 100 MG CAP PO SCH (08:03)
[2022-07-05] MEDS: LACTOBACILLUS ACIDOPHILUS 1 GM PACK PO SCH (08:03)
[2022-07-05] MEDS: MAGNESIUM CHLORIDE W/CALCIUM 64MG DELAYED REL TAB PO SCH ×3 (08:03→21:42)
[2022-07-05] MEDS: ACETAMINOPHEN 500 MG TAB PO SCH ×3 (08:04→21:42)
[2022-07-05] MEDS: DICLOFENAC SOD 1% GEL 100 GM TUBE EXT SCH ×4 (08:04→21:43)
[2022-07-05] MEDS: guaiFENesin 600 MG TABCR PO SCH ×2 (11:09→21:42)
[2022-07-05] MEDS: CHOLECALCIFEROL 1,000 UNITS 25 MCG TAB PO SCH (11:10)
[2022-07-05 12:27] LABS: Creatinine Clr Calc Pharmacy 31.4 ml/min; Est GFR (African American) 52.1 ml/min; Est GFR (Non-African American) 44.9 ml/min
--- NOTE | 2022-07-05 13:16 | XRay Report ---
XR chest 2V PA/lateral CLINICAL HISTORY: Shortness of breath. COMPARISON STUDY: Chest CT May 04, 2022 and chest radiograph July 03, 2022. FINDINGS: Severe T9 compression fracture is new since chest CT of May 04, 2022. Old L1 and L3 compre ssion fractures are present. Left subclavian Cxxvje-r-Dpcs is in place. Moderate enlargement of the c ardiac silhouette is noted. Small right and trace left pleural effusions have developed. There are bi basilar opacities. No evidence for pulmonary edema. There is no pneumothorax. Old right-sided rib fra ctures are present. IMPRESSION: 1. Interval development of small right and trace left pleural effusions with bibasilar opacities. 2. Cardiomegaly. No evidence for pulmonary edema. 3. Severe T9 compression fracture which is new since chest CT of May 04, 2022. ACT 112: Negative or not required by law. Electronically signed by: Matthias Lai M.D. 07/05/2022 1:14 PM
[2022-07-05 13:17] LABS: Hematocrit (blood only) 41.3 % (34.1-44.9); Mean Corpuscular Hemoglobin 31.9 pg (25.0-34.0); Mean Corpuscular Hgb Conc 31.5 g/dL (32.0-36.0); Mean Corpuscular Volume 101.5 fL (80.0-100.0); Mean Platelet Volume 11.1 fL (9.4-12.3); Platelet Count 191 K/uL (130-400); RDW Coefficient of Variation 14.1 % (11.5-14.5); RDW Standard Deviation 53.1 fL (36.4-46.3); Red Blood Count 4.07 M/uL (3.93-5.22); White Blood Count 12.05 K/ul (4.8-10.8)
[2022-07-05 13:41] LABS: Basophils # (auto) 0.03 K/uL (0-0.2); Basophils % (auto) 0.2 %; Eosinophils # (auto) 0.11 K/uL (0-0.50); Eosinophils % (auto) 0.9 %; Immature Granulocytes # (auto) 0.08 K/uL (0.00-0.02); Immature Granulocytes % (auto) 0.7 %; Lymphocytes # (auto) 0.27 K/uL (1.2-3.4); Lymphocytes % (auto) 2.2 %; Monocytes # (auto) 0.42 K/uL (0.24-0.82); Monocytes % (auto) 3.5 %; Neutrophils # (auto) 11.14 K/uL (1.4-6.5); Neutrophils % (auto) 92.5 %
[2022-07-05] MEDS ORDERED: CEFEPIME 1,000 MG in SYRINGE 0 ML IV SCH (14:00)
[2022-07-05] MEDS: AZITHROMYCIN 500 MG in DEXTROSE 5% 250 ML IV SCH (15:51)
[2022-07-05] MEDS: RIVAROXABAN 15 MG TAB PO SCH (15:52)
--- NOTE | 2022-07-05 23:46 | Hospitalist Progress Note ---
Date of Service July 05, 2022 Assessment & Plan (1) Pneumonia: Plan: - Presenting with hypoxia, mild tachycardia, productive cough, fatigue, BERNSTEIN x 2 weeks and elevated WBC to 19. - CXR with subsegmental bibasilar atelectasis, but clinically presents as a pneumonia. - Cover as healthcare acquire pneumonia given recent hospitalization and transition to assisted living since d/c--cefepime and azithro for atypical coverage. - Supportive care with breathing treatments prn, Mucinex prn, Tylenol prn. - Incentive spirometry q1h. -ordered flutter valve. - continue antibiotics as above -WBC improving -- given that new definition of healthcare acquire pneumonia, as hospitalization has not occured within last week, may transition to third generation cephalosporin at discharge. will need 2 step prior to discharge. await response from flutter valve and reiterated use of incentive spirometer to see if patient can graduate to room air x ray shows some pleural effusions, will recheck in AM. may need diuresed. (2) Acute respiratory failure with hypoxia: Plan: - Secondary to pneumonia, treatment as above. (3) ROSETTE (acute kidney injury): Plan: - Cr mildly elevated at 1.24, baseline ~1.0-1.10, BUN 28 at baseline. - Suspect secondary to infection. - Hold lisinopril. - Received 500 ml NSS in ED; continue IVF w/ NSS 100 cc/hr x 1 L - BMP in AM. (4) HTN (hypertension): Plan: - Holding lisinopril as above due to ROSETTE; continue metoprolol for paroxysmal a fib. (5) Paroxysmal atrial fibrillation: Plan: - Continue metoprolol 12.5 mg daily, Xarelto 15 mg daily. (6) Aortic valve stenosis: Plan: - Nonsevere and asymptomatic. Due for repeat echo next month. (7) C. difficile diarrhea: Plan: - Chronic suppression with vancomycin 125 mg daily. (8) Non-Hodgkin's lymphoma: Plan: - Receives Rituxan, IVIG monthly. (9) Overactive bladder: Plan: - Continue Oxybutynin. (10) Thoracic compression fracture: Plan: - Hospitalized 06/11-06/14 for thoracic compression fracture and muscle spasms. Managed medically. - Continue pain management with Tylenol, baclofen, Tramadol, Voltaren gel. - Continue Vitamin D/calcium supplements. Plan - Admit to med/tele. - SCDs, Magalyto for VTE ppx. - DNR/DNI. Admission and Anticipated Discharge Date Admission Date: July 03, 2022 Subjective Patient remains asymptomatic. However, she continues to require 2 liters nasal cannula Review of Systems Review of Systems: All systems reviewed & are unremarkable except as noted in HPI & below Physical Exam Physical Exam: General: awake, alert, no apparent distress Head: Normocephalic, atraumatic ENT: PERRL, EOMI, no pharyngeal exudate, mucous membranes moist Chest: Bibasilar crackles auscultated otherwise CTA, on 2L NC Cardiac: Regular rate and rhythm, no murmur, no JVD, normal peripheral pulses, good capillary refill Abdominal: NABS x 4 quadrants, soft, nontender to palpation, no rebound, guarding or tenderness Extremities: Normal inspection, no peripheral edema or erythema, calfs nontender to palpation Psych: Normal mood and affect Neuro: AAO x 3, strength intact bilaterally and rated 5/5, no motor deficits, speech is clear, no peripheral sensory deficits Skin: no rash or erythema Results & Data Results & Data ([facility]) Vital Signs (Past 12 Hours) Vital Signs Temp Pulse Pulse Resp BP Pulse Ox Pulse Ox 07/05/22 23:02 36.9 C 84 16 130/73 91 07/05/22 21:55 07/05/22 19:20 36.8 C 57 L 20 145/77 H 96 07/05/22 15:00 92 07/05/22 15:45 36.8 C 103 H 18 153/86 H 90 07/05/22 14:53 79 O2 Del Method O2 Del Method O2 Flow Rate 07/05/22 23:02 Room Air 07/05/22 21:55 Room Air 07/05/22 19:20 Room Air 07/05/22 15:00 Nasal Cannula 2 07/05/22 15:45 07/05/22 14:53 PG Care Time/CCT Total # of Minutes Spent Total Time Spent with Patient: Total time spent is greater than 50% in coordination of care (as documented) at patient's floor/unit and/or counseling patient: Coding Level of Care Code 18283 Subseq Hosp Care Lvl 3 Diagnoses Pneumonia J18.9 Laterality: right Lung location: lower lobe of lung Pneumonia type: due to unspecified organism Acute respiratory failure with hypoxia J96.01 ROSETTE (acute kidney injury) N17.9 HTN (hypertension) I10 Paroxysmal atrial fibrillation I48.0 Aortic valve stenosis I35.0 C. difficile diarrhea A04.72 Non-Hodgkin's lymphoma C85.90 Overactive bladder N32.81 Thoracic compression fracture S22.000A Time Spent (min) 35 (1) Pneumonia Laterality: right Lung location: lower lobe of lung Pneumonia type: due to unspecified organism Qualified Code(s): J18.9 - Pneumonia, unspecified organism
[2022-07-06] MEDS: CEFEPIME 2,000 MG in SYRINGE 0 ML IV SCH (02:01)
[2022-07-06 07:11] LABS: Hematocrit (blood only) 39.7 % (34.1-44.9); Hemoglobin 12.7 g/dl (12.0-16.0); Mean Corpuscular Hemoglobin 31.9 pg (25.0-34.0); Mean Corpuscular Volume 99.7 fL (80.0-100.0); Mean Platelet Volume 10.8 fL (9.4-12.3); Platelet Count 166 K/uL (130-400); RDW Coefficient of Variation 13.8 % (11.5-14.5); RDW Standard Deviation 51.1 fL (36.4-46.3); Red Blood Count 3.98 M/uL (3.93-5.22); White Blood Count 10.28 K/ul (4.8-10.8)
[2022-07-06 07:37] LABS: BUN Creatinine Ratio 21.6 (10-20); Calcium 9.2 mg/dl (8.5-10.1); Creatinine Clr Calc Pharmacy 27.9 ml/min; Est GFR (African American) 45.1 ml/min; Est GFR (Non-African American) 38.9 ml/min; Potassium 4.9 mmol/L (3.5-5.1)
[2022-07-06] MEDS: MAGNESIUM CHLORIDE W/CALCIUM 64MG DELAYED REL TAB PO SCH ×4 (08:33→19:47)
[2022-07-06] MEDS: guaiFENesin 600 MG TABCR PO SCH ×2 (08:34→19:47)
[2022-07-06] MEDS: BACLOFEN 10 MG TAB PO SCH ×2 (08:34→19:47)
[2022-07-06] MEDS: ACETAMINOPHEN 500 MG TAB PO SCH ×3 (08:34→19:46)
[2022-07-06] MEDS: ASCORBIC ACID 500 MG TAB PO SCH (08:34)
[2022-07-06] MEDS: LACTOBACILLUS ACIDOPHILUS 1 GM PACK PO SCH (08:35)
[2022-07-06] MEDS: PANTOprazole 40 MG TAB PO SCH (08:35)
[2022-07-06] MEDS: METOPROLOL SUCC 25MG EXT REL TAB PO SCH (08:35)
[2022-07-06] MEDS: OXYBUTYNIN CHLORIDE XL 5 MG TABCR PO SCH (08:35)
[2022-07-06] MEDS: MULTIVITAMIN CHEWABLE TAB PO SCH (08:35)
[2022-07-06] MEDS: DOCUSATE SODIUM 100 MG CAP PO SCH (08:36)
[2022-07-06] MEDS: CALCIUM 600MG + VIT D 400 IU TAB PO SCH (08:36)
[2022-07-06] MEDS: DICLOFENAC SOD 1% GEL 100 GM TUBE EXT SCH ×4 (08:37→19:48)
[2022-07-06] MEDS: RASPBERRY SYRUP 5 ML UDP PO SCH (08:42)
[2022-07-06] MEDS: VANCOMYCIN HCL 125 MG/2.5ML SOLN PO SCH (08:43)
--- NOTE | 2022-07-06 09:17 | XRay Report ---
XR chest 2V PA/lateral CLINICAL HISTORY: hypoxia TECHNIQUE: 2 views of the chest were obtained. Comparison: Comparison is made to chest radiograph 06/27/2022 FINDINGS: A port catheter is seen. Cardiomegaly is noted. Bilateral lower lung predominant airspace opacities a re seen. Small right pleural effusion is seen. IMPRESSION: Small right pleural effusions. Bibasilar airspace opacities may represent atelectasis, pneumonia, and /or aspiration. ACT 112: Negative or not required by law. Electronically signed by: Kurtis Golden M.D. 07/06/2022 9:15 AM
[2022-07-06] MEDS: CHOLECALCIFEROL 1,000 UNITS 25 MCG TAB PO SCH (10:30)
[2022-07-06] MEDS ORDERED: METOPROLOL TARTRATE 25 MG TAB PO ONE (10:33)
[2022-07-06] MEDS: CEFEPIME 1,000 MG in SYRINGE 0 ML IV SCH (13:03)
--- NOTE | 2022-07-06 13:55 | Hospitalist Progress Note ---
Date of Service July 06, 2022 Assessment & Plan (1) Pneumonia: Plan: - Presenting with hypoxia, mild tachycardia, productive cough, fatigue, BERNSTEIN x 2 weeks and elevated WBC to 19. - CXR with subsegmental bibasilar atelectasis, but clinically presents as a pneumonia. - Cover as healthcare acquire pneumonia given recent hospitalization and transition to assisted living since d/c -currently on cefepime and azithro for atypical coverage. - Supportive care with breathing treatments prn, Mucinex prn, Tylenol prn. - Incentive spirometry q1h. -ordered flutter valve. - continue antibiotics as above -WBC improving, now wnl -- given that new definition of healthcare acquire pneumonia, as hospitalization has not occured within last week, may transition to third generation cephalosporin at discharge. -will need 2 step prior to discharge. -x ray shows some pleural effusions, no evidence of fluid overload (2) Acute respiratory failure with hypoxia: Plan: - Secondary to pneumonia, treatment as above. -On 2L of oxygen -2 Step eval upon d/c (3) ROSETTE (acute kidney injury): Plan: - Cr mildly elevated at 1.24, baseline ~1.0-1.10, BUN 28 at baseline. - Suspect secondary to infection. - Hold lisinopril. - Received 500 ml NSS in ED; continue IVF w/ NSS 100 cc/hr x 1 L - BMP in AM. (4) HTN (hypertension): Plan: - Holding lisinopril as above due to ROSETTE; continue metoprolol for paroxysmal a fib. (5) Paroxysmal atrial fibrillation: Plan: - Continue metoprolol 12.5 mg daily, Xarelto 15 mg daily. -rate under fair control (6) Aortic valve stenosis: Plan: - Nonsevere and asymptomatic. Due for repeat echo next month. (7) C. difficile diarrhea: Plan: - Chronic suppression with vancomycin 125 mg daily. (8) Non-Hodgkin's lymphoma: Plan: - Receives Rituxan, IVIG monthly. (9) Overactive bladder: Plan: - Continue Oxybutynin. (10) Thoracic compression fracture: Plan: - Hospitalized 06/11-06/14 for thoracic compression fracture and muscle spasms. Managed medically. - Continue pain management with Tylenol, baclofen, Tramadol, Voltaren gel. - Continue Vitamin D/calcium supplements. Plan - Admit to med/tele. - SCDs, Xarelto for VTE ppx. - DNR/DNI. Admission and Anticipated Discharge Date Admission Date: July 03, 2022 Subjective patient seen and examined today, complains of cough, but says SOB is better Review of Systems Review of Systems: All systems reviewed are negative, apart from the ones contained in the history. Physical Exam Physical Exam: The patient is awake, alert and oriented 3, well developed and well nourished, normocephalic and atraumatic, lying in bed and in no acute distress. HEENT--PERRL, EOMI, mucous membranes and oropharynx mildly dry Neck--supple. No JVD. No bruits. Thyroid normal, trachea midline, no adenopathy. Heart--normal S1 and S2. No murmurs, rubs or gallops. Lungs--reduced air entry on auscultation Abdomen--normal bowel sounds and soft. Mild epigastric and left sided abdominal pain Extremities--no cyanosis or clubbing. No edema. Dermatologic--normal skin turgor, normal color, no abnormal lymph nodes, no rash. Neurologic--cranial nerves II through XII grossly intact. Rheumatologic--normal range of motion. Psychiatric--normal affect. Results & Data Results & Data ([facility]) Vital Signs (Past 12 Hours) Vital Signs Temp Pulse Resp BP Pulse Ox O2 Del Method O2 Flow Rate 07/06/22 11:23 98.6 F 83 18 160/95 H 96 07/06/22 08:00 Nasal Cannula 2 07/06/22 08:07 98.2 F 89 18 176/79 H 95 2 07/06/22 03:29 96 Nasal Cannula 2 07/06/22 02:50 98.4 F 108 H 18 153/78 H 90 Room Air PG Care Time/CCT Total # of Minutes Spent Total Time Spent with Patient: Total time spent is greater than 50% in coordination of care (as documented) at patient's floor/unit and/or counseling patient: Coding Level of Care Code 53124 Subseq Hosp Care Lvl 2 Diagnoses Pneumonia J18.9 Laterality: right Lung location: lower lobe of lung Pneumonia type: due to unspecified organism Acute respiratory failure with hypoxia J96.01 ROSETTE (acute kidney injury) N17.9 HTN (hypertension) I10 Paroxysmal atrial fibrillation I48.0 Aortic valve stenosis I35.0 C. difficile diarrhea A04.72 Non-Hodgkin's lymphoma C85.90 Overactive bladder N32.81 Thoracic compression fracture S22.000A Time Spent (min) 35 (1) Pneumonia Laterality: right Lung location: lower lobe of lung Pneumonia type: due to unspecified organism Qualified Code(s): J18.9 - Pneumonia, unspecified organism
[2022-07-06] MEDS: AZITHROMYCIN 500 MG in DEXTROSE 5% 250 ML IV SCH (15:26)
[2022-07-06] MEDS: RIVAROXABAN 15 MG TAB PO SCH (17:17)
--- NOTE | 2022-07-06 21:47 | Electrocardiogram Report ---
Test Reason : Blood Pressure : / mmHG Vent. Rate : 108 BPM Atrial Rate : 079 BPM P-R Int : 000 ms QRS Dur : 064 ms QT Int : 324 ms P-R-T Axes : 000 -10 042 degrees QTc Int : 434 ms Atrial fibrillation with rapid ventricular response Poor R wave progression, consider anterior GA vs. lead placement vs. LVH Abnormal ECG When compared with ECG of 03-JUL-2022 11:14, No significant change Confirmed by Ming Sanders ([id number]) on 07/06/2022 9:46:54 PM Referred By: REFERRED SELF Confirmed By:Ming Sanders
[2022-07-07] MEDS: CEFEPIME 1,000 MG in SYRINGE 0 ML IV SCH (01:47)
[2022-07-07 07:22] LABS: Calcium 9.2 mg/dl (8.5-10.1); Creatinine Clr Calc Pharmacy 34.9 ml/min; Est GFR (African American) 59.1 ml/min; Potassium 4.3 mmol/L (3.5-5.1)
[2022-07-07] MEDS: BACLOFEN 10 MG TAB PO SCH (08:51)
[2022-07-07] MEDS: ACETAMINOPHEN 500 MG TAB PO SCH ×2 (08:51→14:44)
[2022-07-07] MEDS: ASCORBIC ACID 500 MG TAB PO SCH (08:51)
[2022-07-07] MEDS: DOCUSATE SODIUM 100 MG CAP PO SCH (08:52)
[2022-07-07] MEDS: MULTIVITAMIN CHEWABLE TAB PO SCH (08:52)
[2022-07-07] MEDS: MAGNESIUM CHLORIDE W/CALCIUM 64MG DELAYED REL TAB PO SCH ×3 (08:52→14:43)
[2022-07-07] MEDS: DICLOFENAC SOD 1% GEL 100 GM TUBE EXT SCH ×2 (08:52→12:19)
[2022-07-07] MEDS: METOPROLOL SUCC 25MG EXT REL TAB PO SCH (08:52)
[2022-07-07] MEDS: PANTOprazole 40 MG TAB PO SCH (08:52)
[2022-07-07] MEDS: guaiFENesin 600 MG TABCR PO SCH (08:52)
[2022-07-07] MEDS: LACTOBACILLUS ACIDOPHILUS 1 GM PACK PO SCH (08:52)
[2022-07-07] MEDS: CALCIUM 600MG + VIT D 400 IU TAB PO SCH (08:52)
[2022-07-07] MEDS: RASPBERRY SYRUP 5 ML UDP PO SCH (08:53)
[2022-07-07] MEDS: VANCOMYCIN HCL 125 MG/2.5ML SOLN PO SCH (08:55)
[2022-07-07] MEDS: OXYBUTYNIN CHLORIDE XL 5 MG TABCR PO SCH (10:12)
[2022-07-07] MEDS: CHOLECALCIFEROL 1,000 UNITS 25 MCG TAB PO SCH (12:19)
--- NOTE | 2022-07-07 12:51 | Hospitalist Progress Note ---
Date of Service July 07, 2022 Assessment & Plan (1) Pneumonia: Plan: - Presenting with hypoxia, mild tachycardia, productive cough, fatigue, BERNSTEIN x 2 weeks -WBC was 19k on admission - CXR with subsegmental bibasilar atelectasis, but clinically presents as a pneumonia. - patient treated as healthcare acquire pneumonia given recent hospitalization and transition to assisted living since d/c -currently on cefepime and azithro for atypical coverage. - Supportive care with breathing treatments prn, Mucinex prn, Tylenol prn. - Incentive spirometry q1h. -ordered flutter valve. - continue antibiotics as above -WBC improving, now wnl -Patient is clinically much improved, SOB is better, still some cough though -Given that new definition of healthcare acquire pneumonia, as hospitalization has not occured within last week, may transition to third generation cephalosporin at discharge. -will need 2 step prior to discharge. (2) Acute respiratory failure with hypoxia: Plan: - Secondary to pneumonia, treatment as above. -On 2L of oxygen -2 Step eval upon d/c (3) ROSETTE (acute kidney injury): Plan: - Now resolved (4) HTN (hypertension): Plan: - Holding lisinopril as above due to ROSETTE; continue metoprolol for paroxysmal a fib. (5) Paroxysmal atrial fibrillation: Plan: - Continue metoprolol 12.5 mg daily, Xarelto 15 mg daily. -rate under fair control (6) Aortic valve stenosis: Plan: - Nonsevere and asymptomatic. Due for repeat echo next month. (7) C. difficile diarrhea: Plan: - Chronic suppression with vancomycin 125 mg daily. (8) Non-Hodgkin's lymphoma: Plan: - Receives Rituxan, IVIG monthly. (9) Overactive bladder: Plan: - Continue Oxybutynin. (10) Thoracic compression fracture: Plan: - Hospitalized 06/11-06/14 for thoracic compression fracture and muscle spasms. Managed medically. - Continue pain management with Tylenol, baclofen, Tramadol, Voltaren gel. - Continue Vitamin D/calcium supplements. Plan - Hopefully d/c in the next 24 hrs to her personal care residence Admission and Anticipated Discharge Date Admission Date: July 03, 2022 Subjective patient seen and examined today, complains of cough, but says SOB is better today Review of Systems Review of Systems: All systems reviewed are negative, apart from the ones contained in the history. Physical Exam Physical Exam: The patient is awake, alert and oriented 3, well developed and well nourished, normocephalic and atraumatic, lying in bed and in no acute distress. HEENT--PERRL, EOMI, mucous membranes and oropharynx mildly dry Neck--supple. No JVD. No bruits. Thyroid normal, trachea midline, no adenopathy. Heart--normal S1 and S2. No murmurs, rubs or gallops. Lungs--reduced air entry on auscultation Abdomen--normal bowel sounds and soft. Mild epigastric and left sided abdominal pain Extremities--no cyanosis or clubbing. No edema. Dermatologic--normal skin turgor, normal color, no abnormal lymph nodes, no rash. Neurologic--cranial nerves II through XII grossly intact. Rheumatologic--normal range of motion. Psychiatric--normal affect. Results & Data Results & Data ([facility]) Vital Signs (Past 12 Hours) Vital Signs Temp Pulse Pulse Resp BP Pulse Ox O2 Del Method 07/07/22 12:00 98.2 F 83 18 164/91 H 97 Nasal Cannula 07/07/22 09:59 81 07/07/22 07:22 98.8 F 91 H 18 165/96 H 96 Nasal Cannula 07/07/22 02:51 98.2 F 107 H 18 174/84 H 96 Nasal Cannula O2 Flow Rate 07/07/22 12:00 2 07/07/22 09:59 07/07/22 07:22 2 07/07/22 02:51 2 PG Care Time/CCT Total # of Minutes Spent Total Time Spent with Patient: Total time spent is greater than 50% in coordination of care (as documented) at patient's floor/unit and/or counseling patient: Coding Level of Care Code 74198 Subseq Hosp Care Lvl 2 Diagnoses Pneumonia J18.9 Laterality: right Lung location: lower lobe of lung Pneumonia type: due to unspecified organism Acute respiratory failure with hypoxia J96.01 ROSETTE (acute kidney injury) N17.9 HTN (hypertension) I10 Paroxysmal atrial fibrillation I48.0 Aortic valve stenosis I35.0 C. difficile diarrhea A04.72 Non-Hodgkin's lymphoma C85.90 Overactive bladder N32.81 Thoracic compression fracture S22.000A Time Spent (min) 35 (1) Pneumonia Laterality: right Lung location: lower lobe of lung Pneumonia type: due to unspecified organism Qualified Code(s): J18.9 - Pneumonia, unspecified organism
--- NOTE | 2022-07-07 13:53 | Discharge Summary ---
Date of Service July 07, 2022 Admission HPI Per Admitting Provider Mishel Beckford is an 86 y/o female with a past medical history significant for non- Hodgkin lymphoma, paroxysmal a fib, hypertension, osteoporosis, and GERD who presents today from home with complaints of fatigue and not feeling herself. For the past 2 weeks she is been incredibly tired and just does not feel her normal self. Over the last week or so, she has developed a mildly productive cough, and has noticed she is feeling winded and short of breath with activity such as walking across the room from her bedroom to bathroom. She has not noticed any fever or chills, denies any chest pain, palpitations, or shortness of breath at rest. She has not noticed any weight gain, swelling in her legs, or difficulty breathing while lying flat, however it is difficult for her to lay like this due to her thoracic compression fractures. Has been compliant with her medications, including Xarelto, and feels she is breathing without pain. She moved into an assisted living community within the past month after being hospitalized the beginning of the month for thoracic compression fractures. Upon presentation, she is mildly tachycardic with HR in 90s, was 87% on room air, now 94-97% on 2 LNC. She is afebrile and normotensive. Labs significant for WBC 19.08 with left shift, mildly elevated creatinine at 1.24, Trope 35, BNP 534. Procalcitonin 0.46, lactate 1.7. COVID/flu/RSV negative. CXR w/ cardiomegaly with subsegmental bibasilar atelectasis. Principal Diagnosis PNA Discharge Exam The patient is awake, alert and oriented 3, well developed and well nourished, normocephalic and atraumatic, lying in bed and in no acute distress. HEENT--PERRL, EOMI, mucous membranes and oropharynx mildly dry Neck--supple. No JVD. No bruits. Thyroid normal, trachea midline, no adenopathy. Heart--normal S1 and S2. No murmurs, rubs or gallops. Lungs--reduced air entry on auscultation Abdomen--normal bowel sounds and soft. Mild epigastric and left sided abdominal pain Extremities--no cyanosis or clubbing. No edema. Dermatologic--normal skin turgor, normal color, no abnormal lymph nodes, no rash. Neurologic--cranial nerves II through XII grossly intact. Rheumatologic--normal range of motion. Psychiatric--normal affect. Discharge Data Allergies Allergy/AdvReac Type Severity Reaction Status Date / Time diphenhydramine Allergy Severe ALL Verified 07/03/22 13:17 ANTIHISTAMINES-"HYPER" FEELING allopurinol Allergy Intermediate RASH-SEVERE Verified 07/03/22 13:17 ITCHING Consultations 07/03/22 13:42 ED Decision to Admit Stat Hospital Course (1) Pneumonia: - Presenting with hypoxia, mild tachycardia, productive cough, fatigue, BERNSTEIN x 2 weeks -WBC was 19k on admission - CXR with subsegmental bibasilar atelectasis, but clinically presents as a pneumonia. - patient treated as healthcare acquire pneumonia given recent hospitalization and transition to assisted living since d/c -currently on cefepime and azithro for atypical coverage. - Supportive care with breathing treatments prn, Mucinex prn, Tylenol prn. - Incentive spirometry q1h. -ordered flutter valve. - continue antibiotics as above -WBC improving, now wnl -Patient is clinically much improved, SOB is better, still some cough though -Given that new definition of healthcare acquire pneumonia, as hospitalization has not occured within last week, may transition to third generation cephalosporin at discharge. -2 step was done, patient does not require oxygen (2) Acute respiratory failure with hypoxia: - Secondary to pneumonia, treatment as above. -On 2L of oxygen -2 Step eval upon d/c (3) ROSETTE (acute kidney injury): - Now resolved (4) HTN (hypertension): - Holding lisinopril as above due to ROSETTE; continue metoprolol for paroxysmal a fib. (5) Paroxysmal atrial fibrillation: - Continue metoprolol 12.5 mg daily, Xarelto 15 mg daily. -rate under fair control (6) Aortic valve stenosis: - Nonsevere and asymptomatic. Due for repeat echo next month. (7) C. difficile diarrhea: - Chronic suppression with vancomycin 125 mg daily. (8) Non-Hodgkin's lymphoma: - Receives Rituxan, IVIG monthly. (9) Overactive bladder: - Continue Oxybutynin. (10) Thoracic compression fracture: - Hospitalized 06/11-06/14 for thoracic compression fracture and muscle spasms. Managed medically. - Continue pain management with Tylenol, baclofen, Tramadol, Voltaren gel. - Continue Vitamin D/calcium supplements. Plan d/c to her personal care residence Total Time Total Time Spent Total Time Spent (In Minutes): 35 Discharge Plan Discharge Items Patient Disposition: Personal Intermediate Reason For Visit: PNEUMONIA Discharge Diagnosis: PNA Activity: Resume your previous activity Non-emergency contact: Primary Care Provider Call non-emergency contact if: you have any medication questions Follow-up/Referrals: Marko Dennis MD [Primary Care Provider] - Diet: Regular Addtl Attending Provider Instructions: please make appointment to follow up with your regular PCP Pending Studies at Discharge: No Stand-Alone Forms: My DialMyApp, Smoking Cessation Skilled Items Patient informed of condition?: Yes DNR: Yes Discharge Level of Care: Other Communicable Disease: No Discharge Prognosis: Stable Lines: None Urinary Catheter: No Medications and DC Order Prescriptions: New cefdinir 300 mg capsule 300 mg PO BID 5 Days Qty: 10 0RF Continued vancomycin 125 mg capsule 125 mg PO QAM Qty: 90 3RF Xarelto 15 mg tablet 15 mg PO DAILY Qty: 90 3RF metoprolol succinate 25 mg tablet extended release 24 hr 12.5 mg PO QAM Qty: 45 3RF pantoprazole [Protonix] 40 mg tablet,delayed release (DR/EC) 40 mg PO DAILY Qty: 30 5RF oxybutynin chloride 5 mg tablet extended release 24hr 5 mg PO QAM Qty: 90 3RF acetaminophen 500 mg tablet 1,000 mg PO TID Qty: 180 0RF ascorbic acid (vitamin C) 500 mg capsule 500 mg PO QAM Qty: 30 11RF Calcium 600 + D(3) 600 mg calcium- 200 unit capsule 1 cap PO QAM cholecalciferol (vitamin D3) 2,000 unit capsule 2,000 units PO QDL cranberry 500 mg capsule 500 mg PO QAM cyanocobalamin (vitamin B-12) 500 mcg lozenge 500 mcg PO 2XWK Rx Instructions: TAKES ON SUNDAY AND SUNDAY. magnesium chloride 64 mg tablet,delayed release (DR/EC) 64 mg PO TID multivitamin with iron tablet 1 tab PO QAM lisinopril 30 mg tablet 30 mg PO QAM Qty: 90 3RF baclofen 5 mg tablet 5 mg PO BID Qty: 60 2RF tramadol 50 mg tablet 25 - 50 mg PO Q4H PRN (Reason: pain) Qty: 42 0RF Rituxan 10 mg/mL Concentrate 10 mg IV MO Rx Instructions: DUE 06/22/22. Ivig 1 dose IV MO Rx Instructions: Next one due Jul 20 docusate sodium [Stool Softener] 100 mg tablet 100 mg PO QAM Lactobacillus acidophilus Capsule 10,000 mmu cells PO QAM diclofenac sodium 1 % gel 2 g topical QID Qty: 100 0RF Rx Instructions: apply to back Discharge Orders: Discharge Order (Routine); Ordered 07/07/22 Ordered By: Chari Stringer Admission Data Admit Date/Time: 07/03/22 14:00 Attending Provider: Chari Stringer Admit Provider: Keanu Leigh Primary Care Provider: Marko Dennis Other Providers: Keanu Leigh Coding Level of Care Code D/C DAY MANAGEMENT >30 MINS Diagnoses Pneumonia J18.9 Laterality: right Lung location: lower lobe of lung Pneumonia type: due to unspecified organism Acute respiratory failure with hypoxia J96.01 ROSETTE (acute kidney injury) N17.9 HTN (hypertension) I10 Paroxysmal atrial fibrillation I48.0 Aortic valve stenosis I35.0 C. difficile diarrhea A04.72 Non-Hodgkin's lymphoma C85.90 Overactive bladder N32.81 Thoracic compression fracture S22.000A Time Spent (min) 35
[2022-07-07] MEDS ORDERED: CEFEPIME 2,000 MG in SYRINGE 0 ML IV SCH (14:00)
[2022-07-07] MEDS: AZITHROMYCIN 500 MG in DEXTROSE 5% 250 ML IV SCH (14:44)
== END 2022-07-07 16:30 | disposition home or self-care (01) | DRG 193 ==
LOC: ED 11:00 → SUATTDRO 14:00 → 2N 14:00

== ENCOUNTER 2022-07-13 04:32 | Observation (INO) ==
[2022-07-13 05:07] LABS: Basophils # (auto) 0.06 K/uL (0-0.2); Basophils % (auto) 0.6 %; Eosinophils # (auto) 0.22 K/uL (0-0.50); Eosinophils % (auto) 2.2 %; Hematocrit (blood only) 39.1 % (34.1-44.9); Hemoglobin 12.6 g/dl (12.0-16.0); Immature Granulocytes # (auto) 0.04 K/uL (0.00-0.02); Immature Granulocytes % (auto) 0.4 %; Lymphocytes # (auto) 0.35 K/uL (1.2-3.4); Lymphocytes % (auto) 3.4 %; Mean Corpuscular Hemoglobin 32.1 pg (25.0-34.0); Mean Corpuscular Hgb Conc 32.2 g/dL (32.0-36.0); Mean Corpuscular Volume 99.7 fL (80.0-100.0); Mean Platelet Volume 10.5 fL (9.4-12.3); Monocytes # (auto) 0.63 K/uL (0.24-0.82); Monocytes % (auto) 6.2 %; Neutrophils # (auto) 8.88 K/uL (1.4-6.5); Neutrophils % (auto) 87.2 %; Platelet Count 285 K/uL (130-400); RDW Standard Deviation 50.9 fL (36.4-46.3); Red Blood Count 3.92 M/uL (3.93-5.22); White Blood Count 10.18 K/ul (4.8-10.8)
--- NOTE | 2022-07-13 05:12 | Emergency Department Note ---
Impression & Plan Pneumonia of both lower lobes, Burst fracture of T9 [facility] Provider Note NAME: MICHAEL EDWARDS AGE: 86 SEX: F ARRIVES VIA: Ambulance INFORMANT: Patient ED PROVIDER(S): Kelsey Shepard DO CHIEF COMPLAINT: Shortness of breath PLAN: Disposition: Admit [facility] Condition: Stable MEDICAL DECISION MAKING: This is an 86-year-old female patient who presents to the emergency department with shortness of breath that woke her at 2 AM. She was diagnosed with pneumonia 10 days ago and completed a course of treatment. She has a history of chronic abdominal pain that seem to worsen somewhat tonight. Patient had a chest x-ray which was concerning for worsening bilateral lower lobe pleural effusions versus pneumonias. She went for CT scan of the chest which showed evidence of pneumonia with tree-in-bud opacities. CT scan also showed worsening T9 burst fracture. [facility] and they will evaluate for further management in order medications. Triage Nursing notes reviewed and agree with them. Prior medical records reviewed Vital Signs: reviewed and remarkable for hypertension Differential diagnosis: Congestive heart failure, recurrent pneumonia, PE Diagnostics interpreted by me: ECG: Atrial fibrillation at a rate of [address] segment elevation or signs of ischemia. There is no ectopy. Cardiac Monitoring: Atrial fibrillation at a rate of 96 Laboratory studies: See below Imaging studies: As per my interpretation Portable chest x-ray: Bilateral lower lobe pleural effusions. HPI: 86/F arrives for evaluation of shortness of breath. Patient describes waking from sleep at 2 AM with moderate shortness of breath. The patient has had a persistent cough since being diagnosed with pneumonia 10 days ago. She did seem to recover from that pneumonia but was left with a cough. Upon awakening tonight, the cough seem to have worsened and she had increased shortness of breath. EMS was called and she was treated with an albuterol nebulizer treatment. Patient has a history of chronic abdominal pain which seem to worsen tonight also. Over the past 24 hours, she did have some blood in her stool as a result of which she thought was hemorrhoids. ROS: See above HPI for pertinent positives & negatives. A total of 10 systems reviewed and were otherwise negative. PAST MEDICAL HISTORY:See Below PAST SURGICAL HISTORY:See Below FAMILY HISTORY:See Below SOCIAL HISTORY:See Below HOME MEDICATIONS:See list ALLERGIES:See list VITALS:See Below PHYSICAL EXAMINATION: HEENT: Head - normocephalic and atraumatic. Pupils are equal, round, and reactive to light. Extraocular eye muscles are intact, and sclera are anicteric. Nose - moist nasal mucosa without discharge. Mouth - moist buccal mucosa. Oropharynx is nonerythematous and there is no tonsillar exudate or edema noted. Neck: Supple; no JVD or cervical lymphadenopathy Heart: Irregularly irregular rhythm with a controlled rate there is a normal S1 and S2 with no murmurs, clicks, or gallops appreciated. Lungs: Diminished breath sounds bilaterally in both lower lobes Abdomen: Soft, completely nontender, nondistended, with good bowel sounds. There are no palpable pulsatile masses or hepatosplenomegaly. There is no guarding, rigidity, or rebound noted. Extremities: No evidence of cyanosis, clubbing, or edema. There are easily palpable peripheral pulses. Skin: warm and dry with good turgor and no rashes. ED COURSE: Times/Reassessments: 435 the patient was evaluated in room A-11. Laboratory studies were drawn as above. A twelve-lead EKG was obtained. An order was placed for continuous cardiac monitoring. The patient was in atrial fibrillation at a rate of 96. Portable chest x-ray was performed. Patient went on to have a CT scan of the chest. Case was discussed with the [facility] Hospitalist. 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 skin HTN (hypertension) Low back pain Non-Hodgkin's lymphoma (03/08/13) h/o chemo Osteoarthritis Overactive bladder Paroxysmal atrial fibrillation ON XARELTO F/U DR PETTY Pneumonia Prophylactic antibiotic SOB (shortness of breath) on exertion Surgical History Encounter for insertion of venous access port History of colonoscopy History of hysterectomy (03/08/13) History of squamous cell carcinoma excision History of vascular access device IN PLACE LEFT UPPER CHEST-"NON FUNCTIONING" PER PT Post-lymphadenectomy lymphedema of arm S/P breast biopsy S/P lumpectomy of breast RIGHT/RADIATION S/P lymph node biopsy Family History Father Bright's disease Kidney disease Sister Colon cancer Gallbladder disease Hypertension Kidney stones Colorectal cancer Mother Cardiac disorder Congestive heart failure Other Crohn's disease Denies family history of Ovarian cancer Prostate cancer Myocardial infarction Breast cancer Social History Smoking Status: Never smoker Tobacco Type: Cigarettes Second Hand Exposure: No; Hx Alcohol Use: No Hx Substance Use: No Preferred Language: Serbian Communication Ability: Effective Visual Impairment: No Limitations Hearing Ability: Use of Hearing Aid [employer]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 [employer] Swager Required: No Beliefs That Will Affect Care: None marital status: / Current Living Situation: Personal Care Facility current occupational status: retired How many Children do You have: 0 Feels Safe at Home: Yes Dental Care, Regularly: Yes Physical Activity Frequency: Daily Seatbelt Use: always Sunscreen Use: Yes Assistive Devices: Walker Allergies Allergies Allergy/AdvReac Type Severity Reaction Status Date / Time diphenhydramine Allergy Severe ALL Verified 07/12/22 15:03 ANTIHISTAMINES-"HYPER" FEELING allopurinol Allergy Intermediate RASH-SEVERE Verified 07/12/22 15:03 ITCHING Home Meds Home Medications Medication Instructions Recorded Confirmed calcium carbonate 600 mg-vitamin 1 cap PO QAM 04/21/19 07/12/22 D3 5 mcg (200 unit) capsule (Calcium 600 + D(3)) cholecalciferol (vitamin D3) 50 2,000 units PO QDL 04/21/19 07/12/22 mcg (2,000 unit) capsule cranberry 500 mg capsule 500 mg PO QAM 04/21/19 07/12/22 cyanocobalamin (vitamin B-12) 500 500 mcg PO 2XWK 04/21/19 07/12/22 mcg lozenges magnesium chloride 64 mg 64 mg PO TID 04/21/19 07/12/22 (magnesium chloride) tablet,delayed release multivitamin with iron 1 tab PO QAM 04/21/19 07/12/22 Ivig 1 dose IV MO 03/24/21 07/12/22 rituximab 10 mg/mL 10 mg IV MO 03/24/21 07/12/22 concentrate,intravenous (Rituxan) docusate sodium 100 mg tablet 100 mg PO QAM 06/16/22 07/12/22 (Stool Softener) Lactobacillus acidophilus 10,000 mmu cells PO QAM 07/03/22 07/12/22 lorazepam 1 mg tablet 1 mg PO DAILY PRN 07/12/22 07/12/22 Previous Rx's Medication Instructions Recorded lisinopril 30 mg tablet 30 mg PO QAM #90 tabs 07/25/21 vancomycin 125 mg capsule 125 mg PO QAM #90 caps 01/17/22 rivaroxaban 15 mg tablet (Xarelto) 15 mg PO DAILY #90 tabs 01/23/22 diclofenac sodium 1 % topical gel 2 g topical QID #100 grams 06/14/22 baclofen 5 mg tablet 5 mg PO BID #60 tabs 06/16/22 tramadol 50 mg tablet 25 - 50 mg PO Q4H PRN pain #42 tabs 06/16/22 oxybutynin chloride 5 mg 5 mg PO QAM #90 tabs 06/22/22 tablet,extended release 24 hr acetaminophen 500 mg tablet 1,000 mg PO TID #180 tabs 06/27/22 levofloxacin 750 mg tablet 750 mg PO Q2D@1100 #3 tabs 07/14/22 metoprolol succinate 25 mg 25 mg PO QAM #45 tabs 07/14/22 tablet,extended release 24 hr pantoprazole 40 mg tablet,delayed 40 mg PO BID #30 tabs 07/14/22 release (Protonix) Results & Data (ED) Vital Signs Vital Signs - 24 hr 07/13/22 04:48 07/13/22 04:48 07/13/22 04:53 Temperature 36.5 C Temperature Source Temporal Artery Scan Pulse Rate 95 H Pulse Rate [Finger] Pulse Rhythm Regular Pulse Rhythm [Finger] Pulse Strength Normal Pulse Strength [Finger] Respiratory Rate 12 Respiratory Effort / Characteristics Non-Labored Non-Labored Spontaneous Respiratory Depth Normal Normal Respiratory Pattern Regular Blood Pressure 173/122 H Blood Pressure [Left Arm] Blood Pressure Mean 139 Blood Pressure Mean [Left Arm] Blood Pressure Position Sitting Blood Pressure Position [Left Arm] Pulse Oximetry 94 94 Oxygen Delivery Method Room Air Room Air Oxygen Flow Rate 0 Sepsis Recent Fever Within 48 Hours No Sepsis New/Unexplained Change in Mental Status N/A Sepsis Action Taken by Nursing No Action Required 07/13/22 04:53 07/13/22 04:53 Temperature 36.5 C Temperature Source Oral Pulse Rate 96 H Pulse Rate [Finger] 95 H Pulse Rhythm Regular Pulse Rhythm [Finger] Regular Pulse Strength Pulse Strength [Finger] Normal Respiratory Rate 12 12 Respiratory Effort / Characteristics Non-Labored Spontaneous Respiratory Depth Normal Respiratory Pattern Blood Pressure Blood Pressure [Left Arm] 173/122 H Blood Pressure Mean Blood Pressure Mean [Left Arm] 139 Blood Pressure Position Blood Pressure Position [Left Arm] Sitting Pulse Oximetry 94 94 Oxygen Delivery Method Room Air Room Air Oxygen Flow Rate Sepsis Recent Fever Within 48 Hours Sepsis New/Unexplained Change in Mental Status Sepsis Action Taken by Nursing Laboratory Data Result diagrams: 07/14/22 08:15 07/14/22 08:15 Lab Results 07/13/22 07/13/22 07/13/22 Range/Units 04:55 04:55 08:15 WBC 10.18 (4.8-10.8) K/ul RBC 3.92 L (3.93-5.22) M/uL Hgb 12.6 (12.0-16.0) g/dl Hct 39.1 (34.1-44.9) % MCV 99.7 (80.0-100.0) fL MCH 32.1 (25.0-34.0) pg MCHC 32.2 (32.0-36.0) g/dL RDW Std Deviation 50.9 H (36.4-46.3) fL RDW Coeff of Ruddy 14.0 (11.5-14.5) % Plt Count 285 (130-400) K/uL MPV 10.5 (9.4-12.3) fL Immature Gran % (Auto) 0.4 % Neut % (Auto) 87.2 % Lymph % (Auto) 3.4 % Gulf % (Auto) 6.2 % Eos % (Auto) 2.2 % Baso % (Auto) 0.6 % Neut # (Auto) 8.88 H (1.4-6.5) K/uL Lymph # (Auto) 0.35 L (1.2-3.4) K/uL Gulf # (Auto) 0.63 (0.24-0.82) K/uL Eos # (Auto) 0.22 (0-0.50) K/uL Baso # (Auto) 0.06 (0-0.2) K/uL Immature Gran # (Auto) 0.04 H (0.00-0.02) K/uL Sodium 142 (136-145) mmol/L Potassium 4.4 (3.5-5.1) mmol/L Chloride 107 (98-107) mmol/L Carbon Dioxide 26 (21-32) mmol/L Anion Gap 9 (3-11) BUN 19 (6-23) mg/dl Creatinine 1.00 (0.6-1.2) mg/dl Est Cr Clr Drug Dosing 31.9 ml/min Est GFR ( Amer) 59.1 ml/min Est GFR (Non-Af Amer) 51.0 ml/min BUN/Creatinine Ratio 19.0 (10-20) Glucose 95 (70-99(Fasting)) mg/dl Calcium 9.3 (8.5-10.1) mg/dl Total Bilirubin 0.6 (0.2-1.0) mg/dl AST 26 (13-39) U/L ALT 30 (7-52) U/L Alkaline Phosphatase 217 H (34-104) U/L Total Protein 6.3 (6.0-8.3) gm/dl Albumin 3.6 (3.4-5.0) gm/dl Globulin 2.7 (2.5-4.0) gm/dl Albumin/Globulin Ratio 1.3 (0.9-2) SARS-CoV-2 (PCR) NEGATIVE (Negative) Administered Medications Acetaminophen (Acetaminophen 500 Mg Tab) 1,000 mg PO TID CIPRIANO Stop: 08/12/22 13:59 Last Admin: 07/14/22 13:54 Dose: 1,000 mg Documented By: Admin: 07/14/22 07:54 Dose: 1,000 mg Documented By: Admin: 07/13/22 20:23 Dose: 1,000 mg Documented By: Admin: 07/13/22 14:07 Dose: Not Given Documented By: NMS Ascorbic Acid (Ascorbic Acid 500 Mg Tab) 500 mg PO QAM CIPRIANO Stop: 08/12/22 12:59 Last Admin: 07/14/22 07:53 Dose: 500 mg Documented By: Admin: 07/13/22 13:30 Dose: 500 mg Documented By: DIXIE Baclofen (Baclofen 10 Mg Tab) 5 mg PO BID CIPRIANO Stop: 08/12/22 20:59 Last Admin: 07/14/22 07:55 Dose: 5 mg Documented By: Admin: 07/13/22 20:24 Dose: 5 mg Documented By: MONIKA Docusate Sodium (Docusate Sodium 100 Mg Cap) 100 mg PO QAM CIPRIANO Stop: 08/12/22 12:59 Last Admin: 07/14/22 07:54 Dose: 100 mg Documented By: Admin: 07/13/22 13:31 Dose: 100 mg Documented By: DIXIE Guaifenesin (Guaifenesin 600 Mg Tabcr) 1,200 mg PO Q12 CIPRIANO Stop: 08/12/22 20:59 Last Admin: 07/14/22 07:55 Dose: 1,200 mg Documented By: Admin: 07/13/22 20:25 Dose: 1,200 mg Documented By: MONIKA Lactobacillus Acidophilus (Advanced Probiotic 1250 Mg Capsule) 1 cap PO QAM [facility] Stop: 08/12/22 13:29 Last Admin: 07/14/22 07:54 Dose: 1 cap Documented By: Admin: 07/13/22 13:47 Dose: 1 cap Documented By: DIXIE Lidocaine (Lidocaine 5% 1 Patch) 1 patch TD QAM [facility] Stop: 08/12/22 13:29 Last Admin: 07/14/22 07:55 Dose: Not Given Documented By: Admin: 07/13/22 13:32 Dose: Not Given Documented By: DIXIE Lisinopril (Lisinopril 10 Mg Tab) 30 mg PO QAM [facility] Stop: 08/12/22 12:59 Last Admin: 07/14/22 07:52 Dose: 30 mg Documented By: Admin: 07/13/22 13:31 Dose: 30 mg Documented By: DIXIE Magnesium Chloride (Magnesium Chloride W/Calcium 64mg Delayed Rel Tab) 64 mg PO TID [facility] Stop: 08/12/22 13:59 Last Admin: 07/14/22 13:54 Dose: 64 mg Documented By: Admin: 07/14/22 07:54 Dose: 64 mg Documented By: Admin: 07/13/22 20:26 Dose: 64 mg Documented By: Admin: 07/13/22 13:34 Dose: 64 mg Documented By: DIXIE Metoprolol Succinate (Metoprolol Succ 25mg Ext Rel Tab) 12.5 mg PO QAM [facility] Stop: 08/12/22 13:29 Last Admin: 07/14/22 07:53 Dose: 12.5 mg Documented By: Admin: 07/13/22 13:33 Dose: 12.5 mg Documented By: DIXIE Miscellaneous (Remove Lidoderm Patch) 1 each N/A DAILY@2100 CIPRIANO Stop: 08/12/22 20:59 Last Admin: 07/13/22 20:26 Dose: 1 each Documented By: MONIKA Multivitamins/Minerals (Calcium 600mg + Vit D 400 Iu Tab) 1 tab PO QAM [facility] Stop: 08/12/22 12:59 Last Admin: 07/14/22 07:54 Dose: 1 tab Documented By: Admin: 07/13/22 13:31 Dose: 1 tab Documented By: DIXIE Multivitamins/Minerals (Cerovite Adv Formula Tab) 1 tab PO QAM [facility] Stop: 08/12/22 12:59 Last Admin: 07/14/22 07:54 Dose: 1 tab Documented By: Admin: 07/13/22 13:31 Dose: 1 tab Documented By: DIXIE Oxybutynin Chloride (Oxybutynin Chloride Xl 5 Mg Tabcr) [facility] Stop: 08/12/22 13:29 Last Admin: 07/14/22 07:52 Dose: 5 mg Documented By: Admin: 07/13/22 13:34 Dose: 5 mg Documented By: DIXIE Pantoprazole Sodium (Pantoprazole 40 Mg Tab) 40 mg PO DAILY CIPRIANO Stop: 08/12/22 12:59 Last Admin: 07/14/22 07:53 Dose: 40 mg Documented By: Admin: 07/13/22 13:31 Dose: 40 mg Documented By: DIXIE Rivaroxaban (Rivaroxaban 15 Mg Tab) 15 mg PO DAILY CIPRIANO Stop: 08/12/22 13:29 Last Admin: 07/14/22 07:54 Dose: 15 mg Documented By: Admin: 07/13/22 13:33 Dose: 15 mg Documented By: DIXIE Vitamin D (Cholecalciferol 1,000 Units 25 Mcg Tab) 2,000 units PO QDL [facility] Stop: 08/12/22 12:59 Last Admin: 07/14/22 11:09 Dose: 2,000 units Documented By: Admin: 07/13/22 13:31 Dose: 2,000 units Documented By: DIXIE Discontinued Medications Ioversol (Ioversol 350 Mg 100ml Prefilled Syringe) 94 ml IV ONCE ONE Stop: 07/13/22 06:24 Last Admin: 07/13/22 06:23 Dose: 94 ml Documented By: CARMEN Levofloxacin (Levofloxacin 750 Mg Tab) 750 mg PO DAILY@1100 [facility] Stop: 07/20/22 13:59 Last Admin: 07/13/22 13:41 Dose: 750 mg Documented By: DIXIE Metoprolol Succinate (Metoprolol Succ 25mg Ext Rel Tab) 12.5 mg PO ONE ONE Stop: 07/14/22 09:51 Last Admin: 07/14/22 10:27 Dose: 12.5 mg Documented By: LENO Metoprolol Tartrate (Metoprolol Tartrate 25 Mg Tab) 12.5 mg PO ONE ONE Stop: 07/13/22 18:10 Last Admin: 07/13/22 19:23 Dose: 12.5 mg Documented By: MONIKA Discharge Plan Visit Data Chief Complaint: Shortness of Breath/Dyspnea ED Provider: Kelsey Shepard Discharge Problem: Pneumonia of both lower lobes, Burst fracture of T9 vertebra Patient Disposition: Admitted As Inpatient Discharge Instructions Interventions: ED Discharge Assessment Last Done: 07/13/22 11:08
[2022-07-13 05:28] LABS: Albumin Globulin Ratio 1.3 (0.9-2); Albumin Level 3.6 gm/dl (3.4-5.0); Bilirubin,Total 0.6 mg/dl (0.2-1.0); Calcium 9.3 mg/dl (8.5-10.1); Creatinine Clr Calc Pharmacy 31.9 ml/min; Est GFR (African American) 59.1 ml/min; Globulin 2.7 gm/dl (2.5-4.0); Potassium 4.4 mmol/L (3.5-5.1); Total Protein 6.3 gm/dl (6.0-8.3)
[2022-07-13] MEDS ORDERED: IOVERSOL 350 MG 100mL Prefilled Syringe IV ONE (06:23)
--- NOTE | 2022-07-13 07:17 | CT Scan Report ---
CHEST CT WITH CONTRAST CT DOSE: 202.61 mGy.cm HISTORY: Acute shortness of breath worsening sob TECHNIQUE: Multiaxial CT images of the chest were performed following the IV administration of 94 cc of Optiray. A dose lowering technique was utilized adhering to the principles of ALARA. COMPARISON: Chest radiograph of same day, chest CT 04/14/2022, thoracolumbar radiographs 06/11/2022 FINDINGS: Unremarkable thyroid. There are a few borderline enlarged mediastinal and right hilar lymp h nodes redemonstrated measuring 9 to 10 mm. No pathologically enlarged lymph nodes are identified by CT size criteria. Left subclavian Vyaiay-d-Exam catheter distal tip terminates within the upper SVC. Nonenlarged retrocrural lymph nodes are stable. Cardiomegaly with small pericardial effusion. Pectus excavatum. Extensive coronary artery calcifications. Atherosclerosis of the thoracic aorta without a neurysm or dissection. Descending thoracic aortic tortuosity. The opacified pulmonary artery is unrem arkable. No pulmonary emboli are identified. Trace left and small right pleural effusions. No pneumothorax or overt pulmonary edema. Dependent pre dominant bibasilar tree-in-bud nodules are noted with mild dependent bibasilar consolidation, right g reater than left. 6 mm nodular density of the left lower lobe on image 194 is new from prior. Mild tr acheobronchial secretions. No acute process of the imaged upper abdomen. 10 mm cyst of the superior pole left kidney. Heterogene ity with lobular contour morphology of the liver. Unremarkable soft tissues. Degenerative changes of the spine and shoulders. T9 burst fracture with 4 mm retropulsion. Chronic L1, L2 and L3 compression deformities. IMPRESSION: 1. Bibasilar dependent predominant tree-in-bud nodules are compatible with an infectious or inflammat ory bronchiolitis. Mild tracheobronchial secretions are also present. Correlate with clinical history to exclude aspiration. 2. Mild dependent right greater than left bibasilar consolidation suggestive of atelectasis versus pn eumonia. 3. 6 mm nodule of the basal left lower lobe, also likely infectious or inflammatory. 4. Cardiomegaly 5. Trace left and small right pleural effusions. 6. T9 burst fracture with 4 mm retropulsion demonstrates progressively worsened vertebral body height loss compared to the 06/11/2022 radiographs. ACT 112: Negative or not required by law. Electronically signed by: Dale Whalye M.D. 07/13/2022 7:15 AM
--- NOTE | 2022-07-13 07:51 | XRay Report ---
XR chest 1V portable HISTORY: 86 years-old Female Dyspnea acute shortness of breath COMPARISON: Chest CT of same day TECHNIQUE: AP view of the chest FINDINGS: Cardiac silhouette is enlarged. Left subclavian [id number]-[id number] catheter is noted with distal tip in th e expected location of the upper SVC. No pneumothorax. Pulmonary vascular congestion. Right greater l eft pleural effusions with bibasilar consolidation, progressively worsened from 07/06/2022. Degenerati ve changes of the shoulders and spine. T9 burst fracture is better seen on the CT study of same day. IMPRESSION: 1. Cardiomegaly with pulmonary vascular congestion. 2. Right greater left pleural effusions with bibasilar consolidation, better characterized on the alma st CT of same day. ACT 112: Negative or not required by law. The above report was generated using voice recognition software. It may contain grammatical, syntax o r spelling errors. Electronically signed by: Dale Whaley M.D. 07/13/2022 7:49 AM
--- NOTE | 2022-07-13 08:21 | Electrocardiogram Report ---
Test Reason : Blood Pressure : / mmHG Vent. Rate : 082 BPM Atrial Rate : 102 BPM P-R Int : 000 ms QRS Dur : 064 ms QT Int : 338 ms P-R-T Axes : 000 -25 002 degrees QTc Int : 394 ms Atrial fibrillation Minimal voltage criteria for LVH, may be normal variant Abnormal ECG When compared with ECG of 06-JUL-2022 10:19, T wave inversion now evident in Inferior leads Confirmed by Tej Coles ([id number]) on 07/13/2022 8:19:28 AM Referred By: REFERRED SELF Confirmed By:Otf Coles
--- NOTE | 2022-07-13 09:50 | History & Physical Report ---
Date of Service July 13, 2022 Assessment & Plan (1) Pneumonia: Plan: Patient with slight progression of her imaging. She is loose cough in the emergency department. We will attempt to get the sputum specimen with mucolytic's and flutter valve. She will be started on oral levofloxacin. She does not have leukocytosis or hypoxemia or fever. (2) Thoracic compression fracture: Plan: Comment on the patient's compression fracture slightly worsened on imaging. Patient has no physical complaints of increased pain or radicular symptoms. We will continue with oral medications and topical Lidoderm patch. (3) Paroxysmal atrial fibrillation: Plan: Patient has a history of paroxysmal atrial fibrillation. She is controlled ventricular rate in the emergency department. Because the event overnight with sudden my concern is could she have had a paroxysm of rapid rate causing her to feel short of breath. Her symptoms are completely resolved at this time. Subsequently we will keep on a monitored floor we will check an echocardiogram given her cardiac murmurs EKG showed progression of her valvular heart disease. She typically sees Dr. Sanders who can be involved if there is any cardiac input needed Patient typically is on metoprolol for rate control and lisinopril for hypertension Plan DVT prevention typically is on Xarelto for atrial fibrillation History of Present Illness Primary Care Provider: Marko Dennis MD pt was discharged 07/07/22, with dx of pneumonia on ceftraxone po, for 5 additional days did recieve azithro while inpatient. She awoke in the middle of the night, feeling short of breath but did not have chest pain or cough, she dose have a loose non productive cough in the ER on my exam. she denies diarrhea or urinary changes Imaging in the ER shows some slight progression of imaging of chest (cxr and CT) with comments of tree in bud, the pt denies aspiration. She does have a history of lymphoma remians on maintainence Rituxan, CT 2020 was considered stable disease Allergies Allergy/AdvReac Type Severity Reaction Status Date / Time diphenhydramine Allergy Severe ALL Verified 07/12/22 15:03 ANTIHISTAMINES-"HYPER" FEELING allopurinol Allergy Intermediate RASH-SEVERE Verified 07/12/22 15:03 ITCHING Home Medications Medication Instructions Recorded Confirmed Type calcium carbonate 600 mg-vitamin 1 cap PO QAM 04/21/19 07/12/22 History D3 5 mcg (200 unit) capsule (Calcium 600 + D(3)) cholecalciferol (vitamin D3) 50 2,000 units PO QDL 04/21/19 07/12/22 History mcg (2,000 unit) capsule cranberry 500 mg capsule 500 mg PO QAM 04/21/19 07/12/22 History cyanocobalamin (vitamin B-12) 500 500 mcg PO 2XWK 04/21/19 07/12/22 History mcg lozenges magnesium chloride 64 mg 64 mg PO TID 04/21/19 07/12/22 History (magnesium chloride) tablet,delayed release multivitamin with iron 1 tab PO QAM 04/21/19 07/12/22 History Ivig 1 dose IV MO 03/24/21 07/12/22 History rituximab 10 mg/mL 10 mg IV MO 03/24/21 07/12/22 History concentrate,intravenous (Rituxan) lisinopril 30 mg tablet 30 mg PO QAM #90 tabs 07/25/21 07/12/22 Rx vancomycin 125 mg capsule 125 mg PO QAM #90 caps 01/17/22 07/12/22 Rx rivaroxaban 15 mg tablet (Xarelto) 15 mg PO DAILY #90 tabs 01/23/22 07/12/22 Rx metoprolol succinate 25 mg 12.5 mg PO QAM #45 tabs 03/15/22 07/12/22 Rx tablet,extended release 24 hr pantoprazole 40 mg tablet,delayed 40 mg PO DAILY #30 tabs 03/22/22 07/12/22 Rx release (Protonix) diclofenac sodium 1 % topical gel 2 g topical QID #100 grams 06/14/22 07/12/22 Rx baclofen 5 mg tablet 5 mg PO BID #60 tabs 06/16/22 07/12/22 Rx docusate sodium 100 mg tablet 100 mg PO QAM 06/16/22 07/12/22 History (Stool Softener) tramadol 50 mg tablet 25 - 50 mg PO Q4H PRN pain #42 tabs 06/16/22 07/12/22 Rx oxybutynin chloride 5 mg 5 mg PO QAM #90 tabs 06/22/22 07/12/22 Rx tablet,extended release 24 hr acetaminophen 500 mg tablet 1,000 mg PO TID #180 tabs 06/27/22 07/12/22 Rx ascorbic acid (vitamin C) 500 mg 500 mg PO QAM #30 caps 06/27/22 07/12/22 Rx capsule Lactobacillus acidophilus 10,000 mmu cells PO QAM 07/03/22 07/12/22 History lorazepam 1 mg tablet 1 mg PO DAILY PRN 07/12/22 07/12/22 History Past Med/Surg History Medical History (Updated 07/03/22 @ 22:32 by Shaheen Lobato MD) Abdominal pain Aortic valve stenosis Bilateral sacroiliitis Cardiac murmur Close exposure to COVID-19 virus Compression fracture of spine Hearing deficit Left MARTINES History of breast cancer ; h/o lumpectomy + radiation History of chemotherapy History of Clostridioides difficile 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 skin HTN (hypertension) Low back pain Non-Hodgkin's lymphoma (03/08/13) h/o chemo Osteoarthritis Overactive bladder Paroxysmal atrial fibrillation ON XARELTO F/U DR EPTTY Pneumonia Prophylactic antibiotic SOB (shortness of breath) on exertion Surgical History Encounter for insertion of venous access port History of colonoscopy History of hysterectomy (03/08/13) History of squamous cell carcinoma excision History of vascular access device IN PLACE LEFT UPPER CHEST-"NON FUNCTIONING" PER PT Post-lymphadenectomy lymphedema of arm S/P breast biopsy S/P lumpectomy of breast RIGHT/RADIATION S/P lymph node biopsy Family History Father Bright's disease Kidney disease Sister Colon cancer Gallbladder disease Hypertension Kidney stones Colorectal cancer Mother Cardiac disorder Congestive heart failure Other Crohn's disease Denies family history of Ovarian cancer Prostate cancer Myocardial infarction Breast cancer Social History Smoking Status: Never smoker Tobacco Type: Cigarettes Second Hand Exposure: No; Hx Alcohol Use: No Hx Substance Use: No Preferred Language: Beninese Communication Ability: Effective Visual Impairment: No Limitations Hearing Ability: Use of Hearing Aid Edger Hand Required: No Beliefs That Will Affect Care: None marital status: Single Current Living Situation: Personal Care Facility current occupational status: retired How many Children do You have: 0 Feels Safe at Home: Yes Safety Concerns: Feels Safe At This Time Dental Care, Regularly: Yes Physical Activity Frequency: Daily Seatbelt Use: always Sunscreen Use: Yes Assistive Devices: Glasses and Walker Review of Systems Review of Systems: moderate distress and fatigue no headache, no visual changes no speech or swallowing issues no chest pain, pressure or palpitations shortness of breath, loose cough no abdominal pain, nausea or vomiting, diarrhea or constipation no dysuria, hematuria or frequency no focal joint pain or swelling controlled back pain, without CVA tenderness or radicular pain no bruising, bleeding or rashes no focal signs of weakness or numbness or altered sensation no complaints of anxiety or depression.. Physical Exam Physical Exam: The patient appeared well nourished and normally developed. she looks younger than her stated age. Vital signs as documented. Head exam is normocephalic atraumatic Neck is without JVD, thyromegaly, or carotid bruits. Lungs are coarse bibasilar rhonchi Cardiac exam, Rhythm is regular.. temi at RUSB Abdominal exam reveals normal bowel sounds, soft non tender, no masses Extremities are nonedematous and both pedal pulses are present Neurologic exam is alert and oriented, no focal loss of strength or sensation Skin is without bruises or rashes Psychologically is without concerns for anxiety or depression.. Results & Data Results & Data ([facility]) Vital Signs (Past 12 Hours) Vital Signs Temp Pulse Pulse Resp BP BP Pulse Ox 07/13/22 09:00 98 H 18 162/113 H 95 07/13/22 07:45 85 20 183/90 H 95 07/13/22 06:30 109 H 20 177/98 H 94 07/13/22 04:53 96 H 12 94 07/13/22 04:53 97.7 F 95 H 12 173/122 H 94 07/13/22 04:53 97.7 F 95 H 12 173/122 H 94 07/13/22 04:48 94 O2 Del Method O2 Flow Rate 07/13/22 09:00 Room Air 07/13/22 07:45 Room Air 07/13/22 06:30 07/13/22 04:53 Room Air 07/13/22 04:53 Room Air 07/13/22 04:53 Room Air 07/13/22 04:48 Room Air 0 Diagnostic Findings Chest X-Ray 07/13/22 04:47 XR chest 1V portable HISTORY: 86 years-old Female Dyspnea acute shortness of breath COMPARISON: Chest CT of same day TECHNIQUE: AP view of the chest FINDINGS: Cardiac silhouette is enlarged. Left subclavian Wssdkd-v-Ceqr catheter is noted with distal tip in the expected location of the upper SVC. No pneumothorax. Pulmonary vascular congestion. Right greater left pleural effusions with bibasilar consolidation, progressively worsened from 07/06/2022. Degenerative changes of the shoulders and spine. T9 burst fracture is better seen on the CT study of same day. IMPRESSION: 1. Cardiomegaly with pulmonary vascular congestion. 2. Right greater left pleural effusions with bibasilar consolidation, better characterized on the chest CT of same day. ACT 112: Negative or not required by law. The above report was generated using voice recognition software. It may contain grammatical, syntax or spelling errors. Electronically signed by: Dale Whaley M.D. 07/13/2022 7:[address] 07/13/22 06:[address] WITH CONTRAST CT DOSE: 202.61 mGy.cm HISTORY: Acute shortness of breath worsening sob TECHNIQUE: Multiaxial CT images of the chest were performed following the IV administration of 94 cc of Optiray. A dose lowering technique was utilized adhering to the principles of ALARA. COMPARISON: Chest radiograph of same day, chest CT 04/14/2022, thoracolumbar radiographs 06/11/2022 FINDINGS: Unremarkable thyroid. There are a few borderline enlarged mediastinal and right hilar lymph nodes redemonstrated measuring 9 to 10 mm. No pathologically enlarged lymph nodes are identified by CT size criteria. Left subclavian Ndpyhy-l-Nrrs catheter distal tip terminates within the upper SVC. Nonenlarged retrocrural lymph nodes are stable. Cardiomegaly with small pericardial effusion. Pectus excavatum. Extensive coronary artery calcifications. Atherosclerosis of the thoracic aorta without aneurysm or dissection. Descending thoracic aortic tortuosity. The opacified pulmonary artery is unremarkable. No pulmonary emboli are identified. Trace left and small right pleural effusions. No pneumothorax or overt pulmonary edema. Dependent predominant bibasilar tree-in-bud nodules are noted with mild dependent bibasilar consolidation, right greater than left. 6 mm nodular density of the left lower lobe on image 194 is new from prior. Mild tracheobronchial secretions. No acute process of the imaged upper abdomen. 10 mm cyst of the superior pole left kidney. Heterogeneity with lobular contour morphology of the liver. Unremarkable soft tissues. Degenerative changes of the spine and shoulders. T9 burst fracture with 4 mm retropulsion. Chronic L1, L2 and L3 compression deformities. IMPRESSION: 1. Bibasilar dependent predominant tree-in-bud nodules are compatible with an in fectious or inflammatory bronchiolitis. Mild tracheobronchial secretions are also present. Correlate with clinical history to exclude aspiration. 2. Mild dependent right greater than left bibasilar consolidation suggestive of atelectasis versus pneumonia. 3. 6 mm nodule of the basal left lower lobe, also likely infectious or inflammatory. 4. Cardiomegaly 5. Trace left and small right pleural effusions. 6. T9 burst fracture with 4 mm retropulsion demonstrates progressively worsened vertebral body height loss compared to the 06/11/2022 radiographs. ACT 112: Negative or not required by law. Electronically signed by: Dale Whaley M.D. 07/13/2022 7:15 AM ECG Additional Comments: Atrial fibrillation with controlled ventricular rate and no ST or T wave changes Code Status & VTE Plan VTE Prophylaxis Plan VTE Prophylaxis will be ordered: Yes PG Care Time/CCT Total # of Minutes Spent Total Time Spent with Patient: Total time spent is greater than 50% in coordination of care (as documented) at patient's floor/unit and/or counseling patient: Coding Level of Care Code INT OBSERVATION CARE 70M LVL 3 Diagnoses Pneumonia J18.9 Laterality: right Lung location: lower lobe of lung Pneumonia type: due to unspecified organism Thoracic compression fracture S22.000A Paroxysmal atrial fibrillation I48.0 (1) Pneumonia Laterality: right Lung location: lower lobe of lung Pneumonia type: due to unspecified organism Qualified Code(s): J18.9 - Pneumonia, unspecified organism
[2022-07-13] MEDS ORDERED: ONDANSETRON INJ 2 MG/ML 2 ML VIAL IV PRN (12:01)
[2022-07-13] MEDS ORDERED: traMADol HCL 50 MG TABLET PO PRN (12:01)
[2022-07-13] MEDS ORDERED: LORazepam 0.5 MG TAB PO PRN (12:01)
--- NOTE | 2022-07-13 12:59 | XCELERA ---
[id number]
[2022-07-13] MEDS: ASCORBIC ACID 500 MG TAB PO SCH (13:30)
[2022-07-13] MEDS: lisinopril 10 MG TAB PO SCH (13:31)
[2022-07-13] MEDS: CHOLECALCIFEROL 1,000 UNITS 25 MCG TAB PO SCH (13:31)
[2022-07-13] MEDS: DOCUSATE SODIUM 100 MG CAP PO SCH (13:31)
[2022-07-13] MEDS: PANTOprazole 40 MG TAB PO SCH (13:31)
[2022-07-13] MEDS: CALCIUM 600MG + VIT D 400 IU TAB PO SCH (13:31)
[2022-07-13] MEDS: CEROVITE ADV FORMULA TAB PO SCH (13:31)
[2022-07-13] MEDS: LIDOCAINE 5% 1 PATCH TD SCH (13:32)
[2022-07-13] MEDS: RIVAROXABAN 15 MG TAB PO SCH (13:33)
[2022-07-13] MEDS: METOPROLOL SUCC 25MG EXT REL TAB PO SCH (13:33)
[2022-07-13] MEDS: MAGNESIUM CHLORIDE W/CALCIUM 64MG DELAYED REL TAB PO SCH ×2 (13:34→20:26)
[2022-07-13] MEDS: OXYBUTYNIN CHLORIDE XL 5 MG TABCR PO SCH (13:34)
[2022-07-13] MEDS: ADVANCED PROBIOTIC 1250 MG CAPSULE PO SCH (13:47)
[2022-07-13] MEDS ORDERED: levoFLOXacin 750 MG TAB PO SCH (14:00)
[2022-07-13] MEDS: ACETAMINOPHEN 500 MG TAB PO SCH ×2 (14:07→20:23)
[2022-07-13 17:18] LABS: Appearance Urine Clear (Clear); Bacteria Urine Automated Negative (Negative); Bilirubin Urine Negative (Negative); Blood Urine Negative (Negative); Cast Urine Automated 0 /lpf (0-5); Color Urine Yellow; Epithelial Cell Urine Auto 0-5 /lpf (0-5); Glucose Urine UA Negative (Negative); Ketones Urine Negative (Negative); Leukocyte Esterase Urine Negative (Negative); Nitrite Urine Negative (Negative); Protein Urine 1+ (Negative); RBC Urine Automated 0-4 /hpf (0-4); Urobilinogen Urine Negative (Negative)
[2022-07-13] MEDS ORDERED: METOPROLOL TARTRATE 25 MG TAB PO ONE (18:09)
[2022-07-13] MEDS ORDERED: METOPROLOL TARTRATE 1 MG/ML VIAL IV PRN (19:32)
[2022-07-13] MEDS ORDERED: hydrALAZINE HCL 20 MG/ML VIAL IV PRN (19:32)
[2022-07-13] MEDS: BACLOFEN 10 MG TAB PO SCH (20:24)
[2022-07-13] MEDS: guaiFENesin 600 MG TABCR PO SCH (20:25)
[2022-07-14] MEDS: OXYBUTYNIN CHLORIDE XL 5 MG TABCR PO SCH (07:52)
[2022-07-14] MEDS: lisinopril 10 MG TAB PO SCH (07:52)
[2022-07-14] MEDS: METOPROLOL SUCC 25MG EXT REL TAB PO SCH (07:53)
[2022-07-14] MEDS: PANTOprazole 40 MG TAB PO SCH (07:53)
[2022-07-14] MEDS: ASCORBIC ACID 500 MG TAB PO SCH (07:53)
[2022-07-14] MEDS: CALCIUM 600MG + VIT D 400 IU TAB PO SCH (07:54)
[2022-07-14] MEDS: ADVANCED PROBIOTIC 1250 MG CAPSULE PO SCH (07:54)
[2022-07-14] MEDS: MAGNESIUM CHLORIDE W/CALCIUM 64MG DELAYED REL TAB PO SCH ×2 (07:54→13:54)
[2022-07-14] MEDS: RIVAROXABAN 15 MG TAB PO SCH (07:54)
[2022-07-14] MEDS: DOCUSATE SODIUM 100 MG CAP PO SCH (07:54)
[2022-07-14] MEDS: CEROVITE ADV FORMULA TAB PO SCH (07:54)
[2022-07-14] MEDS: ACETAMINOPHEN 500 MG TAB PO SCH ×2 (07:54→13:54)
[2022-07-14] MEDS: BACLOFEN 10 MG TAB PO SCH (07:55)
[2022-07-14] MEDS: guaiFENesin 600 MG TABCR PO SCH (07:55)
[2022-07-14] MEDS: LIDOCAINE 5% 1 PATCH TD SCH (07:55)
[2022-07-14 08:57] LABS: Hematocrit (blood only) 38.9 % (34.1-44.9); Hemoglobin 13.1 g/dl (12.0-16.0); Mean Corpuscular Hemoglobin 32.6 pg (25.0-34.0); Mean Corpuscular Hgb Conc 33.7 g/dL (32.0-36.0); Mean Corpuscular Volume 96.8 fL (80.0-100.0); Mean Platelet Volume 10.8 fL (9.4-12.3); Platelet Count 280 K/uL (130-400); RDW Coefficient of Variation 13.8 % (11.5-14.5); RDW Standard Deviation 48.8 fL (36.4-46.3); Red Blood Count 4.02 M/uL (3.93-5.22); White Blood Count 7.45 K/ul (4.8-10.8)
[2022-07-14 09:18] LABS: BUN Creatinine Ratio 18.4 (10-20); Calcium 9.2 mg/dl (8.5-10.1); Est GFR (Non-African American) 49.2 ml/min; Potassium 4.1 mmol/L (3.5-5.1)
[2022-07-14] MEDS ORDERED: METOPROLOL SUCC 25MG EXT REL TAB PO ONE (09:50)
[2022-07-14] MEDS: CHOLECALCIFEROL 1,000 UNITS 25 MCG TAB PO SCH (11:09)
--- NOTE | 2022-07-14 17:41 | Discharge Summary ---
Date of Service July 14, 2022 Admission HPI Per Admitting Provider pt was discharged 07/07/22, with dx of pneumonia on ceftraxone po, for 5 additional days did recieve azithro while inpatient. She awoke in the middle of the night, feeling short of breath but did not have chest pain or cough, she dose have a loose non productive cough in the ER on my exam. she denies diarrhea or urinary changes Imaging in the ER shows some slight progression of imaging of chest (cxr and CT) with comments of tree in bud, the pt denies aspiration. She does have a history of lymphoma remians on maintainence Rituxan, CT 2020 was considered stable disease Principal Diagnosis pneumonia shortness of breath Discharge Exam The patient appeared stable Vital signs as documented. Lungs are still some basilar rhonchi Cardiac exam, Rhythm is regular.. No murmurs, rubs or gallops. Abdominal exam reveals normal bowel sounds, soft non tender, no masses Extremities are nonedematous and both pedal pulses are normal. Neurologic exam is alert and oriented, no focal loss of strength or sensation Skin is without bruises or rashes Psychologically is without concerns for anxiety or depression. Discharge Data Allergies Allergy/AdvReac Type Severity Reaction Status Date / Time diphenhydramine Allergy Severe ALL Verified 07/12/22 15:03 ANTIHISTAMINES-"HYPER" FEELING allopurinol Allergy Intermediate RASH-SEVERE Verified 07/12/22 15:03 ITCHING Consultations 07/13/22 07:56 ED Decision to Admit Stat Ordered Studies 07/13/22 06:06 CT chest diagnostic w con Stat Hospital Course (1) Pneumonia: Patient with slight progression of her imaging. She is loose cough in the emergency department. We will attempt to get the sputum specimen with mucolytic's and flutter valve. She will be started on oral levofloxacin. She does not have leukocytosis or hypoxemia or fever will complete levaquin renal dose as outpt for 3 additional doses or 7 day course to cover atypical organisms as was sent out on cephalosporin only (2) Thoracic compression fracture: Comment on the patient's compression fracture slightly worsened on imaging. Patient has no physical complaints of increased pain or radicular symptoms. (3) Paroxysmal atrial fibrillation: Patient has a history of paroxysmal atrial fibrillation. She is controlled ventricular rate in the emergency department. Because the event overnight with sudden my concern is could she have had a paroxysm of rapid rate causing her to feel short of breath. Her symptoms are completely resolved at this time. Subsequently we will keep on a monitored floor we will check an echocardiogram given her cardiac murmurs EKG showed progression of her valvular heart disease. She typically sees Dr. Sanders who can be seen for outpt follow up Patient typically is on metoprolol for rate control and lisinopril for hype rtension Plan DVT prevention typically is on Xarelto for atrial fibrillation Total Time Total Time Spent Total Time Spent (In Minutes): It required greater than 30 minutes to prepare this patient for discharge Discharge Plan Discharge Items Patient Disposition: Personal Residential Reason For Visit: SHORTNESS OF BREATH,RESOLVING PNEUMONIA Discharge Diagnosis: pneumonia diastolic heart failure Activity: Resume your previous activity Non-emergency contact: Primary Care Provider Call non-emergency contact if: your symptoms worsen Follow-up/Referrals: Marko Dennis MD [Primary Care Provider] - 07/24/22 11:00 am Diet: Low Potassium (2gm) Addtl Attending Provider Instructions: increase your metoprolol to 25 mg a day increase your protonix to twice a day for 6 weeks finish all of the new antibiotics Pending Studies at Discharge: No Stand-Alone Forms: My Parchment, Smoking Cessation Skilled Items Patient informed of condition?: Yes DNR: Yes Discharge Level of Care: Other Communicable Disease: No Discharge Prognosis: Stable Lines: None Urinary Catheter: No Medications and DC Order Prescriptions: New levofloxacin 750 mg Tablet 750 mg PO Q2D@1100 Qty: 3 0RF Continued vancomycin 125 mg capsule 125 mg PO QAM Qty: 90 3RF Xarelto 15 mg tablet 15 mg PO DAILY Qty: 90 3RF oxybutynin chloride 5 mg tablet extended release 24hr 5 mg PO QAM Qty: 90 3RF acetaminophen 500 mg tablet 1,000 mg PO TID Qty: 180 0RF Calcium 600 + D(3) 600 mg calcium- 200 unit capsule 1 cap PO QAM cholecalciferol (vitamin D3) 2,000 unit capsule 2,000 units PO QDL cranberry 500 mg capsule 500 mg PO QAM cyanocobalamin (vitamin B-12) 500 mcg lozenge 500 mcg PO 2XWK Rx Instructions: TAKES ON SUNDAY AND SUNDAY. magnesium chloride 64 mg tablet,delayed release (DR/EC) 64 mg PO TID multivitamin with iron tablet 1 tab PO QAM lisinopril 30 mg tablet 30 mg PO QAM Qty: 90 3RF baclofen 5 mg tablet 5 mg PO BID Qty: 60 2RF tramadol 50 mg tablet 25 - 50 mg PO Q4H PRN (Reason: pain) Qty: 42 0RF lorazepam 1 mg tablet 1 mg PO DAILY PRN Rituxan 10 mg/mL Concentrate 10 mg IV MO Rx Instructions: DUE 06/22/22. Ivig 1 dose IV MO Rx Instructions: Next one due Jul 13 docusate sodium [Stool Softener] 100 mg tablet 100 mg PO QAM Lactobacillus acidophilus Capsule 10,000 mmu cells PO QAM diclofenac sodium 1 % gel 2 g topical QID Qty: 100 0RF Rx Instructions: apply to back Changed pantoprazole [Protonix] 40 mg tablet,delayed release (DR/EC) 40 mg PO BID Qty: 30 5RF metoprolol succinate 25 mg tablet extended release 24 hr 25 mg PO QAM Qty: 45 3RF Discontinued ascorbic acid (vitamin C) 500 mg capsule 500 mg PO QAM Qty: 30 11RF Discharge Orders: Discharge Order (Routine); Ordered 07/14/22 Ordered By: Keanu Leigh Admission Data Admit Date/Time: 07/13/22 08:16 Attending Provider: Keanu Leigh Admit Provider: Keanu Leigh Primary Care Provider: Marko Dennis Other Providers: Keanu Leigh Other Interventions: Discharge Summary Assessment (RN) Last Done: 07/14/22 13:48 Coding Level of Care Code D/C DAY MANAGEMENT >30 MINS Diagnoses Pneumonia J18.9 Laterality: right Lung location: lower lobe of lung Pneumonia type: due to unspecified organism Thoracic compression fracture S22.000A Paroxysmal atrial fibrillation I48.0
[2022-07-15] MEDS ORDERED: levoFLOXacin 750 MG TAB PO SCH (11:00)
== END 2022-07-14 16:31 | disposition home or self-care (01) ==
LOC: EDINP 04:32 → ED 04:32 → 2N 11:08

== ENCOUNTER 2023-01-14 06:16 | Inpatient (IN) ==
--- NOTE | 2023-01-14 07:06 | Emergency Department Note ---
History of Present Illness General Chief complaint: Fall Stated complaint: Shoulder Pain Time Seen by Provider: 01/14/23 06:51 Source: patient, RN notes reviewed and old records reviewed (I have reviewed the residential notes) Mode of arrival: ambulatory Limitations: no limitations History of Present Illness This patient is a 87-year-old female who is at the [facility], comes in after suffering a mechanical fall. She was transferred herself from dresser to dresser and she says she missed the handle there is no loss of consciousness no symptoms that made her fall. She landed on her right shoulder and said it hurt initially but she says she feels fine now she thinks she hit her head but has no headache or nausea or vomiting. No neck pain. Denies any other complaints. No numbness weakness. No chest pain or shortness of breath or abdominal pain she does not believe there is any trauma to the chest or abdomen. She is on Xarelto. He has had no recent illness or any blood or melena in her stool. Home Medications Medication Instructions Recorded Confirmed Type calcium carbonate 600 mg-vitamin 1 cap PO QAM 04/21/19 12/19/22 History D3 5 mcg (200 unit) capsule (Calcium 600 + D(3)) cholecalciferol (vitamin D3) 50 2,000 units PO QDL 04/21/19 12/19/22 History mcg (2,000 unit) capsule cranberry 500 mg capsule 500 mg PO QAM 04/21/19 12/19/22 History cyanocobalamin (vitamin B-12) 500 500 mcg PO 2XWK 04/21/19 12/19/22 History mcg lozenges magnesium chloride 64 mg 64 mg PO TID 04/21/19 12/19/22 History (magnesium chloride) tablet,delayed release multivitamin with iron 1 tab PO QAM 04/21/19 12/19/22 History Ivig 1 dose IV MO 03/24/21 12/19/22 History rituximab 10 mg/mL 10 mg IV MO 03/24/21 12/19/22 History concentrate,intravenous (Rituxan) diclofenac sodium 1 % topical gel 2 g topical QID #100 grams 06/14/22 11/15/22 Rx docusate sodium 100 mg tablet 100 mg PO QAM 06/16/22 12/19/22 History (Stool Softener) tramadol 50 mg tablet 25 - 50 mg PO Q4H PRN pain #42 tabs 06/16/22 12/19/22 Rx acetaminophen 500 mg tablet 1,000 mg PO TID #180 tabs 06/27/22 12/19/22 Rx Lactobacillus acidophilus 10,000 mmu cells PO QAM 07/03/22 12/19/22 History lorazepam 1 mg tablet 1 mg PO DAILY PRN 07/12/22 12/19/22 History metoprolol succinate 25 mg 25 mg PO QAM #30 tabs 08/24/22 12/19/22 Rx tablet,extended release 24 hr pantoprazole 40 mg tablet,delayed 40 mg PO BID #60 tabs 08/24/22 12/19/22 Rx release (Protonix) alendronate 70 mg tablet 70 mg PO .ONCE WEEKLY #12 tabs 08/29/22 12/19/22 Rx baclofen 5 mg tablet 5 mg PO BID #60 tabs 11/22/22 12/19/22 Rx lisinopril 30 mg tablet 30 mg PO QAM #90 tabs 12/25/22 Rx oxybutynin chloride 5 mg 5 mg PO QAM #90 tabs 12/25/22 Rx tablet,extended release 24 hr rivaroxaban 15 mg tablet (Xarelto) 15 mg PO DAILY #90 tabs 12/25/22 Rx Allergies Allergy/AdvReac Type Severity Reaction Status Date / Time diphenhydramine Allergy Severe ALL Verified 12/19/22 08:31 ANTIHISTAMINES-"HYPER" FEELING allopurinol Allergy Intermediate RASH-SEVERE Verified 12/19/22 08:31 ITCHING Past Med/Surg History Medical History Abdominal pain Acute respiratory failure with hypoxia ROSETTE (acute kidney injury) Aortic valve stenosis Bilateral sacroiliitis Cardiac murmur Close exposure to COVID-19 virus Compression fracture of spine Hearing deficit Left MARTINES History of breast cancer ; h/o lumpectomy + radiation History of chemotherapy History of Clostridioides difficile 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 skin HTN (hypertension) Low back pain Non-Hodgkin's lymphoma (03/08/13) h/o chemo Osteoarthritis Overactive bladder Paroxysmal atrial fibrillation ON XARELTO F/U DR PETTY Pneumonia Prophylactic antibiotic SOB (shortness of breath) on exertion Surgical History Encounter for insertion of venous access port History of colonoscopy History of hysterectomy (03/08/13) History of squamous cell carcinoma excision History of vascular access device IN PLACE LEFT UPPER CHEST-"NON FUNCTIONING" PER PT Post-lymphadenectomy lymphedema of arm S/P breast biopsy S/P lumpectomy of breast RIGHT/RADIATION 1990'S S/P lymph node biopsy Family History Father Bright's disease Kidney disease Sister Colon cancer Gallbladder disease Hypertension Kidney stones Colorectal cancer Mother Cardiac disorder Congestive heart failure Other Crohn's disease Denies family history of Ovarian cancer Prostate cancer Myocardial infarction Breast cancer Social History Smoking Status: Former smoker Tobacco Type: Cigarettes Second Hand Exposure: No; Hx Alcohol Use: No Hx Substance Use: No Preferred Language: Italian Communication Ability: Effective Visual Impairment: No Limitations Hearing Ability: Use of Hearing Aid Philosophy Specialist Required: No Beliefs That Will Affect Care: None marital status: / Current Living Situation: Personal Care Facility current occupational status: retired How many Children do You have: 0 Feels Safe at Home: Yes Dental Care, Regularly: Yes Physical Activity Frequency: Daily Seatbelt Use: always Sunscreen Use: Yes Assistive Devices: Walker Review of Systems A total of 10 systems reviewed and were otherwise negative Physical Exam Vital Signs Vital Signs - 24 hr 01/14/23 06:25 01/14/23 06:36 01/14/23 08:37 Temperature 36.5 C Temperature Source Oral Pulse Rate 88 101 H Pulse Rate [Apical] 95 H Respiratory Rate 11 L 18 Respiratory Effort / Characteristics Non-Labored Non-Labored Spontaneous Respiratory Depth Normal Normal Blood Pressure 116/72 Blood Pressure [Left Arm] 111/72 Blood Pressure Mean 86 Blood Pressure Mean [Left Arm] 85 Pulse Oximetry 96 96 Oxygen Delivery Method Room Air Room Air Sepsis Recent Fever Within 48 Hours No Sepsis New/Unexplained Change in Mental Status N/A Sepsis Action Taken by Nursing No Action Required 01/14/23 10:27 01/14/23 11:50 Temperature Temperature Source Pulse Rate Pulse Rate [Apical] 89 85 Respiratory Rate 18 18 Respiratory Effort / Characteristics Non-Labored Spontaneous Non-Labored Spontaneous Respiratory Depth Normal Normal Blood Pressure Blood Pressure [Left Arm] 99/68 L 109/78 Blood Pressure Mean Blood Pressure Mean [Left Arm] 78 88 Pulse Oximetry 95 98 Oxygen Delivery Method Room Air Room Air Sepsis Recent Fever Within 48 Hours Sepsis New/Unexplained Change in Mental Status Sepsis Action Taken by Nursing General: Well developed well nourished older female who in no acute distress, breathing comfortably on room air. Normal speech HEENT: Normal cephalic atraumatic. No external signs of trauma. Pupils are equal round and reactive to light. Extraocular movements are intact. Oropharynx is pink with moist mucous membranes. No swelling of the mouth lips or tongue. Neck: Supple with a midline trachea. No meningeal signs or stiffness, no JVD or bruits. No Stridor. Chest: Clear to auscultation bilaterally. No wheezes or rhonchi. No increased work of breathing. Heart: Regular rate and rhythm without murmurs or gallops. Abdomen: Soft nontender, nondistended without rebound guarding or rigidity. Extremities: No cyanosis clubbing or edema. No calf tenderness or assymetry. Her right shoulder is normal-appearing has full range of motion with minimal tenderness no redness or warmth. Clinically does not appear to be dislocated or deformed. She has normal distal pulses and motor and sensation Spine/Back. Non tender to palpation. No CVA tenderness Skin: Good turgor without rashes. Neurologic exam: Cranial nerves two through 12 are intact. Motor and sensation are intact and symmetrical throughout. Course Administered Medications Discontinued Medications Sodium Chloride (Nss) 500 mls @ 999 mls/hr IV .Q31M STA Stop: 01/14/23 10:25 Last Infusion: 01/14/23 10:36 Dose: 0 mls/hr Documented By: Admin: 01/14/23 10:04 Dose: 999 mls/hr Documented By: DIXIE Sodium Chloride (Nss 1000ml) 500 mls @ 999 mls/hr IV .Q31M ONE Stop: 01/14/23 12:11 Last Admin: 01/14/23 11:50 Dose: 999 mls/hr Documented By: DIXIE Ondansetron HCl (Ondansetron Inj 2 Mg/Ml 2 Ml Vial) 4 mg IV NOW STA Stop: 01/14/23 09:56 Last Admin: 01/14/23 10:04 Dose: 4 mg Documented By: DIXIE Medical Decision Making Differential Diagnosis Fall, traumatic injuries, head injury, orthopedic injuries, syncope Medical Records Attestation: I reviewed the patient's medical records. Home Medications Current Medication List: was personally reviewed by me Laboratory Data Attestation: I reviewed the patient's lab results. 01/14/23 10:02 01/14/23 10:02 Lab Results 01/14/23 01/14/23 01/14/23 Range/Units 10:02 10:02 10:02 WBC 12.66 H (4.8-10.8) K/ul RBC 4.65 (4.20-5.40) M/uL Hgb 14.9 (12.0-16.0) g/dl Hct 45.8 (37.0-47.0) % MCV 98.5 (80.0-100.0) fL MCH 32.0 (25.0-34.0) pg MCHC 32.5 (32.0-36.0) g/dL RDW Std Deviation 51.0 H (36.4-46.3) fL RDW Coeff of Ruddy 13.9 (11.5-14.5) % Plt Count 292 (130-400) K/uL MPV 11.4 (9.4-12.4) fL Immature Gran % (Auto) 0.4 % Neut % (Auto) 91.9 % Lymph % (Auto) 3.6 % Cowley % (Auto) 3.7 % Eos % (Auto) 0.1 % Baso % (Auto) 0.3 % Neut # (Auto) 11.63 H (1.40-6.50) K/uL Lymph # (Auto) 0.46 L (1.2-3.4) K/uL Cowley # (Auto) 0.47 (0.11-0.59) K/uL Eos # (Auto) 0.01 (0-0.50) K/uL Baso # (Auto) 0.04 (0-0.2) K/uL Immature Gran # (Auto) 0.05 (0.01-0.20) K/uL PT 11.4 (9.0-12.0) Seconds INR 1.1 (0.9-1.1) APTT 30.8 (21.0-31.0) Seconds PTT Ratio 1.1 Sodium 134 L (136-145) mmol/L Potassium 5.3 H (3.5-5.1) mmol/L Chloride 106 (98-107) mmol/L Carbon Dioxide 15 L (21-32) mmol/L Anion Gap 13 H (3-11) BUN 92 H (6-23) mg/dl Creatinine 3.01 H (0.6-1.2) mg/dl Est Cr Clr Drug Dosing 11.4 ml/min Est GFR ( Amer) 15.5 ml/min Est GFR (Non-Af Amer) 13.4 ml/min BUN/Creatinine Ratio 30.6 H (10-20) Glucose 107 H (70-99(Fasting)) mg/dl Calcium 9.1 (8.6-10.3) mg/dl Total Bilirubin 0.3 (0.2-1.0) mg/dl AST 30 (13-39) U/L ALT 30 (7-52) U/L Alkaline Phosphatase 233 H (34-104) U/L Troponin I High Sens 20.3 H (0-14) pg/ml Total Protein 7.0 (6.0-8.3) gm/dl Albumin 3.8 (3.4-5.0) gm/dl Globulin 3.2 (2.5-4.0) gm/dl Albumin/Globulin Ratio 1.2 (0.9-2) Lipase 35 (11-82) U/L Urine Color Urine Appearance (Clear) Urine pH (4.5-7.5) Ur Specific [place] (1.000-1.030) Urine Protein (Negative) Urine Glucose (UA) (Negative) Urine Ketones (Negative) Urine Blood (Negative) Urine Nitrite (Negative) Urine Bilirubin (Negative) Urine Urobilinogen (Negative) Ur Leukocyte Esterase (Negative) Urine RBC (0-4) /hpf Urine WBC (0-5) /hpf Ur Epithelial Cells (0-5) /lpf Ur Renal Epithelial Cell (0-5) /lpf Urine Bacteria (Negative) 01/14/23 Range/Units 10:10 WBC (4.8-10.8) K/ul RBC (4.20-5.40) M/uL Hgb (12.0-16.0) g/dl Hct (37.0-47.0) % MCV (80.0-100.0) fL MCH (25.0-34.0) pg MCHC (32.0-36.0) g/dL RDW Std Deviation (36.4-46.3) fL RDW Coeff of Ruddy (11.5-14.5) % Plt Count (130-400) K/uL MPV (9.4-12.4) fL Immature Gran % (Auto) % Neut % (Auto) % Lymph % (Auto) % Cowley % (Auto) % Eos % (Auto) % Baso % (Auto) % Neut # (Auto) (1.40-6.50) K/uL Lymph # (Auto) (1.2-3.4) K/uL Cowley # (Auto) (0.11-0.59) K/uL Eos # (Auto) (0-0.50) K/uL Baso # (Auto) (0-0.2) K/uL Immature Gran # (Auto) (0.01-0.20) K/uL PT (9.0-12.0) Seconds INR (0.9-1.1) APTT (21.0-31.0) Seconds PTT Ratio Sodium (136-145) mmol/L Potassium (3.5-5.1) mmol/L Chloride (98-107) mmol/L Carbon Dioxide (21-32) mmol/L Anion Gap (3-11) BUN (6-23) mg/dl Creatinine (0.6-1.2) mg/dl Est Cr Clr Drug Dosing ml/min Est GFR ( Amer) ml/min Est GFR (Non-Af Amer) ml/min BUN/Creatinine Ratio (10-20) Glucose (70-99(Fasting)) mg/dl Calcium (8.6-10.3) mg/dl Total Bilirubin (0.2-1.0) mg/dl AST (13-39) U/L ALT (7-52) U/L Alkaline Phosphatase (34-104) U/L Troponin I High Sens (0-14) pg/ml Total Protein (6.0-8.3) gm/dl Albumin (3.4-5.0) gm/dl Globulin (2.5-4.0) gm/dl Albumin/Globulin Ratio (0.9-2) Lipase (11-82) U/L Urine Color Yellow Urine Appearance Slightly Cloudy (Clear) Urine pH 5.0 (4.5-7.5) Ur Specific [place] 1.025 (1.000-1.030) Urine Protein 2+ H (Negative) Urine Glucose (UA) Negative (Negative) Urine Ketones Negative (Negative) Urine Blood Negative (Negative) Urine Nitrite Negative (Negative) Urine Bilirubin 1+ H (Negative) Urine Urobilinogen Negative (Negative) Ur Leukocyte Esterase 2+ H (Negative) Urine RBC 0-4 (0-4) /hpf Urine WBC >30 H (0-5) /hpf Ur Epithelial Cells >30 H (0-5) /lpf Ur Renal Epithelial Cell 0-5 (0-5) /lpf Urine Bacteria 3+ H (Negative) Imaging Data Attestation: I personally reviewed and interpreted this imaging study as follows: My Impression: Chest [id number] changes but no acute infiltrate, failure, pneumothorax seen Right shoulder x-ray-no acute fracture or dislocation seen Head CTno hemorrhage or mass effect seen Radiologist's Impression: Shoulder X-Ray 01/14/23 06:30 XR shoulder RT min 2V routine CLINICAL HISTORY: Shoulder trauma. COMPARISON: Right shoulder radiographs March 22, 2017. FINDINGS: Several old right rib fractures are incidentally noted. There is elevation pf the right humeral head with narrowing of the subacromial space. No acute fracture within the right shoulder is present. Moderate degenerative changes of the right shoulder are present. IMPRESSION: 1. No acute fracture or dislocation within the right shoulder. 2. Moderate degenerative changes within the right shoulder. Elevation of the right humeral head with narrowing of the subacromial space. ACT 112: Negative or not required by law. Electronically signed by: Matthias Lai M.D. 01/14/2023 8:28 AM Chest X-Ray 01/14/23 07:01 XR chest 2V PA/lateral CLINICAL HISTORY: Fall. COMPARISON STUDY: Chest CT November 09, 2022. FINDINGS: Left subclavian [id number] is in place. There is no pneumothorax or pleural effusion. There is no evidence for pulmonary edema. Cardiomegaly is unchanged. No airspace opacities are present. Old thoracic and lumbar spine compression deformities are noted on lateral projection. There are old bilateral rib fractures. IMPRESSION: No acute cardiopulmonary findings. No change in appearance of the chest. ACT 112: Negative or not required by law. Electronically signed by: Matthias Lia M.D. 01/14/2023 8:[address] 01/14/23 07:01 CT OF THE HEAD WITHOUT CONTRAST CLINICAL HISTORY: Fall. COMPARISON STUDY: PET/CT December 27, 2015. CT DOSE: 614.27 mGy.cm TECHNIQUE: Helical axial images of the head were obtained without IV contrast. Automated exposure control was utilized for the study. A dose lowering technique was utilized adhering to the principles of ALARA. FINDINGS: No acute intracranial hemorrhage, midline shift or mass effect is present. White matter hypodensity suggests vessel disease. The ventricular system is unremarkable. The basal cisterns are patent. No extra-axial collections are present. There are no findings to suggest acute dural sinus thrombosis or acute territorial infarct. No significant calvarial abnormalities are present. Visualized portions of the sinuses and mastoid air cells are clear. IMPRESSION: 1. No acute intracranial findings. 2. No acute calvarial fracture. ACT 112: Negative or not required by law. Electronically signed by: Matthias Lai M.D. 01/14/2023 7:54 AM ECG Data Attestation: I personally reviewed and interpreted this ECG as follows: Indication: + nausea Rate (beats per minute): 97 Rhythm: + atrial fibrillation ECG Intervals/blocks: + Normal QRS, + Normal QT and + Normal CT ECG [place]: + Normal ECG ST segments: + Nonspecific ST abnormalities ECG Findings: no PACs or no PVCs Comparison ECG Date: from (07/13/22) Change: no significant change MDM Narrative This patient comes in as described above it was a mechanical fall there is no syncope there is no loss of consciousness. Her only complaint is right shoulder pain which she says now is better when I rotate her shoulders there is minimal discomfort. I did order x-ray of shoulder as well as the chest given that she landed on her right shoulder. She also think she hit her head although was asymptomatic but given the fact that she is on Xarelto I did order a CT of her head as well. She was reassessed frequently. She was placed room c9. I did also review her most recent labs which were within the last month and she did not have any significant hematologic abnormality such as thrombocytopenia. She had a CAT scan of her head which was unremarkable. She x-rays of her shoulder and arm which were unremarkable. She feels good and would like to go home I think this is reasonable talked the patient at length it definitely sounds like this was a mechanical fall. She has no significant injuries identified at this point I encouraged her to return if she has increasing pain, worsening symptoms, any new problems or concerns and follow-up with her regular doctor this week for recheck return here if symptoms worsen. I had written that for the patient to be discharged and her family ever showed up and the patient started complain she felt nauseated and has been sick all week. Apparently a GI illness was going through the residential, in light of this, I did add labs and give her some IV fluids and IV Zofran. She was reassessed frequently EKG was obtained which shows no ischemic changes. EKG shows chronic A-fib no acute ischemic changes. Her BUN and creatinine are significantly elevated compared to baseline with a creatinine of 3 up from 1.2 this may be prerenal she tells me she has been feeling weak had some diarrheal illness and has not been drinking as much is normal potassium is mildly elevated 5.2. She has no significant EKG changes. Her urinalysis is suboptimal as she has greater than 30 epithelial cells but she does not have any urinary symptoms. I did order additional IV fluid bolus I do think she needs to be admitted/observed for hydration and further treatment and evaluation. I have consulted and discussed the case with Dr. Morris and the hospitalist team. Impression & Plan Acute dehydration, Closed head injury, Fall, Right shoulder injury, Anticoagulant long-term use, Acute renal insufficiency, Weakness Discharge Plan Visit Data Chief Complaint: Fall Stated Complaint: Shoulder Pain ED Provider: Hemant Maldonado Discharge Problem: Acute dehydration, Closed head injury, Fall, Right shoulder injury, Anticoagulant long-term use, Acute renal insufficiency, Weakness Discharge Instructions Activity Restrictions/Additional Instructions: Your x-rays and CAT scans were negative Be careful when getting up and down Return if: Increasing pain, worsening symptoms, not acting like self, any new problems or concerns. Forms Stand Alone Forms: My [facility] [employer] Prescriptions Prescriptions: No Action acetaminophen 500 mg tablet 1,000 mg PO TID Qty: 180 0RF pantoprazole [Protonix] 40 mg tablet,delayed release (DR/EC) 40 mg PO BID Qty: 60 5RF metoprolol succinate 25 mg tablet extended release 24 hr 25 mg PO QAM Qty: 30 5RF alendronate 70 mg tablet 70 mg PO .ONCE WEEKLY Qty: 12 1RF baclofen 5 mg tablet 5 mg PO BID Qty: 60 2RF lisinopril 30 mg tablet 30 mg PO QAM Qty: 90 3RF oxybutynin chloride 5 mg tablet extended release 24hr 5 mg PO QAM Qty: 90 3RF Xarelto 15 mg tablet 15 mg PO DAILY Qty: 90 3RF Calcium 600 + D(3) 600 mg calcium- 200 unit capsule 1 cap PO QAM cholecalciferol (vitamin D3) 2,000 unit capsule 2,000 units PO QDL cranberry 500 mg capsule 500 mg PO QAM cyanocobalamin (vitamin B-12) 500 mcg lozenge 500 mcg PO 2XWK Rx Instructions: TAKES ON SUNDAY AND SUNDAY. magnesium chloride 64 mg tablet,delayed release (DR/EC) 64 mg PO TID multivitamin with iron tablet 1 tab PO QAM tramadol 50 mg tablet 25 - 50 mg PO Q4H PRN (Reason: pain) Qty: 42 0RF lorazepam 1 mg tablet 1 mg PO DAILY PRN Rituxan 10 mg/mL Concentrate 10 mg IV MO Rx Instructions: DUE 06/22/22. Ivig 1 dose IV MO Rx Instructions: Next one due Jul 20 docusate sodium [Stool Softener] 100 mg tablet 100 mg PO QAM Lactobacillus acidophilus Capsule 10,000 mmu cells PO QAM diclofenac sodium 1 % gel 2 g topical QID Qty: 100 0RF Rx Instructions: apply to back Referrals Referrals: Sabrina Abdi [Primary Care Provider] -
--- NOTE | 2023-01-14 07:56 | CT Scan Report ---
CT OF THE HEAD WITHOUT CONTRAST CLINICAL HISTORY: Fall. COMPARISON STUDY: PET/CT December 27, 2015. CT DOSE: 614.27 mGy.cm TECHNIQUE: Helical axial images of the head were obtained without IV contrast. Automated exposure con trol was utilized for the study. A dose lowering technique was utilized adhering to the principles o f ALARA. FINDINGS: No acute intracranial hemorrhage, midline shift or mass effect is present. White matter hyp odensity suggests vessel disease. The ventricular system is unremarkable. The basal cisterns are infante nt. No extra-axial collections are present. There are no findings to suggest acute dural sinus thromb osis or acute territorial infarct. No significant calvarial abnormalities are present. Visualized por tions of the sinuses and mastoid air cells are clear. IMPRESSION: 1. No acute intracranial findings. 2. No acute calvarial fracture. ACT 112: Negative or not required by law. Electronically signed by: Matthias Lai M.D. 01/14/2023 7:54 AM
--- NOTE | 2023-01-14 08:29 | XRay Report ---
XR shoulder RT min 2V routine CLINICAL HISTORY: Shoulder trauma. COMPARISON: Right shoulder radiographs March 22, 2017. FINDINGS: Several old right rib fractures are incidentally noted. There is elevation pf the right hu meral head with narrowing of the subacromial space. No acute fracture within the right shoulder is pr esent. Moderate degenerative changes of the right shoulder are present. IMPRESSION: 1. No acute fracture or dislocation within the right shoulder. 2. Moderate degenerative changes within the right shoulder. Elevation of the right humeral head with narrowing of the subacromial space. ACT 112: Negative or not required by law. Electronically signed by: Matthias Lai M.D. 01/14/2023 8:28 AM
--- NOTE | 2023-01-14 08:29 | XRay Report ---
XR chest 2V PA/lateral CLINICAL HISTORY: Fall. COMPARISON STUDY: Chest CT November 09, 2022. FINDINGS: Left subclavian [id number] is in place. There is no pneumothorax or pleural effusion. Th ere is no evidence for pulmonary edema. Cardiomegaly is unchanged. No airspace opacities are present. Old thoracic and lumbar spine compression deformities are noted on lateral projection. There are old bilateral rib fractures. IMPRESSION: No acute cardiopulmonary findings. No change in appearance of the chest. ACT 112: Negative or not required by law. Electronically signed by: Matthias Lai M.D. 01/14/2023 8:27 AM
[2023-01-14] MEDS ORDERED: ONDANSETRON INJ 2 MG/ML 2 ML VIAL IV STA (09:55)
[2023-01-14] MEDS ORDERED: SODIUM CHLORIDE 0.9% 500 ML IV STA (09:55)
[2023-01-14 10:24] LABS: Hematocrit (blood only) 45.8 % (37.0-47.0); Hemoglobin 14.9 g/dl (12.0-16.0); Mean Corpuscular Hgb Conc 32.5 g/dL (32.0-36.0); Mean Corpuscular Volume 98.5 fL (80.0-100.0); Mean Platelet Volume 11.4 fL (9.4-12.4); Platelet Count 292 K/uL (130-400); RDW Coefficient of Variation 13.9 % (11.5-14.5); Red Blood Count 4.65 M/uL (4.20-5.40); White Blood Count 12.66 K/ul (4.8-10.8)
[2023-01-14 10:30] LABS: Appearance Urine Slightly Cloudy (Clear); Bilirubin Urine 1+ (Negative); Blood Urine Negative (Negative); Color Urine Yellow; Glucose Urine UA Negative (Negative); Ketones Urine Negative (Negative); Leukocyte Esterase Urine 2+ (Negative); Nitrite Urine Negative (Negative); Protein Urine 2+ (Negative); Specific Gravity Urine 1.025 (1.000-1.030); Urobilinogen Urine Negative (Negative)
[2023-01-14 10:37] LABS: Albumin Globulin Ratio 1.2 (0.9-2); Albumin Level 3.8 gm/dl (3.4-5.0); BUN Creatinine Ratio 30.6 (10-20); Bilirubin,Total 0.3 mg/dl (0.2-1.0); Calcium 9.1 mg/dl (8.6-10.3); Creatinine Clr Calc Pharmacy 11.4 ml/min; Est GFR (African American) 15.5 ml/min; Est GFR (Non-African American) 13.4 ml/min; Globulin 3.2 gm/dl (2.5-4.0); Potassium 5.3 mmol/L (3.5-5.1)
[2023-01-14 10:40] LABS: Epithelial Cell Urine >30 /lpf (0-5)
[2023-01-14 10:41] LABS: Bacteria Urine 3+ (Negative); WBC Urine >30 /hpf (0-5)
[2023-01-14 10:42] LABS: RBC Urine 0-4 /hpf (0-4); Renal Epithelial Cells Urine 0-5 /lpf (0-5)
[2023-01-14 10:43] LABS: Troponin I High Sensitivity 20.3 pg/ml (0-14)
[2023-01-14 10:47] LABS: INR 1.1 (0.9-1.1); Partial Thromboplastin Ratio 1.1; Partial Thromboplastin Time 30.8 Seconds (21.0-31.0); Prothrombin Time 11.4 Seconds (9.0-12.0)
[2023-01-14 10:53] LABS: Basophils # (auto) 0.04 K/uL (0-0.2); Basophils % (auto) 0.3 %; Eosinophils # (auto) 0.01 K/uL (0-0.50); Eosinophils % (auto) 0.1 %; Immature Granulocytes # (auto) 0.05 K/uL (0.01-0.20); Immature Granulocytes % (auto) 0.4 %; Lymphocytes # (auto) 0.46 K/uL (1.2-3.4); Lymphocytes % (auto) 3.6 %; Monocytes # (auto) 0.47 K/uL (0.11-0.59); Monocytes % (auto) 3.7 %; Neutrophils # (auto) 11.63 K/uL (1.40-6.50); Neutrophils % (auto) 91.9 %
[2023-01-14] MEDS ORDERED: SODIUM CHLORIDE 0.9% 1000ML 500 ML IV ONE (11:41)
--- NOTE | 2023-01-14 12:04 | History & Physical Report ---
Date of Service January 14, 2023 Assessment & Plan (1) Fall: Plan: -Admit to med/tele -The patient is currently afebrile, hemodynamically stable, and stable on RA -The patient sustained a mechanical fall this am while trying to grab one of her dressers, but her hand slipped -CT head, chest xray and right shoulder xray are negative for acute trauma, patient currently denies any pain -No red flag symptoms prior to hear fall -Fall precautions, and PT/OT consults placed (2) ROSETTE (acute kidney injury): Plan: -Cr today is 3.0, baseline appears to be 1.1-1.2 -Appears to be due to dehydration from decreased oral intake and multiple episodes of loose stool/diarrhea this past week -Was able to urinate for a UA so less likely to be an obstructive picture -S/P 1L NSS in the ED, will switch her to D5W with 150 meq sodium bicarb at 100 ml/hr x 2 bags for now with her ROSETTE, acidosis, and dehydration -Avoid nephrotoxic agents -Monitor daily renal function and electrolytes (3) Hyperkalemia: Plan: -Noted to be 5.3 in the ED -No acute ECG changes -S/P 1L NSS in the ED -Monitor daily renal function and electrolytes -Monitor on tele (4) High anion gap metabolic acidosis: Plan: -AG note to be 13 with bicarb of 15 -Vitals are stable -Likely due to her acute dehydration and ROSETTE, continue with D5W and sodium bicarb as explained in ROSETTE -Will obtain lactate and ABG for further assessment -Continue to monitor on tele (5) Elevated troponin: Plan: -Initial high sen trop elevated at 20.3 -The patient is asymptomatic and without acute ECG changes -Likely due to demand from her acute illness and ROSETTE -Will obtain 2 hour repeat STAT and monitor on tele (6) Generalized weakness: Plan: -Noted to have a lymphopenia in on CBC, this is probably related to a URI -Initial UA is equivocal as she has 3+ bacteria, 2+ Leukocyte esterase, and > 30 WBC but also > 30 epithelial cells >The patient is asymptomatic, will repeat a UA with straight cath for further evaluation -Will hold any abx for now -No focal neuro defects -Will obtain a full respiratory biofire -Fall precautions, PT/OT (7) Paroxysmal atrial fibrillation: Plan: -Stable -Will give her am dose of metoprolol now -Will hold her Xarelto today due to reduced GFR, can restart tomorrow if renal function improves -If renal function is still decreased -Will obtain mag level and give IV mag/sulfate if low or WNL (8) HTN (hypertension): Plan: -Stable -Hold Lisinopril with ROSETTE and hyperkalemia at this time (9) Overactive bladder: Plan: -Continue oxybutynin (10) Non-Hodgkin's lymphoma: Plan: -Follows with the cancer [facility] -Gets monthly infusions of Rituxan -Also gets IVIG infusions during cold/flu season -Continue to monitor CBC Plan The patient was discussed with Dr. Morris at the time of the admission History of Present Illness Chief Complaint: Fall Primary Care Provider: Agu[facility] Florentino is an 87 year old female with a PMH significant for Recurrent Non- Hodgkin's Lymphoma (on maintenance Rituxan), Anemia, Osteoporosis, Hypertension, Paroxysmal Atrial Fibrillation (on Xarelto), Mild Mitral Regurgitation, and Kncqbqta-dj-Rbdzcl Aortic Stenosis who presented to the [facility] ED from [place] due to a fall this am. In the ED the patient was found to be afebrile, hemodynamically stable and stable on RA. She was found to have a leukocytosis of 12 with left shift of 11, Cr of 3.0 (baseline is 1.1-1.2), potassium of 5.3, AG of 13 with bicarb of 15, alk phos of 233 (stable), and initial high sen trop of 20.3. CT of the head, chest xray, and right shoulder xray were negative for acute findings. Prior to admission the patient was given 1L NSS. At the time of the exam the patient was sitting in bed in no acute distress with her niece/POA sitting bedside, history was obtained from both. Her niece explains that [facility] Rose currently has a respiratory virus going around and her Aunt seems to have had URI symptoms for the past 3-4 days. She has been without fever or chills but has been experiencing wheezing, cough, increased weakness, and decreased oral intake. The patient reportedly got out of bed this am to get ready for the day. She was walking in her room and was using her dressers for support. She attempted going from one dresser to the next but her hand slipped on the dresser she was trying to grab and she fell to the ground. She landed on her right side and states she hit the right side of her head. She denies LOC and currently denies any pain. When asked, the patient denies lightheadedness, dizziness, chest pain, SOB, and heart palpitations prior to her fall. She denies current chest pain, SOB, abd pain, vomiting, dysuria, hematuria, melena, LE swelling and any pain following her fall. The patient's niece states that the patient has had some loose stool for the past 3-4 days, the patient confirms this. She was nauseous earlier in the ED but this has resolved. We discussed code status, the patient is a DNR/DNI and her POA/Niece would make medical decisions for her if she could not make them herself. Please refer to Dr. Morris's attestation for any changes to the treatment plan Allergies Allergy/AdvReac Type Severity Reaction Status Date / Time diphenhydramine Allergy Severe ALL Verified 12/19/22 08:31 ANTIHISTAMINES-"HYPER" FEELING allopurinol Allergy Intermediate RASH-SEVERE Verified 12/19/22 08:31 ITCHING Home Medications Medication Instructions Recorded Confirmed Type calcium carbonate 600 mg-vitamin 1 cap PO QAM 04/21/19 01/14/23 History D3 5 mcg (200 unit) capsule (Calcium 600 + D(3)) cholecalciferol (vitamin D3) 50 2,000 units PO QDL 04/21/19 01/14/23 History mcg (2,000 unit) capsule cranberry 500 mg capsule 500 mg PO QAM 04/21/19 01/14/23 History cyanocobalamin (vitamin B-12) 500 500 mcg PO 2XWK 04/21/19 01/14/23 History mcg lozenges magnesium chloride 64 mg 64 mg PO TID 04/21/19 01/14/23 History (magnesium chloride) tablet,delayed release multivitamin with iron 1 tab PO QAM 04/21/19 01/14/23 History Ivig 1 dose IV MO 03/24/21 01/14/23 History rituximab 10 mg/mL 10 mg IV MO 03/24/21 01/14/23 History concentrate,intravenous (Rituxan) docusate sodium 100 mg tablet 100 mg PO QAM 06/16/22 01/14/23 History (Stool Softener) tramadol 50 mg tablet 25 - 50 mg PO Q4H PRN pain #42 tabs 06/16/22 01/14/23 Rx acetaminophen 500 mg tablet 1,000 mg PO TID #180 tabs 06/27/22 01/14/23 Rx Lactobacillus acidophilus 10,000 mmu cells PO QAM 07/03/22 01/14/23 History lorazepam 1 mg tablet 1 mg PO DAILY PRN Anxiety 07/12/22 01/14/23 History metoprolol succinate 25 mg 25 mg PO QAM #30 tabs 08/24/22 01/14/23 Rx tablet,extended release 24 hr pantoprazole 40 mg tablet,delayed 40 mg PO BID #60 tabs 08/24/22 01/14/23 Rx release (Protonix) alendronate 70 mg tablet 70 mg PO .ONCE WEEKLY #12 tabs 08/29/22 01/14/23 Rx baclofen 5 mg tablet 5 mg PO BID #60 tabs 11/22/22 01/14/23 Rx lisinopril 30 mg tablet 30 mg PO QAM #90 tabs 12/25/22 01/14/23 Rx oxybutynin chloride 5 mg 5 mg PO QAM #90 tabs 12/25/22 01/14/23 Rx tablet,extended release 24 hr rivaroxaban 15 mg tablet (Xarelto) 15 mg PO DAILY #90 tabs 12/25/22 01/14/23 Rx diclofenac sodium 1 % topical gel 2 g topical QID PRN Back Pain 01/14/23 01/14/23 History Past Med/Surg History Medical History (Updated 01/14/23 @ 12:46 by Harvey Prescott PA-C) Abdominal pain Acute respiratory failure with hypoxia ROSETTE (acute kidney injury) Aortic valve stenosis Bilateral sacroiliitis Cardiac murmur Close exposure to COVID-19 virus Compression fracture of spine Hearing deficit Left MARTINES History of breast cancer ; h/o lumpectomy + radiation History of chemotherapy History of Clostridioides difficile 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 skin HTN (hypertension) Low back pain Non-Hodgkin's lymphoma (03/08/13) h/o chemo Osteoarthritis Overactive bladder Paroxysmal atrial fibrillation ON XARELTO F/U DR PETTY Pneumonia Prophylactic antibiotic SOB (shortness of breath) on exertion Surgical History Encounter for insertion of venous access port History of colonoscopy History of hysterectomy (03/08/13) History of squamous cell carcinoma excision History of vascular access device IN PLACE LEFT UPPER CHEST-"NON FUNCTIONING" PER PT Post-lymphadenectomy lymphedema of arm S/P breast biopsy S/P lumpectomy of breast RIGHT/RADIATION 1989' S/P lymph node biopsy Family History Father Bright's disease Kidney disease Sister Colon cancer Gallbladder disease Hypertension Kidney stones Colorectal cancer Mother Cardiac disorder Congestive heart failure Other Crohn's disease Denies family history of Ovarian cancer Prostate cancer Myocardial infarction Breast cancer Social History Smoking Status: Former smoker Tobacco Type: Cigarettes Second Hand Exposure: No; Hx Alcohol Use: No Hx Substance Use: No Preferred Language: Monegasque Communication Ability: Effective Visual Impairment: No Limitations Hearing Ability: Use of Hearing Aid Foreign Exchange Dealer Required: No Beliefs That Will Affect Care: None marital status: / Current Living Situation: Personal Care Facility current occupational status: retired How many Children do You have: 0 Other Information That Helps Us Care for You: No Feels Safe at Home: Yes Safety Concerns: Feels Safe At This Time Dental Care, Regularly: Yes Physical Activity Frequency: Daily Seatbelt Use: always Sunscreen Use: Yes Assistive Devices: Glasses and Walker Physical Exam Physical Exam: Physical Exam: General: In no acute distress, stated age, well-nourished, good hygiene HEENT: Normocephalic, atraumatic, no scleral icterus, pupils around round, symmetrical, and reactive to light, moist mucus membranes, trachea midline, no thyromegaly Chest/Pulm: No respiratory distress, symmetrical chest expansion, scattered expiratory wheezing Cardiac: irredular rate and rhythm, systolic murmur noted Abdomen: Negative for ascites and bruising, normoactive bowel sounds, soft, non-tender to palpation throughout Musculoskeletal: Symmetrical and without signs of acute trauma, upper and lower extremities with full ROM, no atrophy, spasticity, or flaccidity Extremities: Radial, dorsalis pedis, and posterior tibial pulses are intact and symmetrical, no edema noted in the BL LE's Skin: Warm, dry, no rashes , lesions, or scars noted Neuro: Alert and oriented to person, place, month, year, no focal defects, CN II-XII tested and intact, finger to nose test negative, no tremors noted Psych: No acute distress, calm and cooperative during the exam Results & Data Results & Data Vital Signs (Past 12 Hours) Vital Signs Temp Pulse Pulse Resp BP BP Pulse Ox 01/14/23 11:50 85 18 109/78 98 01/14/23 10:27 89 18 99/68 L 95 01/14/23 08:37 95 H 18 111/72 96 01/14/23 06:36 101 H 01/14/23 06:25 36.5 C 88 11 L 116/72 96 O2 Del Method 01/14/23 11:50 Room Air 01/14/23 10:27 Room Air 01/14/23 08:37 Room Air 01/14/23 06:36 01/14/23 06:25 Room Air Laboratory Results Abnormal lab results 01/14/23 01/14/23 01/14/23 Range/Units 10:02 10:02 10:10 WBC 12.66 H (4.8-10.8) K/ul RDW Std Deviation 51.0 H (36.4-46.3) fL Neut # (Auto) 11.63 H (1.40-6.50) K/uL Lymph # (Auto) 0.46 L (1.2-3.4) K/uL Sodium 134 L (136-145) mmol/L Potassium 5.3 H (3.5-5.1) mmol/L Carbon Dioxide 15 L (21-32) mmol/L Anion Gap 13 H (3-11) BUN 92 H (6-23) mg/dl Creatinine 3.01 H (0.6-1.2) mg/dl BUN/Creatinine Ratio 30.6 H (10-20) Glucose 107 H (70-99(Fasting)) mg/dl Alkaline Phosphatase 233 H (34-104) U/L Troponin I High Sens 20.3 H (0-14) pg/ml Urine Protein 2+ H (Negative) Urine Bilirubin 1+ H (Negative) Ur Leukocyte Esterase 2+ H (Negative) Urine WBC >30 H (0-5) /hpf Ur Epithelial Cells >30 H (0-5) /lpf Urine Bacteria 3+ H (Negative) Diagnostic Findings Shoulder X-Ray 01/14/23 06:30 XR shoulder RT min 2V routine CLINICAL HISTORY: Shoulder trauma. COMPARISON: Right shoulder radiographs March 22, 2017. FINDINGS: Several old right rib fractures are incidentally noted. There is elevation pf the right humeral head with narrowing of the subacromial space. No acute fracture within the right shoulder is present. Moderate degenerative changes of the right shoulder are present. IMPRESSION: 1. No acute fracture or dislocation within the right shoulder. 2. Moderate degenerative changes within the right shoulder. Elevation of the right humeral head with narrowing of the subacromial space. ACT 112: Negative or not required by law. Electronically signed by: Matthias Lai M.D. 01/14/2023 8:28 AM Chest X-Ray 01/14/23 07:01 XR chest 2V PA/lateral CLINICAL HISTORY: Fall. COMPARISON STUDY: Chest CT November 09, 2022. FINDINGS: Left subclavian Emovar-l-Pgth is in place. There is no pneumothorax or pleural effusion. There is no evidence for pulmonary edema. Cardiomegaly is unchanged. No airspace opacities are present. Old thoracic and lumbar spine compression deformities are noted on lateral projection. There are old bilateral rib fractures. IMPRESSION: No acute cardiopulmonary findings. No change in appearance of the chest. ACT 112: Negative or not required by law. Electronically signed by: Matthias Lai M.D. 01/14/2023 8:[address] 01/14/23 07:01 CT OF THE HEAD WITHOUT CONTRAST CLINICAL HISTORY: Fall. COMPARISON STUDY: PET/CT December 27, 2015. CT DOSE: 614.27 mGy.cm TECHNIQUE: Helical axial images of the head were obtained without IV contrast. Automated exposure control was utilized for the study. A dose lowering technique was utilized adhering to the principles of ALARA. FINDINGS: No acute intracranial hemorrhage, midline shift or mass effect is present. White matter hypodensity suggests vessel disease. The ventricular sys tem is unremarkable. The basal cisterns are patent. No extra-axial collections are present. There are no findings to suggest acute dural sinus thrombosis or acute territorial infarct. No significant calvarial abnormalities are present. Visualized portions of the sinuses and mastoid air cells are clear. IMPRESSION: 1. No acute intracranial findings. 2. No acute calvarial fracture. ACT 112: Negative or not required by law. Electronically signed by: Matthias Lai M.D. 01/14/2023 7:54 AM ECG Additional Comments: Poor data quality, interpretation may be adversely affected Atrial fibrillation Low voltage QRS Cannot rule out Anterior infarct , age undetermined Abnormal ECG When compared with ECG of 13-JUL-2022 04:36, T wave inversion no longer evident in Inferior leads Code Status & VTE Plan Code Status DNR/DNI VTE Prophylaxis Plan VTE Prophylaxis will be ordered: Yes Supervising Physician Co-Signing Physician Notes I personally saw and examined the patient. I verified all mccall points and agree with Harvey Prescott PA-C with the following exceptions and/or additions: 87 year old female presents to the ER with fall, generalized weakness and ROSETTE on labs. O/E Fail appearing, HS irregular rhythm, regular rate, no murmurs, Chest CTAB, Abdo SNT, no lateralizing weakness, no pronator drift, no facial droop. A/P Fall - suspect due to dehydration, ROSETTE, hypotension. No apparent injuries from the fall fortunately. UA clean catch - possible concerning for UTI but would repeat straight cath sample to determine if need to treat. ROSETTE - Cr 3.01 from 1.26, IV fluids as above. Low concern for post obstructive cause and will defer imaging unless renal function not improving back to baseline given clear alternative etiology. Hyperkalemia - should improve with IV hydration and stopping lisinopril Mixed anion gap and non anion gap acidosis - started on sodium bicarb IV drip for hydration. Suspect mostly pre-renal with reduced oral intake in the setting of lisinopril use. Paroxysmal atrial fibrillation - holding Xarelto for a day due to ROSETTE but can likely restart tomorrow if ROSETTE improves with IV fluids PG Care Time/CCT Total # of Minutes Spent Total Time Spent with Patient: Total time spent is greater than 50% in coordination of care (as documented) at patient's floor/unit and/or counseling patient: Coding [place] [address] INT INP/OBS CARE 3/75MIN Patient Type Established Medical Decision Making Moderate Complexity Diagnoses Fall W19.XXXA Encounter type: initial encounter ROSETTE (acute kidney injury) N17.9 Hyperkalemia E87.5 High anion gap metabolic acidosis E87.29 Elevated troponin R77.8 Generalized weakness R53.1 Paroxysmal atrial fibrillation I48.0 HTN (hypertension) I10 Overactive bladder N32.81 Non-Hodgkin's lymphoma C85.90 (1) Fall Encounter type: initial encounter Qualified Code(s): W19.XXXA - Unspecified fall, initial encounter
[2023-01-14] MEDS ORDERED: METOPROLOL SUCC 25MG EXT REL TAB PO STA (12:21)
[2023-01-14] MEDS ORDERED: ACETAMINOPHEN 325 MG TAB PO PRN (12:30)
[2023-01-14] MEDS ORDERED: LACTATED RINGER'S 1,000 ML IV SCH (12:30)
--- NOTE | 2023-01-14 12:31 | Electrocardiogram Report ---
Test Reason : Blood Pressure : / mmHG Vent. Rate : 097 BPM Atrial Rate : 300 BPM P-R Int : 000 ms QRS Dur : 068 ms QT Int : 350 ms P-R-T Axes : 000 -11 048 degrees QTc Int : 444 ms Poor data quality, interpretation may be adversely affected Atrial fibrillation Low voltage QRS Poor R wave progression, consider anterior [place] vs. lead placement vs. LVH Abnormal ECG When compared with ECG of 13-JUL-2022 04:36, No significant change Confirmed by Brady Prince ([id number]) on 01/14/2023 12:31:08 PM Referred By: Sabrina Rose Confirmed By:Brady Prince
[2023-01-14] MEDS ORDERED: STAT IV STA (13:03)
[2023-01-14] MEDS ORDERED: ALBUT/IPRATROP 3MG/0.5MG NEB 3 ML VIAL NEB PRN (13:15)
[2023-01-14] MEDS: SODIUM BICARBONATE 8.4% 150 MEQ in DEXTROSE 5% 1,000 ML IV SCH (13:49)
[2023-01-14 13:51] LABS: Adenovirus PCR Not Detected (NotDetected); Bordetella parapertussis PCR Not Detected (NotDetected); Bordetella pertussis PCR Not Detected (NotDetected); Chlamydia pneumoniae PCR Not Detected (NotDetected); Coronavirus 229E PCR Not Detected (NotDetected); Coronavirus CoV-2 (COVID19)PCR Not Detected (NotDetected); Coronavirus HKU1 PCR Not Detected (NotDetected); Coronavirus NL63 PCR Not Detected (NotDetected); Coronavirus OC43PCR Not Detected (NotDetected); Human Metapneumovirus PCR Not Detected (NotDetected); Influenza A PCR Not Detected (NotDetected); Influenza B PCR Not Detected (NotDetected); Mycoplasma pneumoniae PCR Not Detected (NotDetected); Parainfluenza Virus 1 PCR Not Detected (NotDetected); Parainfluenza Virus 2 PCR Not Detected (NotDetected); Parainfluenza Virus 3 PCR Not Detected (NotDetected); Parainfluenza Virus 4 PCR Not Detected (NotDetected); Respiratory Syncytial VirusPCR Not Detected (NotDetected); Rhinovirus/Enterovirus PCR Not Detected (NotDetected)
[2023-01-14] MEDS ORDERED: DICLOFENAC SOD 1% GEL 100 GM TUBE EXT PRN (16:01)
[2023-01-14 18:13] LABS: Magnesium 2.6 mg/dl (1.7-2.4)
[2023-01-14] MEDS: BACLOFEN 10 MG TAB PO SCH (19:58)
[2023-01-14] MEDS: PANTOprazole 40 MG TAB PO SCH (19:59)
[2023-01-15 00:48] LABS: Appearance Urine Clear (Clear); Bilirubin Urine Negative (Negative); Blood Urine 2+ (Negative); Color Urine Yellow; Glucose Urine UA Negative (Negative); Ketones Urine Negative (Negative); Leukocyte Esterase Urine 1+ (Negative); Nitrite Urine Negative (Negative); Protein Urine 1+ (Negative); Urobilinogen Urine Negative (Negative); pH Urine 5.5 (4.5-7.5)
[2023-01-15 01:03] LABS: Epithelial Cell Urine 20-30 /lpf (0-5)
[2023-01-15 01:04] LABS: Bacteria Urine Negative (Negative); RBC Urine 0-4 /hpf (0-4)
[2023-01-15 02:31] LABS: Adenovirus F 40/41 PCR Not Detected (NotDetected); Astrovirus PCR Not Detected (NotDetected); Campylobacter PCR Not Detected (NotDetected); Cryptosporidium PCR Not Detected (NotDetected); Cyclospora cayetanensis PCR Not Detected (NotDetected); Entamoeba histolytica PCR Not Detected (NotDetected); Enteroaggregative E.coli(EAEC) Not Detected (NotDetected); Enteropathogenic E.coli (EPEC) Not Detected (NotDetected); Enterotoxigenic E.coli (ETEC) Not Detected (NotDetected); Giardia lamblia PCR Not Detected (NotDetected); Norovirus GI/GII PCR Not Detected (NotDetected); Plesiomonas shigelloides PCR Not Detected (NotDetected); Salmonella PCR Not Detected (NotDetected); Sapovirus PCR Not Detected (NotDetected); Shiga-like Toxin E.coli (STEC) Not Detected (NotDetected); Shigella/Enteroinvasive E.coli Not Detected (NotDetected); Vibrio cholerae PCR Not Detected (NotDetected); Vibrio species PCR Not Detected (NotDetected); Yersinia enterocolitica PCR Not Detected (NotDetected)
[2023-01-15 02:34] LABS: Rotavirus A PCR DETECTED (NotDetected)
[2023-01-15] MEDS: SODIUM BICARBONATE 8.4% 150 MEQ in DEXTROSE 5% 1,000 ML IV SCH (03:31)
[2023-01-15] MEDS ORDERED: cefTRIAXone SODIUM 2,000 MG in DEXTROSE 5% 50 ML IV SCH (05:00)
[2023-01-15 06:55] LABS: Hematocrit (blood only) 38.3 % (37.0-47.0); Mean Corpuscular Hemoglobin 32.3 pg (25.0-34.0); Mean Corpuscular Hgb Conc 33.9 g/dL (32.0-36.0); Mean Platelet Volume 11.7 fL (9.4-12.4); Platelet Count 173 K/uL (130-400); RDW Coefficient of Variation 13.7 % (11.5-14.5); RDW Standard Deviation 47.8 fL (36.4-46.3); Red Blood Count 4.03 M/uL (4.20-5.40); White Blood Count 10.48 K/ul (4.8-10.8)
[2023-01-15 07:15] LABS: Albumin Globulin Ratio 1.3 (0.9-2); Albumin Level 3.2 gm/dl (3.4-5.0); BUN Creatinine Ratio 43.2 (10-20); Bilirubin,Total 0.3 mg/dl (0.2-1.0); Calcium 7.8 mg/dl (8.6-10.3); Creatinine Clr Calc Pharmacy 17.8 ml/min; Est GFR (African American) 26.7 ml/min; Globulin 2.4 gm/dl (2.5-4.0); Magnesium 2.2 mg/dl (1.7-2.4); Potassium 3.7 mmol/L (3.5-5.1); Total Protein 5.6 gm/dl (6.0-8.3)
[2023-01-15 07:41] LABS: Basophils # (auto) 0.02 K/uL (0-0.2); Basophils % (auto) 0.2 %; Eosinophils # (auto) 0.05 K/uL (0-0.50); Eosinophils % (auto) 0.5 %; Immature Granulocytes # (auto) 0.05 K/uL (0.01-0.20); Immature Granulocytes % (auto) 0.5 %; Lymphocytes # (auto) 0.28 K/uL (1.2-3.4); Lymphocytes % (auto) 2.7 %; Monocytes # (auto) 0.59 K/uL (0.11-0.59); Monocytes % (auto) 5.6 %; Neutrophils # (auto) 9.49 K/uL (1.40-6.50); Neutrophils % (auto) 90.5 %
--- NOTE | 2023-01-15 08:16 | Hospitalist Progress Note ---
Date of Service January 15, 2023 Assessment & Plan (1) Fall: Plan: -The patient is currently afebrile, hemodynamically stable, and stable on RA -The patient sustained a mechanical fall 01/14/23 while trying to grab one of her dressers, but her hand slipped -CT head, chest xray and right shoulder xray are negative for acute trauma, patient currently denies any pain -Fall precautions, -Await PT/OT evaluations (2) ROSETTE (acute kidney injury): Plan: -Cr today is 1.92 (3.0), baseline appears to be 1.1-1.2 -Admission elevation was due to dehydration from decreased oral intake and multiple episodes of loose stool/diarrhea this past week -Avoid nephrotoxic agents -Monitor daily renal function and electrolytes (3) Hyperkalemia: Plan: -Noted to be 5.3 in the ED - Improved today to 3.7 -No acute ECG changes -Monitor daily renal function and electrolytes -Monitor on tele (4) High anion gap metabolic acidosis: Plan: -Vitals are stable -Likely due to her acute dehydration and ROSETTE - improved with IV hydration -Lactate normal 1.0 -Continue to monitor on tele (5) Elevated troponin: Plan: -Initial high sen trop elevated at 20.3 repeat was the same at 20.3 (this appears stable was 30 -35 in June) -The patient is asymptomatic and without acute ECG changes -Likely due to demand from her acute illness and ROSETTE (6) Generalized weakness: Plan: -Noted to have a lymphopenia in on CBC, this is probably related to a URI -Initial UA is equivocal -Repeat straight cath and culture pending -Night team started patient on Ceftriaxone 2gm IV daily (await C&S) -Blood culture x1 prelim gm + cocci in chains -No focal neuro defects -Full respiratory biofire was negative, MRSA negative -Stool Rotavirus + started on probiotics -Fall precautions, PT/OT -CM to meet with patient and discuss options (patient feels she is too weak to go back to assisted living center) (7) Paroxysmal atrial fibrillation: Plan: -Stable -Continue metoprolol -Will restart Xarelto today (8) HTN (hypertension): Plan: -Stable BP 108/46 -Continue to hold Lisinopril with ROSETTE and hyperkalemia at this time (9) Overactive bladder: Plan: -Continue oxybutynin (10) Non-Hodgkin's lymphoma: Plan: -Follows with the [facility] -Gets monthly infusions of Rituxan -Also gets IVIG infusions during cold/flu season -Continue to monitor CBC Plan The patient was discussed with Dr. Ricketts Admission and Anticipated Discharge Date Admission Date: January 14, 2023 Subjective Pateint was sleeping this AM but awoke to her name. She denied any complaints other than she felt weak and tired. She stated she is worried she cannot care for herself enough to go back to the assisted living. Review of Systems Constitutional: + fatigue, + malaise and + anorexia; no fever, no chills and no weight loss Respiratory: no cough, no chest congestion and no hemoptysis Cardiovascular: no chest pain, no dyspnea and no syncope Gastrointestinal: no abdominal pain, no nausea and no vomiting Integumentary: no rash, no lesions and no new lesions Psychiatric: no suicidal ideation, no panic attacks and no visual hallucinations Physical Exam Constitutional: WD/WN, vitals as above Neck: trachea midline, no thyromegaly Respiratory: normal respiratory effort, lungs clear to auscultation Cardiovascular: RRR, no murmur, no edema Gastrointestinal (Abdomen): normal bowel sounds, soft, nontender, no hepatosplenomegaly Psychiatric: A+Ox3, euthymic affect Results & Data Results & Data Vital Signs (Past 12 Hours) Vital Signs Temp Pulse Resp BP Pulse Ox O2 Del Method 01/15/23 07:52 37.1 C 77 20 108/46 L 93 Room Air 01/15/23 04:00 36.8 C 101 H 18 108/57 L 94 Room Air 01/15/23 00:31 Room Air 01/14/23 22:13 37.1 C 86 16 92/54 L 94 Room Air Laboratory Results Abnormal lab results 01/14/23 01/14/23 01/15/23 Range/Units 10:02 14:11 05:52 RBC 4.03 L (4.20-5.40) M/uL RDW Std Deviation 47.8 H (36.4-46.3) fL Neut # (Auto) 9.49 H (1.40-6.50) K/uL Lymph # (Auto) 0.28 L (1.2-3.4) K/uL Carbon Dioxide (21-32) mmol/L Anion Gap (3-11) BUN (6-23) mg/dl Creatinine (0.6-1.2) mg/dl BUN/Creatinine Ratio (10-20) Glucose (70-99(Fasting)) mg/dl Calcium (8.6-10.3) mg/dl Magnesium 2.6 H (1.7-2.4) mg/dl Alkaline Phosphatase (34-104) U/L Troponin I High Sens 20.3 H (0-14) pg/ml Total Protein (6.0-8.3) gm/dl Albumin (3.4-5.0) gm/dl Globulin (2.5-4.0) gm/dl Urine Protein (Negative) Urine Blood (Negative) Ur Leukocyte Esterase (Negative) Urine WBC (0-5) /hpf Ur Epithelial Cells (0-5) /lpf Stool Rotavirus A PCR (NotDetected) 01/15/23 01/15/23 01/15/23 Range/Units 05:52 Unknown Unknown RBC (4.20-5.40) M/uL RDW Std Deviation (36.4-46.3) fL Neut # (Auto) (1.40-6.50) K/uL Lymph # (Auto) (1.2-3.4) K/uL Carbon Dioxide 19 L (21-32) mmol/L Anion Gap 12 H (3-11) BUN 83 H (6-23) mg/dl Creatinine 1.92 H D (0.6-1.2) mg/dl BUN/Creatinine Ratio 43.2 H (10-20) Glucose 116 H (70-99(Fasting)) mg/dl Calcium 7.8 L (8.6-10.3) mg/dl Magnesium (1.7-2.4) mg/dl Alkaline Phosphatase 168 H (34-104) U/L Troponin I High Sens (0-14) pg/ml Total Protein 5.6 L (6.0-8.3) gm/dl Albumin 3.2 L (3.4-5.0) gm/dl Globulin 2.4 L (2.5-4.0) gm/dl Urine Protein 1+ H (Negative) Urine Blood 2+ H (Negative) Ur Leukocyte Esterase 1+ H (Negative) Urine WBC 10-30 H (0-5) /hpf Ur Epithelial Cells 20-30 H (0-5) /lpf Stool Rotavirus A PCR DETECTED A* (NotDetected) PG Care Time/CCT Total # of Minutes Spent Total Time Spent with Patient: Total time spent is greater than 50% in coordination of care (as documented) at patient's floor/unit and/or counseling patient: Coding Level of Care Code 82466 SUB INP/OBS CARE 2/35MIN Diagnoses Fall W19.XXXA Encounter type: initial encounter ROSETTE (acute kidney injury) N17.9 Hyperkalemia E87.5 High anion gap metabolic acidosis E87.29 Elevated troponin R77.8 Generalized weakness R53.1 Paroxysmal atrial fibrillation I48.0 HTN (hypertension) I10 Overactive bladder N32.81 Non-Hodgkin's lymphoma C85.90 (1) Fall Encounter type: initial encounter Qualified Code(s): W19.XXXA - Unspecified fall, initial encounter
[2023-01-15] MEDS: BACLOFEN 10 MG TAB PO SCH ×2 (08:52→19:55)
[2023-01-15] MEDS: PANTOprazole 40 MG TAB PO SCH ×2 (08:53→19:56)
[2023-01-15] MEDS: METOPROLOL SUCC 25MG EXT REL TAB PO SCH (08:53)
[2023-01-15] MEDS: OXYBUTYNIN CHLORIDE XL 5 MG TABCR PO SCH (08:55)
[2023-01-15] MEDS: DOCUSATE SODIUM 100 MG CAP PO SCH (09:51)
[2023-01-15 11:40] LABS: iSTAT Arterial Blood Gas HCO3 11 meg/L (19-24); iSTAT Arterial Blood Gas pCO2 26 mmHg (35-46); iSTAT Arterial Blood Gas pH 7.22 (7.35-7.45); iSTAT Arterial Blood Gas pO2 101 mmHg (80-95); iSTAT Carbon Dioxide 11 mmol/L (24-31); iSTAT Hematocrit 39 % (37-47); iSTAT Hemoglobin 13.3 g/dl (12.0-16.0); iSTAT Potassium 4.4 mmol/L (3.3-5.0); iSTAT Sodium 132 mmol/L (135-144)
[2023-01-15] MEDS: SACCHAROMYCES BOULARDII 250 MG CAP PO SCH (12:37)
[2023-01-15 14:40] LABS: A calco-baum cmplx NotReported Not Detected (NotDetected); Bact fragilis Not Reported Not Detected (NotDetected); C auris Not Reported Not Detected (NotDetected); Calbicans Not Reported Not Detected (NotDetected); Candida glabrata Not Reported Not Detected (NotDetected); Candida krusei Not Reported Not Detected (NotDetected); Cneoformans/gatti Not Reported Not Detected (NotDetected); Cparapsilosis Not Reported Not Detected (NotDetected); Ctropicalis Not Reported Not Detected (NotDetected); E cloacae compx Not Reported Not Detected (NotDetected); Efaecalis Not Reported Not Detected (NotDetected); Efaecium Not Reported Not Detected (NotDetected); Enterobacterales Not Reported Not Detected (NotDetected); Escherichia coli Not Reported Not Detected (NotDetected); H influenzae Not Reported Not Detected (NotDetected); K aerogenes Not Reported Not Detected (NotDetected); Koxytoca Not Reported Not Detected (NotDetected); Kpneumoniae grp Not Reported Not Detected (NotDetected); Lmonocyt Not Reported Not Detected (NotDetected); N meningitidis Not Reported Not Detected (NotDetected); P aeruginosa Not Reported Not Detected (NotDetected); Proteus spp Not Reported Not Detected (NotDetected); Salmonella spp Not Reported Not Detected (NotDetected); Smarcescens Not Reported Not Detected (NotDetected); Staph lugdunensis Not Reported Not Detected (NotDetected); Staph spp. Not Reported Not Detected (NotDetected); Staphaureus Not Reported Not Detected (NotDetected); Staphepi Not Reported Not Detected (NotDetected); Stenmaltophilia Not Reported Not Detected (NotDetected); Strep agal(GrpB) Not Reported Not Detected (NotDetected); Strep pneum Not Reported Not Detected (NotDetected); Strep pyog (GrpA) Not Reported Not Detected (NotDetected); Strep spp Not Reported DETECTED (NotDetected)
[2023-01-15 14:53] LABS: Streptococcus spp DETECTED (NotDetected)
[2023-01-16] MEDS: cefTRIAXone SODIUM 2,000 MG in DEXTROSE 5% 50 ML IV SCH (05:24)
[2023-01-16 06:43] LABS: Basophils # (auto) 0.01 K/uL (0-0.2); Basophils % (auto) 0.2 %; Eosinophils # (auto) 0.04 K/uL (0-0.50); Eosinophils % (auto) 0.6 %; Hematocrit (blood only) 36.6 % (37.0-47.0); Hemoglobin 12.5 g/dl (12.0-16.0); Immature Granulocytes # (auto) 0.02 K/uL (0.01-0.20); Immature Granulocytes % (auto) 0.3 %; Lymphocytes # (auto) 0.27 K/uL (1.2-3.4); Lymphocytes % (auto) 4.3 %; Mean Corpuscular Hemoglobin 31.9 pg (25.0-34.0); Mean Corpuscular Hgb Conc 34.2 g/dL (32.0-36.0); Mean Corpuscular Volume 93.4 fL (80.0-100.0); Mean Platelet Volume 11.3 fL (9.4-12.4); Monocytes # (auto) 0.44 K/uL (0.11-0.59); Neutrophils # (auto) 5.52 K/uL (1.40-6.50); Neutrophils % (auto) 87.6 %; Platelet Count 187 K/uL (130-400); RDW Coefficient of Variation 13.4 % (11.5-14.5); RDW Standard Deviation 45.6 fL (36.4-46.3); Red Blood Count 3.92 M/uL (4.20-5.40)
[2023-01-16 06:56] LABS: Albumin Globulin Ratio 1.2 (0.9-2); Albumin Level 3.2 gm/dl (3.4-5.0); BUN Creatinine Ratio 38.3 (10-20); Bilirubin,Total 0.3 mg/dl (0.2-1.0); Calcium 7.7 mg/dl (8.6-10.3); Creatinine Clr Calc Pharmacy 25.7 ml/min; Est GFR (African American) 41.6 ml/min; Est GFR (Non-African American) 35.9 ml/min; Globulin 2.7 gm/dl (2.5-4.0); Potassium 3.5 mmol/L (3.5-5.1); Total Protein 5.9 gm/dl (6.0-8.3)
[2023-01-16] MEDS: SACCHAROMYCES BOULARDII 250 MG CAP PO SCH (07:48)
[2023-01-16] MEDS: OXYBUTYNIN CHLORIDE XL 5 MG TABCR PO SCH (07:48)
[2023-01-16] MEDS: METOPROLOL SUCC 25MG EXT REL TAB PO SCH (07:48)
[2023-01-16] MEDS: PANTOprazole 40 MG TAB PO SCH ×2 (07:49→19:52)
[2023-01-16] MEDS: BACLOFEN 10 MG TAB PO SCH ×2 (07:49→19:52)
[2023-01-16] MEDS: DOCUSATE SODIUM 100 MG CAP PO SCH (07:49)
--- NOTE | 2023-01-16 08:31 | Hospitalist Progress Note ---
Date of Service January 16, 2023 Assessment & Plan (1) Fall: Plan: -The patient is currently afebrile, hemodynamically stable, and stable on RA - 96% -The patient sustained a mechanical fall 01/14/23 while trying to grab one of her dressers, but her hand slipped -CT head, chest xray and right shoulder xray are negative for acute trauma, patient currently denies any pain -Fall precautions -PT/OT following Recommend should be able to return to [facility] when stable may need continued therapy there Anticipate discharge soon (2) ROSETTE (acute kidney injury): Plan: -Cr continues to improve, today is 1.33 (1.92) (3.0), baseline appears to be 1.1-1.2 -Admission elevation was due to dehydration from decreased oral intake and multiple episodes of loose stool/diarrhea this past week -Avoid nephrotoxic agents -Monitor daily renal function and electrolytes (3) Hyperkalemia: Plan: -Noted to be 5.3 in the ED - Normal today to 3.5 -No acute ECG changes -Monitor daily renal function and electrolytes -Monitor on tele (4) High anion gap metabolic acidosis: Plan: -Vitals are stable -Likely due to her acute dehydration and ROSETTE - improved with IV hydration -Lactate was normal 1.0 -Continue to monitor on tele (5) Elevated troponin: Plan: -Initial high sen trop elevated at 20.3 repeat was the same at 20.3 (this appears stable was 30 -35 in June) -The patient is asymptomatic and without acute ECG changes -Likely due to demand from her acute illness and ROSETTE (6) Generalized weakness: Plan: -Initial UA was equivocal -Repeat straight cath and culture pending -Night team started patient on Ceftriaxone 2gm IV daily (await C&S) -Blood culture x1 final Alpha strep not S.pne/enteroco -Repeat blood cultures x 2 -No focal neuro defects -Full respiratory biofire was negative, MRSA negative -Stool Rotavirus + started on probiotics -Fall precautions, PT/OT (7) Paroxysmal atrial fibrillation: Plan: -Stable -Continue metoprolol -Will restart Xarelto today (8) HTN (hypertension): Plan: -Stable BP 111/70 -Lisinopril on hold (9) Overactive bladder: Plan: -Continue oxybutynin (10) Non-Hodgkin's lymphoma: Plan: -Follows with the cancer care [facility] -Gets monthly infusions of Rituxan -Also gets IVIG infusions during cold/flu season -Continue to monitor CBC Plan The patient was discussed with Dr. Ricketts Admission and Anticipated Discharge Date Admission Date: January 14, 2023 Subjective Patient seen this afternoon, she was sitting upright eating lunch. She denied any N/V but states she had a mild upper stomach ache. She did have a loose BM earlier today. + rotavirus in stool on probiotics Review of Systems Constitutional: + fatigue, + malaise and + anorexia; no fever, no chills and no weight loss Respiratory: no cough, no chest congestion and no hemoptysis Cardiovascular: no chest pain, no dyspnea and no syncope Gastrointestinal: no abdominal pain, no nausea and no vomiting Integumentary: no rash, no lesions and no new lesions Psychiatric: no suicidal ideation, no panic attacks and no visual hallucinations Physical Exam Constitutional: WD/WN, vitals as above Neck: trachea midline, no thyromegaly Respiratory: normal respiratory effort, lungs clear to auscultation Cardiovascular: RRR, no murmur, no edema Gastrointestinal (Abdomen): normal bowel sounds, soft, nontender, no hepatosplenomegaly Psychiatric: A+Ox3, euthymic affect Results & Data Results & Data Vital Signs (Past 12 Hours) Vital Signs Temp Pulse Pulse Resp BP Pulse Ox O2 Del Method 01/16/23 07:24 36.9 C 97 H 16 111/70 95 Room Air 01/16/23 07:00 86 01/16/23 04:05 36.5 C 87 16 110/82 96 Room Air 01/15/23 23:20 37.5 C 100 H 18 120/76 97 Room Air 01/15/23 22:00 93 H 01/15/23 21:55 Room Air Laboratory Results Abnormal lab results 01/14/23 01/14/23 01/16/23 Range/Units 12:50 14:22 06:01 RBC 3.92 L (4.20-5.40) M/uL Hct 36.6 L (37.0-47.0) % Lymph # (Auto) 0.27 L (1.2-3.4) K/uL POC pH 7.22 L (7.35-7.45) POC pCO2 26 L (35-46) mmHg POC pO2 101 H (80-95) mmHg POC HCO3 11 L (19-24) catie/L POC Total CO2 11 L (24-31) mmol/L POC Base Excess -17.0 L (-9-1.8) catie/L POC ABG O2 Sat 97.0 H (90-95) % POC Sodium 132 L (135-144) mmol/L Chloride (98-107) mmol/L BUN (6-23) mg/dl Creatinine (0.6-1.2) mg/dl BUN/Creatinine Ratio (10-20) Glucose (70-99(Fasting)) mg/dl Calcium (8.6-10.3) mg/dl Alkaline Phosphatase (34-104) U/L Total Protein (6.0-8.3) gm/dl Albumin (3.4-5.0) gm/dl Streptococcus sp PCR DETECTED A (NotDetected) 01/16/23 Range/Units 06:01 RBC (4.20-5.40) M/uL Hct (37.0-47.0) % Lymph # (Auto) (1.2-3.4) K/uL POC pH (7.35-7.45) POC pCO2 (35-46) mmHg POC pO2 (80-95) mmHg POC HCO3 (19-24) catie/L POC Total CO2 (24-31) mmol/L POC Base Excess (-9-1.8) catie/L POC ABG O2 Sat (90-95) % POC Sodium (135-144) mmol/L Chloride 110 H (98-107) mmol/L BUN 51 H D (6-23) mg/dl Creatinine 1.33 H D (0.6-1.2) mg/dl BUN/Creatinine Ratio 38.3 H (10-20) Glucose 116 H (70-99(Fasting)) mg/dl Calcium 7.7 L (8.6-10.3) mg/dl Alkaline Phosphatase 160 H (34-104) U/L Total Protein 5.9 L (6.0-8.3) gm/dl Albumin 3.2 L (3.4-5.0) gm/dl Streptococcus sp PCR (NotDetected) PG Care Time/CCT Total # of Minutes Spent Total Time Spent with Patient: Total time spent is greater than 50% in coordination of care (as documented) at patient's floor/unit and/or counseling patient: Coding Level of Care Code 20135 SUB INP/OBS CARE MIN Diagnoses Fall W19.XXXA Encounter type: initial encounter ROSETTE (acute kidney injury) N17.9 Hyperkalemia E87.5 High anion gap metabolic acidosis E87.29 Elevated troponin R77.8 Generalized weakness R53.1 Paroxysmal atrial fibrillation I48.0 HTN (hypertension) I10 Overactive bladder N32.81 Non-Hodgkin's lymphoma C85.90 (1) Fall Encounter type: initial encounter Qualified Code(s): W19.XXXA - Unspecified fall, initial encounter
[2023-01-17] MEDS: cefTRIAXone SODIUM 2,000 MG in DEXTROSE 5% 50 ML IV SCH (05:03)
[2023-01-17 06:57] LABS: Basophils # (auto) 0.02 K/uL (0-0.2); Basophils % (auto) 0.3 %; Eosinophils % (auto) 1.7 %; Hematocrit (blood only) 41.2 % (37.0-47.0); Hemoglobin 13.5 g/dl (12.0-16.0); Immature Granulocytes # (auto) 0.05 K/uL (0.01-0.20); Immature Granulocytes % (auto) 0.9 %; Lymphocytes # (auto) 0.39 K/uL (1.2-3.4); Lymphocytes % (auto) 6.6 %; Mean Corpuscular Hemoglobin 31.9 pg (25.0-34.0); Mean Corpuscular Hgb Conc 32.8 g/dL (32.0-36.0); Mean Corpuscular Volume 97.4 fL (80.0-100.0); Mean Platelet Volume 11.7 fL (9.4-12.4); Monocytes # (auto) 0.41 K/uL (0.11-0.59); Neutrophils % (auto) 83.5 %; Platelet Count 226 K/uL (130-400); RDW Coefficient of Variation 13.7 % (11.5-14.5); RDW Standard Deviation 48.8 fL (36.4-46.3); Red Blood Count 4.23 M/uL (4.20-5.40); White Blood Count 5.87 K/ul (4.8-10.8)
[2023-01-17 07:08] LABS: Albumin Globulin Ratio 1.2 (0.9-2); Albumin Level 3.5 gm/dl (3.4-5.0); BUN Creatinine Ratio 29.2 (10-20); Bilirubin,Total 0.3 mg/dl (0.2-1.0); Calcium 8.2 mg/dl (8.6-10.3); Creatinine Clr Calc Pharmacy 26.1 ml/min; Est GFR (African American) 42.7 ml/min; Est GFR (Non-African American) 36.9 ml/min; Globulin 2.9 gm/dl (2.5-4.0); Potassium 3.7 mmol/L (3.5-5.1); Total Protein 6.4 gm/dl (6.0-8.3)
[2023-01-17] MEDS: PANTOprazole 40 MG TAB PO SCH (08:10)
[2023-01-17] MEDS: OXYBUTYNIN CHLORIDE XL 5 MG TABCR PO SCH (08:10)
[2023-01-17] MEDS: BACLOFEN 10 MG TAB PO SCH (08:10)
[2023-01-17] MEDS: METOPROLOL SUCC 25MG EXT REL TAB PO SCH (08:10)
[2023-01-17] MEDS: SACCHAROMYCES BOULARDII 250 MG CAP PO SCH (08:11)
[2023-01-17] MEDS: DOCUSATE SODIUM 100 MG CAP PO SCH (08:11)
--- NOTE | 2023-01-17 10:54 | Discharge Summary ---
Date of Service January 17, 2023 Admission HPI Per Admitting Provider Mishel is an 87 year old female with a PMH significant for Recurrent Non- Hodgkin's Lymphoma (on maintenance Rituxan), Anemia, Osteoporosis, Hypertension, Paroxysmal Atrial Fibrillation (on Xarelto), Mild Mitral Regurgitation, and Aewvsqev-zh-Otwbgo Aortic Stenosis who presented to the [facility] ED from [facility] due to a fall this am. In the ED the patient was found to be afebrile, hemodynamically stable and stable on RA. She was found to have a leukocytosis of 12 with left shift of 11, Cr of 3.0 (baseline is 1.1-1.2), potassium of 5.3, AG of 13 with bicarb of 15, alk phos of 233 (stable), and initial high sen trop of 20.3. CT of the head, chest xray, and right shoulder xray were negative for acute findings. Prior to admission the patient was given 1L NSS. At the time of the exam the patient was sitting in bed in no acute distress with her niece/POA sitting bedside, history was obtained from both. Her niece explains that [place] currently has a respiratory virus going around and her Aunt seems to have had URI symptoms for the past 3-4 days. She has been without fever or chills but has been experiencing wheezing, cough, increased weakness, and decreased oral intake. The patient reportedly got out of bed this am to get ready for the day. She was walking in her room and was using her dressers for support. She attempted going from one dresser to the next but her hand slipped on the dresser she was trying to grab and she fell to the ground. She landed on her right side and states she hit the right side of her head. She denies LOC and currently denies any pain. When asked, the patient denies lightheadedness, dizziness, chest pain, SOB, and heart palpitations prior to her fall. She denies current chest pain, SOB, abd pain, vomiting, dysuria, hematuria, melena, LE swelling and any pain following her fall. The patient's niece states that the patient has had some loose stool for the past 3-4 days, the patient confirms this. She was nauseous earlier in the ED but this has resolved. We discussed code status, the patient is a DNR/DNI and her POA/Niece would make medical decisions for her if she could not make them herself. Please refer to Dr. Morris's attestation for any changes to the treatment plan Admission Exam Per Admitting Provider General:In no acute distress, stated age, well-nourished, good hygiene HEENT:Normocephalic, atraumatic, no scleral icterus, pupils around round, symmetrical, and reactive to light, moist mucus membranes, trachea midline, no thyromegaly Chest/Pulm:No respiratory distress, symmetrical chest expansion, scattered expiratory wheezing Cardiac:irredular rate and rhythm, systolic murmur noted Abdomen:Negative for ascites and bruising, normoactive bowel sounds, soft, non-tender to palpation throughout Musculoskeletal:Symmetrical and without signs of acute trauma, upper and lower extremities with full ROM, no atrophy, spasticity, or flaccidity Extremities:Radial, dorsalis pedis, and posterior tibial pulses are intact and symmetrical, no edema noted in the BL LE's Skin:Warm, dry, no rashes , lesions, or scars noted Neuro:Alert and oriented to person, place, month, year, no focal defects, CN II-XII tested and intact, finger to nose test negative, no tremors noted Psych:No acute distress, calm and cooperative during the exam Principal Diagnosis Fall ROSETTE Viral rotavirus Discharge Exam Constitutional WD/WN, vitals as above Neck trachea midline, no thyromegaly Respiratory normal respiratory effort, lungs clear to auscultation Cardiovascular Rate/Rhythm: regular rate Heart Sounds: + murmur Extremities: normal capillary refill; no calf tenderness and no edema Gastrointestinal (Abdomen) normal bowel sounds, soft, nontender, no hepatosplenomegaly Psychiatric A+Ox3, euthymic affect Discharge Data Allergies Allergy/AdvReac Type Severity Reaction Status Date / Time diphenhydramine Allergy Severe ALL Verified 12/19/22 08:31 ANTIHISTAMINES-"HYPER" FEELING allopurinol Allergy Intermediate RASH-SEVERE Verified 12/19/22 08:31 ITCHING Consultations 01/14/23 11:59 ED Decision to Admit Stat Ordered Studies 01/14/23 07:01 CT head/brain wo con Stat Hospital Course (1) Fall: -The patient is currently afebrile, hemodynamically stable, and stable on RA - 94% -The patient sustained a mechanical fall 01/14/23 while trying to grab one of her dressers, but her hand slipped -CT head, chest xray and right shoulder xray are negative for acute trauma, patient currently denies any pain -Fall precautions and PT ad OT while admitted Ok to discharge back to [facility] today with home health therapy (2) ROSETTE (acute kidney injury): -Cr continues to improve, today is 1.33 (1.92) (3.0), baseline appears to be 1.1-1.2 -Admission elevation was due to dehydration from decreased oral intake and multiple episodes of loose stool/diarrhea this past week - Kidney function improved (3) Hyperkalemia: -Noted to be 5.3 in the ED - Normal now -No acute ECG changes (4) High anion gap metabolic acidosis: -Vitals are stable -Likely due to her acute dehydration and ROSETTE - improved with IV hydration -Lactate was normal 1.0 (5) Elevated troponin: -Initial high sen trop elevated at 20.3 repeat was the same at 20.3 (this appears stable was 30 -35 in June) -The patient is asymptomatic and without acute ECG changes -Likely was due to demand from her acute illness and ROSETTE (6) Generalized weakness: -Initial UA was equivocal -Repeat straight cath and culture contaminate -Patient was treated with Ceftriaxone 2gm IV daily -Blood culture x1 final Alpha strep not S.pne/enteroco -Repeat blood cultures x 2 no growth at 24 hours -No focal neuro defects -Full respiratory biofire was negative, MRSA negative -Stool Rotavirus + started on probiotics -Fall precautions and PT/OT while admitted (7) Paroxysmal atrial fibrillation: -Stable -Continue metoprolol -Continue Xarelto (8) HTN (hypertension): -Stable BP 126/77 (9) Overactive bladder: -Continue oxybutynin (10) Non-Hodgkin's lymphoma: -Follows with the cancer care partnership -Gets monthly infusions of Rituxan -Also gets IVIG infusions during cold/flu season Plan Patient will be discharged back to [facility] today and will also have H/H therapy Total Time Total Time Spent Total Time Spent (In Minutes): 40 Discharge Plan Discharge Items Patient Disposition: Personal Skilled Nursing Reason For Visit: FALL Discharge Diagnosis: fall ROSETTE viral rotavirus Condition on Discharge: Fair Activity: Resume your previous activity Lifting: Gradually increase as tolerated Non-emergency contact: Primary Care Provider Call non-emergency contact if: you have any medication questions and your temperature is above 101 Follow-up/Referrals: Sabrina Abdi [Primary Care Provider] - Diet: Heart Healthy Addtl Attending Provider Instructions: You were admitted after a fall. Your initial urine test looked as if you had a urinary tract infection and you were started on antibiotics. The final urine culture did not have infection and you had 2 sets of blood cultures. The second set revealed no growth at 24 hours. You also had physical therapy while admitted and will continue to have home health when you return to [facility]. Pending Studies at Discharge: Yes Studies:: final blood cultures Stand-Alone Forms: My [facility] Skilled Items Patient informed of condition?: Yes DNR: Yes Discharge Level of Care: Skilled Communicable Disease: No Discharge Prognosis: Stable Lines: None Urinary Catheter: No Medications and DC Order Prescriptions: Continued acetaminophen 500 mg tablet 1,000 mg PO TID Qty: 180 0RF pantoprazole [Protonix] 40 mg tablet,delayed release (DR/EC) 40 mg PO BID Qty: 60 5RF metoprolol succinate 25 mg tablet extended release 24 hr 25 mg PO QAM Qty: 30 5RF alendronate 70 mg tablet 70 mg PO .ONCE WEEKLY Qty: 12 1RF baclofen 5 mg tablet 5 mg PO BID Qty: 60 2RF lisinopril 30 mg tablet 30 mg PO QAM Qty: 90 3RF oxybutynin chloride 5 mg tablet extended release 24hr 5 mg PO QAM Qty: 90 3RF Xarelto 15 mg tablet 15 mg PO DAILY Qty: 90 3RF Calcium 600 + D(3) 600 mg calcium- 200 unit capsule 1 cap PO QAM cholecalciferol (vitamin D3) 2,000 unit capsule 2,000 units PO QDL cranberry 500 mg capsule 500 mg PO QAM cyanocobalamin (vitamin B-12) 500 mcg lozenge 500 mcg PO 2XWK Rx Instructions: TAKES ON SUNDAY AND SUNDAY. magnesium chloride 64 mg tablet,delayed release (DR/EC) 64 mg PO TID multivitamin with iron tablet 1 tab PO QAM tramadol 50 mg tablet 25 - 50 mg PO Q4H PRN (Reason: pain) Qty: 42 0RF lorazepam 1 mg tablet 1 mg PO DAILY PRN (Reason: Anxiety) Rituxan 10 mg/mL Concentrate 10 mg IV MO Rx Instructions: DUE 06/22/22. Ivig 1 dose IV MO Rx Instructions: Next one due Jul 13 docusate sodium [Stool Softener] 100 mg tablet 100 mg PO QAM Lactobacillus acidophilus Capsule 10,000 mmu cells PO QAM diclofenac sodium 1 % gel 2 g topical QID PRN (Reason: Back Pain) Rx Instructions: apply to back Discharge Orders: Discharge Order (Routine); Ordered 01/17/23 Ordered By: Irina Morales Admission Data Admit Date/Time: 01/14/23 12:04 Attending Provider: Rock Ricketts Admit Provider: Trevon Morris Primary Care Provider: Sabrina Abdi Other Providers: Trevon Morris Coding Level of Care Code 33698 INP/OBS DISCH >30 MIN Diagnoses Fall W19.XXXA Encounter type: initial encounter ROSETTE (acute kidney injury) N17.9 Hyperkalemia E87.5 High anion gap metabolic acidosis E87.29 Elevated troponin R77.8 Generalized weakness R53.1 Paroxysmal atrial fibrillation I48.0 HTN (hypertension) I10 Overactive bladder N32.81 Non-Hodgkin's lymphoma C85.90
== END 2023-01-17 15:25 | disposition home health service (06) | DRG 683 ==
LOC: ED 06:16 → 2W 12:04 → SUATTDRO 12:04 → 2W 15:14

== ENCOUNTER 2023-02-04 06:21 | Inpatient (IN) ==
[2023-02-04 07:00] LABS: Basophils # (auto) 0.03 K/uL (0-0.2); Basophils % (auto) 0.5 %; Eosinophils % (auto) 3.5 %; Hematocrit (blood only) 36.7 % (37.0-47.0); Hemoglobin 11.8 g/dl (12.0-16.0); Immature Granulocytes # (auto) 0.01 K/uL (0.01-0.20); Immature Granulocytes % (auto) 0.2 %; Lymphocytes # (auto) 0.34 K/uL (1.2-3.4); Lymphocytes % (auto) 5.9 %; Mean Corpuscular Hemoglobin 32.3 pg (25.0-34.0); Mean Corpuscular Hgb Conc 32.2 g/dL (32.0-36.0); Mean Corpuscular Volume 100.5 fL (80.0-100.0); Mean Platelet Volume 12.4 fL (9.4-12.4); Monocytes # (auto) 0.43 K/uL (0.11-0.59); Monocytes % (auto) 7.5 %; Neutrophils # (auto) 4.75 K/uL (1.40-6.50); Neutrophils % (auto) 82.4 %; Platelet Count 124 K/uL (130-400); RDW Coefficient of Variation 14.4 % (11.5-14.5); RDW Standard Deviation 53.2 fL (36.4-46.3); Red Blood Count 3.65 M/uL (4.20-5.40); White Blood Count 5.76 K/ul (4.8-10.8)
[2023-02-04 07:14] LABS: Albumin Globulin Ratio 1.3 (0.9-2); Albumin Level 3.7 gm/dl (3.4-5.0); BUN Creatinine Ratio 25.6 (10-20); Bilirubin,Total 0.5 mg/dl (0.2-1.0); Calcium 9.2 mg/dl (8.6-10.3); Est GFR (African American) 48.5 ml/min; Est GFR (Non-African American) 41.9 ml/min; Globulin 2.9 gm/dl (2.5-4.0); Magnesium 1.7 mg/dl (1.7-2.4); Potassium 4.3 mmol/L (3.5-5.1); Total Protein 6.6 gm/dl (6.0-8.3)
[2023-02-04 07:19] LABS: Troponin I High Sensitivity 16.9 pg/ml (0-14)
[2023-02-04 07:26] LABS: INR 0.9 (0.9-1.1)
[2023-02-04] MEDS ORDERED: FUROSEMIDE 40 MG/4 ML VIAL IV ONE ×2 (07:36→14:47)
--- NOTE | 2023-02-04 07:36 | Emergency Department Note ---
Impression & Plan Acute dyspnea, Hypoxia ED Provider Note ED Provider Note NAME: MICHAEL EDWARDS AGE:87 SEX: Female : 1935 ARRIVES VIA: EMS INFORMANT: Patient ED PROVIDER(s): Madie Antony DO CHIEF COMPLAINT: Dyspnea HPI: This is an 87-year-old female brought in by EMS due to increased shortness of breath. Patient states she woke up early this morning and went to use the bathroom and became markedly short of breath even after she sat back down in bed. Patient states her breathing did not improve so she called 911. On EMS arrival she was hypoxic at 87% and placed on 2 L via nasal cannula with improvement. Patient denies any recent illness including fevers, chills, cough or cold symptoms. She denies any accompanying chest pain or pressure. Patient states she does have a history of atrial fibrillation and is anticoagulated. She states she follows with Dr. Sanders of cardiology. She denies any recent leg swelling. Denies any history of MD or CHF. She states she has previously had pneumonia. No recent change in any medications. PAST MEDICAL HISTORY:See Below PAST SURGICAL HISTORY:See Below FAMILY HISTORY:See Below SOCIAL HISTORY:See Below HOME MEDICATIONS:See Below ALLERGIES:See Below VITALS:See Below PHYSICAL EXAMINATION: GENERAL: alert, well appearing, well nourished, no distress, non-toxic EYE EXAM: normal conjunctiva, PERRL and EOM's grossly intact OROPHARYNX: no exudate, no erythema, lips, buccal mucosa, and tongue normal and mucous membranes are moist NECK: supple, no nuchal rigidity, no adenopathy, non-tender LUNGS: Clear to auscultation. Normal chest wall mechanics, no w/r/r HEART: THUY, S1 normal and S2 normal ABDOMEN: abdomen soft, non-tender, normo-active bowel sounds, no masses, no rebound or guarding. BACK: Back is symmetrical on inspection and there is no deformity, no midline tenderness, no CVA tenderness. SKIN: no rashes, petechiae, orbruising UPPER EXTREMITIES: upper extremities are grossly normal. FROM, nml pulses b/l. LOWER EXTREMITIES: No pitting edema. FROM, nml pulses b/l. NEURO EXAM: Normal sensorium, cranial nerves II-XII grossly intact, normal speech, no facial droop,nogross weakness of arms, no gross weakness of legs. Gross sensation intact. No ataxia. Vital Signs: reviewed and remarkable Differential Diagnosis: Pneumonia, URI, CHF, ACS, PE, pleural effusion, aspiration, pericardial effusion, pericarditis/myocarditis, anemia, ROSETTE, electrode abnormality, as well as others were considered MEDICAL DECISION MAKING: This is notably female who presents emergency room due to increased shortness of breath. Patient was initially hypoxic for EMS although upon arrival here was able to be weaned down to room air with no further hypoxia. Patient continued to feel short of breath and not at her baseline despite no further hypoxia. Labs drawn and sent, IV established, EKG and chest x-ray performed at bedside and interpreted by me and patient placed on telemetry. Patient's EKG without acute changes, patient does have a history of atrial fibrillation for which she is anticoagulated. Given the anticoagulation I have a low suspicion for occult PE. No obvious infiltrate, effusion, or acute CHF noted on the chest x-ray. Patient's labs found to have very mild elevation of troponin and an elevated BNP. Patient has had this previously. She is not on chronic diuretics due to her history of aortic stenosis. On review of her prior echo, patient with a reassuring LVEF. I discussed the case with on-call cardiology, Dr. Almazan as a precaution. I then discussed options of treatment with the patient. At this time given persistent sense of shortness of breath even at rest, which is still worse with exertion here, she does not feel she can go home. Case discussed with [facility] hospitalist team. Consultation(s): 0832: Discussed with Dr. Almazan. 0905: Discussed with [facility] hospitalist team. ER Treatment Provided: See below Diagnostics Interpreted By Me: -ECG: Atrial fibrillation at 88, normal axis, normal intervals, nonspecific ST/T wave changes -Cardiac Monitoring: An order was placed for continuous cardiac monitoring. The monitor shows a rate of 87 with a.fib rhythm. -Laboratory studies: As stated above and show below. -Imaging studies: X-ray Chest: A single view study of the chest was reviewed and was negative for cardiomegaly, focal infiltrate, effusion, pulmonary edema, or wide mediastinum. Triage Nursing Note Reviewed Prior/Outside Records Reviewed -prior cardiology visit reviewed Past Med/Surg History Medical History Abdominal pain Acute dehydration Acute respiratory failure with hypoxia ROSETTE (acute kidney injury) Aortic valve stenosis Bilateral sacroiliitis Cardiac murmur Close exposure to COVID-19 virus Closed head injury Compression fracture of spine Elevated troponin Fall Generalized weakness Hearing deficit Left MARTINES High anion gap metabolic acidosis History of breast cancer ; h/o lumpectomy + radiation History of chemotherapy History of Clostridioides difficile 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 skin HTN (hypertension) Hyperkalemia Low back pain Non-Hodgkin's lymphoma (03/08/13) h/o chemo Osteoarthritis Overactive bladder Paroxysmal atrial fibrillation ON XARELTO F/U DR PETTY Pneumonia Prophylactic antibiotic Right shoulder injury SOB (shortness of breath) on exertion Surgical History Encounter for insertion of venous access port History of colonoscopy History of hysterectomy (03/08/13) History of squamous cell carcinoma excision History of vascular access device IN PLACE LEFT UPPER CHEST-"NON FUNCTIONING" PER PT Post-lymphadenectomy lymphedema of arm S/P breast biopsy S/P lumpectomy of breast RIGHT/RADIATION S/P lymph node biopsy Family History Father Bright's disease Kidney disease Sister Colon cancer Gallbladder disease Hypertension Kidney stones Colorectal cancer Mother Cardiac disorder Congestive heart failure Other Crohn's disease Denies family history of Ovarian cancer Prostate cancer Myocardial infarction Breast cancer Social History Smoking Status: Former smoker Tobacco Type: Cigarettes Second Hand Exposure: No; Do You Dip or Chew Tobacco: No; Hx Alcohol Use: Yes Alcohol type: wine Hx Substance Use: No Preferred Language: Telugu Communication Ability: Effective Visual Impairment: No Limitations Hearing Ability: Use of Hearing Aid Commercial Litigation Attorney Required: No Beliefs That Will Affect Care: None marital status: / Current Living Situation: Personal Care Facility current occupational status: retired How many Children do You have: 0 Feels Safe at Home: Yes Safety Concerns: Feels Safe At This Time Dental Care, Regularly: Yes Physical Activity Frequency: Daily Seatbelt Use: always Sunscreen Use: Yes Assistive Devices: Glasses, Hearing Aid - Left and Walker Allergies Allergies Allergy/AdvReac Type Severity Reaction Status Date / Time diphenhydramine Allergy Severe ALL Verified 01/22/23 11:03 ANTIHISTAMINES-"HYPER" FEELING allopurinol Allergy Intermediate RASH-SEVERE Verified 01/22/23 11:03 ITCHING Home Meds Home Medications Medication Instructions Recorded Confirmed calcium carbonate 600 mg-vitamin 1 cap PO QAM 04/21/19 02/04/23 D3 5 mcg (200 unit) capsule (Calcium 600 + D(3)) cholecalciferol (vitamin D3) 50 2,000 units PO QDL 04/21/19 02/04/23 mcg (2,000 unit) capsule cranberry 500 mg capsule 500 mg PO QAM 04/21/19 02/04/23 cyanocobalamin (vitamin B-12) 500 500 mcg PO 2XWK 04/21/19 02/04/23 mcg lozenges magnesium chloride 64 mg 64 mg PO TID 04/21/19 02/04/23 (magnesium chloride) tablet,delayed release Ivig 1 dose IV MO 03/24/21 02/04/23 rituximab 10 mg/mL 10 mg IV MO 03/24/21 02/04/23 concentrate,intravenous (Rituxan) docusate sodium 100 mg tablet 100 mg PO QAM 06/16/22 02/04/23 (Stool Softener) Lactobacillus acidophilus 10,000 mmu cells PO QAM 07/03/22 02/04/23 lorazepam 1 mg tablet 1 mg PO DAILY PRN Anxiety 07/12/22 02/04/23 diclofenac sodium 1 % topical gel 2 g topical QID PRN Back Pain 01/14/23 02/04/23 Previous Rx's Medication Instructions Recorded tramadol 50 mg tablet 25 - 50 mg PO Q4H PRN pain #42 tabs 06/16/22 acetaminophen 500 mg tablet 1,000 mg PO TID #180 tabs 06/27/22 metoprolol succinate 25 mg 25 mg PO QAM #30 tabs 08/24/22 tablet,extended release 24 hr baclofen 5 mg tablet 5 mg PO BID #60 tabs 11/22/22 lisinopril 30 mg tablet 30 mg PO QAM #90 tabs 12/25/22 oxybutynin chloride 5 mg 5 mg PO QAM #90 tabs 12/25/22 tablet,extended release 24 hr rivaroxaban 15 mg tablet (Xarelto) 15 mg PO DAILY #90 tabs 12/25/22 alendronate 70 mg tablet 70 mg PO .ONCE WEEKLY #12 tabs 01/17/23 pantoprazole 40 mg tablet,delayed 40 mg PO BID #60 tabs 01/17/23 release (Protonix) Results & Data (ED) Vital Signs Vital Signs - 24 hr 02/04/23 06:36 02/04/23 06:36 02/04/23 06:56 Temperature 37.1 C Temperature Source Oral Pulse Rate 83 Pulse Rate [Apical] Pulse Rhythm Irregular Pulse Rhythm [Apical] Pulse Strength Normal Respiratory Rate 20 Respiratory Effort / Characteristics Non-Labored Spontaneous Non-Labored Spontaneous Respiratory Depth Normal Normal Respiratory Pattern Regular Regular Blood Pressure 178/125 H Blood Pressure [Right Arm] Blood Pressure Mean 142 Blood Pressure Mean [Right Arm] Blood Pressure Position Semi-fowlers Pulse Oximetry 95 93 Oxygen Delivery Method Room Air Nasal Cannula Room Air Sepsis Recent Fever Within 48 Hours No Sepsis New/Unexplained Change in Mental Status No Sepsis Action Taken by Nursing No Action Required 02/04/23 06:56 02/04/23 07:45 02/04/23 08:07 Temperature Temperature Source Pulse Rate 75 Pulse Rate [Apical] 82 90 Pulse Rhythm Pulse Rhythm [Apical] Irregular Pulse Strength Respiratory Rate 20 21 Respiratory Effort / Characteristics Non-Labored Non-Labored Respiratory Depth Normal Normal Respiratory Pattern Blood Pressure Blood Pressure [Right Arm] 178/125 H 185/105 H Blood Pressure Mean Blood Pressure Mean [Right Arm] 142 131 Blood Pressure Position Pulse Oximetry 95 95 Oxygen Delivery Method Room Air Room Air Sepsis Recent Fever Within 48 Hours Sepsis New/Unexplained Change in Mental Status Sepsis Action Taken by Nursing 02/04/23 09:14 02/04/23 10:45 Temperature Temperature Source Pulse Rate Pulse Rate [Apical] 96 H 72 Pulse Rhythm Pulse Rhythm [Apical] Irregular Pulse Strength Respiratory Rate 20 20 Respiratory Effort / Characteristics Non-Labored Non-Labored Respiratory Depth Normal Normal Respiratory Pattern Blood Pressure Blood Pressure [Right Arm] 161/100 H Blood Pressure Mean Blood Pressure Mean [Right Arm] 120 Blood Pressure Position Pulse Oximetry 92 94 Oxygen Delivery Method Room Air Room Air Sepsis Recent Fever Within 48 Hours Sepsis New/Unexplained Change in Mental Status Sepsis Action Taken by Nursing Laboratory Data 02/04/23 06:35 02/04/23 06:35 Lab Results 02/04/23 02/04/23 02/04/23 Range/Units 06:35 06:35 06:35 WBC 5.76 (4.8-10.8) K/ul RBC 3.65 L (4.20-5.40) M/uL Hgb 11.8 L (12.0-16.0) g/dl Hct 36.7 L (37.0-47.0) % MCV 100.5 H (80.0-100.0) fL MCH 32.3 (25.0-34.0) pg MCHC 32.2 (32.0-36.0) g/dL RDW Std Deviation 53.2 H (36.4-46.3) fL RDW Coeff of Ruddy 14.4 (11.5-14.5) % Plt Count 124 L (130-400) K/uL MPV 12.4 (9.4-12.4) fL Immature Gran % (Auto) 0.2 % Neut % (Auto) 82.4 % Lymph % (Auto) 5.9 % Cuming % (Auto) 7.5 % Eos % (Auto) 3.5 % Baso % (Auto) 0.5 % Neut # (Auto) 4.75 (1.40-6.50) K/uL Lymph # (Auto) 0.34 L (1.2-3.4) K/uL Cuming # (Auto) 0.43 (0.11-0.59) K/uL Eos # (Auto) 0.20 (0-0.50) K/uL Baso # (Auto) 0.03 (0-0.2) K/uL Immature Gran # (Auto) 0.01 (0.01-0.20) K/uL PT 10.0 (9.0-12.0) Seconds INR 0.9 (0.9-1.1) Sodium 142 (136-145) mmol/L Potassium 4.3 (3.5-5.1) mmol/L Chloride 108 H (98-107) mmol/L Carbon Dioxide 28 (21-32) mmol/L Anion Gap 6 (3-11) BUN 30 H (6-23) mg/dl Creatinine 1.17 (0.6-1.2) mg/dl Est Cr Clr Drug Dosing 28.0 ml/min Est GFR ( Amer) 48.5 ml/min Est GFR (Non-Af Amer) 41.9 ml/min BUN/Creatinine Ratio 25.6 H (10-20) Glucose 90 (70-99(Fasting)) mg/dl Calcium 9.2 (8.6-10.3) mg/dl Magnesium 1.7 (1.7-2.4) mg/dl Total Bilirubin 0.5 (0.2-1.0) mg/dl AST 34 (13-39) U/L ALT 31 (7-52) U/L Alkaline Phosphatase 209 H (34-104) U/L Troponin I High Sens 16.9 H (0-14) pg/ml B-Natriuretic Peptide (0-100) pg/ml Total Protein 6.6 (6.0-8.3) gm/dl Albumin 3.7 (3.4-5.0) gm/dl Globulin 2.9 (2.5-4.0) gm/dl Albumin/Globulin Ratio 1.3 (0.9-2) Lipase 35 (11-82) U/L Adenovirus (PCR) (NotDetected) B. pertussis DNA (PCR) (NotDetected) B.parapertussis DNA PCR (NotDetected) C. pneumoniae DNA (PCR) (NotDetected) Coronavirus OC43 (PCR) (NotDetected) Coronavirus HKU1 (PCR) (NotDetected) Coronavirus 229E (PCR) (NotDetected) SARS-CoV-2 (PCR) (NotDetected) Coronavirus NL63 (PCR) (NotDetected) Human Metapneumovir PCR (NotDetected) Influenza Type A (PCR) (NotDetected) Influenza Type B (PCR) (NotDetected) M. pneumoniae (PCR) (NotDetected) Parainfluenza 1 (PCR) (NotDetected) Parainfluenza 2 (PCR) (NotDetected) Parainfluenza 3 (PCR) (NotDetected) Parainfluenza 4 (PCR) (NotDetected) RSV (PCR) (NotDetected) Entero/Rhino (PCR) (NotDetected) 02/04/23 02/04/23 Range/Units 06:35 09:04 WBC (4.8-10.8) K/ul RBC (4.20-5.40) M/uL Hgb (12.0-16.0) g/dl Hct (37.0-47.0) % MCV (80.0-100.0) fL MCH (25.0-34.0) pg MCHC (32.0-36.0) g/dL RDW Std Deviation (36.4-46.3) fL RDW Coeff of Ruddy (11.5-14.5) % Plt Count (130-400) K/uL MPV (9.4-12.4) fL Immature Gran % (Auto) % Neut % (Auto) % Lymph % (Auto) % Cuming % (Auto) % Eos % (Auto) % Baso % (Auto) % Neut # (Auto) (1.40-6.50) K/uL Lymph # (Auto) (1.2-3.4) K/uL Cuming # (Auto) (0.11-0.59) K/uL Eos # (Auto) (0-0.50) K/uL Baso # (Auto) (0-0.2) K/uL Immature Gran # (Auto) (0.01-0.20) K/uL PT (9.0-12.0) Seconds INR (0.9-1.1) Sodium (136-145) mmol/L Potassium (3.5-5.1) mmol/L Chloride (98-107) mmol/L Carbon Dioxide (21-32) mmol/L Anion Gap (3-11) BUN (6-23) mg/dl Creatinine (0.6-1.2) mg/dl Est Cr Clr Drug Dosing ml/min Est GFR ( Amer) ml/min Est GFR (Non-Af Amer) ml/min BUN/Creatinine Ratio (10-20) Glucose (70-99(Fasting)) mg/dl Calcium (8.6-10.3) mg/dl Magnesium (1.7-2.4) mg/dl Total Bilirubin (0.2-1.0) mg/dl AST (13-39) U/L ALT (7-52) U/L Alkaline Phosphatase (34-104) U/L Troponin I High Sens (0-14) pg/ml B-Natriuretic Peptide 583 H (0-100) pg/ml Total Protein (6.0-8.3) gm/dl Albumin (3.4-5.0) gm/dl Globulin (2.5-4.0) gm/dl Albumin/Globulin Ratio (0.9-2) Lipase (11-82) U/L Adenovirus (PCR) Not Detected (NotDetected) B. pertussis DNA (PCR) Not Detected (NotDetected) B.parapertussis DNA PCR Not Detected (NotDetected) C. pneumoniae DNA (PCR) Not Detected (NotDetected) Coronavirus OC43 (PCR) Not Detected (NotDetected) Coronavirus HKU1 (PCR) Not Detected (NotDetected) Coronavirus 229E (PCR) Not Detected (NotDetected) SARS-CoV-2 (PCR) Not Detected (NotDetected) Coronavirus NL63 (PCR) Not Detected (NotDetected) Human Metapneumovir PCR Not Detected (NotDetected) Influenza Type A (PCR) Not Detected (NotDetected) Influenza Type B (PCR) Not Detected (NotDetected) M. pneumoniae (PCR) Not Detected (NotDetected) Parainfluenza 1 (PCR) Not Detected (NotDetected) Parainfluenza 2 (PCR) Not Detected (NotDetected) Parainfluenza 3 (PCR) Not Detected (NotDetected) Parainfluenza 4 (PCR) Not Detected (NotDetected) RSV (PCR) Not Detected (NotDetected) Entero/Rhino (PCR) Not Detected (NotDetected) Administered Medications Baclofen (Baclofen 10 Mg Tab) 5 mg PO BID [facility] Stop: 03/06/23 20:59 Last Admin: 02/04/23 20:01 Dose: 5 mg Documented By: KAREN Magnesium Chloride (Magnesium Chloride W/Calcium 64mg Delayed Rel Tab) 64 mg PO TID [facility] Stop: 03/06/23 14:29 Last Admin: 02/04/23 20:02 Dose: 64 mg Documented By: Admin: 02/04/23 15:25 Dose: 64 mg Documented By: KAYCEE Pantoprazole Sodium (Pantoprazole 40 Mg Tab) 40 mg PO BID [facility] Stop: 03/06/23 20:59 Last Admin: 02/04/23 20:02 Dose: 40 mg Documented By: KAREN Rivaroxaban (Rivaroxaban 15 Mg Tab) 15 mg PO QDD [facility] Stop: 03/06/23 16:29 Last Admin: 02/04/23 17:46 Dose: 15 mg Documented By: EA Discontinued Medications Furosemide (Furosemide 40 Mg/4 Ml Vial) 40 mg IV ONE ONE Stop: 02/04/23 07:37 Last Admin: 02/04/23 07:45 Dose: 40 mg Documented By: JOSH Furosemide (Furosemide 40 Mg/4 Ml Vial) 40 mg IV ONE ONE Stop: 02/04/23 14:48 Last Admin: 02/04/23 15:25 Dose: 40 mg Documented By: EA Imaging Data Radiologist's Impression: Chest X-Ray 02/04/23 06:30 XR chest 1V portable HISTORY: Shortness of breath. COMPARISON: Chest 01/14/2023. FINDINGS: There are low lung volumes. No pneumothorax. A left Port-A-Cath terminates in the SVC. Increased markings at the lung bases favor dependent change. Otherwise, no new focal lung consolidations to suggest a pneumonia. No evidence for pulmonary edema. The heart remains enlarged. IMPRESSION: No significant change compared to the prior study. No acute process. ACT 112: Negative or not required by law. Electronically signed by: Solomon Fam M.D. 02/04/2023 8:04 AM Discharge Plan Visit Data Chief Complaint: Respiratory Distress Stated Complaint: EXERTIONAL DYSPNEA ED Provider: Madie Antony Discharge Problem: Acute dyspnea, Hypoxia Patient Disposition: Admitted As Inpatient Discharge Instructions Interventions: ED Discharge Assessment Last Done: 02/04/23 13:32
--- NOTE | 2023-02-04 08:05 | XRay Report ---
XR chest 1V portable HISTORY: Shortness of breath. COMPARISON: Chest 01/14/2023. FINDINGS: There are low lung volumes. No pneumothorax. A left Port-A-Cath terminates in the SVC. Incr eased markings at the lung bases favor dependent change. Otherwise, no new focal lung consolidations to suggest a pneumonia. No evidence for pulmonary edema. The heart remains enlarged. IMPRESSION: No significant change compared to the prior study. No acute process. ACT 112: Negative or not required by law. Electronically signed by: Solomon Fam M.D. 02/04/2023 8:04 AM
--- NOTE | 2023-02-04 09:17 | History & Physical Report ---
Date of Service February 04, 2023 Assessment & Plan (1) Acute dyspnea: Plan: Patient was admitted with acute SOB and dyspnea and was found to be hypoxic by EMS and was placed on 2L nc. Currently saturating on RA in mid to low 90s. CXR with possible mild amount of pulmonary edema per ER physician and treated with Lasix 40mg IV x 1 High sensitivity Troponin with minimal elevation at 16.9 - Trend troponin - check echo - Biofire and Covid negative (2) Hypoxia: Plan: - Continue to monitor - O2 nc as needed to maintain O2 saturation over 89 (3) Inpatient hospitalization within last 30 days: Plan: Patient was recently admitted with a fall (4) Anticoagulant long-term use: Plan: Patient takes Xarelto 15mg daily for her paroxysmal A fib (5) Paroxysmal atrial fibrillation: Plan: Chronic Continue while inpatient (6) Non-Hodgkin's lymphoma: Plan: - Chronic and stable - Continue Terra (7) HTN (hypertension): Plan: Chronic Elevated Closely monitor Continue - Lisinopril 30mg daily - Metoprolol succinate 25mg qd History of Present Illness Chief Complaint: SOB hypoxia Primary Care Provider: [facility] Mishel Beckford is an 87 year old female with an extensive past medical history of recurrent Non-Hodgkin's Lymphoma (on maintenance Rituxan), Anemia, Osteoporosis, Hypertension, Paroxysmal Atrial Fibrillation (on Xarelto), Mild Mitral Regurgitation, and Kozrghui-de-Zpvlmp Aortic Stenosis who presented to the [facility] ED from [facility] today with complaints of Shortness of breath and trouble breathing. She states that she awoke normally this AM and then when she got up to go to the bathroom she was very SOB and had a hard time trying to breath. She laid back down in bed but still had dyspnea and was short of breath. She was scared and decided to call 911. When EMS arrived her pulse ox was 87% and she was placed on 2 L nc. She has sinced been able to wean off the oxygen here and is saturating mid to low 90s on RA. SHe still though states she feels SOB and not quite herself. The ER physician spoke with Dr Tiwari (Dr Sams is her regular rn building) who recommended admission, repeat echo and trend troponins. Troponin was 16.9 (Previous hx of troponin 20-35 range) BNP elevated at 583 CXR possible mild pulmonary edema per ER physician and gave dose Lasix 40mg IV x1. BMP normal sodium and potassium, BUN 30 and Cr 1.17. CBC with no elevation of WBC, afebrile and currently saturating on RA in mid to low 90s. Allergies Allergy/AdvReac Type Severity Reaction Status Date / Time diphenhydramine Allergy Severe ALL Verified 01/22/23 11:03 ANTIHISTAMINES-"HYPER" FEELING allopurinol Allergy Intermediate RASH-SEVERE Verified 01/22/23 11:03 ITCHING Home Medications Medication Instructions Recorded Confirmed Type calcium carbonate 600 mg-vitamin 1 cap PO QAM 04/21/19 02/04/23 History D3 5 mcg (200 unit) capsule (Calcium 600 + D(3)) cholecalciferol (vitamin D3) 50 2,000 units PO QDL 04/21/19 02/04/23 History mcg (2,000 unit) capsule cranberry 500 mg capsule 500 mg PO QAM 04/21/19 02/04/23 History cyanocobalamin (vitamin B-12) 500 500 mcg PO 2XWK 04/21/19 02/04/23 History mcg lozenges magnesium chloride 64 mg 64 mg PO TID 04/21/19 02/04/23 History (magnesium chloride) tablet,delayed release Ivig 1 dose IV MO 03/24/21 02/04/23 History rituximab 10 mg/mL 10 mg IV MO 03/24/21 02/04/23 History concentrate,intravenous (Rituxan) docusate sodium 100 mg tablet 100 mg PO QAM 06/16/22 02/04/23 History (Stool Softener) tramadol 50 mg tablet 25 - 50 mg PO Q4H PRN pain #42 tabs 06/16/22 02/04/23 Rx acetaminophen 500 mg tablet 1,000 mg PO TID #180 tabs 06/27/22 02/04/23 Rx Lactobacillus acidophilus 10,000 mmu cells PO QAM 07/03/22 02/04/23 History lorazepam 1 mg tablet 1 mg PO DAILY PRN Anxiety 07/12/22 02/04/23 History metoprolol succinate 25 mg 25 mg PO QAM #30 tabs 08/24/22 02/04/23 Rx tablet,extended release 24 hr baclofen 5 mg tablet 5 mg PO BID #60 tabs 11/22/22 02/04/23 Rx lisinopril 30 mg tablet 30 mg PO QAM #90 tabs 12/25/22 02/04/23 Rx oxybutynin chloride 5 mg 5 mg PO QAM #90 tabs 12/25/22 02/04/23 Rx tablet,extended release 24 hr rivaroxaban 15 mg tablet (Xarelto) 15 mg PO DAILY #90 tabs 12/25/22 02/04/23 Rx diclofenac sodium 1 % topical gel 2 g topical QID PRN Back Pain 01/14/23 02/04/23 History alendronate 70 mg tablet 70 mg PO .ONCE WEEKLY #12 tabs 01/17/23 02/04/23 Rx pantoprazole 40 mg tablet,delayed 40 mg PO BID #60 tabs 01/17/23 02/04/23 Rx release (Protonix) Past Med/Surg History Medical History Abdominal pain Acute dehydration Acute respiratory failure with hypoxia ROSETTE (acute kidney injury) Aortic valve stenosis Bilateral sacroiliitis Cardiac murmur Close exposure to COVID-19 virus Closed head injury Compression fracture of spine Elevated troponin Fall Generalized weakness Hearing deficit Left MARTINES High anion gap metabolic acidosis History of breast cancer ; h/o lumpectomy + radiation History of chemotherapy History of Clostridioides difficile 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 skin HTN (hypertension) Hyperkalemia Low back pain Non-Hodgkin's lymphoma (03/08/13) h/o chemo Osteoarthritis Overactive bladder Paroxysmal atrial fibrillation ON XARELTO F/U DR SAMS Pneumonia Prophylactic antibiotic Right shoulder injury SOB (shortness of breath) on exertion Surgical History Encounter for insertion of venous access port History of colonoscopy History of hysterectomy (03/08/13) History of squamous cell carcinoma excision History of vascular access device IN PLACE LEFT UPPER CHEST-"NON FUNCTIONING" PER PT Post-lymphadenectomy lymphedema of arm S/P breast biopsy S/P lumpectomy of breast RIGHT/RADIATION S/P lymph node biopsy Family History Father Bright's disease Kidney disease Sister Colon cancer Gallbladder disease Hypertension Kidney stones Colorectal cancer Mother Cardiac disorder Congestive heart failure Other Crohn's disease Denies family history of Ovarian cancer Prostate cancer Myocardial infarction Breast cancer Social History Smoking Status: Former smoker Tobacco Type: Cigarettes Second Hand Exposure: No; Do You Dip or Chew Tobacco: No; Hx Alcohol Use: No Hx Substance Use: No Preferred Language: Korean Communication Ability: Effective Visual Impairment: No Limitations Hearing Ability: Use of Hearing Aid Cardiac Cath Tech Required: No Beliefs That Will Affect Care: None marital status: / Current Living Situation: Personal Care Facility current occupational status: retired How many Children do You have: 0 Feels Safe at Home: Yes Dental Care, Regularly: Yes Physical Activity Frequency: Daily Seatbelt Use: always Sunscreen Use: Yes Assistive Devices: Walker Review of Systems Review of Systems: All other ROS negative unless stated + above Constitutional: no fever, no chills, no sweats, no fatigue, no weight loss and no weight gain Respiratory: + dyspnea; no cough, no chest congestion, no pain on inspiration and no wheezing Cardiovascular: + dyspnea on exertion; no chest pain, no lightheadedness, no edema and no calf pain Gastrointestinal: no abdominal pain, no nausea, no vomiting and no change in bowel habits Integumentary: no rash, no lesions and no new lesions Physical Exam Constitutional: Patient awake laying in bed in NAD, mildly tachy and hypertensive. Saturating well on RA in mid to low 90s Neck: trachea midline, no thyromegaly Respiratory: normal respiratory effort, lungs clear to auscultation Cardiovascular: Rate/Rhythm: + irregularly irregular Heart Sounds: normal S1, normal S2 and + murmur 2/6 systolic murmur Gastrointestinal (Abdomen): normal bowel sounds, soft, nontender, no hepatosplenomegaly Neurologic: PERRL, EOMI, accommodation nl, no face palsy, no dysarthria Psychiatric: A+Ox3, euthymic affect Results & Data Results & Data Vital Signs (Past 12 Hours) Vital Signs Temp Pulse Pulse Resp BP BP Pulse Ox 02/04/23 08:07 75 02/04/23 07:45 90 21 185/105 H 95 02/04/23 06:56 82 20 178/125 H 95 02/04/23 06:56 93 02/04/23 06:36 02/04/23 06:36 37.1 C 83 20 178/125 H 95 O2 Del Method 02/04/23 08:07 02/04/23 07:45 Room Air 02/04/23 06:56 Room Air 02/04/23 06:56 Room Air 02/04/23 06:36 Nasal Cannula 02/04/23 06:36 Room Air Laboratory Results Laboratory Results - last 24 hr 02/04/23 02/04/23 02/04/23 06:35 06:35 06:35 WBC 5.76 RBC 3.65 L Hgb 11.8 L Hct 36.7 L MCV 100.5 H MCH 32.3 MCHC 32.2 RDW Std Deviation 53.2 H RDW Coeff of Ruddy 14.4 Plt Count 124 L MPV 12.4 Immature Gran % (Auto) 0.2 Neut % (Auto) 82.4 Lymph % (Auto) 5.9 [place] % (Auto) 7.5 Eos % (Auto) 3.5 Baso % (Auto) 0.5 Neut # (Auto) 4.75 Lymph # (Auto) 0.34 L [place] # (Auto) 0.43 Eos # (Auto) 0.20 Baso # (Auto) 0.03 Immature Gran # (Auto) 0.01 PT 10.0 INR 0.9 Sodium 142 Potassium 4.3 Chloride 108 H Carbon Dioxide 28 Anion Gap 6 BUN 30 H Creatinine 1.17 Est Cr Clr Drug Dosing 28.0 Est GFR ( Amer) 48.5 Est GFR (Non-Af Amer) 41.9 BUN/Creatinine Ratio 25.6 H Glucose 90 Calcium 9.2 Magnesium 1.7 Total Bilirubin 0.5 AST 34 ALT 31 Alkaline Phosphatase 209 H Troponin I High Sens 16.9 H B-Natriuretic Peptide Total Protein 6.6 Albumin 3.7 Globulin 2.9 Albumin/Globulin Ratio 1.3 Lipase 35 02/04/23 06:35 WBC RBC Hgb Hct MCV MCH MCHC RDW Std Deviation RDW Coeff of Ruddy Plt Count MPV Immature Gran % (Auto) Neut % (Auto) Lymph % (Auto) [place] % (Auto) Eos % (Auto) Baso % (Auto) Neut # (Auto) Lymph # (Auto) [place] # (Auto) Eos # (Auto) Baso # (Auto) Immature Gran # (Auto) PT INR Sodium Potassium Chloride Carbon Dioxide Anion Gap BUN Creatinine Est Cr Clr Drug Dosing Est GFR ( Amer) Est GFR (Non-Af Amer) BUN/Creatinine Ratio Glucose Calcium Magnesium Total Bilirubin AST ALT Alkaline Phosphatase Troponin I High Sens B-Natriuretic Peptide 583 H Total Protein Albumin Globulin Albumin/Globulin Ratio Lipase Diagnostic Findings Chest X-Ray 02/04/23 06:30 XR chest 1V portable HISTORY: Shortness of breath. COMPARISON: Chest 01/14/2023. FINDINGS: There are low lung volumes. No pneumothorax. A left Port-A-Cath terminates in the SVC. Increased markings at the lung bases favor dependent change. Otherwise, no new focal lung consolidations to suggest a pneumonia. No evidence for pulmonary edema. The heart remains enlarged. IMPRESSION: No significant change compared to the prior study. No acute process. ACT 112: Negative or not required by law. Electronically signed by: Solomon Fam M.D. 02/04/2023 8:04 AM Supervising Physician Co-Signing Physician Notes I personally examined the patient and verified all mccall points of history and exam, discussed case, and agree with decision making with Eveline MESA Breathing feeling a little bit better by the time I see her as best she can recall, although she seems to have a bit of a poor recollection of this morning. Proximately she notes that her breathing feels okay, not great, but she does feel like she is getting enough air. Vitals noted, in general she is sleeping leaning forward whenever I awaken her she appears very mildly but notably mildly dyspneic, otherwise no distress. Lungs show bibasilar Rales. Neuro without focal deficits. Acute hypoxiaappears to have been related to acute on chronic diastolic (LVH and most importantly aortic stenosis) CHFadditional Lasix, echocardiogram, hopefully home with outpatient med management/outpatient cardiology follow-up by tomorrow given that she seems to be quickly improving, but obviously this will be driven by her clinical course. Elevated troponin appears to be very mild demand ischemia versus simply myocardial stretch from volume overload. Already anticoagulated with Xarelto which will certainly suffice for DVT prophylaxis. Otherwise as above PG Care Time/CCT Total # of Minutes Spent Total Time Spent with Patient: Total time spent is greater than 50% in coordination of care (as documented) at patient's floor/unit and/or counseling patient: Coding Level of Care Code 48458 INT INP/OBS CARE MIN Diagnoses Acute dyspnea R06.00 Hypoxia R09.02 Inpatient hospitalization within last 30 days Z78.9 Anticoagulant long-term use Z79.01 Paroxysmal atrial fibrillation I48.0 Non-Hodgkin's lymphoma C85.90 HTN (hypertension) I10
[2023-02-04 10:42] LABS: Adenovirus PCR Not Detected (NotDetected); Bordetella parapertussis PCR Not Detected (NotDetected); Bordetella pertussis PCR Not Detected (NotDetected); Chlamydia pneumoniae PCR Not Detected (NotDetected); Coronavirus 229E PCR Not Detected (NotDetected); Coronavirus CoV-2 (COVID19)PCR Not Detected (NotDetected); Coronavirus HKU1 PCR Not Detected (NotDetected); Coronavirus NL63 PCR Not Detected (NotDetected); Coronavirus OC43PCR Not Detected (NotDetected); Human Metapneumovirus PCR Not Detected (NotDetected); Influenza A PCR Not Detected (NotDetected); Influenza B PCR Not Detected (NotDetected); Mycoplasma pneumoniae PCR Not Detected (NotDetected); Parainfluenza Virus 1 PCR Not Detected (NotDetected); Parainfluenza Virus 2 PCR Not Detected (NotDetected); Parainfluenza Virus 3 PCR Not Detected (NotDetected); Parainfluenza Virus 4 PCR Not Detected (NotDetected); Respiratory Syncytial VirusPCR Not Detected (NotDetected); Rhinovirus/Enterovirus PCR Not Detected (NotDetected)
[2023-02-04] MEDS ORDERED: POLYETHYLENE (MIRALAX) 17 GM PACK PO PRN (14:11)
[2023-02-04] MEDS ORDERED: traMADol HCL 50 MG TABLET PO PRN (14:11)
[2023-02-04] MEDS ORDERED: ACETAMINOPHEN 325 MG TAB PO PRN (14:11)
[2023-02-04] MEDS ORDERED: DICLOFENAC SOD 1% GEL 100 GM TUBE EXT PRN (14:11)
[2023-02-04] MEDS ORDERED: LORazepam 1 MG TAB PO PRN (14:11)
[2023-02-04 14:45] LABS: Base Excess VBG 3.5 mEq/L; HCO3 VBG 29 mmol/L; Oxygen Saturation VBG < 60.0 %; PCO2 VBG 47 mmHg (38-50); PO2 VBG 26 mmHg
[2023-02-04] MEDS: MAGNESIUM CHLORIDE W/CALCIUM 64MG DELAYED REL TAB PO SCH ×2 (15:25→20:02)
[2023-02-04] MEDS: RIVAROXABAN 15 MG TAB PO SCH (17:46)
[2023-02-04] MEDS: BACLOFEN 10 MG TAB PO SCH (20:01)
[2023-02-04] MEDS: PANTOprazole 40 MG TAB PO SCH (20:02)
[2023-02-05 02:32] LABS: Basophils # (auto) 0.03 K/uL (0-0.2); Basophils % (auto) 0.5 %; Eosinophils # (auto) 0.08 K/uL (0-0.50); Eosinophils % (auto) 1.4 %; Hematocrit (blood only) 41.1 % (37.0-47.0); Hemoglobin 13.2 g/dl (12.0-16.0); Immature Granulocytes # (auto) 0.01 K/uL (0.01-0.20); Immature Granulocytes % (auto) 0.2 %; Lymphocytes # (auto) 0.81 K/uL (1.2-3.4); Lymphocytes % (auto) 14.6 %; Mean Corpuscular Hgb Conc 32.1 g/dL (32.0-36.0); Mean Corpuscular Volume 99.8 fL (80.0-100.0); Mean Platelet Volume 12.1 fL (9.4-12.4); Monocytes # (auto) 0.46 K/uL (0.11-0.59); Monocytes % (auto) 8.3 %; Neutrophils # (auto) 4.17 K/uL (1.40-6.50); Platelet Count 151 K/uL (130-400); RDW Coefficient of Variation 14.6 % (11.5-14.5); RDW Standard Deviation 53.4 fL (36.4-46.3); Red Blood Count 4.12 M/uL (4.20-5.40); White Blood Count 5.56 K/ul (4.8-10.8)
[2023-02-05 02:42] LABS: BUN Creatinine Ratio 21.2 (10-20); Calcium 9.2 mg/dl (8.6-10.3); Est GFR (African American) 34.3 ml/min; Est GFR (Non-African American) 29.6 ml/min; Magnesium 1.5 mg/dl (1.7-2.4); Potassium 3.9 mmol/L (3.5-5.1)
[2023-02-05] MEDS: lisinopril 10 MG TAB PO SCH (08:28)
[2023-02-05] MEDS: DOCUSATE SODIUM 100 MG CAP PO SCH (08:28)
[2023-02-05] MEDS: METOPROLOL SUCC 25MG EXT REL TAB PO SCH (08:28)
[2023-02-05] MEDS: OXYBUTYNIN CHLORIDE XL 5 MG TABCR PO SCH (08:28)
[2023-02-05] MEDS: PANTOprazole 40 MG TAB PO SCH ×2 (08:28→20:35)
[2023-02-05] MEDS: MAGNESIUM CHLORIDE W/CALCIUM 64MG DELAYED REL TAB PO SCH ×3 (08:28→20:35)
[2023-02-05] MEDS: BACLOFEN 10 MG TAB PO SCH ×2 (08:28→20:33)
[2023-02-05] MEDS: MAGNESIUM SULFATE / D5W 1 GM/100 ML BAG IV SCH ×2 (09:40→11:29)
--- NOTE | 2023-02-05 12:47 | XCELERA ---
[id number] \\[id number]
--- NOTE | 2023-02-05 12:57 | Electrocardiogram Report ---
Test Reason : Blood Pressure : / mmHG Vent. Rate : 088 BPM Atrial Rate : 102 BPM P-R Int : 000 ms QRS Dur : 064 ms QT Int : 342 ms P-R-T Axes : 000 -06 026 degrees QTc Int : 413 ms Atrial fibrillation Anterior infarct (cited on or before 04-FEB-2023) Abnormal ECG When compared with ECG of 14-JAN-2023 10:03, No significant change was found Confirmed by Irving Tiwari ([id number]) on 02/05/2023 12:56:47 PM Referred By: REFERRED SELF Confirmed By:Irving Tiwari
[2023-02-05 15:19] LABS: Creatinine Clr Calc Pharmacy 22.8 ml/min; Est GFR (African American) 37.7 ml/min; Est GFR (Non-African American) 32.6 ml/min; Potassium 4.6 mmol/L (3.5-5.1)
--- NOTE | 2023-02-05 16:09 | Discharge Summary ---
Date of Service February 05, 2023 Admission HPI Per Admitting Provider Mishel Beckford is an 87 year old female with an extensive past medical history of recurrent Non-Hodgkin's Lymphoma (on maintenance Rituxan), Anemia, Osteoporosis, Hypertension, Paroxysmal Atrial Fibrillation (on Xarelto), Mild Mitral Regurgitation, and Nhcfzwwm-rg-Gfambw Aortic Stenosis who presented to the [facility] ED from [facility] today with complaints of Shortness of breath and trouble breathing. She states that she awoke normally this AM and then when she got up to go to the bathroom she was very SOB and had a hard time trying to breath. She laid back down in bed but still had dyspnea and was short of breath. She was scared and decided to call 911. When EMS arrived her pulse ox was 87% and she was placed on 2 L nc. She has since been able to wean off the oxygen here and is saturating mid to low 90s on RA. She still though states she feels SOB and not quite herself. The ER physician spoke with Dr Tiwari (Dr Sams is her regular assistant department manager) who recommended admission, repeat echo and trend troponins. Troponin was 16.9 (Previous hx of troponin 20-35 range) BNP elevated at 583 CXR possible mild pulmonary edema per ER physician and gave dose Lasix 40mg IV x1. BMP normal sodium and potassium, BUN 30 and Cr 1.17. CBC with no elevation of WBC, afebrile and currently saturating on RA in mid to low 90s. Admission Exam (Per Admitting) Constitutional Patient awake laying in bed in NAD, mildly tachy and hypertensive. Saturating well on RA in mid to low 90s Neck trachea midline, no thyromegaly Respiratory normal respiratory effort, lungs clear to auscultation Cardiovascular Rate/Rhythm: + irregularly irregular Heart Sounds: normal S1, normal S2 and + murmur. 2/6 systolic murmur Gastrointestinal (Abdomen) normal bowel sounds, soft, nontender, no hepatosplenomegaly Neurologic PERRL, EOMI, accommodation nl, no face palsy, no dysarthria Psychiatric A+Ox3, euthymic affect Specialty Data Hospitalist Laboratory Results WBC 5.56 K/ul (4.8-10.8) 02/05/23 01:52 RBC 4.12 M/uL (4.20-5.40) L 02/05/23 01:52 Hgb 13.2 g/dl (12.0-16.0) 02/05/23 01:52 Hct 41.1 % (37.0-47.0) 02/05/23 01:52 MCV 99.8 fL (80.0-100.0) 02/05/23 01:52 MCH 32.0 pg (25.0-34.0) 02/05/23 01:52 MCHC 32.1 g/dL (32.0-36.0) 02/05/23 01:52 RDW Std Deviation 53.4 fL (36.4-46.3) H 02/05/23 01:52 RDW Coeff of Ruddy 14.6 % (11.5-14.5) H 02/05/23 01:52 Plt Count 151 K/uL (130-400) 02/05/23 01:52 MPV 12.1 fL (9.4-12.4) 02/05/23 01:52 Immature Gran % (Auto) 0.2 % 02/05/23 01:52 Neut % (Auto) 75.0 % 02/05/23 01:52 Lymph % (Auto) 14.6 % 02/05/23 01:52 [place] % (Auto) 8.3 % 02/05/23 01:52 Eos % (Auto) 1.4 % 02/05/23 01:52 Baso % (Auto) 0.5 % 02/05/23 01:52 Neut # (Auto) 4.17 K/uL (1.40-6.50) 02/05/23 01:52 Lymph # (Auto) 0.81 K/uL (1.2-3.4) L 02/05/23 01:52 [place] # (Auto) 0.46 K/uL (0.11-0.59) 02/05/23 01:52 Eos # (Auto) 0.08 K/uL (0-0.50) 02/05/23 01:52 Baso # (Auto) 0.03 K/uL (0-0.2) 02/05/23 01:52 Immature Gran # (Auto) 0.01 K/uL (0.01-0.20) 02/05/23 01:52 PT 10.0 Seconds (9.0-12.0) 02/04/23 06:35 INR 0.9 (0.9-1.1) 02/04/23 06:35 VBG pH 7.40 (7.36-7.41) 02/04/23 14:32 VBG pCO2 47 mmHg (38-50) 02/04/23 14:32 VBG pO2 26 mmHg 02/04/23 14:32 VBG HCO3 29 mmol/L 02/04/23 14:32 VBG O2 Saturation < 60.0 % 02/04/23 14:32 VBG Base Excess 3.5 mEq/L 02/04/23 14:32 Sodium 136 mmol/L (136-145) 02/05/23 14:23 Potassium 4.6 mmol/L (3.5-5.1) 02/05/23 14:23 Chloride 100 mmol/L (98-107) 02/05/23 14:23 Carbon Dioxide 30 mmol/L (21-32) 02/05/23 14:23 Anion Gap 6 (3-11) 02/05/23 14:23 BUN 36 mg/dl (6-23) H 02/05/23 14:23 Creatinine 1.44 mg/dl (0.6-1.2) H 02/05/23 14:23 Est Cr Clr Drug Dosing 22.8 ml/min 02/05/23 14:23 Est GFR ( Amer) 37.7 ml/min 02/05/23 14:23 Est GFR (Non-Af Amer) 32.6 ml/min 02/05/23 14:23 BUN/Creatinine Ratio 25.0 (10-20) H 02/05/23 14:23 Glucose 123 mg/dl (70-99(Fasting)) H 02/05/23 14:23 Calcium 9.0 mg/dl (8.6-10.3) 02/05/23 14:23 Magnesium 1.5 mg/dl (1.7-2.4) L 02/05/23 01:52 Total Bilirubin 0.5 mg/dl (0.2-1.0) 02/04/23 06:35 AST 34 U/L (13-39) 02/04/23 06:35 ALT 31 U/L (7-52) 02/04/23 06:35 Alkaline Phosphatase 209 U/L (34-104) H 02/04/23 06:35 Troponin I High Sens 18.1 pg/ml (0-14) H 02/05/23 07:16 B-Natriuretic Peptide 583 pg/ml (0-100) H 02/04/23 06:35 Total Protein 6.6 gm/dl (6.0-8.3) 02/04/23 06:35 Albumin 3.7 gm/dl (3.4-5.0) 02/04/23 06:35 Globulin 2.9 gm/dl (2.5-4.0) 02/04/23 06:35 Albumin/Globulin Ratio 1.3 (0.9-2) 02/04/23 06:35 Lipase 35 U/L (11-82) 02/04/23 06:35 Adenovirus (PCR) Not Detected (NotDetected) 02/04/23 09:04 B. pertussis DNA (PCR) Not Detected (NotDetected) 02/04/23 09:04 B.parapertussis DNA PCR Not Detected (NotDetected) 02/04/23 09:04 C. pneumoniae DNA (PCR) Not Detected (NotDetected) 02/04/23 09:04 Coronavirus OC43 (PCR) Not Detected (NotDetected) 02/04/23 09:04 Coronavirus HKU1 (PCR) Not Detected (NotDetected) 02/04/23 09:04 Coronavirus 229E (PCR) Not Detected (NotDetected) 02/04/23 09:04 SARS-CoV-2 (PCR) Not Detected (NotDetected) 02/04/23 09:04 Coronavirus NL63 (PCR) Not Detected (NotDetected) 02/04/23 09:04 Human Metapneumovir PCR Not Detected (NotDetected) 02/04/23 09:04 Influenza Type A (PCR) Not Detected (NotDetected) 02/04/23 09:04 Influenza Type B (PCR) Not Detected (NotDetected) 02/04/23 09:04 M. pneumoniae (PCR) Not Detected (NotDetected) 02/04/23 09:04 Parainfluenza 1 (PCR) Not Detected (NotDetected) 02/04/23 09:04 Parainfluenza 2 (PCR) Not Detected (NotDetected) 02/04/23 09:04 Parainfluenza 3 (PCR) Not Detected (NotDetected) 02/04/23 09:04 Parainfluenza 4 (PCR) Not Detected (NotDetected) 02/04/23 09:04 RSV (PCR) Not Detected (NotDetected) 02/04/23 09:04 Entero/Rhino (PCR) Not Detected (NotDetected) 02/04/23 09:04 Impressions Chest X-Ray 02/04/23 06:30 XR chest 1V portable HISTORY: Shortness of breath. COMPARISON: Chest 01/14/2023. FINDINGS: There are low lung volumes. No pneumothorax. A left Port-A-Cath terminates in the SVC. Increased markings at the lung bases favor dependent change. Otherwise, no new focal lung consolidations to suggest a pneumonia. No evidence for pulmonary edema. The heart remains enlarged. IMPRESSION: No significant change compared to the prior study. No acute process. ACT 112: Negative or not required by law. Electronically signed by: Solomon Fam M.D. 02/04/2023 8:04 AM Cardiology Echo from 02/05/23: Left ventricular systolic function is normal. The left ventricular wall motion is normal. The left atrium is mildly dilated. Mild aortic regurgitation. Moderate to severe aortic stenosis. Right ventricular systolic pressure is normal. Small mostly posterior pericardial effusion. Hospital Course (1) Acute dyspnea: -Stable -Patient was admitted with acute SOB and dyspnea and was found to be hypoxic by EMS and was placed on 2L nc. -Currently saturating on RA at 96. -CXR with possible mild amount of pulmonary edema per ER physician and treated with Lasix 40mg IV x 1. -High sensitivity Troponin trended up to 20.1 at 1 AM on 02/05/23, decreased to 18.1 by 7AM on 02/05/23. -The Acute hypoxia appears to have been related to acute on chronic diastolic dysfunction, secondary to LVH and aortic stenosis n the context of the recent lasix dose. -Follow up with cardiology outpatient -Minimize salt intake at home. (2) Paroxysmal atrial fibrillation: -Stable -Continue metoprolol -Continue Xarelto (3) ROSETTE (acute kidney injury): -Cr continues to improve, today is 1.33 (1.92) (3.0), baseline appears to be 1.1-1.2 -Admission elevation was due to dehydration from decreased oral intake and multiple episodes of loose stool/diarrhea this past week - Kidney function improved (4) Hyperkalemia: -Noted to be 5.3 in the ED - within normal limits now -No acute ECG changes (5) High anion gap metabolic acidosis: -Vitals are stable -Likely due to her acute dehydration and ROSETTE - improved with IV hydration -Lactate was normal 1.0 (6) Elevated troponin: -Initial high sen trop elevated at 20.3 repeat was the same at 20.3 (this appears stable was 30 -35 in June) -The patient is asymptomatic and without acute ECG changes -Likely was due to demand from her acute illness and ROSETTE (7) HTN (hypertension): -Stable BP 123/69 (8) Overactive bladder: -Continue oxybutynin (9) Non-Hodgkin's lymphoma: -[facility] -Gets monthly infusions of Rituxan -Also gets IVIG infusions during cold/flu season Plan Patient will be discharged back to [facility] today with close outpatient follow up. Supervising Physician Co-Signing Physician Notes I personally examined the patient and verified all mccall points of history and exam, discussed case, and agree with decision making with Eveline Morales PAC Breathing feeling a little bit better by the time I see her as best she can recall, although she seems to have a bit of a poor recollection of this morning. Proximately she notes that her breathing feels okay, not great, but she does feel like she is getting enough air. Vitals noted, in general she is sleeping leaning forward whenever I awaken her she appears very mildly but notably mildly dyspneic, otherwise no distress. Lungs show bibasilar Rales. Neuro without focal deficits. Acute hypoxiaappears to have been related to acute on chronic diastolic (LVH an d most importantly aortic stenosis) CHFadditional Lasix, echocardiogram, hopefully home with outpatient med management/outpatient cardiology follow-up by tomorrow given that she seems to be quickly improving, but obviously this will be driven by her clinical course. Elevated troponin appears to be very mild demand ischemia versus simply myocardial stretch from volume overload. Already anticoagulated with Xarelto which will certainly suffice for DVT prophylaxis. Otherwise as above
--- NOTE | 2023-02-05 16:54 | Hospitalist Progress Note ---
Date of Service February 05, 2023 Assessment & Plan (1) Acute dyspnea: Plan: Pt is an 87 yo female with PMH of AV stenosis, HTN, cancer hx (breast, SCC, non- Hodgkin's lymphoma), and afib presenting to the hospital after an episode of shortness of breath. Acute HFpEF treated and resolved with IV Lasix - Patient admitted with acute SOB in association with hypoxia - CXR showed mild amount of pulmonary edema per ER physicianand pt was treated with Lasix 40mg IV x 1 - repeat echo showed no significant change from last US (2021) - most likely related to recent increased salt intake in the setting of chronic diastolic dysfunction, LVH, and aortic stenosis - recommend following low salt diet upon discharge - recommend outpatient cardiology f/u Elevated troponin - elevated at 16.9, peaked at 20.6, and has since downtrended - no ischemic changes on EKG - most likely in the setting of increased demand from fluid retention and ROSETTE; also in the setting of chronic diastolic dysfunction, LVH, and Paroxysmal atrial fibrillation - continue metoprolol, xarelto ROSETTE - Cr 1.17 upon admission (baseline 1.1-1.2) - Cr increased to 1.56 today (s/p lasix 40 mg x1) - repeat Cr showed improvement to 1.44 - monitor for continued improvement HTN - continue lisinopril Diet: low sodium DVT ppx: Xarelto 15 mg Dispo: med/surg, stable for d/c back to [facility] tomorrow AM Code status: full (2) Hypoxia: (3) Inpatient hospitalization within last 30 days: (4) Anticoagulant long-term use: Admission and Anticipated Discharge Date Admission Date: February 04, 2023 Supervising Physician Co-Signing Physician Notes Resident Physician Supervision Note: I independently interviewed and examined the patient and verified the mccall history and physical, reviewed labs and image studies and agree with resident findings and care plan. Subjective Pt seen at bedside this AM. She has no complaints and states she feels pretty well. Review of Systems Review of Systems: As per HPI Physical Exam Physical Exam: Constitutional: well appearing, no acute distress HEENT: normocephalic, no conjunctival injection CV: RRR, no murmur, no LE edema Respiratory: CTA bilaterally. No rhonchi, wheezes, or crackles. No increased work of breathing Neuro: alert, oriented, no FND noted Psych: mood and affect congruent Results & Data Results & Data Vital Signs (Past 12 Hours) Vital Signs Temp Pulse Resp BP Pulse Ox O2 Del Method 02/05/23 14:39 36.3 C L 75 18 123/69 96 Room Air 02/05/23 07:30 Room Air 02/05/23 08:05 36.5 C 103 H 18 132/91 93 Room Air Resident Activity Tracking Resident Involvement: Resident Care Provided Care Provided: Adult Hospital Medicine
[2023-02-05] MEDS: RIVAROXABAN 15 MG TAB PO SCH (17:50)
--- NOTE | 2023-02-06 07:41 | Discharge Summary ---
Date of Service February 06, 2023 Admission HPI Per Admitting Provider Mishel Beckford is an 87 year old female with an extensive past medical history of recurrent Non-Hodgkin's Lymphoma (on maintenance Rituxan), Anemia, Osteoporosis, Hypertension, Paroxysmal Atrial Fibrillation (on Xarelto), Mild Mitral Regurgitation, and Blcrafeq-cn-Onjjez Aortic Stenosis who presented to the [facility] ED from [facility] today with complaints of Shortness of breath and trouble breathing. She states that she awoke normally this AM and then when she got up to go to the bathroom she was very SOB and had a hard time trying to breath. She laid back down in bed but still had dyspnea and was short of breath. She was scared and decided to call 911. When EMS arrived her pulse ox was 87% and she was placed on 2 L nc. She has since been able to wean off the oxygen here and is saturating mid to low 90s on RA. She still though states she feels SOB and not quite herself. 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 Troponin was 16.9 (Previous hx of troponin 20-35 range) BNP elevated at 583 CXR possible mild pulmonary edema per ER physician and gave dose Lasix 40mg IV x1. BMP normal sodium and potassium, BUN 30 and Cr 1.17. CBC with no elevation of WBC, afebrile and currently saturating on RA in mid to low 90s. Admission Exam Per Admitting Provider Constitutional: Patient awake laying in bed in NAD, mildly tachy and hypertensive. Saturating well on RA in mid to low 90s Neck: trachea midline, no thyromegaly Respiratory: normal respiratory effort, lungs clear to auscultation Cardiovascular: Rate/Rhythm: + irregularly irregular Heart Sounds: normal S1, normal S2 and + murmur 2/6 systolic murmur Gastrointestinal (Abdomen): normal bowel sounds, soft, nontender, no hepatosplenomegaly Neurologic: PERRL, EOMI, accommodation nl, no face palsy, no dysarthria Psychiatric: A+Ox3, euthymic affect Principal Diagnosis mild CHF exacerbation Discharge Exam Constitutional: well appearing, no acute distress HEENT: normocephalic, no conjunctival injection CV: RRR, no murmur Respiratory: Clear to auscultation bilaterally. No rhonchi, wheezes, or crackles. No increased work of breathing MSK: no gross deformities noted Neuro: alert, oriented, no FND noted Discharge Data Allergies Allergy/AdvReac Type Severity Reaction Status Date / Time diphenhydramine Allergy Severe ALL Verified 01/22/23 11:03 ANTIHISTAMINES-"HYPER" FEELING allopurinol Allergy Intermediate RASH-SEVERE Verified 01/22/23 11:03 ITCHING Consultations 02/04/23 09:18 ED Decision to Admit Stat Hospital Course (1) Acute dyspnea: Pt is an 87 yo female with PMH of AV stenosis, HTN, cancer hx (breast, SCC, non- Hodgkin's lymphoma), and afib presenting to the hospital after an episode of shortness of breath. Acute HFpEF treated and resolved with IV Lasix Moderate to severe - Patient admitted with acute SOB in association with hypoxia - CXR showed mild amount of pulmonary edema per ER physicianand pt was treated with Lasix 40mg IV x 1 - repeat echo showed no significant change from last US (2021) - After the initial ED dose of lasix, no further doses given due to rise in creatinine. Symptoms resolved. - Exacerbation likely related to recent increased salt intake in the setting of chronic diastolic dysfunction, LVH, and aortic stenosis - recommend following low salt diet upon discharge - recommend outpatient cardiology f/u Elevated troponin - sec to demand ischemia Paroxysmal atrial fibrillation - continue metoprolol, xarelto ROSETTE - Cr 1.17 upon admission (baseline 1.1-1.2) - Cr increased to 1.56 (s/p lasix 40 mg x1) - repeat Cr showed improvement to 1.44; expect continued improvement with proper hydration HTN - continue lisinopril Diet: low sodium DVT ppx: Xarelto 15 mg Dispo: d/c back to [facility] Code status: full (2) Hypoxia: (3) Inpatient hospitalization within last 30 days: (4) Anticoagulant long-term use: Total Time Total Time Spent Total Time Spent (In Minutes): as per attending attestation Discharge Plan Discharge Items Patient Disposition: Personal Skilled Nursing Reason For Visit: HYPOXIA,SOB Discharge Diagnosis: mild CHF exacerbation Activity: Per Instructions section Non-emergency contact: Primary Care Provider Call non-emergency contact if: you have any medication questions and your symptoms worsen Follow-up/Referrals: Aguilar Lamb [Primary Care Provider] - Diet: Low Sodium (2gm) Addtl Attending Provider Instructions: You were admitted to the hospital for an episode of shortness of breath in association with low oxygen levels. You were treated with supplemental oxygen and diuretics (medications to help you get rid of extra fluid through your urine). In the setting of your previous heart problems, an ultrasound of your heart was performed which showed no significant change from your prior scan in 2021. Your shortness of breath was most likely related to some fluid build up caused by a recent increase in salt in your diet. You should try your best to follow a low salt diet (less than 2000 mg daily and less than 500 mg per meal). A discharge summary will be sent to your primary care physician to ensure continuity of care. Please bring this discharge summary with you to your next office appointment so that your provider can review it at that time. Medications: Your medication list has been reviewed and reconciled upon discharge to ensure accuracy and continuity of care. An updated list of all your medications is included with your hospital discharge paperwork. Please review this list closely and make note of any changes to your medications. - There have been no changes to your medications. Follow up appointments: - Make a follow up appointment with your PCP within the next week. It is very important that you follow up with them shortly after discharge from the hospital. - Keep all of your follow up appointments as already scheduled. If you cannot make an appointment, notify your provider. CONTACT YOUR PRIMARY CARE PROVIDER if you experience any of the following: - Difficulty following your treatment plan - Difficulty taking any of your medications CALL 911 OR GO TO THE EMERGENCY DEPARTMENT if you experience any of the following: - Sudden, severe abdominal pain or nausea/vomiting - Severe chest pain or chest pain that radiates to your jaw or arm - Sudden, severe shortness of breath or difficulty breathing Pending Studies at Discharge: No Stand-Alone Forms: My [employer], Smoking Cessation Skilled Items Patient informed of condition?: Yes DNR: No Discharge Level of Care: Other Communicable Disease: No Discharge Prognosis: Stable Lines: None Urinary Catheter: No Medications and DC Order Prescriptions: Continued acetaminophen 500 mg tablet 1,000 mg PO TID Qty: 180 0RF metoprolol succinate 25 mg tablet extended release 24 hr 25 mg PO QAM Qty: 30 5RF baclofen 5 mg tablet 5 mg PO BID Qty: 60 2RF lisinopril 30 mg tablet 30 mg PO QAM Qty: 90 3RF oxybutynin chloride 5 mg tablet extended release 24hr 5 mg PO QAM Qty: 90 3RF Xarelto 15 mg tablet 15 mg PO DAILY Qty: 90 3RF pantoprazole [Protonix] 40 mg tablet,delayed release (DR/EC) 40 mg PO BID Qty: 60 5RF alendronate 70 mg tablet 70 mg PO .ONCE WEEKLY Qty: 12 1RF Calcium 600 + D(3) 600 mg calcium- 200 unit capsule 1 cap PO QAM cholecalciferol (vitamin D3) 2,000 unit capsule 2,000 units PO QDL cranberry 500 mg capsule 500 mg PO QAM cyanocobalamin (vitamin B-12) 500 mcg lozenge 500 mcg PO 2XWK Rx Instructions: TAKES ON SUNDAY AND SUNDAY. magnesium chloride 64 mg tablet,delayed release (DR/EC) 64 mg PO TID tramadol 50 mg tablet 25 - 50 mg PO Q4H PRN (Reason: pain) Qty: 42 0RF lorazepam 1 mg tablet 1 mg PO DAILY PRN (Reason: Anxiety) Rituxan 10 mg/mL Concentrate 10 mg IV MO Rx Instructions: DUE 06/22/22. Ivig 1 dose IV MO Rx Instructions: Next one due Jul 13 docusate sodium [Stool Softener] 100 mg tablet 100 mg PO QAM Lactobacillus acidophilus Capsule 10,000 mmu cells PO QAM diclofenac sodium 1 % gel 2 g topical QID PRN (Reason: Back Pain) Rx Instructions: apply to back Discharge Orders: Discharge Order (Routine); Ordered 02/06/23 Ordered By: Jolynn Alexandra/Ronny Patient Handouts: Low-Salt Choices Admission Data Admit Date/Time: 02/04/23 11:23 Attending Provider: Leigha Romero Admit Provider: Rangel Edwards Primary Care Provider: Aguilar Lamb Other Providers: Rangel Edwards Other Interventions: Discharge Summary Assessment (RN) Last Done: 02/06/23 10:08 Supervising Physician Co-Signing Physician Notes Resident Physician Supervision Note: I independently interviewed and examined the patient and verified the mccall history and physical, reviewed labs and image studies and agree with resident findings and care plan. Resident Activity Tracking Resident Involvement: Resident Care Provided Care Provided: Adult Hospital Medicine
[2023-02-06] MEDS: PANTOprazole 40 MG TAB PO SCH (08:48)
[2023-02-06] MEDS: BACLOFEN 10 MG TAB PO SCH (08:48)
[2023-02-06] MEDS: METOPROLOL SUCC 25MG EXT REL TAB PO SCH (08:49)
[2023-02-06] MEDS: MAGNESIUM CHLORIDE W/CALCIUM 64MG DELAYED REL TAB PO SCH (08:49)
[2023-02-06] MEDS: OXYBUTYNIN CHLORIDE XL 5 MG TABCR PO SCH (08:49)
[2023-02-06] MEDS: DOCUSATE SODIUM 100 MG CAP PO SCH (08:49)
[2023-02-06] MEDS: lisinopril 10 MG TAB PO SCH (08:49)
== END 2023-02-06 12:04 | disposition home or self-care (01) | DRG 291 ==
LOC: ED 06:21 → SUATTDRO 11:23 → 3N 11:23

== ENCOUNTER 2023-02-24 09:59 | Inpatient (IN) ==
--- NOTE | 2023-02-24 10:04 | Emergency Department Note ---
Impression & Plan Acute respiratory failure with hypoxia, Generalized weakness, Elevated troponin ED Provider Note NAME: MICHAEL EDWARDS AGE: 87 SEX: F : 1935 ARRIVES VIA: Ambulance INFORMANT: Patient, ED PROVIDER(S): Marquez Meza MD CHIEF COMPLAINT: Weakness, shortness of breath MEDICAL DECISION MAKING: Patient presents due to concern for weakness and was noted to be hypoxemic. IV was established blood work was obtained. The patient was ordered IV fluids COVID combo test as well as a chest x-ray and EKG. The patient's blood work shows a normal white count with mild anemia and normal platelet count. The patient's kidney function is grossly unremarkable. Very mild hypomagnesemia. Troponin is slightly elevated 23.8. Urinalysis negative for obvious infection. BioFire is negative. Chest x-ray does not show obvious pneumonia. The patient did undergo an ambulatory trial and was hypoxemic to 83%. I did speak with the on-call hospitalist service Harvey Prescott PA-C and Dr. Be and the patient was admitted to the medicine service. Critical Care: I have personally spent 37 minutes of critical care time in direct management of this patient. This includes bedside care, interpretation of diagnostic studies, and testing, discussion with consultants, patient, and family members, and other require inpatient management activities. This 37 minutes is in excess of all separately billable procedures. Prior /Outside records reviewed: None Differential diagnosis: Reactive airway disease, pneumonia, pneumothorax, COPD, CHF, infections, cardiac ischemia, pulmonary embolism, musculoskeletal, gastrointestinal, as well as other pathologies. Diagnostics, as interpreted by me: ECG: A-fib, ventricular rate of 100, normal QRS, normal axis no ST elevations. No significant change for comparison EKG completed February 04, 2023. Patient is on Xarelto. Cardiac monitoring: An order was placed for continuous cardiac monitoring. The monitor shows a rate of 95 with irregular irregular rhythm. Patient was placed on pulse oximetry Medical decision rules: None Imaging studies: See below HPI: Patient presents due to concern for weakness and associated shortness of breath that did occur when try to get up and out of bed this morning. The patient does reside at [facility] at [facility]. Patient denies any chest pains abdominal pain nausea vomiting or diarrhea. No known sick contacts or recent travel. Patient denies any cough or fever. Patient is a former smoker last smoking in the 70s. Patient was placed on supplemental oxygen in route by EMS and the patient was noted to be hypoxemic in the 87-88%. Patient does not use at home oxygen. Patient denies any leg swelling or calf pain. No history of DVT or PE. PAST MEDICAL HISTORY: See Below PAST SURGICAL HISTORY: See Below SOCIAL HISTORY: See Below HOME MEDICATIONS: See Below ALLERGIES: See Below VITALS: See Below PHYSICAL EXAMINATION: GENERAL: NAD, wearing a mask, non-toxic. EYE EXAM: Normal conjunctiva. PERRL, no anisocoria and EOM's grossly intact w/o pain. NECK: Supple, no nuchal rigidity, no adenopathy, non-tender. No signs of meningismus. FROM of the neck with good chin to chest and neck extension. No stridor. LUNGS: Clear to auscultation. Normal chest wall mechanics. HEART: Irregularly irregular, no MRG. ABDOMEN: Abdomen soft, non-tender, no masses, no rebound or guarding. BACK: No CVA TTP. SKIN: No rashes and no bruising. UPPER EXTREMITIES: Upper extremities are grossly normal. LOWER EXTREMITIES: Grossly normal, no edema. NEURO EXAM: A&O x3, cranial nerves II-XII grossly intact, normal speech, moves all 4 extremities. Past Med/Surg History Medical History Abdominal pain Acute dehydration Acute respiratory failure with hypoxia ROSETTE (acute kidney injury) Aortic valve stenosis Bilateral sacroiliitis Cardiac murmur Close exposure to COVID-19 virus Closed head injury Compression fracture of spine Elevated troponin Fall Generalized weakness Hearing deficit Left MARTINES High anion gap metabolic acidosis History of breast cancer ; h/o lumpectomy + radiation History of chemotherapy History of Clostridioides difficile 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 skin HTN (hypertension) Hyperkalemia Low back pain Non-Hodgkin's lymphoma (03/08/13) h/o chemo Osteoarthritis Overactive bladder Paroxysmal atrial fibrillation ON XARELTO F/U DR PETTY Pneumonia Prophylactic antibiotic Right shoulder injury SOB (shortness of breath) on exertion Surgical History Encounter for insertion of venous access port History of colonoscopy History of hysterectomy (03/08/13) History of squamous cell carcinoma excision History of vascular access device IN PLACE LEFT UPPER CHEST-"NON FUNCTIONING" PER PT Post-lymphadenectomy lymphedema of arm S/P breast biopsy S/P lumpectomy of breast RIGHT/RADIATION S/P lymph node biopsy Family History Father Bright's disease Kidney disease Sister Colon cancer Gallbladder disease Hypertension Kidney stones Colorectal cancer Mother Cardiac disorder Congestive heart failure Other Crohn's disease Denies family history of Ovarian cancer Prostate cancer Myocardial infarction Breast cancer Social History Smoking Status: Former smoker Tobacco Type: Cigarettes Cigarettes Per Day: 1 Pack; Second Hand Exposure: No; Do You Dip or Chew Tobacco: No; Hx Alcohol Use: No Hx Substance Use: No Preferred Language: Khmer Communication Ability: Effective Visual Impairment: No Limitations Hearing Ability: Use of Hearing Aid Flotation Operator Required: No Beliefs That Will Affect Care: None marital status: / Current Living Situation: Personal Care Facility current occupational status: retired How many Children do You have: 0 Feels Safe at Home: Yes Dental Care, Regularly: Yes Physical Activity Frequency: Daily Seatbelt Use: always Sunscreen Use: Yes Assistive Devices: Walker Allergies Allergies Allergy/AdvReac Type Severity Reaction Status Date / Time diphenhydramine Allergy Severe ALL Verified 02/24/23 15:19 ANTIHISTAMINES-"HYPER" FEELING allopurinol Allergy Intermediate RASH-SEVERE Verified 02/24/23 15:19 ITCHING Home Meds Home Medications Medication Instructions Recorded Confirmed calcium carbonate 600 mg-vitamin 1 cap PO QAM 04/21/19 02/24/23 D3 5 mcg (200 unit) capsule (Calcium 600 + D(3)) cholecalciferol (vitamin D3) 50 2,000 units PO QDL 04/21/19 02/24/23 mcg (2,000 unit) capsule cranberry 500 mg capsule 500 mg PO QAM 04/21/19 02/24/23 magnesium chloride 64 mg 64 mg PO TID 04/21/19 02/24/23 (magnesium chloride) tablet,delayed release docusate sodium 100 mg tablet 100 mg PO QAM 06/16/22 02/24/23 (Stool Softener) diclofenac sodium 1 % topical gel 2 g topical BID PRN Back Pain 02/08/23 02/24/23 Lactobacillus acidophilus 175 mg PO DAILY 02/13/23 02/24/23 (Acidophilus capsule) cyanocobalamin (vitamin B-12) 500 500 mcg PO 2XWK 02/24/23 02/24/23 mcg tablet (Vitamin B-12) lorazepam 1 mg tablet 1 mg PO DAILY PRN Anxiety 02/24/23 02/24/23 multivitamin with iron 1 tab PO DAILY 02/24/23 02/24/23 Previous Rx's Medication Instructions Recorded tramadol 50 mg tablet 25 - 50 mg PO Q4H PRN pain #42 tabs 06/16/22 acetaminophen 500 mg tablet 1,000 mg PO TID #180 tabs 06/27/22 lisinopril 30 mg tablet 30 mg PO QAM #90 tabs 12/25/22 oxybutynin chloride 5 mg 5 mg PO QAM #90 tabs 12/25/22 tablet,extended release 24 hr rivaroxaban 15 mg tablet (Xarelto) 15 mg PO DAILY #90 tabs 12/25/22 alendronate 70 mg tablet 70 mg PO .ONCE WEEKLY #12 tabs 01/17/23 pantoprazole 40 mg tablet,delayed 40 mg PO BID #60 tabs 01/17/23 release (Protonix) baclofen 5 mg tablet 5 mg PO BID #60 tabs 02/15/23 metoprolol succinate 25 mg 25 mg PO QAM #30 tabs 02/15/23 tablet,extended release 24 hr melatonin 3 mg capsule 3 mg PO HS PRN sleep #90 caps 02/20/23 escitalopram oxalate 5 mg tablet 5 mg PO DAILY #30 tabs 02/22/23 (Lexapro) Results & Data (ED) Vital Signs Vital Signs - 24 hr 02/24/23 10:06 02/24/23 10:11 02/24/23 10:50 Temperature 37.3 C Temperature Source Oral Pulse Rate 81 95 H Pulse Rate [Apical] 84 Respiratory Rate 24 22 Respiratory Pattern Tachypnea Blood Pressure 150/88 H Blood Pressure [Right Arm] 136/83 Blood Pressure Mean 108 Blood Pressure Mean [Right Arm] 100 Blood Pressure Position Sitting Pulse Oximetry 87 L 97 Oxygen Delivery Method Room Air Nasal Cannula Oxygen Flow Rate 2 Sepsis Recent Fever Within 48 Hours No Sepsis New/Unexplained Change in Mental Status No Sepsis Action Taken by Nursing No Action Required 02/24/23 12:02 02/24/23 12:41 Temperature Temperature Source Pulse Rate Pulse Rate [Apical] 84 Respiratory Rate 20 Respiratory Pattern Blood Pressure Blood Pressure [Right Arm] 164/96 H Blood Pressure Mean Blood Pressure Mean [Right Arm] 118 Blood Pressure Position Pulse Oximetry 98 84 L Oxygen Delivery Method Nasal Cannula Room Air Oxygen Flow Rate 2 Sepsis Recent Fever Within 48 Hours Sepsis New/Unexplained Change in Mental Status Sepsis Action Taken by Halfway Medications Current Medication List: was personally reviewed by me Laboratory Data Attestation: I reviewed the patient's lab results. 02/25/23 06:48 02/24/23 10:07 Lab Results 02/24/23 02/24/23 02/24/23 Range/Units 10:07 10:07 10:07 WBC 10.41 (4.8-10.8) K/ul RBC 3.60 L (4.20-5.40) M/uL Hgb 11.3 L (12.0-16.0) g/dl Hct 35.7 L (37.0-47.0) % MCV 99.2 (80.0-100.0) fL MCH 31.4 (25.0-34.0) pg MCHC 31.7 L (32.0-36.0) g/dL RDW Std Deviation 51.5 H (36.4-46.3) fL RDW Coeff of Ruddy 13.9 (11.5-14.5) % Plt Count 204 (130-400) K/uL MPV 11.7 (9.4-12.4) fL Immature Gran % (Auto) 0.3 % Neut % (Auto) 90.4 % Lymph % (Auto) 3.2 % Payne % (Auto) 5.6 % Eos % (Auto) 0.2 % Baso % (Auto) 0.3 % Neut # (Auto) 9.42 H (1.40-6.50) K/uL Lymph # (Auto) 0.33 L (1.2-3.4) K/uL Payne # (Auto) 0.58 (0.11-0.59) K/uL Eos # (Auto) 0.02 (0-0.50) K/uL Baso # (Auto) 0.03 (0-0.2) K/uL Immature Gran # (Auto) 0.03 (0.01-0.20) K/uL Sodium 138 (136-145) mmol/L Potassium 4.4 (3.5-5.1) mmol/L Chloride 104 (98-107) mmol/L Carbon Dioxide 27 (21-32) mmol/L Anion Gap 7 (3-11) BUN 21 (6-23) mg/dl Creatinine 1.03 (0.6-1.2) mg/dl Est Cr Clr Drug Dosing 31.8 ml/min Est GFR ( Amer) 56.6 ml/min Est GFR (Non-Af Amer) 48.8 ml/min BUN/Creatinine Ratio 20.4 H (10-20) Glucose 112 H (70-99(Fasting)) mg/dl Calcium 9.2 (8.6-10.3) mg/dl Magnesium 1.5 L (1.7-2.4) mg/dl Total Bilirubin 0.4 (0.2-1.0) mg/dl AST 26 (13-39) U/L ALT 22 (7-52) U/L Alkaline Phosphatase 237 H (34-104) U/L Troponin I High Sens 23.8 H (0-14) pg/ml Total Protein 6.7 (6.0-8.3) gm/dl Albumin 3.4 (3.4-5.0) gm/dl Globulin 3.3 (2.5-4.0) gm/dl Albumin/Globulin Ratio 1.0 (0.9-2) Vitamin B12 (180-914) pg/ml Folate (>5.38) ng/ml TSH 1.938 (0.300-4.500) uIu/ml Urine Color Urine Appearance (Clear) Urine pH (4.5-7.5) Ur Specific Killbuck (1.000-1.030) Urine Protein (Negative) Urine Glucose (UA) (Negative) Urine Ketones (Negative) Urine Blood (Negative) Urine Nitrite (Negative) Urine Bilirubin (Negative) Urine Urobilinogen (Negative) Ur Leukocyte Esterase (Negative) Urine WBC (Auto) (0-5) /hpf Urine RBC (Auto) (0-4) /hpf U Hyaline Cast (Auto) (0-5) /lpf U Epithel Cells (Auto) (0-5) /lpf Urine Bacteria (Auto) (Negative) Adenovirus (PCR) (NotDetected) B. pertussis DNA (PCR) (NotDetected) B.parapertussis DNA PCR (NotDetected) C. pneumoniae DNA (PCR) (NotDetected) Coronavirus OC43 (PCR) (NotDetected) Coronavirus HKU1 (PCR) (NotDetected) Coronavirus 229E (PCR) (NotDetected) SARS-CoV-2 (PCR) (NotDetected) Coronavirus NL63 (PCR) (NotDetected) Human Metapneumovir PCR (NotDetected) Influenza Type A (PCR) (NotDetected) Influenza Type B (PCR) (NotDetected) M. pneumoniae (PCR) (NotDetected) Parainfluenza 1 (PCR) (NotDetected) Parainfluenza 2 (PCR) (NotDetected) Parainfluenza 3 (PCR) (NotDetected) Parainfluenza 4 (PCR) (NotDetected) RSV (PCR) (NotDetected) Entero/Rhino (PCR) (NotDetected) 02/24/23 02/24/23 02/24/23 Range/Units 10:07 11:00 12:42 WBC (4.8-10.8) K/ul RBC (4.20-5.40) M/uL Hgb (12.0-16.0) g/dl Hct (37.0-47.0) % MCV (80.0-100.0) fL MCH (25.0-34.0) pg MCHC (32.0-36.0) g/dL RDW Std Deviation (36.4-46.3) fL RDW Coeff of Ruddy (11.5-14.5) % Plt Count (130-400) K/uL MPV (9.4-12.4) fL Immature Gran % (Auto) % Neut % (Auto) % Lymph % (Auto) % Payne % (Auto) % Eos % (Auto) % Baso % (Auto) % Neut # (Auto) (1.40-6.50) K/uL Lymph # (Auto) (1.2-3.4) K/uL Payne # (Auto) (0.11-0.59) K/uL Eos # (Auto) (0-0.50) K/uL Baso # (Auto) (0-0.2) K/uL Immature Gran # (Auto) (0.01-0.20) K/uL Sodium (136-145) mmol/L Potassium (3.5-5.1) mmol/L Chloride (98-107) mmol/L Carbon Dioxide (21-32) mmol/L Anion Gap (3-11) BUN (6-23) mg/dl Creatinine (0.6-1.2) mg/dl Est Cr Clr Drug Dosing ml/min Est GFR ( Amer) ml/min Est GFR (Non-Af Amer) ml/min BUN/Creatinine Ratio (10-20) Glucose (70-99(Fasting)) mg/dl Calcium (8.6-10.3) mg/dl Magnesium (1.7-2.4) mg/dl Total Bilirubin (0.2-1.0) mg/dl AST (13-39) U/L ALT (7-52) U/L Alkaline Phosphatase (34-104) U/L Troponin I High Sens (0-14) pg/ml Total Protein (6.0-8.3) gm/dl Albumin (3.4-5.0) gm/dl Globulin (2.5-4.0) gm/dl Albumin/Globulin Ratio (0.9-2) Vitamin B12 778 (180-914) pg/ml Folate > 22.30 (>5.38) ng/ml TSH (0.300-4.500) uIu/ml Urine Color Yellow Urine Appearance Clear (Clear) Urine pH 5.0 (4.5-7.5) Ur Specific Killbuck 1.010 (1.000-1.030) Urine Protein Trace H (Negative) Urine Glucose (UA) Negative (Negative) Urine Ketones Negative (Negative) Urine Blood Negative (Negative) Urine Nitrite Negative (Negative) Urine Bilirubin Negative (Negative) Urine Urobilinogen Negative (Negative) Ur Leukocyte Esterase Negative (Negative) Urine WBC (Auto) 1-5 (0-5) /hpf Urine RBC (Auto) 0-4 (0-4) /hpf U Hyaline Cast (Auto) 0 (0-5) /lpf U Epithel Cells (Auto) 0-5 (0-5) /lpf Urine Bacteria (Auto) Negative (Negative) Adenovirus (PCR) Not Detected (NotDetected) B. pertussis DNA (PCR) Not Detected (NotDetected) B.parapertussis DNA PCR Not Detected (NotDetected) C. pneumoniae DNA (PCR) Not Detected (NotDetected) Coronavirus OC43 (PCR) Not Detected (NotDetected) Coronavirus HKU1 (PCR) Not Detected (NotDetected) Coronavirus 229E (PCR) Not Detected (NotDetected) SARS-CoV-2 (PCR) Not Detected (NotDetected) Coronavirus NL63 (PCR) Not Detected (NotDetected) Human Metapneumovir PCR Not Detected (NotDetected) Influenza Type A (PCR) Not Detected (NotDetected) Influenza Type B (PCR) Not Detected (NotDetected) M. pneumoniae (PCR) Not Detected (NotDetected) Parainfluenza 1 (PCR) Not Detected (NotDetected) Parainfluenza 2 (PCR) Not Detected (NotDetected) Parainfluenza 3 (PCR) Not Detected (NotDetected) Parainfluenza 4 (PCR) Not Detected (NotDetected) RSV (PCR) Not Detected (NotDetected) Entero/Rhino (PCR) Not Detected (NotDetected) Administered Medications Baclofen (Baclofen 10 Mg Tab) 5 mg PO BID [facility] Stop: 03/26/23 20:59 Last Admin: 02/24/23 22:37 Dose: 5 mg Documented By: RUBÉN Cyanocobalamin (Cyanocobalamin (B-12) 500 Mcg Tablet) 500 mcg PO SuSa@0900 [facility] Stop: 03/26/23 15:44 Last Admin: 02/24/23 16:10 Dose: 500 mcg Documented By: IRLANDA Magnesium Chloride (Magnesium Chloride W/Calcium 64mg Delayed Rel Tab) 64 mg PO TID [facility] Stop: 03/26/23 15:31 Last Admin: 02/24/23 22:37 Dose: 64 mg Documented By: Admin: 02/24/23 16:10 Dose: 64 mg Documented By: IRLANDA Pantoprazole Sodium (Pantoprazole 40 Mg Tab) 40 mg PO BID [facility] Stop: 03/26/23 20:59 Last Admin: 02/24/23 22:38 Dose: 40 mg Documented By: TMD Discontinued Medications Sodium Chloride (Nss) 500 mls @ 999 mls/hr IV .Q31M [facility] Stop: 02/24/23 11:30 Last Infusion: 02/24/23 11:39 Dose: 0 mls/hr Documented By: Admin: 02/24/23 11:04 Dose: 999 mls/hr Documented By: DIXIE Magnesium Sulfate/Dextrose (Magnesium Sulfate / D5w) 1 gm in 100 mls @ 50 mls/hr IV Q2H [facility] Stop: 02/24/23 17:14 Last Infusion: 02/24/23 18:35 Dose: 0 mls/hr Documented By: [facility] Admin: 02/24/23 16:10 Dose: 50 mls/hr Documented By: [facility] Infusion: 02/24/23 15:53 Dose: 50 mls/hr Documented By: [facility] Admin: 02/24/23 13:53 Dose: 50 mls/hr Documented By: DIXIE Lisinopril (Lisinopril 10 Mg Tab) 30 mg PO NOW ONE Stop: 02/24/23 18:45 Last Admin: 02/24/23 19:21 Dose: 30 mg Documented By: [facility] Metoprolol Succinate (Metoprolol Succ 25mg Ext Rel Tab) 25 mg PO NOW STA Stop: 02/24/23 16:56 Last Admin: 02/24/23 17:07 Dose: 25 mg Documented By: [facility] Imaging Data Radiologist's Impression: Chest X-Ray 02/24/23 10:49 XR chest 1V portable HISTORY: weakness COMPARISON: Chest 02/04/2023. FINDINGS: Slightly rotated study. Low lung volumes again noted. No pneumothorax. The cardiac silhouette remains enlarged. There is a left subclavian Port-A-Cath which terminates in the SVC. Bibasilar linear densities persist and favor subsegmental atelectasis or scarring. There are old, healed right-sided rib fractures. No new focal lung consolidations to suggest a pneumonia. No evidence for pulmonary edema. No significant pleural effusions. No pneumothorax. IMPRESSION: No significant change compared to the prior study. No acute process. ACT 112: Negative or not required by law. Electronically signed by: Solomon Fam M.D. 02/24/2023 11:15 AM Discharge Plan Visit Data Chief Complaint: Weakness ED Provider: Marquez Meza Discharge Problem: Acute respiratory failure with hypoxia, Generalized weakness, Elevated troponin Patient Disposition: Admitted As Inpatient Discharge Instructions Interventions: ED Discharge Assessment Last Done: 02/24/23 15:18
[2023-02-24] MEDS ORDERED: SODIUM CHLORIDE 0.9% 500 ML IV SCH (11:00)
[2023-02-24 11:05] LABS: Hematocrit (blood only) 35.7 % (37.0-47.0); Hemoglobin 11.3 g/dl (12.0-16.0); Mean Corpuscular Hemoglobin 31.4 pg (25.0-34.0); Mean Corpuscular Hgb Conc 31.7 g/dL (32.0-36.0); Mean Corpuscular Volume 99.2 fL (80.0-100.0); Mean Platelet Volume 11.7 fL (9.4-12.4); Platelet Count 204 K/uL (130-400); RDW Coefficient of Variation 13.9 % (11.5-14.5); RDW Standard Deviation 51.5 fL (36.4-46.3); White Blood Count 10.41 K/ul (4.8-10.8)
[2023-02-24 11:13] LABS: Albumin Level 3.4 gm/dl (3.4-5.0); BUN Creatinine Ratio 20.4 (10-20); Bilirubin,Total 0.4 mg/dl (0.2-1.0); Calcium 9.2 mg/dl (8.6-10.3); Creatinine Clr Calc Pharmacy 31.8 ml/min; Est GFR (African American) 56.6 ml/min; Est GFR (Non-African American) 48.8 ml/min; Globulin 3.3 gm/dl (2.5-4.0); Magnesium 1.5 mg/dl (1.7-2.4); Potassium 4.4 mmol/L (3.5-5.1); Total Protein 6.7 gm/dl (6.0-8.3)
--- NOTE | 2023-02-24 11:16 | XRay Report ---
XR chest 1V portable HISTORY: weakness COMPARISON: Chest 02/04/2023. FINDINGS: Slightly rotated study. Low lung volumes again noted. No pneumothorax. The cardiac silhouet te remains enlarged. There is a left subclavian Port-A-Cath which terminates in the SVC. Bibasilar li near densities persist and favor subsegmental atelectasis or scarring. There are old, healed right-si ded rib fractures. No new focal lung consolidations to suggest a pneumonia. No evidence for pulmonary edema. No significant pleural effusions. No pneumothorax. IMPRESSION: No significant change compared to the prior study. No acute process. ACT 112: Negative or not required by law. Electronically signed by: Solomon Fam M.D. 02/24/2023 11:15 AM
[2023-02-24 11:18] LABS: Troponin I High Sensitivity 23.8 pg/ml (0-14)
[2023-02-24 11:39] LABS: Basophils # (auto) 0.03 K/uL (0-0.2); Basophils % (auto) 0.3 %; Eosinophils # (auto) 0.02 K/uL (0-0.50); Eosinophils % (auto) 0.2 %; Immature Granulocytes # (auto) 0.03 K/uL (0.01-0.20); Immature Granulocytes % (auto) 0.3 %; Lymphocytes # (auto) 0.33 K/uL (1.2-3.4); Lymphocytes % (auto) 3.2 %; Monocytes # (auto) 0.58 K/uL (0.11-0.59); Monocytes % (auto) 5.6 %; Neutrophils # (auto) 9.42 K/uL (1.40-6.50); Neutrophils % (auto) 90.4 %
[2023-02-24 11:56] LABS: Adenovirus PCR Not Detected (NotDetected); Bordetella parapertussis PCR Not Detected (NotDetected); Bordetella pertussis PCR Not Detected (NotDetected); Chlamydia pneumoniae PCR Not Detected (NotDetected); Coronavirus 229E PCR Not Detected (NotDetected); Coronavirus CoV-2 (COVID19)PCR Not Detected (NotDetected); Coronavirus HKU1 PCR Not Detected (NotDetected); Coronavirus NL63 PCR Not Detected (NotDetected); Coronavirus OC43PCR Not Detected (NotDetected); Human Metapneumovirus PCR Not Detected (NotDetected); Influenza A PCR Not Detected (NotDetected); Influenza B PCR Not Detected (NotDetected); Mycoplasma pneumoniae PCR Not Detected (NotDetected); Parainfluenza Virus 1 PCR Not Detected (NotDetected); Parainfluenza Virus 2 PCR Not Detected (NotDetected); Parainfluenza Virus 3 PCR Not Detected (NotDetected); Parainfluenza Virus 4 PCR Not Detected (NotDetected); Respiratory Syncytial VirusPCR Not Detected (NotDetected); Rhinovirus/Enterovirus PCR Not Detected (NotDetected)
--- NOTE | 2023-02-24 13:01 | History & Physical Report ---
Date of Service February 24, 2023 Assessment & Plan (1) Acute respiratory failure with hypoxia: Plan: -Admit to med/tele on continuous pulse oximetry -Currently stable on 2L NC, did desaturate into the 80's on RA during my exam and into the low 80's on RA with ambulation trial in the ED -Likely multifactorial at this time including mod-severe aortic stenosis, low lung volumes with severe kyphosis, hx of tobacco abuse, and anxiety -Has had multiple recent admissions for the same complaints and abnormalities, last admission was thought to be due to acute HFpEF exacerbation -Patient has not limited her sodium intake as instructed on last discharge, no signs of infection such as leukocytosis, negative biofire, no acute CXR findings, ECG WNL -She is not significantly volume overloaded, will obtain BNP for further evaluation -Low suspicion for PE as she is anticoagulated on Xarelto -Continue PRN O2 to keep SpO2 at or above 92% -Incentive spirometry, flutter therapy -Will order noctural pulse oximetry testing tonight on RA and am ABG on RA if able for further evaluation -Strong likelihood she will need to be discharged on home O2 -BL SCD's and Xarelto for DVT PPX -Heart healthy diet with 2gm sodium restriction (2) Generalized weakness: Plan: -Likely multifactorial including deconditioning, current malignancy, anemia, and hypomagnesemia -No signs of infection, no focal neuro defects on exam -Will obtain iron studies, B12, and folic acid levels -Will replete mag on admission -PT/OT consults placed; patient currently lives at [facility], we will need to seriously consider a higher level of care on DC as she is frequently being re-admitted (3) Hypomagnesemia: Plan: -1.5 today -Likely due to poor oral intake despite being on magnesium supplementation at home -Not on outpatient diuretics -Will give 2 bags of IV mag-sulfate on admission -Continue TID mag-chloride tabs -Monitor am electrolytes (4) Elevated troponin: Plan: -Initial high sen trop elevated at 23 -Patient is asymptomatic, no acute ST segment or T-wave changes on ECG -Patient noted to have chronically mild high sen trop elevation -Likely due to hypoxia today -Will repeat another high sen trop state and continue to monitor on tele (5) Aortic valve stenosis: Plan: -Known to have mod-severe , likely contributing to her symptoms -Has required IV diuresis on previous admissions -Does not appear volume overloaded today, will hold diuretics at this time (6) Anemia: Plan: -Hgb, HCT, and MCHC all decreased compared to last admission -Patient appears to only be on B12 supplementation outpatient -Will obtain Iron studies, B12, and folic acid levels for further assessment -Continue B12 for now (7) Paroxysmal atrial fibrillation: Plan: -Rate controlled -Continue metoprolol and Xarelto (8) HTN (hypertension): Plan: -Stable, continue lisinopril and metoprolol (9) Non-Hodgkin's lymphoma: Plan: -Follows with Heme/onc, on maintenance Rituxan -Continue to FU with the [facility] Plan The patient was discussed with Dr. Be at the time of the admission History of Present Illness Chief Complaint: Generalized weakness, SOB Primary Care Provider: Marko Dennis MD Mishel Beckford is an 87 year old female with a past medical history of recurrent Non-Hodgkin's Lymphoma (on maintenance Rituxan), Anemia, Osteoporosis, Hypertension, Paroxysmal Atrial Fibrillation (on Xarelto), Mild Mitral Regurgitation, and [id number] Aortic Stenosis who presented to the [facility] ED from [facility] today via EMS for generalized weakness and SOB. In the ED she was initially found to be hypoxic at 87% on RA but otherwise stable. Labs were significant for a Hgb of 11.3 (down from 13 as of 02/05), mag of 1.5, initial high sen trop of 23.8, and full resp biofire negative. Chest xray was read as No significant change compared to the prior study. No acute process.. The patient fell to 84% on RA during an ambulation trial, we were asked to admit for generalized weakness and acute hypoxic respiratory failure. Prior to admission the patient was given 1L NSS. At the time of the exam the patient was sleeping in bed, she was in no acute distress upon waking. She states that she came to the hospital due to her deb athing, she thinks that she was having panic attacks last night and into this am. She states that she has been in her normal state of health, she always has baseline SOB, especially with exertion. She goes on daily walks, which she did again yesterday. When she gets SOB she takes breaks and her SOB resolves. She states that she was in bed last night when she felt a little SOB, this made her very anxious, causing her to have worsening SOB. She states that they gave her a dose of Ativan last night which improved her anxiety. This am she woke with SOB again and was noted to be 87% on RA so EMS was called. She states that she feels fine at rest during my exam. When they tried to ambulate her she said she almost fell. She denies recent fever, chills, chest pain, productive cough, abd pain, nausea, vomiting, dysuria, hematuria, melena, LE swelling and recent trauma. When asked about reducing her sodium intake she states that she hasn't because "I like salt too much". I explained to her that they thought some of her SOB on last admission was due to too much sodium intake cause her to retain water. She expressed understanding and states that she will try to switch to low sodium potato chips. The patient was recently admitted to [facility] from 02/04-02/06 for acute hypoxic respiratory failure and elevated high sen trop. Her AHRF was thought to be due to acute HFpEF exacerbation and her mod-severe . Her CHF exacerbation was thought to be due to excessive salt intake. She was initially treated with IV Lasix in the ED but additional IV diuresis was held due to a subsequently elevated cr. TTE showed stable HFpEF and mod-severe . Her elevated trop was attributed to demand. She was weaned off O2 and discharged with a recommendation to eat a low sodium diet. We discussed code status, she clearly stated that she is a DNR/DNI. Attempted to call the patient's Nice/POA (Jordan Nichols [phone]) multiple times without success. Please refer to Dr. Be's attestation for any changes to the treatment plan Allergies Allergy/AdvReac Type Severity Reaction Status Date / Time diphenhydramine Allergy Severe ALL Verified 02/24/23 15:19 ANTIHISTAMINES-"HYPER" FEELING allopurinol Allergy Intermediate RASH-SEVERE Verified 02/24/23 15:19 ITCHING Home Medications Medication Instructions Recorded Confirmed Type calcium carbonate 600 mg-vitamin 1 cap PO QAM 04/21/19 02/24/23 History D3 5 mcg (200 unit) capsule (Calcium 600 + D(3)) cholecalciferol (vitamin D3) 50 2,000 units PO QDL 04/21/19 02/24/23 History mcg (2,000 unit) capsule cranberry 500 mg capsule 500 mg PO QAM 04/21/19 02/24/23 History magnesium chloride 64 mg 64 mg PO TID 04/21/19 02/24/23 History (magnesium chloride) tablet,delayed release docusate sodium 100 mg tablet 100 mg PO QAM 06/16/22 02/24/23 History (Stool Softener) tramadol 50 mg tablet 25 - 50 mg PO Q4H PRN pain #42 tabs 06/16/22 02/24/23 Rx acetaminophen 500 mg tablet 1,000 mg PO TID #180 tabs 06/27/22 02/24/23 Rx lisinopril 30 mg tablet 30 mg PO QAM #90 tabs 12/25/22 02/24/23 Rx oxybutynin chloride 5 mg 5 mg PO QAM #90 tabs 12/25/22 02/24/23 Rx tablet,extended release 24 hr rivaroxaban 15 mg tablet (Xarelto) 15 mg PO DAILY #90 tabs 12/25/22 02/24/23 Rx alendronate 70 mg tablet 70 mg PO .ONCE WEEKLY #12 tabs 01/17/23 02/24/23 Rx pantoprazole 40 mg tablet,delayed 40 mg PO BID #60 tabs 01/17/23 02/24/23 Rx release (Protonix) diclofenac sodium 1 % topical gel 2 g topical BID PRN Back Pain 02/08/23 02/24/23 History Lactobacillus acidophilus 175 mg PO DAILY 02/13/23 02/24/23 History (Acidophilus capsule) baclofen 5 mg tablet 5 mg PO BID #60 tabs 02/15/23 02/24/23 Rx metoprolol succinate 25 mg 25 mg PO QAM #30 tabs 02/15/23 02/24/23 Rx tablet,extended release 24 hr melatonin 3 mg capsule 3 mg PO HS PRN sleep #90 caps 02/20/23 02/24/23 Rx escitalopram oxalate 5 mg tablet 5 mg PO DAILY #30 tabs 02/22/23 02/24/23 Rx (Lexapro) cyanocobalamin (vitamin B-12) 500 500 mcg PO 2XWK 02/24/23 02/24/23 History mcg tablet (Vitamin B-12) lorazepam 1 mg tablet 1 mg PO DAILY PRN Anxiety 02/24/23 02/24/23 History multivitamin with iron 1 tab PO DAILY 02/24/23 02/24/23 History Past Med/Surg History Medical History Abdominal pain Acute dehydration Acute respiratory failure with hypoxia ROSETTE (acute kidney injury) Aortic valve stenosis Bilateral sacroiliitis Cardiac murmur Close exposure to COVID-19 virus Closed head injury Compression fracture of spine Elevated troponin Fall Generalized weakness Hearing deficit Left MARTINES High anion gap metabolic acidosis History of breast cancer ; h/o lumpectomy + radiation History of chemotherapy History of Clostridioides difficile 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 skin HTN (hypertension) Hyperkalemia Low back pain Non-Hodgkin's lymphoma (03/08/13) h/o chemo Osteoarthritis Overactive bladder Paroxysmal atrial fibrillation ON XARELTO F/U DR PETTY Pneumonia Prophylactic antibiotic Right shoulder injury SOB (shortness of breath) on exertion Surgical History Encounter for insertion of venous access port History of colonoscopy History of hysterectomy (03/08/13) History of squamous cell carcinoma excision History of vascular access device IN PLACE LEFT UPPER CHEST-"NON FUNCTIONING" PER PT Post-lymphadenectomy lymphedema of arm S/P breast biopsy S/P lumpectomy of breast RIGHT/RADIATION S/P lymph node biopsy Family History Father Bright's disease Kidney disease Sister Colon cancer Gallbladder disease Hypertension Kidney stones Colorectal cancer Mother Cardiac disorder Congestive heart failure Other Crohn's disease Denies family history of Ovarian cancer Prostate cancer Myocardial infarction Breast cancer Social History Smoking Status: Former smoker Tobacco Type: Cigarettes Cigarettes Per Day: 1 Pack; Second Hand Exposure: No; Do You Dip or Chew Tobacco: No; Hx Alcohol Use: No Hx Substance Use: No Preferred Language: Hungarian Communication Ability: Effective Visual Impairment: No Limitations Hearing Ability: Use of Hearing Aid Egg And Spice Mixer Required: No Beliefs That Will Affect Care: None marital status: / Current Living Situation: Personal Care Facility current occupational status: retired How many Children do You have: 0 Feels Safe at Home: Yes Dental Care, Regularly: Yes Physical Activity Frequency: Daily Seatbelt Use: always Sunscreen Use: Yes Assistive Devices: Walker Physical Exam Physical Exam: Physical Exam: General: In no acute distress, stated age, frail but non-toxic appearing HEENT: Normocephalic, atraumatic, no scleral icterus, pupils around round, symmetrical, and reactive to light, NC currently in place, moist mucus membranes, trachea midline, no thyromegaly Chest/Pulm: No respiratory distress, symmetrical chest expansion, clear breath sounds throughout Cardiac: irregular rate and rhythm, 4/6 systolic murmur loudest in the aortic region Abdomen: Negative for ascites and bruising, normoactive bowel sounds, soft, non-tender to palpation throughout Musculoskeletal: Significant thoracic kyphosis, otherwise no abnormalities Extremities: Radial, dorsalis pedis, and posterior tibial pulses are intact and symmetrical, no edema noted in the BL LE's Skin: Warm, dry, no rashes , lesions, or scars noted Neuro: Alert and oriented to person, place, month, year, and president, no focal defects, CN II-XII tested and intact, no tremors noted Psych: No acute distress, calm and cooperative during the exam Results & Data Results & Data Vital Signs (Past 12 Hours) Vital Signs Temp Pulse Pulse Resp BP BP Pulse Ox 02/24/23 12:02 84 20 164/96 H 98 02/24/23 10:50 84 22 136/83 97 02/24/23 10:11 95 H 02/24/23 10:06 37.3 C 81 24 150/88 H 87 L O2 Del Method O2 Flow Rate 02/24/23 12:02 Nasal Cannula 2 02/24/23 10:50 Nasal Cannula 2 02/24/23 10:11 02/24/23 10:06 Room Air Laboratory Results Abnormal lab results 02/24/23 02/24/23 02/24/23 Range/Units 10:07 10:07 12:42 RBC 3.60 L (4.20-5.40) M/uL Hgb 11.3 L (12.0-16.0) g/dl Hct 35.7 L (37.0-47.0) % MCHC 31.7 L (32.0-36.0) g/dL RDW Std Deviation 51.5 H (36.4-46.3) fL Neut # (Auto) 9.42 H (1.40-6.50) K/uL Lymph # (Auto) 0.33 L (1.2-3.4) K/uL BUN/Creatinine Ratio 20.4 H (10-20) Glucose 112 H (70-99(Fasting)) mg/dl Magnesium 1.5 L (1.7-2.4) mg/dl Alkaline Phosphatase 237 H (34-104) U/L Troponin I High Sens 23.8 H (0-14) pg/ml Urine Protein Trace H (Negative) Diagnostic Findings Chest X-Ray 02/24/23 10:49 XR chest 1V portable HISTORY: weakness COMPARISON: Chest 02/04/2023. FINDINGS: Slightly rotated study. Low lung volumes again noted. No pneumothorax. The cardiac silhouette remains enlarged. There is a left subclavian Port-A-Cath which terminates in the SVC. Bibasilar linear densities persist and favor subsegmental atelectasis or scarring. There are old, healed right-sided rib fractures. No new focal lung consolidations to suggest a pneumonia. No evidence for pulmonary edema. No significant pleural effusions. No pneumothorax. IMPRESSION: No significant change compared to the prior study. No acute process. ACT 112: Negative or not required by law. Electronically signed by: Solomon Fam M.D. 02/24/2023 11:15 AM ECG Additional Comments: Atrial fibrillation Minimal voltage criteria for LVH, may be normal variant ( R in aVL ) Abnormal ECG When compared with ECG of 04-FEB-2023 06:44, No significant change was found Code Status & VTE Plan Code Status DNR/DNI Supervising Physician Co-Signing Physician Notes Patient seen and examined, chart reviewed, case discussed with Harvey Prescott PA-C and I agree with the assessment and plan as above except as otherwise noted Labs and images reviewed Mishel is a 87-year-old female with past medical history of non-Hodgkin's lymphoma on Rituxan, osteoporosis, hypertension, P A-fib on Xarelto, aortic stenosis who presented with weakness and shortness of breath and found to be hypoxic on admission. Mild anemia of 11.3 with high sensor troponin of 23 suspicious for demand ischemia. At bedside assessment she has an irregular rate and systolic murmur consistent with A-fib and aortic stenosis, rate is 8090s, lungs are clear without rales/wheezes/rhonchi. Patient is satting normally on 2 L of nasal cannula, desatted while in ER on ambulatory trial. Breathing is unlabored on 2 L, symmetrical chest rise without rales while in the ER. She is compliant with her DOAC. BNP is elevated at 681 which is increased from prior, although no obvious edema is noted on chest x-ray. No other infectious findings on lab and she does not have leukocytosis on admission. Suspect that she has subtle volume overloaded contributing to hypoxia. Recommend gentle diuresis, caution patient likely has a narrow euvolemic range with preload dependence due to her aortic stenosis. Continue to follow ins and outs and adjust oxygen to titrate to goal of 94%. Otherwise agree with recommendation/management above PG Care Time/CCT Total # of Minutes Spent Total Time Spent with Patient: Total time spent is greater than 50% in coordination of care (as documented) at patient's floor/unit and/or counseling patient: [place] [address] INT INP/OBS CARE 2/55MIN Patient Type Established Medical Decision Making Moderate Complexity Diagnoses Acute respiratory failure with hypoxia J96.01 Generalized weakness R53.1 Hypomagnesemia E83.42 Elevated troponin R77.8 Aortic valve stenosis I35.0 Anemia D64.9 Paroxysmal atrial fibrillation I48.0 HTN (hypertension) I10 Non-Hodgkin's lymphoma C85.90
[2023-02-24 13:10] LABS: Appearance Urine Clear (Clear); Bacteria Urine Automated Negative (Negative); Bilirubin Urine Negative (Negative); Blood Urine Negative (Negative); Cast Urine Automated 0 /lpf (0-5); Color Urine Yellow; Epithelial Cell Urine Auto 0-5 /lpf (0-5); Glucose Urine UA Negative (Negative); Ketones Urine Negative (Negative); Leukocyte Esterase Urine Negative (Negative); Nitrite Urine Negative (Negative); Protein Urine Trace (Negative); RBC Urine Automated 0-4 /hpf (0-4); Urobilinogen Urine Negative (Negative)
[2023-02-24] MEDS: MAGNESIUM SULFATE / D5W 1 GM/100 ML BAG IV SCH ×2 (13:53→16:10)
[2023-02-24 14:05] LABS: Vitamin B12 778 pg/ml (180-914)
[2023-02-24 14:10] LABS: Troponin I High Sensitivity 26.1 pg/ml (0-14)
[2023-02-24 14:25] LABS: Ferritin 42.5 ng/ml (8-388)
[2023-02-24] MEDS ORDERED: ACETAMINOPHEN 325 MG TAB PO PRN (15:32)
[2023-02-24] MEDS ORDERED: traMADol HCL 50 MG TABLET PO PRN (15:32)
[2023-02-24] MEDS ORDERED: MELATONIN 3 MG TAB PO PRN (15:36)
[2023-02-24] MEDS: CYANOCOBALAMIN (B-12) 500 MCG TABLET PO SCH (16:10)
[2023-02-24] MEDS: MAGNESIUM CHLORIDE W/CALCIUM 64MG DELAYED REL TAB PO SCH ×2 (16:10→22:37)
--- NOTE | 2023-02-24 16:25 | Electrocardiogram Report ---
Test Reason : Blood Pressure : / mmHG Vent. Rate : 100 BPM Atrial Rate : 000 BPM P-R Int : 000 ms QRS Dur : 062 ms QT Int : 324 ms P-R-T Axes : 000 -20 011 degrees QTc Int : 417 ms Atrial fibrillation Minimal voltage criteria for LVH, may be normal variant Abnormal ECG When compared with ECG of 04-FEB-2023 06:44, No significant change was found Confirmed by Tej Coles ([id number]) on 02/24/2023 4:24:28 PM Referred By: [facility] Confirmed By:Otf Coles
[2023-02-24] MEDS ORDERED: METOPROLOL SUCC 25MG EXT REL TAB PO STA (16:55)
[2023-02-24] MEDS ORDERED: lisinopril 10 MG TAB PO ONE (18:44)
[2023-02-24] MEDS: BACLOFEN 10 MG TAB PO SCH (22:37)
[2023-02-24] MEDS: PANTOprazole 40 MG TAB PO SCH (22:38)
[2023-02-25 07:09] LABS: Hematocrit (blood only) 34.9 % (37.0-47.0); Hemoglobin 11.2 g/dl (12.0-16.0); Mean Corpuscular Hemoglobin 31.7 pg (25.0-34.0); Mean Corpuscular Hgb Conc 32.1 g/dL (32.0-36.0); Mean Corpuscular Volume 98.9 fL (80.0-100.0); Mean Platelet Volume 11.7 fL (9.4-12.4); Platelet Count 208 K/uL (130-400); RDW Coefficient of Variation 13.9 % (11.5-14.5); RDW Standard Deviation 50.2 fL (36.4-46.3); Red Blood Count 3.53 M/uL (4.20-5.40); White Blood Count 13.41 K/ul (4.8-10.8)
[2023-02-25 07:30] LABS: Creatinine Clr Calc Pharmacy 37.7 ml/min; Est GFR (African American) 69.4 ml/min; Est GFR (Non-African American) 59.9 ml/min; Potassium 4.6 mmol/L (3.5-5.1)
[2023-02-25 07:31] LABS: BUN Creatinine Ratio 20.7 (10-20); Calcium 8.9 mg/dl (8.6-10.3); Magnesium 1.8 mg/dl (1.7-2.4)
[2023-02-25 07:32] LABS: Allen Test Pos (Pos); HCO3 ABG 28 mmol/L (19-24); Oxygen Saturation ABG 97.7 % (90-95); PCO2 ABG 43 mmHg (35-46); PO2 ABG 82 mmHg (80-95); pH ABG 7.42 (7.35-7.45)
[2023-02-25 07:35] LABS: Basophils # (auto) 0.03 K/uL (0-0.2); Basophils % (auto) 0.2 %; Eosinophils # (auto) 0.02 K/uL (0-0.50); Eosinophils % (auto) 0.1 %; Immature Granulocytes # (auto) 0.06 K/uL (0.01-0.20); Immature Granulocytes % (auto) 0.4 %; Lymphocytes # (auto) 0.35 K/uL (1.2-3.4); Lymphocytes % (auto) 2.6 %; Monocytes # (auto) 0.65 K/uL (0.11-0.59); Monocytes % (auto) 4.8 %; Neutrophils % (auto) 91.9 %
[2023-02-25 07:44] LABS: Prothrombin Time 10.5 Seconds (9.0-12.0)
[2023-02-25] MEDS: CYANOCOBALAMIN (B-12) 500 MCG TABLET PO SCH (08:50)
[2023-02-25] MEDS: DOCUSATE SODIUM 100 MG CAP PO SCH (08:50)
[2023-02-25] MEDS: PANTOprazole 40 MG TAB PO SCH ×2 (08:50→19:41)
[2023-02-25] MEDS: OXYBUTYNIN CHLORIDE XL 5 MG TABCR PO SCH (08:50)
[2023-02-25] MEDS: METOPROLOL SUCC 25MG EXT REL TAB PO SCH (08:50)
[2023-02-25] MEDS: ESCITALOPRAM OXALATE 10 MG TAB PO SCH (08:51)
[2023-02-25] MEDS: lisinopril 10 MG TAB PO SCH (08:52)
[2023-02-25] MEDS: BACLOFEN 10 MG TAB PO SCH ×2 (08:52→21:24)
[2023-02-25] MEDS: FUROSEMIDE 40 MG/4 ML VIAL IV SCH (08:53)
[2023-02-25] MEDS: MAGNESIUM CHLORIDE W/CALCIUM 64MG DELAYED REL TAB PO SCH ×3 (08:53→19:41)
--- NOTE | 2023-02-25 13:01 | Hospitalist Progress Note ---
Date of Service February 25, 2023 Assessment & Plan (1) Acute respiratory failure with hypoxia: Plan: -Admit to med/tele on continuous pulse oximetry -Currently stable on 2L NC, did desaturate into the 80's on RA during my exam and into the low 80's on RA with ambulation trial in the ED -Likely multifactorial at this time including mod-severe aortic stenosis, low lung volumes with severe kyphosis, hx of tobacco abuse, and anxiety -Has had multiple recent admissions for the same complaints and abnormalities, last admission was thought to be due to acute HFpEF exacerbation -Patient has not limited her sodium intake as instructed on last discharge, no signs of infection such as leukocytosis, negative biofire, no acute CXR findings, ECG WNL -She is not significantly volume overloaded, will obtain BNP for further evaluation -Low suspicion for PE as she is anticoagulated on Xarelto -Continue PRN O2 to keep SpO2 at or above 92% -Incentive spirometry, flutter therapy -Will order noctural pulse oximetry testing tonight on RA and am ABG on RA if able for further evaluation -Strong likelihood she will need to be discharged on home O2 -BL SCD's and Xarelto for DVT PPX -Heart healthy diet with 2gm sodium restriction (2) Generalized weakness: Plan: -Likely multifactorial including deconditioning, current malignancy, anemia, and hypomagnesemia -No signs of infection, no focal neuro defects on exam -Will obtain iron studies, B12, and folic acid levels -Will replete mag on admission -PT/OT consults placed; patient currently lives at [facility], we will need to seriously consider a higher level of care on DC as she is frequently being re-admitted (3) Hypomagnesemia: Plan: -1.5 today -Likely due to poor oral intake despite being on magnesium supplementation at home -Not on outpatient diuretics -Will give 2 bags of IV mag-sulfate on admission -Continue TID mag-chloride tabs -Monitor am electrolytes (4) Elevated troponin: Plan: -Initial high sen trop elevated at 23 -Patient is asymptomatic, no acute ST segment or T-wave changes on ECG -Patient noted to have chronically mild high sen trop elevation -Likely due to hypoxia today -Will repeat another high sen trop state and continue to monitor on tele (5) Aortic valve stenosis: Plan: -Known to have mod-severe , likely contributing to her symptoms -Has required IV diuresis on previous admissions -Does not appear volume overloaded today, will hold diuretics at this time (6) Anemia: Plan: -Hgb, HCT, and MCHC all decreased compared to last admission -Patient appears to only be on B12 supplementation outpatient -Will obtain Iron studies, B12, and folic acid levels for further assessment -Continue B12 for now (7) Paroxysmal atrial fibrillation: Plan: -Rate controlled -Continue metoprolol and Xarelto (8) HTN (hypertension): Plan: -Stable, continue lisinopril and metoprolol (9) Non-Hodgkin's lymphoma: Plan: -Follows with Heme/onc, on maintenance Rituxan -Continue to FU with the [facility] Plan The patient was discussed with Dr. Be at the time of the admission Admission and Anticipated Discharge Date Admission Date: February 24, 2023 Results & Data Results & Data Vital Signs (Past 12 Hours) Vital Signs Temp Pulse Pulse Resp BP BP Pulse Ox 02/25/23 11:42 36.7 C 81 18 127/74 96 02/25/23 08:00 02/25/23 07:30 100 H 02/25/23 07:18 37.0 C 101 H 18 159/96 H 93 02/25/23 02:20 36.7 C 101 H 18 171/91 H 92 O2 Del Method O2 Flow Rate 02/25/23 11:42 Nasal Cannula 2 02/25/23 08:00 Nasal Cannula 1.5 02/25/23 07:30 02/25/23 07:18 Nasal Cannula 1.5 02/25/23 02:20 Nasal Cannula 1.5 PG Care Time/CCT Total # of Minutes Spent Total Time Spent with Patient: Total time spent is greater than 50% in coordination of care (as documented) at patient's floor/unit and/or counseling patient: Coding Level of Care Code 37077 SUB INP/OBS CARE 3/50MIN Diagnoses Acute respiratory failure with hypoxia J96.01 Generalized weakness R53.1 Hypomagnesemia E83.42 Elevated troponin R77.8 Aortic valve stenosis I35.0 Anemia D64.9 Paroxysmal atrial fibrillation I48.0 HTN (hypertension) I10 Non-Hodgkin's lymphoma C85.90
--- NOTE | 2023-02-25 13:07 | Hospitalist Progress Note ---
Date of Service February 25, 2023 Assessment & Plan (1) Acute respiratory failure with hypoxia: Plan: Treat CHF. Wean oxygen off as tolerated. (2) Generalized weakness: Plan: No evidence of CVA. OT and PT assessments requested. Treat CHF. (3) Hypomagnesemia: Plan: Corrected with supplementation. Serial labs (4) Elevated troponin: Plan: Probably from supply demand mismatch. No evidence of acute coronary syndrome. Minimally elevated. (5) Aortic valve stenosis: Plan: Moderately severe on recent echo. No intervention necessary at this time. (6) Anemia: Plan: No overt GI bleeding. Appears to be chronic. Serial labs (7) Paroxysmal atrial fibrillation: Plan: Rate controlled . Continue metoprolol and Xarelto (8) HTN (hypertension): Plan: Stable. Continue lisinopril and metoprolol (9) Non-Hodgkin's lymphoma: Plan: Follows with Heme/onc, on maintenance Rituxan. (10) Acute diastolic CHF (congestive heart failure): Plan: Recent cardiac echo completed earlier this month. Continue intravenous Lasix. Monitor intake and output. Serial chest x-ray Plan To be determined. OT and PT assessments requested. She may need SNF placement. Admission and Anticipated Discharge Date Admission Date: February 24, 2023 Subjective Alert and oriented. No distress. Recent cardiac echo earlier this month reveals normal left ventricular ejection fraction with moderately severe aortic stenosis. She is now on intravenous Lasix. OT and PT consultations have been requested. Troponin is minimally elevated. She has no chest pain. Magnesium corrected to 1.8. She remains on oxygen at 2 L/min which hopefully can be weaned off as CHF resolves Review of Systems Review of Systems: Constitutional-no fever or chills ENT-no blurred vision, no double vision, no epistaxis, no sore throat Respiratory-no cough, no wheezing. Shortness of breath with exertion Cardiac-no palpitations, no chest pain, no syncope GI-no nausea, vomiting, diarrhea, melena, hematochezia -no urinary retention, no urinary incontinence, no dysuria, no hematuria Musculoskeletal-no joint pain, no muscle tenderness Skin-no bruising, no rashes, no pruritus Neuro-no isolated weakness, no paresthesia, no weakness Psych-no depression, no anxiety Physical Exam 2 Physical Exam: General-alert and oriented x3, no fevers, no chills HEENT-head atraumatic and normocephalic, pupils equal and reactive to light, extraocular muscles intact Neck-no lymphadenopathy or thyromegaly, trachea midline Chest-bibasilar inspiratory rales. No wheezing. No rhonchi Cardiac-regular rate and rhythm, normal S1 and S2 Abdomen-normal bowel sounds, nontender, no hepatosplenomegaly Extremities-no cyanosis, clubbing, or edema Neuro-cranial nerves II through XII intact, motor and sensory function within normal limits, strength symmetrical , no focal deficits Psych-normal affect, normal mood Results & Data Results & Data Vital Signs (Past 12 Hours) Vital Signs Temp Pulse Pulse Resp BP BP Pulse Ox 02/25/23 11:42 36.7 C 81 18 127/74 96 02/25/23 08:00 02/25/23 07:30 100 H 02/25/23 07:18 37.0 C 101 H 18 159/96 H 93 02/25/23 02:20 36.7 C 101 H 18 171/91 H 92 O2 Del Method O2 Flow Rate 02/25/23 11:42 Nasal Cannula 2 02/25/23 08:00 Nasal Cannula 1.5 02/25/23 07:30 02/25/23 07:18 Nasal Cannula 1.5 02/25/23 02:20 Nasal Cannula 1.5 Laboratory Results 02/25/23 06:48 02/25/23 06:48 PG Care Time/CCT Total # of Minutes Spent Total Time Spent with Patient: Total time spent is greater than 50% in coordination of care (as documented) at patient's floor/unit and/or counseling patient: Coding Level of Care Code 41193 SUB INP/OBS CARE 3/50MIN Diagnoses Acute respiratory failure with hypoxia J96.01 Generalized weakness R53.1 Hypomagnesemia E83.42 Elevated troponin R77.8 Aortic valve stenosis I35.0 Anemia D64.9 Paroxysmal atrial fibrillation I48.0 HTN (hypertension) I10 Non-Hodgkin's lymphoma C85.90 Acute diastolic CHF (congestive heart failure) I50.31
[2023-02-25] MEDS: RIVAROXABAN 15 MG TAB PO SCH (17:21)
[2023-02-26 06:26] LABS: Basophils # (auto) 0.02 K/uL (0-0.2); Basophils % (auto) 0.3 %; Eosinophils # (auto) 0.06 K/uL (0-0.50); Eosinophils % (auto) 0.9 %; Hematocrit (blood only) 34.8 % (37.0-47.0); Hemoglobin 11.5 g/dl (12.0-16.0); Immature Granulocytes # (auto) 0.03 K/uL (0.01-0.20); Immature Granulocytes % (auto) 0.5 %; Lymphocytes % (auto) 4.7 %; Mean Corpuscular Volume 96.9 fL (80.0-100.0); Mean Platelet Volume 11.4 fL (9.4-12.4); Monocytes # (auto) 0.53 K/uL (0.11-0.59); Monocytes % (auto) 8.3 %; Neutrophils # (auto) 5.42 K/uL (1.40-6.50); Neutrophils % (auto) 85.3 %; Platelet Count 183 K/uL (130-400); RDW Coefficient of Variation 13.5 % (11.5-14.5); RDW Standard Deviation 48.9 fL (36.4-46.3); Red Blood Count 3.59 M/uL (4.20-5.40); White Blood Count 6.36 K/ul (4.8-10.8)
[2023-02-26 06:39] LABS: BUN Creatinine Ratio 21.5 (10-20); Calcium 8.9 mg/dl (8.6-10.3); Creatinine Clr Calc Pharmacy 30.6 ml/min; Est GFR (African American) 54.1 ml/min; Est GFR (Non-African American) 46.6 ml/min; Magnesium 1.6 mg/dl (1.7-2.4)
[2023-02-26 07:05] LABS: Prothrombin Time 11.2 Seconds (9.0-12.0)
[2023-02-26] MEDS: ESCITALOPRAM OXALATE 10 MG TAB PO SCH (08:16)
[2023-02-26] MEDS: FUROSEMIDE 40 MG/4 ML VIAL IV SCH (08:17)
[2023-02-26] MEDS: MAGNESIUM CHLORIDE W/CALCIUM 64MG DELAYED REL TAB PO SCH ×3 (08:18→20:28)
[2023-02-26] MEDS: OXYBUTYNIN CHLORIDE XL 5 MG TABCR PO SCH (08:18)
[2023-02-26] MEDS: PANTOprazole 40 MG TAB PO SCH ×2 (08:18→20:27)
[2023-02-26] MEDS: METOPROLOL SUCC 25MG EXT REL TAB PO SCH (08:18)
[2023-02-26] MEDS: lisinopril 10 MG TAB PO SCH (08:18)
--- NOTE | 2023-02-26 09:28 | Hospitalist Progress Note ---
Date of Service February 26, 2023 Assessment & Plan (1) Acute respiratory failure with hypoxia: Plan: Acute with history of chronic issues and multiple admissions -Currently stable on 1.5L NC -To have 2 step today -Likely multifactorial at this time including mod-severe aortic stenosis, low lung volumes with severe kyphosis, hx of tobacco abuse, and anxiety -Has had multiple recent admissions for the same complaints and abnormalities, last admission was thought to be due to acute HFpEF exacerbation -Patient has not limited her sodium intake as instructed on last discharge, no signs of infection such as leukocytosis, negative biofire, no acute CXR findings, ECG WNL -She is not significantly volume overloaded, BNP elevated 681, similar to the past -Low suspicion for PE as she is anticoagulated on Xarelto -Continue PRN O2 to keep SpO2 at or above 92% -Incentive spirometry, flutter therapy -Will order noctural pulse oximetry testing tonight on RA and am ABG on RA if able for further evaluation -Strong likelihood she will need to be discharged on home O2 -BL SCD's and Xarelto for DVT PPX -Continue Heart healthy diet with 2gm sodium restriction (2) Generalized weakness: Plan: -Likely multifactorial including deconditioning, current malignancy, anemia, and hypomagnesemia -No signs of infection, no focal neuro defects on exam -Iron, B12 and Folate are in normal range -Mg 1.6 (replete today with 2 bags) -PT/OT consults placed; patient currently lives at [facility], we will need to seriously consider a higher level of care on DC as she is frequently being re-admitted (3) Hypomagnesemia: Plan: -1.6 today -Likely due to poor oral intake despite being on magnesium supplementation at home -Not on outpatient diuretics -S/P 2 bags of IV mag-sulfate on admission -Another 2 bags today -Continue TID mag-chloride tabs -Monitor am electrolytes (4) Elevated troponin: Plan: -Initial high sensitive troponin was minimally elevated -Patient is asymptomatic, no acute ST segment or T-wave changes on ECG -Patient noted to have chronically mild high sen trop elevation -Likely due to hypoxia -Repeat troponin 26.2 (23.8) Continues to remain chest pain free (5) Aortic valve stenosis: Plan: -Known to have mod-severe , likely contributing to her symptoms -Has required IV diuresis on previous admissions -Does not appear volume overloaded today, will hold diuretics at this time (6) Anemia: Plan: -Hgb, HCT, and MCHC all decreased compared to last admission -Patient appears to only be on B12 supplementation outpatient -Iron 39, TIBC 339, Ferritin 42.5, B12 778, Folate >22.3 -Continue B12 for now (7) Paroxysmal atrial fibrillation: Plan: -Rate controlled -Continue metoprolol and Xarelto (8) HTN (hypertension): Plan: -Chronic and Stable, continue lisinopril and metoprolol (9) Non-Hodgkin's lymphoma: Plan: Chronic and Stable -Follows with Heme/onc, on maintenance Rituxan -[facility] Plan The patient was discussed with Dr. Ricketts Admission and Anticipated Discharge Date Admission Date: February 24, 2023 Subjective Alert and oriented. No distress. She states she feels about the same. Recent cardiac echo earlier this month reveals normal left ventricular ejection fraction with moderately severe aortic stenosis. Troponin was minimally elevated on admission. She continues to have no chest pain. On slow mag TID (Mg 1.6) Patient is on oxygen at 1.5 L/min which hopefully can be weaned off as CHF resolves. She is to have a 2 step test later today. Review of Systems Review of Systems: Constitutional-no fever or chills ENT-no blurred vision, no double vision, no epistaxis, no sore throat Respiratory-no cough, no wheezing. + Shortness of breath with exertion Cardiac-no palpitations, no chest pain, no syncope GI-no nausea, vomiting, diarrhea, melena, hematochezia -no urinary retention, no urinary incontinence, no dysuria, no hematuria Musculoskeletal-no joint pain, no muscle tenderness Skin-no bruising, no rashes, no pruritus Neuro-no isolated weakness, no paresthesia, no weakness Psych-no depression, no anxiety Physical Exam Constitutional: + thin and + frail appearing; no acute distress Neck: trachea midline, no thyromegaly Respiratory: able to speak in complete sentences; no respiratory distress, no labored breathing and no cough Cardiovascular: RRR, no murmur, no edema Gastrointestinal (Abdomen): normal bowel sounds, soft, nontender, no hepatosplenomegaly Skin: no rashes, warm and dry Psychiatric: A+Ox3, euthymic affect Results & Data Results & Data Vital Signs (Past 12 Hours) Vital Signs Temp Pulse Resp BP Pulse Ox O2 Del Method O2 Flow Rate 02/26/23 07:48 37 C 72 20 156/81 H 94 Nasal Cannula 1.5 02/26/23 02:19 36.5 C 81 16 155/80 H 95 Nasal Cannula 2 02/25/23 23:09 36.8 C 72 16 156/85 H 98 Nasal Cannula 1 02/25/23 23:25 Nasal Cannula 1.5 Laboratory Results Abnormal lab results 02/26/23 02/26/23 Range/Units 06:05 06:05 RBC 3.59 L (4.20-5.40) M/uL Hgb 11.5 L (12.0-16.0) g/dl Hct 34.8 L (37.0-47.0) % RDW Std Deviation 48.9 H (36.4-46.3) fL Lymph # (Auto) 0.30 L (1.2-3.4) K/uL BUN/Creatinine Ratio 21.5 H (10-20) Magnesium 1.6 L (1.7-2.4) mg/dl PG Care Time/CCT Total # of Minutes Spent Total Time Spent with Patient: Total time spent is greater than 50% in coordination of care (as documented) at patient's floor/unit and/or counseling patient: Coding Level of Care Code 95580 SUB INP/OBS CARE 2/35MIN Diagnoses Acute respiratory failure with hypoxia J96.01 Generalized weakness R53.1 Hypomagnesemia E83.42 Elevated troponin R77.8 Aortic valve stenosis I35.0 Anemia D64.9 Paroxysmal atrial fibrillation I48.0 HTN (hypertension) I10 Non-Hodgkin's lymphoma C85.90
[2023-02-26] MEDS: DOCUSATE SODIUM 100 MG CAP PO SCH (09:56)
[2023-02-26] MEDS: BACLOFEN 10 MG TAB PO SCH ×2 (09:56→21:00)
[2023-02-26] MEDS: MAGNESIUM SULFATE / D5W 1 GM/100 ML BAG IV SCH ×2 (11:37→13:37)
[2023-02-26] MEDS: RIVAROXABAN 15 MG TAB PO SCH (17:12)
[2023-02-27 07:05] LABS: Basophils # (auto) 0.02 K/uL (0-0.2); Basophils % (auto) 0.2 %; Eosinophils # (auto) 0.11 K/uL (0-0.50); Eosinophils % (auto) 1.3 %; Hematocrit (blood only) 35.9 % (37.0-47.0); Hemoglobin 11.8 g/dl (12.0-16.0); Immature Granulocytes # (auto) 0.03 K/uL (0.01-0.20); Immature Granulocytes % (auto) 0.4 %; Lymphocytes # (auto) 0.31 K/uL (1.2-3.4); Lymphocytes % (auto) 3.8 %; Mean Corpuscular Hemoglobin 31.4 pg (25.0-34.0); Mean Corpuscular Hgb Conc 32.9 g/dL (32.0-36.0); Mean Corpuscular Volume 95.5 fL (80.0-100.0); Mean Platelet Volume 11.7 fL (9.4-12.4); Monocytes # (auto) 0.63 K/uL (0.11-0.59); Monocytes % (auto) 7.7 %; Neutrophils # (auto) 7.11 K/uL (1.40-6.50); Neutrophils % (auto) 86.6 %; Platelet Count 229 K/uL (130-400); RDW Coefficient of Variation 13.5 % (11.5-14.5); RDW Standard Deviation 47.5 fL (36.4-46.3); Red Blood Count 3.76 M/uL (4.20-5.40); White Blood Count 8.21 K/ul (4.8-10.8)
[2023-02-27 07:39] LABS: INR 0.9 (0.9-1.1); Prothrombin Time 10.4 Seconds (9.0-12.0)
[2023-02-27 07:47] LABS: Calcium 8.9 mg/dl (8.6-10.3); Magnesium 1.9 mg/dl (1.7-2.4); Potassium 3.8 mmol/L (3.5-5.1)
[2023-02-27 07:53] LABS: BUN Creatinine Ratio 24.6 (10-20); Creatinine Clr Calc Pharmacy 28.8 ml/min; Est GFR (African American) 50.1 ml/min; Est GFR (Non-African American) 43.2 ml/min
[2023-02-27] MEDS: lisinopril 10 MG TAB PO SCH (09:55)
[2023-02-27] MEDS: OXYBUTYNIN CHLORIDE XL 5 MG TABCR PO SCH (09:55)
[2023-02-27] MEDS: MAGNESIUM CHLORIDE W/CALCIUM 64MG DELAYED REL TAB PO SCH ×3 (09:55→20:15)
[2023-02-27] MEDS: PANTOprazole 40 MG TAB PO SCH ×2 (09:56→20:15)
[2023-02-27] MEDS: FUROSEMIDE 40 MG/4 ML VIAL IV SCH (09:56)
[2023-02-27] MEDS: METOPROLOL SUCC 25MG EXT REL TAB PO SCH (09:58)
[2023-02-27] MEDS: ESCITALOPRAM OXALATE 10 MG TAB PO SCH (09:59)
[2023-02-27] MEDS: DOCUSATE SODIUM 100 MG CAP PO SCH (10:04)
[2023-02-27] MEDS: BACLOFEN 10 MG TAB PO SCH ×2 (10:05→20:14)
--- NOTE | 2023-02-27 12:34 | Hospitalist Progress Note ---
Date of Service February 27, 2023 Assessment & Plan (1) Acute respiratory failure with hypoxia: Plan: etiology presumed to be acute/chronic diastolic CHF at time of admission. However, despite diuresis, she continues with O2 requirement and she reports feeling no better with ongoing dyspnea with exertion. Lung exam fairly unremarkable. Does not examine in decompensated CHF. Given her recurrent admissions for "CHF" despite normal chest x-rays, etc will obtain CT chest - high res - r/o pneumonia, aspiration, ILD, etc. low suspicion for PE given her chronic xarelto usage. stop IV lasix - likely volume contracted given her dizziness and orthostasis this afternoon. dysphagia - will have speech evaluate. (2) Acute diastolic CHF (congestive heart failure): Plan: Hospital admission felt 2nd to this, but today does not examine in decompensated CHF, and in fact she is dizzy and orthostatic. Stop diuresis. (3) Generalized weakness: Plan: Multiple issues including deconditioning, current malignancy (NHL), anemia, recurrent admissions to the hospital, electrolyte disturbances, etc likely all to blame Cont PT/OT as tolerated. Was at [facility] - does she need SNF placement at discharge?? (4) Hypomagnesemia: Plan: repleted resolved (5) Elevated troponin: Plan: Peak HS trop 26 no evidence of ACS likely myocardial demand ischemia in setting of #1 (6) Aortic valve stenosis: Plan: mod-severe on echo 02/05/23 no Rx needed at this time (7) Anemia: Plan: Nutritional labs - Iron 39, TIBC 339, Ferritin 42.5, B12 778, Folate >22.3 Consider IV venofer as ferritin is low normal Hb, however, remains stable in mid to high 11's simply follow for now (8) Paroxysmal atrial fibrillation: Plan: Her PAF appears chronic/permanent at this time Continue metoprolol and Xarelto (9) HTN (hypertension): Plan: Given her orthostasis this afternoon HOLD HENRY Gave 250cc of fluid back to her late in the afternoon Repeat BMP am (10) Non-Hodgkin's lymphoma: Plan: Follows with Heme/onc, on maintenance Rituxan Continue to f/[facility] Could her Rituxan be contributing to her lung symptoms (ie - drug induced pneumonitis?) Could she have opportunistic infection in the setting of Rituxan? (11) Dysphagia: Plan: Will ask speech therapy to see in consult. In meantime change diet to moist/minced. (12) Orthostasis: Plan: 2nd over-diuresis. stop lasix. give LR bolus 250cc x 1 now Plan cont PT/OT Admission and Anticipated Discharge Date Admission Date: February 24, 2023 Subjective patient sitting at side of bed eating her meal denies dyspnea at rest has dyspnea with walking across the room still has the dyspnea despite diuresis during the stay she continues with O2 requirement no cough good, robust appetite denies wheezing later in the day I received word from staff that patient complained of dysphagia with eating solids also she had complained in the afternoon that she felt dizzy with standing orthostatic BPs were + at the time of her complain of dizziness tele overnight wnl Review of Systems Review of Systems: gen - no fevers or chills cv - no chest pain pulm - no cough GI - no abd pain or N/V Physical Exam Physical Exam: gen - thin, NAD, pleasant mouth - MMM neck - no JVD back - severe kyphosis heart - irregular, s1 s2, 2/6 systolic murmur RUSB lungs - minimal end-exp wheeze, no crackles, no increased work of breathing abd - soft NT ND BS+ ext - no edema, pulses 2+ b/l Results & Data Results & Data Vital Signs (Past 12 Hours) Vital Signs Temp Pulse Pulse Resp BP Pulse Ox O2 Del Method 02/27/23 12:17 36.7 C 99 H 17 129/87 02/27/23 07:49 36.8 C 86 18 126/80 94 Room Air 02/27/23 05:12 36.8 C 91 H 20 146/82 H 92 Nasal Cannula 02/27/23 02:16 83 O2 Flow Rate 02/27/23 12:17 02/27/23 07:49 02/27/23 05:12 2 02/27/23 02:16 Laboratory Results Laboratory Results - last 24 hr 02/27/23 02/27/23 02/27/23 06:33 06:33 06:33 WBC 8.21 RBC 3.76 L Hgb 11.8 L Hct 35.9 L MCV 95.5 MCH 31.4 MCHC 32.9 RDW Std Deviation 47.5 H RDW Coeff of Ruddy 13.5 Plt Count 229 MPV 11.7 Immature Gran % (Auto) 0.4 Neut % (Auto) 86.6 Lymph % (Auto) 3.8 [place] % (Auto) 7.7 Eos % (Auto) 1.3 Baso % (Auto) 0.2 Neut # (Auto) 7.11 H Lymph # (Auto) 0.31 L [place] # (Auto) 0.63 H Eos # (Auto) 0.11 Baso # (Auto) 0.02 Immature Gran # (Auto) 0.03 PT 10.4 INR 0.9 Sodium 138 Potassium 3.8 Chloride 100 Carbon Dioxide 30 Anion Gap 8 BUN 28 H Creatinine 1.14 Est Cr Clr Drug Dosing 28.8 Est GFR ( Amer) 50.1 Est GFR (Non-Af Amer) 43.2 BUN/Creatinine Ratio 24.6 H Glucose 99 Calcium 8.9 Magnesium 1.9 PG Care Time/CCT Total # of Minutes Spent Total Time Spent with Patient: Total time spent is greater than 50% in coordination of care (as documented) at patient's floor/unit and/or counseling patient: Coding Level of Care Code 60717 SUB INP/OBS CARE 3/50MIN Diagnoses Acute respiratory failure with hypoxia J96.01 Acute diastolic CHF (congestive heart failure) I50.31 Generalized weakness R53.1 Hypomagnesemia E83.42 Elevated troponin R77.8 Aortic valve stenosis I35.0 Anemia D64.9 Paroxysmal atrial fibrillation I48.0 HTN (hypertension) I10 Non-Hodgkin's lymphoma C85.90 Dysphagia R13.10 Orthostasis I95.1
[2023-02-27] MEDS ORDERED: LACTATED RINGER'S 250 ML IV ONE (15:50)
[2023-02-27] MEDS: RIVAROXABAN 15 MG TAB PO SCH (18:04)
--- NOTE | 2023-02-27 19:58 | CT Scan Report ---
CT chest diagnostic wo con CLINICAL HISTORY: recurrent episodes of dyspnea; CHF? ILD? other? TECHNIQUE: Multidetector row helical CT of the chest was performed. Coronal and sagittal reformations were obtained. Automated dose lowering techniques and/or adjustment according to patient size were u tilized for this exam. CT DOSE: 364.29 mGy.cm Comparison: Comparison is made to CT chest 11/09/2022 FINDINGS: Lungs and pleura: Small bilateral pleural effusions with underlying atelectasis is noted. Emphysema i s seen. Tree-in-bud nodularity is seen in the right lower lung. There are also several new pulmonary nodules, largest in the left lower lobe measuring 10 mm (series 4 image 55) and 30 mm (image 101). Heart and pericardium: Cardiomegaly is seen with biatrial enlargement. Mild pericardial effusion is u nchanged from prior exam. Vessels: Moderate atherosclerotic changes in the aorta and coronary arteries. Mediastinum and leonardo: Unremarkable. Chest wall and lower neck: Unremarkable. Abdomen: Unremarkable. Bones: Degenerative changes in the thoracic spine. Severe thoracic kyphosis with multilevel compressi on deformities, unchanged from prior exam. IMPRESSION: 1. Interval development of multiple nodules throughout the lung. This may represent infectious/infla mmatory process however follow-up to resolution is recommended. 2. Small bilateral pleural effusions with underlying atelectasis. 3. Cardiomegaly and small pericardial effusion, unchanged. ACT 112: Negative or not required by law. Electronically signed by: Kurtis Golden M.D. 02/27/2023 7:55 PM
[2023-02-28 07:13] LABS: BUN Creatinine Ratio 25.4 (10-20); C Reactive Protein 3.15 mg/dl (0-0.5); Calcium 8.7 mg/dl (8.6-10.3); Creatinine Clr Calc Pharmacy 27.8 ml/min; Est GFR (Non-African American) 41.4 ml/min; Potassium 3.6 mmol/L (3.5-5.1)
[2023-02-28] MEDS: DOCUSATE SODIUM 100 MG CAP PO SCH (07:57)
[2023-02-28] MEDS: PANTOprazole 40 MG TAB PO SCH ×2 (07:59→20:16)
[2023-02-28] MEDS: METOPROLOL SUCC 25MG EXT REL TAB PO SCH (08:00)
[2023-02-28] MEDS: MAGNESIUM CHLORIDE W/CALCIUM 64MG DELAYED REL TAB PO SCH ×3 (08:00→20:16)
[2023-02-28] MEDS: OXYBUTYNIN CHLORIDE XL 5 MG TABCR PO SCH (08:00)
[2023-02-28] MEDS: ESCITALOPRAM OXALATE 10 MG TAB PO SCH (08:02)
[2023-02-28] MEDS: BACLOFEN 10 MG TAB PO SCH ×2 (08:12→20:16)
--- NOTE | 2023-02-28 10:12 | XRay Report ---
XR ankle LT 2V CLINICAL HISTORY: severe acute pain; eval fracture, CPPD, etc COMPARISON STUDY: None. FINDINGS: Mild soft tissue swelling within the ankle. Punctate well-corticated ossific density adjace nt to the tip of the lateral malleolus consistent with an old avulsion injury. No acute fracture or d islocation within the left ankle. The bones are osteopenic. Mild degenerative changes at the tibiotal ar joint. There are mild vascular calcifications present. Moderate degenerative changes within the mi dfoot. IMPRESSION: 1. No acute fracture or dislocation within the left ankle. 2. Diffuse osteopenia. 3. Mild soft tissue swelling. ACT 112: Negative or not required by law. Electronically signed by: Solomon Fam M.D. 02/28/2023 10:11 AM
--- NOTE | 2023-02-28 13:36 | Pulmonary Consultation ---
Date of Consultation February 28, 2023 Assessment & Plan (1) Abnormal chest CT: (2) Dyspnea on exertion: Plan IMPRESSION: 87-year-old female admitted with symptoms of dyspnea on exertion which have progressively worsened over the past few months. During evaluation, the patient was noted to have multiple new pulmonary nodules on CT scan. Pulmonary medicine asked to evaluate for the above. RECOMMENDATIONS: 1. Dyspnea on exertion - Likely multifactorial in the extremely kyphotic shabana vidual with likely underlying restrictive lung pathology and in the patient with moderate to severe aortic stenosis. Echocardiogram obtained on 02/05 demonstrates a normal ejection fraction of 60 to 65% with moderate to severe aortic stenosis. Additionally, the patient did have a near syncopal episode while hospitalized. Maybe this lends itself to worsening of the underlying valvular disease process. Agree with 2 step prior to discharge. 2. Abnormal chest CT - Patient with multiple new nodules since chest CT in November 2022. Of questionable clinical significance at this time as this is re latively abruptly seen since recent CT findings. Patient without upper respiratory symptoms currently. Certainly could represent since upper respiratory illness/infection. Would recommend conservative approach of follow- up noncontrast CT scan in the next few months. Additionally, we can evaluate the patient with pulmonary function testing in the outpatient setting for the sake of completion. Will add order for sputum cultures for completion (should be noted patient is without cough of other constitutional symptoms at this time). She passed a swallow evaluation today, but I am suspicious that her full diet she has at home might put her at greater risk for aspiration in combination with her severe kyphosis. Thank you for allowing us to participate in the care of this patient. We would b y happy to see the patient in follow up with CT and PFTs. Supervising Physician Co-Signing Physician Notes Patient seen and examined. EMR reviewed. Images were independently reviewed. The patient has evidence of bronchiectasis. The nodular densities likely represent bronchiolitis or mucoid impaction. As she is asymptomatic currently, I think continued radiographic surveillance is required. Definitive diagnosis would require the patient either producing phlegm (she is not coughing anything up currently), or pursuing bronchoscopy which given her advanced age and asymptomatic state seems aggressive at this point in time. If the nodules persist and the patient wishes to pursue an invasive diagnosis, bronchoscopy with BAL could be considered if the radiographic abnormalities persist. With regards to her bronchiectasis, will continue to follow clinically. Outpatient PFTs are reasonable. Could consider immunoglobulins, alpha-1 and other work-up although again given her advanced age and asymptomatic status unclear if this would change her prognosis. Suspect that her dyspnea and hypoxemia are likely related to VQ mismatch and related to severe kyphosis with underlying restrictive lung disease superimposed on moderate to severe aortic stenosis. The patient should be assessed for supplemental oxygen prior to discharge. From a pulmonary standpoint, the patient can be dismissed from the hospital with outpatient pulmonary follow-up in 8 to 12 weeks with a follow-up CT scan. The above recommendations were communicated with the patient extensively and questions were answered to the best of my ability. She is in agreement with plan as outlined History of Present Illness Reason for Consultation: atypical infiltrates on CT chest Requesting Physician: Dr. Cazares Attending Physician: Trevon Cazares MD History of Present Illness Patient is an 87-year-old female with an extensive past medical history including non-Hodgkin's lymphoma, paroxysmal atrial fibrillation, prior to severe aortic stenosis, hypertension, osteoporosis, recurrent pneumonia, and CHF. She presented to this institution on 02/24 with complaints of dyspnea with exertion. The patient has presented similarly in the past and has been evaluated for a CHF exacerbation. She had been actively diuresed throughout her stay and has now been requiring 1.5 L nasal cannula with exertion. Given her ongoing symptoms and recurrence with repeat hospitalizations, the patient underwent CT of the chest for evaluation of possible underlying contributing pathology. CT scan findings were consistent with new pulmonary nodules from prior study in November of this year. Patient is persistently short of breath on exertion alone. Upon evaluation in room 2 802, the patient is awake, alert, and oriented. She reports that she has been having intermittent episodes of shortness of breath since August of this past year. She denies any cough, fevers, chills, or upper respiratory symptoms with current presentation. She denies any chest pain or palpitations. No hemoptysis. She reports a significant smoking history from the age of 12 until her 70s. She smoked approximately a pack a day. She has never been evaluated from a pulmonary perspective in the past. She reports no daily cough. No recurrent bronchitis infections. Patient most recently has been admitted 3 times in the last few months for dyspnea on exertion. Otherwise, the patient feels well as long as she is resting in her bed. Allergies Allergy/AdvReac Type Severity Reaction Status Date / Time diphenhydramine Allergy Severe ALL Verified 02/24/23 15:19 ANTIHISTAMINES-"HYPER" FEELING allopurinol Allergy Intermediate RASH-SEVERE Verified 02/24/23 15:19 ITCHING Home Medications Medication Instructions Recorded Confirmed Type calcium carbonate 600 mg-vitamin 1 cap PO QAM 04/21/19 02/24/23 History D3 5 mcg (200 unit) capsule (Calcium 600 + D(3)) cholecalciferol (vitamin D3) 50 2,000 units PO QDL 04/21/19 02/24/23 History mcg (2,000 unit) capsule cranberry 500 mg capsule 500 mg PO QAM 04/21/19 02/24/23 History magnesium chloride 64 mg 64 mg PO TID 04/21/19 02/24/23 History (magnesium chloride) tablet,delayed release docusate sodium 100 mg tablet 100 mg PO QAM 06/16/22 02/24/23 History (Stool Softener) tramadol 50 mg tablet 25 - 50 mg PO Q4H PRN pain #42 tabs 06/16/22 02/24/23 Rx acetaminophen 500 mg tablet 1,000 mg PO TID #180 tabs 06/27/22 02/24/23 Rx lisinopril 30 mg tablet 30 mg PO QAM #90 tabs 12/25/22 02/24/23 Rx oxybutynin chloride 5 mg 5 mg PO QAM #90 tabs 12/25/22 02/24/23 Rx tablet,extended release 24 hr rivaroxaban 15 mg tablet (Xarelto) 15 mg PO DAILY #90 tabs 12/25/22 02/24/23 Rx alendronate 70 mg tablet 70 mg PO .ONCE WEEKLY #12 tabs 01/17/23 02/24/23 Rx pantoprazole 40 mg tablet,delayed 40 mg PO BID #60 tabs 01/17/23 02/24/23 Rx release (Protonix) diclofenac sodium 1 % topical gel 2 g topical BID PRN Back Pain 02/08/23 02/24/23 History Lactobacillus acidophilus 175 mg PO DAILY 02/13/23 02/24/23 History (Acidophilus capsule) baclofen 5 mg tablet 5 mg PO BID #60 tabs 02/15/23 02/24/23 Rx metoprolol succinate 25 mg 25 mg PO QAM #30 tabs 02/15/23 02/24/23 Rx tablet,extended release 24 hr melatonin 3 mg capsule 3 mg PO HS PRN sleep #90 caps 02/20/23 02/24/23 Rx escitalopram oxalate 5 mg tablet 5 mg PO DAILY #30 tabs 02/22/23 02/24/23 Rx (Lexapro) cyanocobalamin (vitamin B-12) 500 500 mcg PO 2XWK 02/24/23 02/24/23 History mcg tablet (Vitamin B-12) lorazepam 1 mg tablet 1 mg PO DAILY PRN Anxiety 02/24/23 02/24/23 History multivitamin with iron 1 tab PO DAILY 02/24/23 02/24/23 History Patient History Medical History Abdominal pain Acute dehydration Acute respiratory failure with hypoxia ROSETTE (acute kidney injury) Aortic valve stenosis Bilateral sacroiliitis Cardiac murmur Close exposure to COVID-19 virus Closed head injury Compression fracture of spine Elevated troponin Fall Generalized weakness Hearing deficit Left MARTINES High anion gap metabolic acidosis History of breast cancer ; h/o lumpectomy + radiation History of chemotherapy History of Clostridioides difficile 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 skin HTN (hypertension) Hyperkalemia Low back pain Non-Hodgkin's lymphoma (03/08/13) h/o chemo Osteoarthritis Overactive bladder Paroxysmal atrial fibrillation ON XARELTO F/U DR PETTY Pneumonia Prophylactic antibiotic Right shoulder injury SOB (shortness of breath) on exertion Surgical History Encounter for insertion of venous access port History of colonoscopy History of hysterectomy (03/08/13) History of squamous cell carcinoma excision History of vascular access device IN PLACE LEFT UPPER CHEST-"NON FUNCTIONING" PER PT Post-lymphadenectomy lymphedema of arm S/P breast biopsy S/P lumpectomy of breast RIGHT/RADIATION S/P lymph node biopsy Family History Father Bright's disease Kidney disease Sister Colon cancer Gallbladder disease Hypertension Kidney stones Colorectal cancer Mother Cardiac disorder Congestive heart failure Other Crohn's disease Denies family history of Ovarian cancer Prostate cancer Myocardial infarction Breast cancer Social History Smoking Status: Former smoker Tobacco Type: Cigarettes Cigarettes Per Day: 1 Pack; Second Hand Exposure: No; Do You Dip or Chew Tobacco: No; Hx Alcohol Use: No Hx Substance Use: No Preferred Language: Yakut Communication Ability: Effective Visual Impairment: No Limitations Hearing Ability: Use of Hearing Aid Greens Picker Required: No Beliefs That Will Affect Care: None marital status: / Current Living Situation: Personal Care Facility current occupational status: retired How many Children do You have: 0 Feels Safe at Home: Yes Dental Care, Regularly: Yes Physical Activity Frequency: Daily Seatbelt Use: always Sunscreen Use: Yes Assistive Devices: Walker Review of Systems Review of Systems: A complete 10 point review of systems was reviewed with the patient with pertinent positives and negatives as per history of present illness. All else were negative. Physical Exam Physical Exam: VITAL SIGNS - Vital signs and nursing notes were reviewed. GENERAL - 87-year-old female appearing her stated age who is in no acute distress. Communicates well with provider and answers questions appropriately. SKIN - Without rashes or lesions. NOSE - Midline and without cyanosis. MOUTH/OROPHARYNX - Without perioral cyanosis. NECK - Neck with FROM. LUNGS - Severely kyphotic. Auscultation reveals Normal auscultatory breath sounds without wheezes, rales, or rhonchi appreciated. CARDIAC - RRR with S1/S2. No murmur, rubs, or gallops appreciated. ABDOMEN - BS normoactive all four quadrants. No tenderness, palpable masses, or ascites noted. EXTREMITIES - No pretibial edema present. +3/5 radial palpated throughout. PSYCH - A&Ox3 and cooperates fully with examiner. Pt is very pleasant and interacts well with examiner. Results & Data Results & Data Vital Signs (Past 12 Hours) Vital Signs Temp Pulse Pulse Resp BP Pulse Ox O2 Del Method 02/28/23 11:58 Nasal Cannula 02/28/23 10:52 36.8 C 88 16 115/79 97 Nasal Cannula 02/28/23 07:17 36.5 C 79 18 136/84 96 Nasal Cannula 02/28/23 04:19 36.5 C 82 18 148/77 H 95 Nasal Cannula 02/28/23 01:33 79 O2 Flow Rate 02/28/23 11:58 1.5 02/28/23 10:52 2 05/24/23 07:17 2 02/28/23 04:19 2 02/28/23 01:33 PG Care Time/CCT Total # of Minutes Spent Total Time Spent with Patient: Total time spent is greater than 50% in coordination of care (as documented) at patient's floor/unit and/or counseling patient: Coding Level of Care Code 55321 INT INP/OBS CARE 3/75MIN Diagnoses Abnormal chest CT R93.89 Dyspnea on exertion R06.09
[2023-02-28] MEDS: RIVAROXABAN 15 MG TAB PO SCH (18:07)
--- NOTE | 2023-02-28 21:26 | Hospitalist Progress Note ---
Date of Service February 28, 2023 Assessment & Plan (1) Acute respiratory failure with hypoxia: Plan: etiology presumed to be acute/chronic diastolic CHF at time of admission. However, despite diuresis, she continues with O2 requirement and she reports feeling no better with ongoing dyspnea with exertion. Lung exam fairly unremarkable. Does not examine in decompensated CHF. Obtained chest CT - nodular infiltrates noted - etiology uncertain. Dr Dowd consulted from pulmonary - some element of bronchiectasis noted on CT by him. No antibiotics or systemic steroids advised at this time. Outpatient f/u with pulmonary recommended for PFTs, repeat chest CT, etc. No other recs at this time other than 2-step prior to discharge. (2) Acute diastolic CHF (congestive heart failure): Plan: Hospital admission felt 2nd to this. Did receive diuresis but O2 requirement has remained. Lasix stopped. CT chest obtained - see #1 above. (3) Generalized weakness: Plan: Multiple issues including deconditioning, current malignancy (NHL), anemia, recurrent admissions to the hospital, electrolyte disturbances, etc likely all to blame Cont PT/OT as tolerated. Was at [facility] - per PT/OT can return there at discharge. (4) Hypomagnesemia: Plan: repleted resolved (5) Elevated troponin: Plan: Peak HS trop 26 no evidence of ACS likely myocardial demand ischemia in setting of #1 (6) Aortic valve stenosis: Plan: mod-severe on echo 02/05/23 no Rx needed at this time (7) Anemia: Plan: Nutritional labs - Iron 39, TIBC 339, Ferritin 42.5, B12 778, Folate >22.3 Consider IV venofer as ferritin is low normal Hb, however, remains stable in mid to high 11's simply follow for now (8) Paroxysmal atrial fibrillation: Plan: Her PAF appears chronic/permanent at this time Continue metoprolol and Xarelto (9) HTN (hypertension): Plan: Had dizziness with orthostasis yesterday thus lisinopril and additional lasix held Dizziness resolved BPs now high Resume lisinopril (10) Non-Hodgkin's lymphoma: Plan: Follows with Heme/onc, on maintenance Rituxan [facility] Could her Rituxan be contributing to her lung symptoms (ie - drug induced pneumonitis?) Could she have opportunistic infection in the setting of Rituxan? see #1 above (11) Dysphagia: Plan: seen by speech - easy to chew diet advised no thickeners recommended for liquids (12) Orthostasis: Plan: 2nd over-diuresis. stopped lasix. gave small LR bolus yesterday. no further symptoms. (13) Chronic kidney disease, stage IV (severe): Plan: baseline CrCl upper 20s BMP today stable repeat BMP am Plan report of L ankle pain - obtained ankle x-rays -- no CPPD findings; no fracture re-eval ankle tomorrow cont PT/OT 2-step plan d/w back to [facility] tomorrow Admission and Anticipated Discharge Date Admission Date: February 24, 2023 Subjective no events overnight she reports that she had no dizziness with standing today mild BERNSTEIN with walking - unchanged eating well no cough tele stable overnight (rate controlled afib) Review of Systems Review of Systems: gen - no fever cv - no chest pain, no edema pulm - no wheezing GI - no nausea or emesis musculo - staff report that patient c/o L ankle pain to them, but she did not complain of such during my visit Physical Exam Physical Exam: gen - thin, NAD, pleasant mouth - MMM neck - no JVD back - severe kyphosis heart - irregular, s1 s2, 2/6 systolic murmur RUSB lungs - scant rales bases, no increased work of breathing, no wheezes today abd - soft NT ND BS+ ext - no edema, pulses 2+ b/l Results & Data Results & Data Vital Signs (Past 12 Hours) Vital Signs Temp Pulse Pulse Resp BP Pulse Ox O2 Del Method 02/28/23 19:43 37.1 C 69 18 164/96 H Room Air 02/28/23 17:40 80 02/28/23 15:57 36.9 C 87 18 117/78 98 Room Air 02/28/23 11:58 Nasal Cannula 02/28/23 10:52 36.8 C 88 16 115/79 97 Nasal Cannula O2 Flow Rate 02/28/23 19:43 2 02/28/23 17:40 02/28/23 15:57 02/28/23 11:58 1.5 02/28/23 10:52 2 Laboratory Results Laboratory Results - last 24 hr 02/28/23 02/28/23 05:52 05:52 ESR 68 H Sodium 139 Potassium 3.6 Chloride 101 Carbon Dioxide 30 Anion Gap 8 BUN 30 H Creatinine 1.18 Est Cr Clr Drug Dosing 27.8 Est GFR ( Amer) 48.0 Est GFR (Non-Af Amer) 41.4 BUN/Creatinine Ratio 25.4 H Glucose 98 Calcium 8.7 C-Reactive Protein 3.15 H Diagnostic Findings Ankle X-Ray 02/28/23 09:45 XR ankle LT 2V CLINICAL HISTORY: severe acute pain; eval fracture, CPPD, etc COMPARISON STUDY: None. FINDINGS: Mild soft tissue swelling within the ankle. Punctate well-corticated ossific density adjacent to the tip of the lateral malleolus consistent with an old avulsion injury. No acute fracture or dislocation within the left ankle. The bones are osteopenic. Mild degenerative changes at the tibiotalar joint. There are mild vascular calcifications present. Moderate degenerative changes within the midfoot. IMPRESSION: 1. No acute fracture or dislocation within the left ankle. 2. Diffuse osteopenia. 3. Mild soft tissue swelling. ACT 112: Negative or not required by law. Electronically signed by: Solomon Fam M.D. 02/28/2023 10:11 AM PG Care Time/CCT Total # of Minutes Spent Total Time Spent with Patient: Total time spent is greater than 50% in coordination of care (as documented) at patient's floor/unit and/or counseling patient: Coding Level of Care Code 77206 SUB INP/OBS CARE 2/35MIN Diagnoses Acute respiratory failure with hypoxia J96.01 Acute diastolic CHF (congestive heart failure) I50.31 Generalized weakness R53.1 Hypomagnesemia E83.42 Elevated troponin R77.8 Aortic valve stenosis I35.0 Anemia D64.9 Paroxysmal atrial fibrillation I48.0 HTN (hypertension) I10 Non-Hodgkin's lymphoma C85.90 Dysphagia R13.10 Orthostasis I95.1 Chronic kidney disease, stage IV (severe) N18.4
[2023-03-01 07:23] LABS: BUN Creatinine Ratio 26.8 (10-20); Calcium 8.9 mg/dl (8.6-10.3); Creatinine Clr Calc Pharmacy 29.2 ml/min; Est GFR (African American) 51.2 ml/min; Est GFR (Non-African American) 44.1 ml/min; Potassium 3.9 mmol/L (3.5-5.1); Uric Acid 9.8 mg/dl (2.6-7.2)
[2023-03-01] MEDS: BACLOFEN 10 MG TAB PO SCH ×2 (08:20→19:23)
[2023-03-01] MEDS: MAGNESIUM CHLORIDE W/CALCIUM 64MG DELAYED REL TAB PO SCH ×3 (08:21→19:23)
[2023-03-01] MEDS: ESCITALOPRAM OXALATE 10 MG TAB PO SCH (08:21)
[2023-03-01] MEDS: METOPROLOL SUCC 25MG EXT REL TAB PO SCH (08:21)
[2023-03-01] MEDS: DOCUSATE SODIUM 100 MG CAP PO SCH (08:21)
[2023-03-01] MEDS: lisinopril 10 MG TAB PO SCH (08:22)
[2023-03-01] MEDS: OXYBUTYNIN CHLORIDE XL 5 MG TABCR PO SCH (08:23)
[2023-03-01] MEDS: PANTOprazole 40 MG TAB PO SCH ×2 (08:23→19:23)
[2023-03-01] MEDS ORDERED: COLCHICINE 0.6 MG TAB PO ONE (09:15)
[2023-03-01] MEDS ORDERED: predniSONE 20 MG TAB PO STA (09:15)
[2023-03-01] MEDS ORDERED: bisacodyL 5 MG TABEC PO ONE ×2 (12:18→15:02)
--- NOTE | 2023-03-01 12:19 | Hospitalist Progress Note ---
Date of Service March 01, 2023 Assessment & Plan (1) Acute gout: Plan: L ankle/L mid-foot ankle x-rays w/o fracture also no evidence of CPPD changes elevated ESR/CRP/uric acid & acute onset during the stay all suggestive of gout prednisone 20mg x 1 now colchicine 0.3mg x 1 now likely to need 5-7 days of prednisone for this (2) Anorexia: Plan: poor appetite today, abdominal bloating, "just doesn't feel well" check u/a and urine cx - r/o UTI check KUB x-ray - r/o impaction, etc given her abdominal complaints also check LFTs, lipase and cbc re-eval tomorrow (3) Acute respiratory failure with hypoxia: Plan: etiology presumed to be acute/chronic diastolic CHF at time of admission. However, despite diuresis, she continued with O2 requirement and she reported feeling no better with ongoing mild dyspnea with exertion. Lung exam fairly unremarkable. Does not examine in decompensated CHF. Obtained chest CT - nodular infiltrates noted - etiology uncertain. Dr Dowd consulted from pulmonary - some element of bronchiectasis noted on CT by him. No antibiotics or systemic steroids advised at this time. Outpatient f/u with pulmonary recommended for PFTs, repeat chest CT, etc. No other recs at this time other than 2-step prior to discharge. (4) Acute diastolic CHF (congestive heart failure): Plan: Hospital admission felt 2nd to this. Did receive diuresis but O2 requirement has remained. Lasix stopped. CT chest obtained - see #1 above. (5) Generalized weakness: Plan: see #1 above for acute worsening. Multiple issues including deconditioning, current malignancy (NHL), anemia, recurrent admissions to the hospital, electrolyte disturbances, etc likely all to blame for more chronic weakness. Cont PT/OT as tolerated. Was at [facility] - per PT/OT can return there at discharge. (6) Hypomagnesemia: Plan: repleted resolved (7) Elevated troponin: Plan: Peak HS trop 26 no evidence of ACS likely myocardial demand ischemia in setting of #1 (8) Aortic valve stenosis: Plan: mod-severe on echo 02/05/23 no Rx needed at this time (9) Anemia: Plan: Nutritional labs - Iron 39, TIBC 339, Ferritin 42.5, B12 778, Folate >22.3 Consider IV venofer as ferritin is low normal Hb, however, remains stable in mid to high 11's simply follow (10) Paroxysmal atrial fibrillation: Plan: Her PAF appears chronic/permanent at this time Continue metoprolol and Xarelto (11) HTN (hypertension): Plan: BPs acceptable today (12) Non-Hodgkin's lymphoma: Plan: Follows with Heme/onc, on maintenance Rituxan [facility] Could her Rituxan be contributing to her lung symptoms (ie - drug induced pneumonitis?) Could she have opportunistic infection in the setting of Rituxan? see #3 above (13) Dysphagia: Plan: seen by speech - easy to chew diet advised no thickeners recommended for liquids (14) Orthostasis: Plan: 2nd over-diuresis. stopped lasix. gave small LR bolus 2 days ago. no further symptoms since then. (15) Chronic kidney disease, stage IV (severe): Plan: baseline CrCl upper 20s BMP today stable Plan cont PT/OT as tolerated 2-step need at d/c no discharge today due to #1, #2 Admission and Anticipated Discharge Date Admission Date: February 24, 2023 Subjective patient c/o L ankle/foot pain difficult to weight bear due to such started yesterday abruptly no injury or fall or trauma she also says "I'm just not having a good day" feels poorly no appetite today - skipped breakfast & lunch is bloated in her abdomen no stool in 3 days per staff no nausea/emesis denies any cough or dyspnea Review of Systems Review of Systems: gen - no fevers or chills cv - no chest pain psych - states she slept ok overnight pulm - no dyspnea or BERNSTEIN - denies dysuria or foul-smelling urine Physical Exam Physical Exam: gen - thin, NAD - but looks tired & unwell mouth - MMM neck - no JVD back - severe kyphosis heart - irregular, s1 s2, 2/6 systolic murmur RUSB lungs - CTA b/l abd - soft NT BS+; mildly distended ext - no edema, pulses 2+ b/l musculo - left mid-foot with synovitis & tenderness to palpation; left ankle mild synovitis as well; passive ROM of left ankle with mild pain; right foot & ankle wnl Results & Data Results & Data Vital Signs (Past 12 Hours) Vital Signs Temp Pulse Pulse Resp Resp BP Pulse Ox 03/01/23 11:11 36.5 C 95 H 16 127/82 95 03/01/23 09:02 95 H 20 03/01/23 08:00 03/01/23 03:43 36.8 C 90 16 165/85 H 97 Pulse Ox O2 Del Method O2 Flow Rate 03/01/23 11:11 Room Air 03/01/23 09:02 95 03/01/23 08:00 Nasal Cannula 2 03/01/23 03:43 Nasal Cannula 2 Laboratory Results Laboratory Results - last 24 hr 03/01/23 06:34 Sodium 139 Potassium 3.9 Chloride 102 Carbon Dioxide 31 Anion Gap 6 BUN 30 H Creatinine 1.12 Est Cr Clr Drug Dosing 29.2 Est GFR ( Amer) 51.2 Est GFR (Non-Af Amer) 44.1 BUN/Creatinine Ratio 26.8 H Glucose 115 H Uric Acid 9.8 H Calcium 8.9 PG Care Time/CCT Total # of Minutes Spent Total Time Spent with Patient: Total time spent is greater than 50% in coordination of care (as documented) at patient's floor/unit and/or counseling patient: Coding Level of Care Code 73185 SUB INP/OBS CARE 3/50MIN Diagnoses Acute gout M10.9 Anorexia R63.0 Acute respiratory failure with hypoxia J96.01 Acute diastolic CHF (congestive heart failure) I50.31 Generalized weakness R53.1 Hypomagnesemia E83.42 Elevated troponin R77.8 Aortic valve stenosis I35.0 Anemia D64.9 Paroxysmal atrial fibrillation I48.0 HTN (hypertension) I10 Non-Hodgkin's lymphoma C85.90 Dysphagia R13.10 Orthostasis I95.1 Chronic kidney disease, stage IV (severe) N18.4
[2023-03-01] MEDS: POLYETHYLENE (MIRALAX) 17 GM PACK PO SCH (14:18)
--- NOTE | 2023-03-01 14:32 | XRay Report ---
XR KUB/Abdomen 1 view CLINICAL HISTORY: bloating, ?constipation, ?ileus TECHNIQUE: 1 view of the abdomen was obtained. Comparison: Comparison is made to chest radiograph 12/19/2018 FINDINGS: Lung bases are unremarkable. Degenerative changes are seen in the visualized skeleton. The bowel gas pattern is nonobstructive. A moderate amount of stool is noted within the large bowel. IMPRESSION: Nonobstructive bowel gas pattern. ACT 112: Negative or not required by law. Electronically signed by: Kurtis Golden M.D. 03/01/2023 2:30 PM
[2023-03-01 17:37] LABS: Appearance Urine Cloudy (Clear); Bacteria Urine Automated Negative (Negative); Blood Urine Negative (Negative); Color Urine Dark Yellow; Epithelial Cell Urine Auto >30 /lpf (0-5); Glucose Urine UA Negative (Negative); Ketones Urine Negative (Negative); Leukocyte Esterase Urine 2+ (Negative); Nitrite Urine Negative (Negative); Protein Urine 2+ (Negative); RBC Urine Automated 0-4 /hpf (0-4); Specific Gravity Urine 1.021 (1.000-1.030); Urobilinogen Urine Negative (Negative); WBC Urine Automated >30 /hpf (0-5); pH Urine 5.5 (4.5-7.5)
[2023-03-01 17:43] LABS: Bilirubin Urine 1+ (Negative)
[2023-03-01] MEDS: RIVAROXABAN 15 MG TAB PO SCH (17:56)
[2023-03-01 18:58] LABS: Hematocrit (blood only) 38.7 % (37.0-47.0); Hemoglobin 12.3 g/dl (12.0-16.0); Mean Corpuscular Hemoglobin 31.4 pg (25.0-34.0); Mean Corpuscular Hgb Conc 31.8 g/dL (32.0-36.0); Mean Corpuscular Volume 98.7 fL (80.0-100.0); Mean Platelet Volume 11.9 fL (9.4-12.4); Platelet Count 243 K/uL (130-400); RDW Coefficient of Variation 13.6 % (11.5-14.5); RDW Standard Deviation 49.2 fL (36.4-46.3); Red Blood Count 3.92 M/uL (4.20-5.40); White Blood Count 9.36 K/ul (4.8-10.8)
[2023-03-01 19:13] LABS: Albumin Level 3.7 gm/dl (3.4-5.0); Basophils # (auto) 0.01 K/uL (0-0.2); Basophils % (auto) 0.1 %; Bilirubin Direct 0.1 mg/dl (0-0.2); Bilirubin,Total 0.5 mg/dl (0.2-1.0); C Reactive Protein 6.91 mg/dl (0-0.5); Immature Granulocytes # (auto) 0.03 K/uL (0.01-0.20); Immature Granulocytes % (auto) 0.3 %; Lymphocytes # (auto) 0.23 K/uL (1.2-3.4); Lymphocytes % (auto) 2.5 %; Monocytes # (auto) 0.22 K/uL (0.11-0.59); Monocytes % (auto) 2.4 %; Neutrophils # (auto) 8.87 K/uL (1.40-6.50); Neutrophils % (auto) 94.7 %; Total Protein 7.2 gm/dl (6.0-8.3)
[2023-03-02 08:02] LABS: BUN Creatinine Ratio 27.4 (10-20); Calcium 9.1 mg/dl (8.6-10.3); Est GFR (African American) 48.5 ml/min; Est GFR (Non-African American) 41.9 ml/min
[2023-03-02] MEDS ORDERED: predniSONE 20 MG TAB PO STA (08:15)
--- NOTE | 2023-03-02 08:39 | Ultrasound Report ---
US gallbladder CLINICAL HISTORY: Abdominal pain, anorexia, abnl LFTs COMPARISON STUDY: CT of the abdomen and pelvis November 09, 2022. FINDINGS: No hepatic lesions are identified. There is no biliary ductal dilatation. Gallbladder is pa rtially obscured but likely within normal limits. No gallstones are identified. There is no evidence for acute cholecystitis. The liver contour is slightly lobulated with slight coarsening of hepatic ec hotexture. Pancreas is partially obscured but no abnormality is identified. There is no right hydrone phrosis. IMPRESSION: 1. No gallstones or biliary ductal dilatation. Exam compromised by suboptimal penetration. 2. Lobulated liver contour with slight coarsening of hepatic echotexture. ACT 112: Negative or not required by law. Electronically signed by: Matthias Lai M.D. 03/02/2023 8:37 AM
[2023-03-02] MEDS: PANTOprazole 40 MG TAB PO SCH ×2 (08:52→20:06)
[2023-03-02] MEDS: BACLOFEN 10 MG TAB PO SCH ×2 (08:52→20:05)
[2023-03-02] MEDS: ESCITALOPRAM OXALATE 10 MG TAB PO SCH (08:53)
[2023-03-02] MEDS: DOCUSATE SODIUM 100 MG CAP PO SCH (08:53)
[2023-03-02] MEDS: MAGNESIUM CHLORIDE W/CALCIUM 64MG DELAYED REL TAB PO SCH ×3 (08:53→20:06)
[2023-03-02] MEDS: METOPROLOL SUCC 25MG EXT REL TAB PO SCH (08:53)
[2023-03-02] MEDS: lisinopril 10 MG TAB PO SCH (08:54)
[2023-03-02] MEDS: POLYETHYLENE (MIRALAX) 17 GM PACK PO SCH (08:54)
[2023-03-02] MEDS: OXYBUTYNIN CHLORIDE XL 5 MG TABCR PO SCH (08:54)
[2023-03-02] MEDS ORDERED: COLCHICINE 0.6 MG TAB PO ONE (10:45)
--- NOTE | 2023-03-02 11:25 | XRay Report ---
XR chest 2V PA/lateral CLINICAL HISTORY: anorexia, dyspnea, eval pneumonia TECHNIQUE: 2 views of the chest were obtained. Comparison: Comparison is made to chest radiograph 02/24/2023 FINDINGS: 4 catheter is seen, unchanged from prior. Cardiomegaly is noted. The aortic arch is calcified. Reticu lar interstitial opacities are seen. Blunting of the bilateral costophrenic angles is likely secondar y to scarring. Old healed right rib fractures noted. IMPRESSION: No acute abnormalities and in particular no radiographic evidence of pneumonia. Interstitial lung dis ease is noted. ACT 112: Negative or not required by law. Electronically signed by: Kurtis Golden M.D. 03/02/2023 11:23 AM
[2023-03-02] MEDS: ACETAMINOPHEN 500 MG TAB PO SCH ×3 (11:36→20:05)
--- NOTE | 2023-03-02 12:57 | Hospitalist Progress Note ---
Date of Service March 02, 2023 Assessment & Plan (1) Acute gout: Plan: L ankle/L mid-foot ankle x-rays w/o fracture also no evidence of CPPD changes elevated ESR/CRP/uric acid & acute onset during the stay all suggestive of gout improved today repeat prednisone 20mg x 1 today, then 10mg daily starting tomorrow for an additional ~5 days repeat colchicine 0.3mg x 1 today (2) Anorexia: Plan: improved today suspect the pain from #1 caused her to feel poorly yesterday constipation also likely played a role urine cx neg KUB x-ray without ileus or obstruction RUQ u/s without biliary tract disease repeat cxr today stable repeat COVID testing negative LFTs, lipase and CBC wnl (3) Acute respiratory failure with hypoxia: Plan: resolved etiology presumed to be acute/chronic diastolic CHF at time of admission. However, despite diuresis, she continued with O2 requirement and she reported feeling no better with ongoing mild dyspnea with exertion. Lung exam fairly unremarkable. Did not examine in decompensated CHF. Obtained chest CT - nodular infiltrates noted - etiology uncertain. Dr Dowd consulted from pulmonary - some element of bronchiectasis noted on CT by him. No antibiotics or systemic steroids advised at this time. Outpatient f/u with pulmonary recommended for PFTs, repeat chest CT, etc. No other recs at this time other than 2-step prior to discharge. (4) Acute diastolic CHF (congestive heart failure): Plan: Hospital admission felt 2nd to this. Did receive diuresis early in the stay but cxr and exam was never consistent with CHF. Lasix stopped. CT chest obtained - see #1 above. (5) Generalized weakness: Plan: see #1 above for acute worsening. Multiple issues including deconditioning, current malignancy (NHL), anemia, recurrent admissions to the hospital, electrolyte disturbances, etc likely all to blame for more chronic weakness. Cont PT/OT as tolerated. Was at [facility] - per PT/OT can return there at discharge. hoping for d/c tomorrow (6) Hypomagnesemia: Plan: repleted resolved (7) Elevated troponin: Plan: Peak HS trop 26 no evidence of ACS likely myocardial demand ischemia in setting of #1 (8) Aortic valve stenosis: Plan: mod-severe on echo 02/05/23 no Rx needed at this time (9) Anemia: Plan: Nutritional labs - Iron 39, TIBC 339, Ferritin 42.5, B12 778, Folate >22.3 Consider IV venofer as ferritin is low normal Hb levels stable (10) Paroxysmal atrial fibrillation: Plan: Her PAF appears chronic/permanent at this time Continue metoprolol and Xarelto rates are acceptable (11) HTN (hypertension): Plan: BPs acceptable again today (12) Non-Hodgkin's lymphoma: Plan: Follows with Heme/onc - Dr Chiki Levine had been on maintenance Rituxan last office visit a decision was made to follow her OFF of therapy (13) Dysphagia: Plan: seen by speech - easy to chew diet advised no thickeners recommended for liquids (14) Orthostasis: Plan: 2nd over-diuresis. stopped lasix. gave small LR bolus 3 days ago. no further symptoms since then. (15) Chronic kidney disease, stage IV (severe): Plan: baseline CrCl upper 20s BMP once again stable today Plan cont PT/OT as tolerated 2-step needed at d/c discharge - perhaps tomorrow ? pt's niece Ms Nichols updated extensively by phone today Admission and Anticipated Discharge Date Admission Date: February 24, 2023 Subjective L foot/ankle pain improved today still present, but not as severe worst with weight-bearing did not eat well at breakfast but had a good lunch did move bowels finally denies bloating or abd pain denies cough or dyspnea today tele overnight - a.fib, rates <100 Review of Systems Review of Systems: gen - feels better overall today cv - no chest pain pulm - no wheezing GI - no nausea or emesis Physical Exam Physical Exam: gen - thin, NAD, looks better today mouth - MMM neck - no JVD back - severe kyphosis heart - irregular, s1 s2, 2/6 systolic murmur RUSB lungs - CTA b/l except minimal dry rales bases abd - soft NT BS+; distension resolved today ext - focal edema L foot only; pulses 2+ b/l musculo - left mid-foot with synovitis & tenderness to palpation but improved today; left ankle active ROM with less pain today; passive ROM of left ankle with improved pain today; right foot & ankle wnl Results & Data Results & Data Vital Signs (Past 12 Hours) Vital Signs Temp Pulse Pulse Resp BP Pulse Ox O2 Del Method 03/02/23 09:30 86 03/02/23 08:23 36.8 C 86 16 149/84 H 90 Room Air 03/02/23 03:44 36.7 C 80 16 150/70 H 95 Room Air Laboratory Results Laboratory Results - last 24 hr 03/01/23 03/01/23 03/01/23 17:11 18:32 18:32 WBC RBC Hgb Hct MCV MCH MCHC RDW Std Deviation RDW Coeff of Ruddy Plt Count MPV Immature Gran % (Auto) Neut % (Auto) Lymph % (Auto) Trigg % (Auto) Eos % (Auto) Baso % (Auto) Neut # (Auto) Lymph # (Auto) Trigg # (Auto) Eos # (Auto) Baso # (Auto) Immature Gran # (Auto) Sodium Potassium Chloride Carbon Dioxide Anion Gap BUN Creatinine Est Cr Clr Drug Dosing Est GFR ( Amer) Est GFR (Non-Af Amer) BUN/Creatinine Ratio Glucose Calcium Total Bilirubin 0.5 Direct Bilirubin 0.1 AST 29 ALT 24 Alkaline Phosphatase 257 H C-Reactive Protein 6.91 H Total Protein 7.2 Albumin 3.7 Lipase 79 Procalcitonin 0.19 Urine Color Dark Yellow Urine Appearance Cloudy A Urine pH 5.5 Ur Specific Hensley 1.021 Urine Protein 2+ H Urine Glucose (UA) Negative Urine Ketones Negative Urine Blood Negative Urine Nitrite Negative Urine Bilirubin 1+ H Urine Urobilinogen Negative Ur Leukocyte Esterase 2+ H Urine WBC (Auto) >30 H Urine RBC (Auto) 0-4 U Hyaline Cast (Auto) 5-10 H U Epithel Cells (Auto) >30 H Urine Bacteria (Auto) Negative Ur Renal Epithelial Cell Not Reportable SARS-CoV-2 (PCR) 03/01/23 03/02/23 03/02/23 18:32 07:22 10:50 WBC 9.36 RBC 3.92 L Hgb 12.3 Hct 38.7 MCV 98.7 MCH 31.4 MCHC 31.8 L RDW Std Deviation 49.2 H RDW Coeff of Ruddy 13.6 Plt Count 243 MPV 11.9 Immature Gran % (Auto) 0.3 Neut % (Auto) 94.7 Lymph % (Auto) 2.5 Trigg % (Auto) 2.4 Eos % (Auto) 0.0 Baso % (Auto) 0.1 Neut # (Auto) 8.87 H Lymph # (Auto) 0.23 L Trigg # (Auto) 0.22 Eos # (Auto) 0.00 Baso # (Auto) 0.01 Immature Gran # (Auto) 0.03 Sodium 138 Potassium 4.0 Chloride 102 Carbon Dioxide 30 Anion Gap 6 BUN 32 H Creatinine 1.17 Est Cr Clr Drug Dosing 28.0 Est GFR ( Amer) 48.5 Est GFR (Non-Af Amer) 41.9 BUN/Creatinine Ratio 27.4 H Glucose 96 Calcium 9.1 Total Bilirubin Direct Bilirubin AST ALT Alkaline Phosphatase C-Reactive Protein Total Protein Albumin Lipase Procalcitonin Urine Color Urine Appearance Urine pH Ur Specific Hensley Urine Protein Urine Glucose (UA) Urine Ketones Urine Blood Urine Nitrite Urine Bilirubin Urine Urobilinogen Ur Leukocyte Esterase Urine WBC (Auto) Urine RBC (Auto) U Hyaline Cast (Auto) U Epithel Cells (Auto) Urine Bacteria (Auto) Ur Renal Epithelial Cell SARS-CoV-2 (PCR) NEGATIVE PG Care Time/CCT Total # of Minutes Spent Total Time Spent with Patient: Total time spent is greater than 50% in coordination of care (as documented) at patient's floor/unit and/or counseling patient: Coding Level of Care Code 66038 SUB INP/OBS CARE 235MIN Diagnoses Acute gout M10.9 Anorexia R63.0 Acute respiratory failure with hypoxia J96.01 Acute diastolic CHF (congestive heart failure) I50.31 Generalized weakness R53.1 Hypomagnesemia E83.42 Elevated troponin R77.8 Aortic valve stenosis I35.0 Anemia D64.9 Paroxysmal atrial fibrillation I48.0 HTN (hypertension) I10 Non-Hodgkin's lymphoma C85.90 Dysphagia R13.10 Orthostasis I95.1 Chronic kidney disease, stage IV (severe) N18.4
[2023-03-02] MEDS ORDERED: bisacodyL 10 MG SUPP PR STA (14:15)
[2023-03-02] MEDS: RIVAROXABAN 15 MG TAB PO SCH (16:30)
[2023-03-03] MEDS: MAGNESIUM CHLORIDE W/CALCIUM 64MG DELAYED REL TAB PO SCH ×2 (08:42→14:26)
[2023-03-03] MEDS: OXYBUTYNIN CHLORIDE XL 5 MG TABCR PO SCH (08:42)
[2023-03-03] MEDS: DOCUSATE SODIUM 100 MG CAP PO SCH (08:42)
[2023-03-03] MEDS: METOPROLOL SUCC 25MG EXT REL TAB PO SCH (08:42)
[2023-03-03] MEDS: ESCITALOPRAM OXALATE 10 MG TAB PO SCH (08:42)
[2023-03-03] MEDS: lisinopril 10 MG TAB PO SCH (08:42)
[2023-03-03] MEDS: PANTOprazole 40 MG TAB PO SCH (08:42)
[2023-03-03] MEDS: CYANOCOBALAMIN (B-12) 500 MCG TABLET PO SCH (08:42)
[2023-03-03] MEDS: BACLOFEN 10 MG TAB PO SCH (08:42)
[2023-03-03] MEDS ORDERED: predniSONE 20 MG TAB PO STA (08:45)
[2023-03-03] MEDS ORDERED: COLCHICINE 0.6 MG TAB PO ONE (08:45)
[2023-03-03] MEDS: POLYETHYLENE (MIRALAX) 17 GM PACK PO SCH (08:46)
[2023-03-03] MEDS: ACETAMINOPHEN 500 MG TAB PO SCH ×2 (08:46→14:26)
--- NOTE | 2023-03-03 14:10 | Discharge Summary ---
Date of Service March 03, 2023 Admission HPI Per Admitting Provider Mishel Beckford is an 87 year old female with a past medical history of recurrent Non-Hodgkin's Lymphoma (on maintenance Rituxan), Anemia, Osteoporosis, Hypertension, Paroxysmal Atrial Fibrillation (on Xarelto), Mild Mitral Re gurgitation, and [id number] Aortic Stenosis who presented to the [facility] ED from [facility] today via EMS for generalized weakness and SOB. In the ED she was initially found to be hypoxic at 87% on RA but otherwise stable. Labs were significant for a Hgb of 11.3 (down from 13 as of 02/05), mag of 1.5, initial high sen trop of 23.8, and full resp biofire negative. Chest xray was read as No significant change compared to the prior study. No acute process.. The patient fell to 84% on RA during an ambulation trial, we were asked to admit for generalized weakness and acute hypoxic respiratory failure. Prior to admission the patient was given 1L NSS. At the time of the exam the patient was sleeping in bed, she was in no acute distress upon waking. She states that she came to the hospital due to her breathing, she thinks that she was having panic attacks last night and into this am. She states that she has been in her normal state of health, she always has baseline SOB, especially with exertion. She goes on daily walks, which she did again yesterday. When she gets SOB she takes breaks and her SOB resolves. She states that she was in bed last night when she felt a little SOB, this made her very anxious, causing her to have worsening SOB. She states that they gave her a dose of Ativan last night which improved her anxiety. This am she woke with SOB again and was noted to be 87% on RA so EMS was called. She states that she feels fine at rest during my exam. When they tried to ambulate her she said she almost fell. She denies recent fever, chills, chest pain, productive cough, abd pain, nausea, vomiting, dysuria, hematuria, melena, LE swelling and recent trauma. When asked about reducing her sodium intake she states that she hasn't because "I like salt too much". I explained to her that they thought some of her SOB on last admission was due to too much sodium intake cause her to retain water. She expressed understanding and states that she will try to switch to low sodium potato chips. The patient was recently admitted to [facility] from 02/04-02/06 for acute hypoxic respiratory failure and elevated high sen trop. Her AHRF was thought to be due to acute HFpEF exacerbation and her mod-severe . Her CHF exacerbation was thought to be due to excessive salt intake. She was initially treated with IV Lasix in the ED but additional IV diuresis was held due to a subsequently elevated cr. TTE showed stable HFpEF and mod-severe . Her elevated trop was attributed to demand. She was weaned off O2 and discharged with a recommendation to eat a low sodium diet. We discussed code status, she clearly stated that she is a DNR/DNI. Attempted to call the patient's Nice/POA (Jordan Nichols [phone]) multiple times without success. Please refer to Dr. Be's attestation for any changes to the treatment plan Discharge Exam gen - thin, NAD, looks better today mouth - MMM neck - no JVD back - severe kyphosis heart - irregular, s1 s2, 2/6 systolic murmur RUSB lungs - CTA b/l except minimal dry rales bases abd - soft NT BS+; distension resolved today ext - focal edema L foot only; pulses 2+ b/l musculo - left mid-foot with synovitis & tenderness to palpation but improved today; left ankle active ROM with less pain today; passive ROM of left ankle with improved pain today; right foot & ankle wnl Discharge Data Allergies Allergy/AdvReac Type Severity Reaction Status Date / Time diphenhydramine Allergy Severe ALL Verified 02/24/23 15:19 ANTIHISTAMINES-"HYPER" FEELING allopurinol Allergy Intermediate RASH-SEVERE Verified 02/24/23 15:19 ITCHING Consultations 02/24/23 13:14 ED Decision to Admit Stat 02/28/23 10:12 Consult Pulmonology Routine Ordered Studies 02/27/23 12:33 CT chest diagnostic wo con Routine 03/02/23 US gallbladder Routine Hospital Course (1) Acute gout: L ankle/L mid-foot ankle x-rays w/o fracture also no evidence of CPPD changes elevated ESR/CRP/uric acid & acute onset during the stay all suggestive of gout improved today repeat prednisone 20mg x 1 today, then 10mg daily starting tomorrow for an additional ~5 days repeat colchicine 0.3mg x 1 today (2) Anorexia: improved today suspect the pain from #1 caused her to feel poorly yesterday constipation also likely played a role urine cx neg KUB x-ray without ileus or obstruction RUQ u/s without biliary tract disease repeat cxr today stable repeat COVID testing negative LFTs, lipase and CBC wnl (3) Acute respiratory failure with hypoxia: resolved etiology presumed to be acute/chronic diastolic CHF at time of admission. However, despite diuresis, she continued with O2 requirement and she reported feeling no better with ongoing mild dyspnea with exertion. Lung exam fairly unremarkable. Did not examine in decompensated CHF. Obtained chest CT - nodular infiltrates noted - etiology uncertain. Dr Dowd consulted from pulmonary - some element of bronchiectasis noted on CT by him. No antibiotics or systemic steroids advised at this time. Outpatient f/u with pulmonary recommended for PFTs, repeat chest CT, etc. No other recs at this time other than 2-step prior to discharge. (4) Acute diastolic CHF (congestive heart failure): Hospital admission felt 2nd to this. Did receive diuresis early in the stay but cxr and exam was never consistent with CHF. Lasix stopped. CT chest obtained - see #1 above. (5) Generalized weakness: see #1 above for acute worsening. Multiple issues including deconditioning, current malignancy (NHL), anemia, recurrent admissions to the hospital, electrolyte disturbances, etc likely all to blame for more chronic weakness. Cont PT/OT as tolerated. Was at [facility] - per PT/OT can return there at discharge. hoping for d/c tomorrow (6) Hypomagnesemia: repleted resolved (7) Elevated troponin: Peak HS trop 26 no evidence of ACS likely myocardial demand ischemia in setting of #1 (8) Aortic valve stenosis: mod-severe on echo 02/05/23 no Rx needed at this time (9) Anemia: Nutritional labs - Iron 39, TIBC 339, Ferritin 42.5, B12 778, Folate >22.3 Consider IV venofer as ferritin is low normal Hb levels stable (10) Paroxysmal atrial fibrillation: Her PAF appears chronic/permanent at this time Continue metoprolol and Xarelto rates are acceptable (11) HTN (hypertension): BPs acceptable again today (12) Non-Hodgkin's lymphoma: Follows with Heme/onc - Dr Chiki Levine had been on maintenance Rituxan last office visit a decision was made to follow her OFF of therapy (13) Dysphagia: seen by speech - easy to chew diet advised no thickeners recommended for liquids (14) Orthostasis: 2nd over-diuresis. stopped lasix. gave small LR bolus 3 days ago. no further symptoms since then. (15) Chronic kidney disease, stage IV (severe): baseline CrCl upper 20s BMP once again stable today Plan cont PT/OT as tolerated 2-step needed at d/c discharge - perhaps tomorrow ? pt's niece Ms Nichols updated extensively by phone today Discharge Plan Discharge Items Patient Disposition: Personal Residential Reason For Visit: GENERALIZED WEAKNESS, SHORTNESS OF BREATH Discharge Diagnosis: 1. Shortness of breath - likely due to restrictive lung disease + other factors 2. Acute gout attack of left foot/ankle 3. CKD stage 4 4. Atrial fibrillation 5. Non-Hodgkin's Lymphoma 6. Severe kyphosis of spine Activity: Resume your previous activity Activity Comment: as tolerated Non-emergency contact: Primary Care Provider and Retirement Actuary Call non-emergency contact if: you have any medication questions and your symptoms worsen Follow-up/Referrals: Pro,Marko Barroso MD [Primary Care Provider] - (1 week ) Mario Lux MD [Physician] - (2-3 weeks - any pulmonary provider - recurrent episodes of dyspnea, abnormal chest CT. ) Diet: Regular Diet Texture: Easy to Chew Pending Studies at Discharge: No Stand-Alone Forms: My [employer], Smoking Cessation Skilled Items Patient informed of condition?: Yes DNR: Yes Discharge Level of Care: Other Communicable Disease: No Discharge Prognosis: Stable Lines: None Urinary Catheter: No Medications and DC Order Prescriptions: New polyethylene glycol 3350 [Miralax] 17 gram Powder In Packet 17 g PO DAILY Qty: 30 2RF prednisone 5 mg tablet 5 mg PO DIRECTED Qty: 9 0RF Rx Instructions: 2 tabs po daily x 3 days, then 1 tab po daily x 3 days, then stop. Take w/ food. Start 03/04/23. Continued acetaminophen 500 mg tablet 1,000 mg PO TID Qty: 180 0RF oxybutynin chloride 5 mg tablet extended release 24hr 5 mg PO QAM Qty: 90 3RF Xarelto 15 mg tablet 15 mg PO DAILY Qty: 90 3RF pantoprazole [Protonix] 40 mg tablet,delayed release (DR/EC) 40 mg PO BID Qty: 60 5RF alendronate 70 mg tablet 70 mg PO .ONCE WEEKLY Qty: 12 1RF baclofen 5 mg tablet 5 mg PO BID Qty: 60 5RF metoprolol succinate 25 mg tablet extended release 24 hr 25 mg PO QAM Qty: 30 5RF escitalopram oxalate [Lexapro] 5 mg tablet 5 mg PO DAILY Qty: 30 0RF diclofenac sodium 1 % gel 2 g topical BID PRN (Reason: Back Pain) Patient Comments: CONFIRMED W/ JOSSIE FROM [facility] THAT SHE USES BID PRN 02/08 Rx Instructions: apply to back Calcium 600 + D(3) 600 mg calcium- 200 unit capsule 1 cap PO QAM cholecalciferol (vitamin D3) 2,000 unit capsule 2,000 units PO QDL cranberry 500 mg capsule 500 mg PO QAM magnesium chloride 64 mg tablet,delayed release (DR/EC) 64 mg PO TID Acidophilus Capsule 175 mg PO DAILY melatonin 3 mg capsule 3 mg PO HS PRN (Reason: sleep) Qty: 90 3RF docusate sodium [Stool Softener] 100 mg tablet 100 mg PO QAM multivitamin with iron Tablet 1 tab PO DAILY cyanocobalamin (vitamin B-12) [Vitamin B-12] 500 mcg Tablet 500 mcg PO 2XWK Rx Instructions: sat, sun lorazepam 1 mg tablet 1 mg PO DAILY PRN (Reason: Anxiety) Qty: 10 0RF Changed tramadol 50 mg tablet 25 mg PO Q6H PRN (Reason: pain) Qty: 10 0RF lisinopril 10 mg tablet 10 mg PO DAILY Qty: 30 2RF Discharge Orders: Discharge Order (Routine); Ordered 03/03/23 Ordered By: Trevon Alexandra/Other Patient Handouts: What Is Gout, ED Gout Diet Admission Data Admit Date/Time: 02/24/23 13:02 Attending Provider: Trevon Cazares Admit Provider: Pablo Be Primary Care Provider: Marko Dennis Other Providers: Pablo Be ; uJanito Dowd Coding Diagnoses Acute gout M10.9 Anorexia R63.0 Acute respiratory failure with hypoxia J96.01 Acute diastolic CHF (congestive heart failure) I50.31 Generalized weakness R53.1 Hypomagnesemia E83.42 Elevated troponin R77.8 Aortic valve stenosis I35.0 Anemia D64.9 Paroxysmal atrial fibrillation I48.0 HTN (hypertension) I10 Non-Hodgkin's lymphoma C85.90 Dysphagia R13.10 Orthostasis I95.1 Chronic kidney disease, stage IV (severe) N18.4
[2023-03-03] MEDS ORDERED: lisinopril 10 MG TAB PO SCH (14:15)
[2023-03-03] MEDS ORDERED: predniSONE 10 MG TABLET PO SCH (14:15)
[2023-03-03] MEDS ORDERED: predniSONE 10 MG TABLET PO ONE (15:00)
[2023-03-03] MEDS ORDERED: lisinopril 10 MG TAB PO ONE (15:00)
== END 2023-03-03 16:21 | disposition home or self-care (01) | DRG 291 ==
LOC: ED 09:59 → EDINP 13:02 → SUATTDRO 13:02 → 2N 15:18